=== PATIENT | female | born 2000 | race Caucasian/White ===

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

== ENCOUNTER → 2018-02-06 | Outpatient (REF) | payer OTHER | LOC: M LAB REF 16:37 | DX: J06.9 Acute upper respiratory infection, unspecified (principal) ==

== ENCOUNTER → 2018-02-19 | Outpatient (CLI) | payer OTHER ==
[2018-02-19 17:25] LABS: BASO # 0.1 10^3/uL (0.0-0.2); BASO % 0.9 % (0.0-1.0); EOS # 0.1 10^3/uL (0.0-0.50); EOS % 1.2 % (0.0-3.0); HEMOGLOBIN 15.1 g/dl (12.0-15.5); IMMATURE GRANULOCYTE % 0.2 % (0-3.0); LYMPH # 4.2 10^3/uL (1.5-6.5); LYMPH % 42.3 % (24.0-44.0); MEAN CORPUSCULAR HEMOGLOBIN 29.5 pg (27.0-33.0); MEAN CORPUSCULAR HGB CONC 35.1 g/dl (32.0-36.5); MONO # 0.5 10^3/uL (0.0-0.8); MONO % 4.5 % (0.0-5.0); NEUTROPHILS # 5.1 10^3/uL (1.8-7.7); NEUTROPHILS % 50.9 % (36.0-66.0); PLATELET COUNT, AUTOMATED 235 10^3/uL (150-450); RED BLOOD COUNT 5.12 10^6/uL (4.00-5.40); RED CELL DISTRIBUTION WIDTH 11.5 % (11.5-14.5); WHITE BLOOD COUNT 9.9 10^3/uL (4.0-10.0)
[2018-02-19 17:34] LABS: ALBUMIN 4.4 GM/DL (3.2-5.2); ALBUMIN/GLOBULIN RATIO 1.29 (1.00-1.93); ALKALINE PHOSPHATASE 51 U/L (45-117); ALT/SGPT 30 U/L (12-78); ANION GAP 10 MEQ/L (8-16); AST/SGOT 18 U/L (7-37); BILIRUBIN,TOTAL 0.3 MG/DL (0.2-1.0); BLOOD UREA NITROGEN 17 MG/DL (7-18); CALCIUM LEVEL 9.6 MG/DL (8.5-10.1); CARBON DIOXIDE LEVEL 27 MEQ/L (21-32); CHLORIDE LEVEL 103 MEQ/L (98-107); FREE T4 1.18 NG/DL (0.78-1.33); GLUCOSE, FASTING 78 MG/DL (70-100); IRON (FE) 110 UG/DL (50-170); PERCENT SATURATION 25.4 % (13.2-45.0); POTASSIUM SERUM 3.8 MEQ/L (3.5-5.1); SODIUM LEVEL 140 MEQ/L (136-145); TOTAL IRON BINDING CAPACITY 433 UG/DL (250-450); TOTAL PROTEIN 7.8 GM/DL (6.4-8.2)
== END ==
LOC: M LAB 16:02
DX: R53.83 Other fatigue (principal)
CPT/HCPCS: 83550

== ENCOUNTER → 2018-03-05 | Outpatient (REF) | payer OTHER | LOC: M SFHCLERA 13:37 | DX: L01.03 Bullous impetigo (principal) ==

== ENCOUNTER → 2018-05-04 | Outpatient (REF) | payer OTHER | LOC: M LAB REF 17:20 | PROVIDERS: ATTEND Physician Assistant | DX: N39.0 Urinary tract infection, site not specified (principal) ==

== ENCOUNTER → 2018-05-08 | Outpatient (REF) | payer OTHER | LOC: M LAB REF 12:47 | PROVIDERS: ATTEND Physician Assistant | DX: N39.0 Urinary tract infection, site not specified (principal) ==

== ENCOUNTER → 2018-05-22 | Outpatient (REF) | payer OTHER | LOC: M LAB REF 19:08 | PROVIDERS: ATTEND Physician Assistant | DX: J02.9 Acute pharyngitis, unspecified (principal) ==

== ENCOUNTER → 2018-08-29 | Outpatient (REF) | payer OTHER ==
[2018-08-29 18:07] LABS: AMORPHOUS SEDIMENT LARGE (NEGATIVE); APPEARANCE, URINE TURBID (CLEAR); BACTERIA, URINE AUTO 1+ (NEGATIVE); BILIRUBIN, URINE AUTO NEGATIVE (NEGATIVE); BLOOD, URINE BLOOD 1+ (NEGATIVE); COLOR, URINE YELLOW (YELLOW); GLUCOSE, URINE (UA) AUTO NEGATIVE (NEGATIVE); KETONE, URINE AUTO NEGATIVE (NEGATIVE); LEUKOCYTE ESTERASE, URINE AUTO 3+ (NEGATIVE); NITRITE, URINE AUTO NEGATIVE (NEGATIVE); PROTEIN, URINE AUTO NEGATIVE (NEGATIVE); RBC, URINE AUTO 5 /HPF (0-3); SPECIFIC GRAVITY URINE AUTO 1.023 (1.002-1.035); SQUAMOUS EPITHELIAL CELL UR AU 20 /HPF (0-6); WBC, URINE AUTO 22 /HPF (0-3)
== END ==
LOC: M LAB REF 16:29
PROVIDERS: ATTEND Physician Assistant
DX: N39.0 Urinary tract infection, site not specified (principal)

== ENCOUNTER → 2018-08-31 | Outpatient (REF) | payer OTHER ==
[2018-08-31 20:04] LABS: CHLAMYDIA DNA AMPLIFICATION NEGATIVE (NEGATIVE); GC DNA AMPLIFICATION NEGATIVE (NEGATIVE)
== END ==
LOC: M LAB REF 16:42
PROVIDERS: ATTEND Physician Assistant
DX: N91.2 Amenorrhea, unspecified (principal)

== ENCOUNTER → 2018-09-21 | Outpatient (CLI) | payer OTHER ==
[2018-09-21 10:50] LABS: BASO # 0.1 10^3/uL (0.0-0.2); BASO % 0.9 % (0.0-1.0); EOS # 0.1 10^3/uL (0.0-0.50); EOS % 0.8 % (0.0-3.0); HEMATOCRIT 45.6 % (36.0-47.0); HEMOGLOBIN 15.5 g/dl (12.0-15.5); LYMPH # 2.8 10^3/uL (1.5-6.5); LYMPH % 37.9 % (24.0-44.0); MEAN CORPUSCULAR HEMOGLOBIN 29.6 pg (27.0-33.0); MEAN CORPUSCULAR VOLUME 87.2 fl (80.0-96.0); MONO # 0.4 10^3/uL (0.0-0.8); MONO % 4.8 % (0.0-5.0); NEUTROPHILS # 4.1 10^3/uL (1.8-7.7); NEUTROPHILS % 55.5 % (36.0-66.0); PLATELET COUNT, AUTOMATED 160 10^3/uL (150-450); RED BLOOD COUNT 5.23 10^6/uL (4.00-5.40); WHITE BLOOD COUNT 7.5 10^3/uL (4.0-10.0)
[2018-09-21 11:13] LABS: ALBUMIN 4.5 GM/DL (3.2-5.2); ALT/SGPT 85 U/L (12-78); BILIRUBIN,TOTAL 0.6 MG/DL (0.2-1.0); BLOOD UREA NITROGEN 20 MG/DL (7-18); CALCIUM LEVEL 9.5 MG/DL (8.5-10.1); CARBON DIOXIDE LEVEL 26 MEQ/L (21-32); CHLORIDE LEVEL 109 MEQ/L (98-107); CREATININE FOR GFR 0.83 MG/DL (0.55-1.30); GLUCOSE, FASTING 73 MG/DL (70-100); SODIUM LEVEL 142 MEQ/L (136-145); TOTAL PROTEIN 7.3 GM/DL (6.4-8.2)
== END ==
LOC: M LAB 09:58
PROVIDERS: ATTEND Physician Assistant
DX: R31.9 Hematuria, unspecified (principal)

== ENCOUNTER → 2018-09-22 | Outpatient (REF) | payer OTHER ==
[2018-09-22 11:03] LABS: APPEARANCE, URINE CLEAR (CLEAR); BACTERIA, URINE AUTO NEGATIVE (NEGATIVE); BILIRUBIN, URINE AUTO NEGATIVE (NEGATIVE); BLOOD, URINE BLOOD NEGATIVE (NEGATIVE); COLOR, URINE YELLOW (YELLOW); GLUCOSE, URINE (UA) AUTO NEGATIVE (NEGATIVE); KETONE, URINE AUTO NEGATIVE (NEGATIVE); LEUKOCYTE ESTERASE, URINE AUTO NEGATIVE (NEGATIVE); MUCUS, URINE SMALL (NEGATIVE); NITRITE, URINE AUTO NEGATIVE (NEGATIVE); PROTEIN, URINE AUTO NEGATIVE (NEGATIVE); RBC, URINE AUTO 3 /HPF (0-3); SPECIFIC GRAVITY URINE AUTO 1.024 (1.002-1.035); SQUAMOUS EPITHELIAL CELL UR AU 1 /HPF (0-6); UROBILINOGEN, URINE AUTO 0.2 mg/dL (0.0-2.0); WBC, URINE AUTO 1 /HPF (0-3)
== END ==
LOC: M LAB REF 08:00
PROVIDERS: ATTEND Physician Assistant
DX: R31.9 Hematuria, unspecified (principal)

== ENCOUNTER → 2018-10-04 | Outpatient (REF) | payer OTHER ==
[2018-10-04 21:52] LABS: APPEARANCE, URINE HAZY (CLEAR); BACTERIA, URINE AUTO NEGATIVE (NEGATIVE); BILIRUBIN, URINE AUTO NEGATIVE (NEGATIVE); BLOOD, URINE BLOOD 2+ (NEGATIVE); COLOR, URINE YELLOW (YELLOW); GLUCOSE, URINE (UA) AUTO NEGATIVE (NEGATIVE); KETONE, URINE AUTO TRACE mg/dL (NEGATIVE); LEUKOCYTE ESTERASE, URINE AUTO 3+ (NEGATIVE); MUCUS, URINE SMALL (NEGATIVE); NITRITE, URINE AUTO NEGATIVE (NEGATIVE); PROTEIN, URINE AUTO NEGATIVE (NEGATIVE); RBC, URINE AUTO 9 /HPF (0-3); SPECIFIC GRAVITY URINE AUTO 1.028 (1.002-1.035); SQUAMOUS EPITHELIAL CELL UR AU 12 /HPF (0-6); UROBILINOGEN, URINE AUTO 0.2 mg/dL (0.0-2.0); WBC, URINE AUTO 38 /HPF (0-3)
== END ==
LOC: M LAB REF 09:54
PROVIDERS: ATTEND Physician Assistant
DX: N39.0 Urinary tract infection, site not specified (principal)

== ENCOUNTER → 2018-10-08 | Outpatient (CLI) | payer OTHER ==
[2018-10-08 13:17] LABS: BASO # 0.1 10^3/uL (0.0-0.2); BASO % 0.7 % (0.0-1.0); EOS # 0.1 10^3/uL (0.0-0.50); EOS % 0.6 % (0.0-3.0); HEMATOCRIT 42.1 % (36.0-47.0); HEMOGLOBIN 14.6 g/dl (12.0-15.5); LYMPH # 2.8 10^3/uL (1.5-6.5); LYMPH % 31.3 % (24.0-44.0); MEAN CORPUSCULAR HEMOGLOBIN 29.3 pg (27.0-33.0); MEAN CORPUSCULAR HGB CONC 34.7 g/dl (32.0-36.5); MEAN CORPUSCULAR VOLUME 84.5 fl (80.0-96.0); MONO # 0.4 10^3/uL (0.0-0.8); MONO % 4.2 % (0.0-5.0); NEUTROPHILS # 5.6 10^3/uL (1.8-7.7); PLATELET COUNT, AUTOMATED 172 10^3/uL (150-450); RED BLOOD COUNT 4.98 10^6/uL (4.00-5.40); WHITE BLOOD COUNT 8.9 10^3/uL (4.0-10.0)
[2018-10-08 13:40] LABS: ALBUMIN 4.6 GM/DL (3.2-5.2); ALT/SGPT 44 U/L (12-78); BILIRUBIN,TOTAL 0.7 MG/DL (0.2-1.0); BLOOD UREA NITROGEN 14 MG/DL (7-18); CALCIUM LEVEL 9.4 MG/DL (8.5-10.1); CARBON DIOXIDE LEVEL 27 MEQ/L (21-32); CHLORIDE LEVEL 104 MEQ/L (98-107); COMPLEMENT C3 91 MG/DL (90-180); COMPLEMENT C4 21 MG/DL (10-40); CREATININE FOR GFR 0.78 MG/DL (0.55-1.30); GLUCOSE, FASTING 88 MG/DL (70-100); HCG, SERUM QUANTITATIVE 31 MIU/ML; IMMUNOGLOBULIN A 66.1 MG/DL (70-400); POTASSIUM SERUM 4.2 MEQ/L (3.5-5.1); RHEUMATOID FACTOR QUANT < 10.0 IU/ML (<15.0); SODIUM LEVEL 138 MEQ/L (136-145); TOTAL PROTEIN 7.6 GM/DL (6.4-8.2)
[2018-10-08 13:52] LABS: ERYTHROCYTE SEDIMENTATION RATE 2 mm/hr (0-20)
--- NOTE | 2018-10-08 13:52 | REP ---
PELVIC ULTRASOUND: Real-time sonographic evaluation of the pelvis performed. Transabdominal and endovaginal technique utilized. Uterus measures 7.5 x 2.9 x 3.1 cm. Endometrial thickness is 11 mm. No gestational sac is seen in the uterus. Right ovary measures 2.9 x 1.6 x 2.6 cm. Left ovary measures 4.0 x 3.9 x 4.6 cm and contains a complex cyst 4.4 x 3.5 x 3.4 cm. There is no other evidence of adnexal mass or free fluid. There is no torsion. IMPRESSION: No gestational sac seen in the endometrial canal. Complex cyst left ovary 4.4 cm in maximum diameter without other evidence of adnexal mass or free fluid. Differential diagnosis would include very early intrauterine , missed AB, or ectopic . Suggest correlation with serial quantitaive beta hCG values, and followup ultrasound as necessary. Electronically Signed by Clifton Rock MD 10/09/2018 11:36 A
[2018-10-08 14:05] LABS: AMORPHOUS SEDIMENT LARGE (NEGATIVE); APPEARANCE, URINE TURBID (CLEAR); BACTERIA, URINE AUTO NEGATIVE (NEGATIVE); BILIRUBIN, URINE AUTO NEGATIVE (NEGATIVE); BLOOD, URINE BLOOD 1+ (NEGATIVE); COLOR, URINE YELLOW (YELLOW); GLUCOSE, URINE (UA) AUTO NEGATIVE (NEGATIVE); KETONE, URINE AUTO NEGATIVE (NEGATIVE); LEUKOCYTE ESTERASE, URINE AUTO NEGATIVE (NEGATIVE); MUCUS, URINE LARGE (NEGATIVE); NITRITE, URINE AUTO NEGATIVE (NEGATIVE); PROTEIN, URINE AUTO NEGATIVE (NEGATIVE); RBC, URINE AUTO 0 /HPF (0-3); SQUAMOUS EPITHELIAL CELL UR AU 1 /HPF (0-6); UROBILINOGEN, URINE AUTO 0.2 mg/dL (0.0-2.0); WBC, URINE AUTO 0 /HPF (0-3)
[2018-10-10 00:08] LABS: ANTINUCLEAR ANTIBODIES DIRECT Negative (Negative); TISSUE TRANSGLUTAMINASE IgA <2 U/mL (0-3)
== END ==
LOC: M RAD 11:57
PROVIDERS: ATTEND Pediatrics
DX: R10.30 Lower abdominal pain, unspecified (principal); M25.50 Pain in unspecified joint

== ENCOUNTER → 2018-10-30 | Outpatient (REF) | payer OTHER ==
[2018-10-30 18:02] LABS: URINE PREG TEST INDETERM. (NEGATIVE)
[2018-10-30 18:10] LABS: APPEARANCE, URINE HAZY (CLEAR); BACTERIA, URINE AUTO 1+ (NEGATIVE); BILIRUBIN, URINE AUTO NEGATIVE (NEGATIVE); BLOOD, URINE BLOOD 1+ (NEGATIVE); COLOR, URINE YELLOW (YELLOW); GLUCOSE, URINE (UA) AUTO NEGATIVE (NEGATIVE); KETONE, URINE AUTO NEGATIVE (NEGATIVE); LEUKOCYTE ESTERASE, URINE AUTO NEGATIVE (NEGATIVE); MUCUS, URINE SMALL (NEGATIVE); NITRITE, URINE AUTO NEGATIVE (NEGATIVE); PROTEIN, URINE AUTO NEGATIVE (NEGATIVE); RBC, URINE AUTO 1 /HPF (0-3); SPECIFIC GRAVITY URINE AUTO 1.029 (1.002-1.035); SQUAMOUS EPITHELIAL CELL UR AU 2 /HPF (0-6); UROBILINOGEN, URINE AUTO 0.2 mg/dL (0.0-2.0); WBC, URINE AUTO 0 /HPF (0-3)
== END ==
LOC: M SMT 16:55
PROVIDERS: ATTEND Nurse Practitioner Family
DX: R31.29 Other microscopic hematuria (principal)

== ENCOUNTER → 2018-11-08 | Outpatient (CLI) | payer OTHER | LOC: M SMT 13:05 | PROVIDERS: ATTEND Nurse Practitioner Family | DX: R31.29 Other microscopic hematuria (principal) ==

== ENCOUNTER → 2018-11-16 | Outpatient (CLI) | payer OTHER ==
[~2018-11-16] MED LIST: ISOVUE-370 76% 100ML VIAL (Q9967) As Ordered ONE
--- NOTE | 2018-11-16 12:40 | REP ---
CT urography: CT abdomen and pelvis without and with IV contrast: History: Microscopic hematuria. Comparison CT study June 20, 2009. CT contrast dose: 100 mL of intravenous Isovue 370. CT findings: Preliminary digital insight leader radiograph demonstrates an unremarkable bowel gas pattern. The lung bases are clear on axial CT images. The liver and the spleen are normal in size and homogeneous in texture on pre and postcontrast images. No adrenal lesion is seen on either side. No abnormalities noted in the gallbladder or the pancreas on pre or postcontrast CT images. No intrarenal nephrolithiasis is appreciated. No hydronephrosis is seen. Kidneys enhance symmetrically and are morphologically intact. No mass or cyst is seen in either kidney. Delayed scan images postcontrast demonstrate no filling defect in the collecting systems. Ureters are unremarkable. There is no visible bladder mass. No uterine or ovarian abnormality is observed. No abdominal wall defect is seen. No abdominal wall defect is seen. Bone window settings show no bony destructive lesion. Impression: Normal CT urography. No urinary tract abnormality seen. Electronically Signed by Alexis Gary MD 11/16/2018 01:05 P
== END ==
LOC: M RAD 09:21
PROVIDERS: ATTEND Nurse Practitioner Family
DX: R31.9 Hematuria, unspecified (principal)

== ENCOUNTER → 2019-02-27 | Outpatient (REF) | payer OTHER | LOC: M LAB REF 12:12 | PROVIDERS: ATTEND Physician Assistant | DX: R10.9 Unspecified abdominal pain (principal) ==

== ENCOUNTER → 2020-04-20 | Outpatient (CLI) | payer SELFPAY | LOC: M LABSMTC 12:36 | PROVIDERS: ATTEND Pediatrics | DX: Z20.828 Contact with and (suspected) exposure to other viral communicable diseases (principal) ==

== ENCOUNTER → 2020-05-15 | Outpatient (CLI) | payer OTHER, BC ==
[2020-05-15 11:42] LABS: HEMATOCRIT 40.7 % (36.0-47.0); HEMOGLOBIN 13.8 g/dl (12.0-15.5); MEAN CORPUSCULAR HEMOGLOBIN 29.2 pg (27.0-33.0); MEAN CORPUSCULAR HGB CONC 33.9 g/dl (32.0-36.5); MEAN CORPUSCULAR VOLUME 86.2 fl (80.0-96.0); PLATELET COUNT, AUTOMATED 217 10^3/uL (150-450); RED BLOOD COUNT 4.72 10^6/uL (4.00-5.40); WHITE BLOOD COUNT 9.5 10^3/uL (4.0-10.0)
[2020-05-15 13:12] LABS: FREE THYROXINE INDEX 3.4 % (1.3-4.8); HCG, SERUM QUANTITATIVE 33588 MIU/ML; HEPATITIS B SURFACE ANTIGEN NEGATIVE (NEGATIVE); HEPATITIS C VIRUS ABY INDEX < 0.0 INDEX (<0.8); HIV 1&2 SCREEN CENTAUR NEGATIVE (NEGATIVE); T UPTAKE 29 % (30-39); THYROXINE (T4) 11.7 UG/DL (4.5-12.0)
== END ==
LOC: M LAB 10:42
PROVIDERS: ATTEND Advanced Practice Midwife
DX: Z34.81 Encounter for supervision of other normal pregnancy, first trimester (principal); Z3A.00 Weeks of gestation of pregnancy not specified

== ENCOUNTER → 2020-05-15 | Outpatient (REF) | payer OTHER | LOC: M LAB REF 12:19 | PROVIDERS: ATTEND Advanced Practice Midwife | DX: O36.80X0 Pregnancy with inconclusive fetal viability, not applicable or unspecified (principal) ==

== ENCOUNTER → 2020-05-21 | Outpatient (CLI) | payer BC ==
--- NOTE | 2020-05-21 09:12 | REP ---
INDICATION: DATING/VIABILITY COMPARISON: None. TECHNIQUE: Transabdominal and transvaginal 1st trimester obstetrical ultrasound with color Doppler evaluation. FINDINGS: Single live early intrauterine is appreciated. Gestational sac with yolk sac and pole identified. [place]-rump length of 13 mm corresponds to 7 weeks 3 days gestational age with estimated date of delivery 01/04/2021. heart rate equals 152 beats per minute. No gross abnormalities are identified. Left corpus luteal cyst suggested. IMPRESSION: Single live early intrauterine at 7 weeks 3 days gestational age. Complete anatomical assessment should be performed and 19-20 weeks. <Electronically signed by Heath Ford > 05/21/20 0992
== END ==
LOC: M WHC 07:55
PROVIDERS: ATTEND Advanced Practice Midwife
DX: Z36.9 Encounter for antenatal screening, unspecified (principal); Z3A.01 Less than 8 weeks gestation of pregnancy

== ENCOUNTER → 2020-06-04 | Outpatient (REF) | LOC: M LABSMTC 12:00 | PROVIDERS: ATTEND Pediatrics | DX: Z20.822 Contact with and (suspected) exposure to COVID-19 (principal) ==

== ENCOUNTER → 2020-07-08 | Outpatient (REF) | payer OTHER ==
[2020-07-08 11:34] LABS: APPEARANCE, URINE HAZY (CLEAR); BACTERIA, URINE AUTO 1+ (NEGATIVE); BILIRUBIN, URINE AUTO NEGATIVE (NEGATIVE); BLOOD, URINE BLOOD 2+ (NEGATIVE); COLOR, URINE YELLOW (YELLOW); GLUCOSE, URINE (UA) AUTO NEGATIVE (NEGATIVE); KETONE, URINE AUTO NEGATIVE (NEGATIVE); LEUKOCYTE ESTERASE, URINE AUTO NEGATIVE (NEGATIVE); MUCUS, URINE LARGE (NEGATIVE); NITRITE, URINE AUTO NEGATIVE (NEGATIVE); PROTEIN, URINE AUTO 1+ mg/dL (NEGATIVE); RBC, URINE AUTO 5 /HPF (0-3); SPECIFIC GRAVITY URINE AUTO 1.026 (1.002-1.035); SQUAMOUS EPITHELIAL CELL UR AU 12 /HPF (0-6); UROBILINOGEN, URINE AUTO 0.2 mg/dL (0.0-2.0); WBC, URINE AUTO 3 /HPF (0-3)
== END ==
LOC: M SFHCCLAY 09:02
PROVIDERS: ATTEND Physician Assistant
DX: O26.891 Other specified pregnancy related conditions, first trimester (principal); M54.5 Low back pain; Z3A.14 14 weeks gestation of pregnancy

== ENCOUNTER → 2020-08-03 | Outpatient (CLI) | payer BC, OTHER ==
--- NOTE | 2020-08-04 08:06 | REP ---
INDICATION: ANATOMY COMPARISON: None. TECHNIQUE: Transabdominal obstetrical ultrasound with color Doppler evaluation. FINDINGS: Examination demonstrates a single live intrauterine in variable presentation. motion is identified by technologist. Placenta previa is noted with posterior placenta and grade 0 partially covering the internal os. Amniotic fluid volume is normal. Cervix measures 3.8 cm in length and appears closed.. Gestational age by LMP and 1st ultrasound 18 weeks 1 day with DOMONIQUE 01/03/2021. Gestational age by current measurements 18 weeks 1 day with DOMONIQUE 01/03/2021. FHR equals 140 beats per minute. BPD: 3.9 cm at 18 weeks 0 days HC: 14.9 cm at 18 weeks 0 days AC: 12.5 cm at 18 weeks 1 day FL: 2.7 cm at 18 weeks 0 days HL: 2.7 cm at 18 weeks 5 days HC/AC: 1.19 Estimated weight 222 grams (40thpercentile). Anatomical assessment demonstrates normal structures including cranium, choroid plexus, cavum, cerebellum/posterior fossa, facial features, lungs, four-chamber heart/ventricular outflow tracts, diaphragm, stomach, cord insertion/three-vessel cord, kidneys/bladder, spine, and extremities. Echogenic focus identified within the left cardiac ventricle likely chordae tendineae. IMPRESSION: 1. Single live intrauterine in variable presentation. 2. Partial placenta previa with posterior grade 0 placenta. 3. Suspected prominent chordae tendineae. Otherwise normal anatomical assessment. <Electronically signed by Heath Ford > 08/04/20 [id number]
== END ==
LOC: M WHC 09:12
PROVIDERS: ATTEND Obstetrics & Gynecology
DX: Z36.9 Encounter for antenatal screening, unspecified (principal); Z3A.18 18 weeks gestation of pregnancy

== ENCOUNTER → 2020-08-10 | Outpatient (CLI) | payer BC, OTHER | LOC: M PLALAB 09:15 | PROVIDERS: ATTEND Advanced Practice Midwife | DX: O28.5 Abnormal chromosomal and genetic finding on antenatal screening of mother (principal); O28.3 Abnormal ultrasonic finding on antenatal screening of mother; Z3A.00 Weeks of gestation of pregnancy not specified ==

== ENCOUNTER → 2020-09-22 | Outpatient (REF) | payer BC, OTHER | LOC: M SFHCWAGY 16:42 | PROVIDERS: ATTEND Obstetrics & Gynecology | DX: O44.22 Partial placenta previa NOS or without hemorrhage, second trimester (principal); Z3A.00 Weeks of gestation of pregnancy not specified ==

== ENCOUNTER → 2020-09-30 | Outpatient (REF) | payer OTHER ==
[2020-09-30 13:26] LABS: HEMATOCRIT 35.5 % (36.0-47.0); HEMOGLOBIN 11.6 g/dl (12.0-15.5); MEAN CORPUSCULAR HEMOGLOBIN 29.4 pg (27.0-33.0); MEAN CORPUSCULAR HGB CONC 32.7 g/dl (32.0-36.5); MEAN CORPUSCULAR VOLUME 89.9 fl (80.0-96.0); PLATELET COUNT, AUTOMATED 185 10^3/uL (150-450); RED BLOOD COUNT 3.95 10^6/uL (4.00-5.40); WHITE BLOOD COUNT 12.3 10^3/uL (4.0-10.0)
== END ==
LOC: M PLALAB 09:04
PROVIDERS: ATTEND Specialist
DX: Z34.02 Encounter for supervision of normal first pregnancy, second trimester (principal); Z3A.00 Weeks of gestation of pregnancy not specified

== ENCOUNTER → 2020-11-04 | Outpatient (CLI) | payer BC ==
[~2020-11-04] MED LIST changes: -ISOVUE-370 76% 100ML VIAL (Q9967) As Ordered ONE; +NITR-67 PO; +PRENTAB9 PO
--- NOTE | 2020-11-04 09:50 | REP ---
INDICATION: GROWTH,PARTIAL PLACENTA PREVIA COMPARISON: None. TECHNIQUE: Transabdominal obstetrical ultrasound with color Doppler evaluation. FINDINGS: Examination demonstrates a single live intrauterine in cephalic presentation. motion is identified by technologist. Placenta is noted posterior and grade 1 without evidence for placenta previa or abruption. Amniotic fluid volume is normal. Cervix measures 3.9 cm in length and appears closed. Current examination without evidence for placenta previa. Selected gestational age: 31 weeks 3 days with DOMONIQUE 01/03/2021. Gestational age by current measurements 32 weeks 0 days with DOMONIQUE 12/30/2020. FHR equals 146 beats per minute. Estimated weight 1888 grams (59thpercentile). LEESA: 16.1 cm (8.7-24.0) IMPRESSION: Normal examination. No evidence for placenta previa. Appropriate estimated weight/growth and amniotic fluid volume. <Electronically signed by Heath Ford > 11/04/20 [id number]
== END ==
LOC: M WHC 08:24
PROVIDERS: ATTEND Specialist
DX: O44.22 Partial placenta previa NOS or without hemorrhage, second trimester (principal); Z3A.31 31 weeks gestation of pregnancy

== ENCOUNTER 2020-11-08 10:10 | Outpatient (CLI) | payer BC ==
[~2020-11-08] VITALS: Ht 154.9 cm; Wt 67.5 kg
[2020-11-08] MEDS ORDERED: PRENTAB9 PO (10:36)
[2020-11-08 10:40] VITALS: BP 122/79
[2020-11-08] MEDS ORDERED: LR 1,000 ML IV ONE (10:50)
[2020-11-08] MEDS ORDERED: LR 1,000 ML IV SCH (12:25)
[2020-11-08] MEDS ORDERED: LACTATED RINGER'S 1000 ML IV STA (12:46)
--- NOTE | 2020-11-08 12:50 | IPNPDOC ---
Text Note Date of Service The patient was seen on 11/08/20. NOTE Labor and Delivery Triage Note: S: 20yo at 32w0d diarrhea and nausea for 3 days. She reports 5-6 loose stools today and at least 6 yesterday. She's been able to tolerate by mouth following solid food she'll have a bout of diarrhea. Denies fever or chills,con tractions ,vaginal bleeding or LOF. Reports active movement. O: vss, AF initially with contractions on tocometer Cat 1 tracing Gen: well appearing, NAD Abd: gravid, soft, nttp cx: long/ closed, rechecked unchanged after 3 hours FSN was negative Urinalysis consistent with cystitis A/P: 20yo not in PTL reassuring status UTI -home with PTL precautions and FKCs. -f/u at next OB appt Janna Canseco MD VS,Vinod, I+O VS, Vinod, I+O Vital Signs Date Time Temp Pulse Resp B/P (MAP) Pulse Ox O2 Delivery O2 Flow Rate FiO2 11/08/20 10:40 98.5 105 16 122/79 (93) JANNA CANSECO MD. Nov 08, 2020 12:50
[2020-11-08] MEDS ORDERED: TERBUTALINE SULFATE 1 MG/ML VIAL (J3105) SC STA (14:06)
[2020-11-08 14:30] VITALS: BP 110/63
[2020-11-08] MEDS ORDERED: cefTRIAXone SOD 1 GM in D5W MINI-BAG PLUS 50 ML IV ONE (15:15)
[2020-11-08 17:35] VITALS: BP 110/57
[2020-11-08] MEDS ORDERED: NITR-67 PO (18:10)
== END 2020-11-08 18:15 | disposition home or self-care (01) ==
LOC: M LDO 10:10
PROVIDERS: ATTEND Obstetrics & Gynecology
DX: O26.893 Other specified pregnancy related conditions, third trimester (principal); Z3A.32 32 weeks gestation of pregnancy; R11.0 Nausea; R19.7 Diarrhea, unspecified; O23.43 Unspecified infection of urinary tract in pregnancy, third trimester
CPT/HCPCS: 59025; 81001; 82731; 87086; 96361; 96365; 96366; 96372; G0378; G0463; J0696; J3105

== ENCOUNTER → 2020-12-04 | Outpatient (REF) | payer OTHER ==
[2020-12-04 15:31] LABS: APPEARANCE, URINE HAZY (CLEAR); BACTERIA, URINE AUTO 1+ (NEGATIVE); BILIRUBIN, URINE AUTO NEGATIVE (NEGATIVE); BLOOD, URINE BLOOD NEGATIVE (NEGATIVE); COLOR, URINE YELLOW (YELLOW); GLUCOSE, URINE (UA) AUTO NEGATIVE (NEGATIVE); KETONE, URINE AUTO NEGATIVE (NEGATIVE); LEUKOCYTE ESTERASE, URINE AUTO 2+ (NEGATIVE); NITRITE, URINE AUTO NEGATIVE (NEGATIVE); PROTEIN, URINE AUTO NEGATIVE (NEGATIVE); RBC, URINE AUTO 2 /HPF (0-3); SPECIFIC GRAVITY URINE AUTO 1.005 (1.002-1.035); SQUAMOUS EPITHELIAL CELL UR AU 6 /HPF (0-6); UROBILINOGEN, URINE AUTO 0.2 mg/dL (0.0-2.0); WBC, URINE AUTO 4 /HPF (0-3)
== END ==
LOC: M SFHCWAGY 15:00
PROVIDERS: ATTEND Advanced Practice Midwife
DX: R30.0 Dysuria (principal)

== ENCOUNTER 2020-12-08 21:52 | Outpatient (CLI) | payer OTHER ==
[~2020-12-08] VITALS: Ht 152.4 cm; Wt 72.2 kg
[2020-12-08] MEDS ORDERED: HOME MED LIST COMPLETE! XX SCH (22:25)
--- NOTE | 2020-12-08 22:26 | IPNPDOC ---
Text Note Date of Service The patient was seen on 12/08/20. NOTE Labor and Delivery Triage Note: S: 20-year-old G1 presents with decreased movement at 36 weeks. Denies any vaginal bleeding leakage of fluids or regular pattern contractions. O: vss, AF irregular ctx Cat 1 tracing Gen: well appearing, NAD Abd: gravid, soft, nttp -Reports active movement once on the nonstress test A/P: 20-year-old G1 with reassuring status -home with PTL precautions and FKCs. -f/u at next OB appt MD AMANDA Yi KENYA MD. Dec 08, 2020 22:26
[2020-12-08 22:28] VITALS: BP 120/70
== END 2020-12-08 22:38 | disposition home or self-care (01) ==
LOC: M LDO 21:52
PROVIDERS: ATTEND Obstetrics & Gynecology
DX: O36.8130 Decreased fetal movements, third trimester, not applicable or unspecified (principal); Z3A.36 36 weeks gestation of pregnancy
CPT/HCPCS: 59025; G0378; G0463

== ENCOUNTER → 2020-12-14 | Outpatient (REF) | payer OTHER | LOC: M SFHCWAGY 13:01 | PROVIDERS: ATTEND Obstetrics & Gynecology | DX: Z34.83 Encounter for supervision of other normal pregnancy, third trimester (principal); Z3A.37 37 weeks gestation of pregnancy ==

== ENCOUNTER → 2020-12-14 | Outpatient (CLI) | payer OTHER | LOC: M WHC 08:38 | PROVIDERS: ATTEND Obstetrics & Gynecology | DX: Z53.9 Procedure and treatment not carried out, unspecified reason (principal) ==

== ENCOUNTER 2020-12-16 21:35 | Outpatient (CLI) | payer OTHER ==
--- NOTE | 2020-12-17 06:15 | IPN ---
PROGRESS NOTE DATE: 12/16/2020 SUBJECTIVE: Evelyn is a 20-year-old 2 para 0-0-1-0 at 37 and 3/7th weeks, EDC of 01/03/2021 based on last period and confirmed by first trimester ultrasound. She presents to Labor and Delivery with a complaint of possible gush of fluid at approximately 2100. She does report she also had intercourse at approximately 1700 tonight. She denies vaginal bleeding and painful contractions. She does report some mild cramping. Her care was initiated at [facility] and [facility] in the first trimester. The course was complicated by a history of celiac disease and an early placenta previa that resolved by 11/04/2020. OBSTETRIC LABS: A positive, antibody screen negative, syphilis is nonreactive, gonorrhea and chlamydia negative, rubella immune, hepatitis B negative, hepatitis C negative, HIV negative, gestational diabetic screening normal at 90. Urine culture no growth. Her GBS is pending at this time. OBSTETRIC HISTORY: Primigravida. MEDICAL HISTORY: HSV, celiac disease, cryptosporidium history, recurrent UTI. PAST SURGICAL HISTORY: Tonsillectomy, adenoidectomy, a cyst removed from the right hand, cystoscopy and wisdom tooth extraction. FAMILY HISTORY: Reflux, prostate cancer, pancreatic cancer and melanoma. SOCIAL HISTORY: The patient is . She is a nonsmoker. She denies alcohol use and drug use. No history of sexually transmitted infections. She denies a history of abuse, physical, sexual and emotional. OBJECTIVE: heart rate is 140 with moderate variability, positive accelerations, negative decelerations, abdomen is gravid, cephalic presentation, estimated weight 6.5 pounds. Sterile speculum exam: Negative Valsalva, positive Nitrazine, positive semen and negative ferning, contractions mild every 4 to 6 minutes. Sterile vaginal exam: 1 cm dilated, 50% effaced, ballottable moderate texture, no show. ASSESSMENT: Intrauterine at 37 and 3 weeks, heart rate Category 1, not ruptured. PLAN: Discharged the patient home, she is to follow-up at [facility] for her usual care appointment. I reviewed signs and symptoms of labor, movement and danger signs. I reviewed access to care. Patient and her 's questions have been answered and they do desire discharge home.
== END 2020-12-16 23:00 | disposition home or self-care (01) ==
LOC: M LDO 21:35
PROVIDERS: ATTEND Advanced Practice Midwife
DX: Z34.83 Encounter for supervision of other normal pregnancy, third trimester (principal); Z3A.37 37 weeks gestation of pregnancy
CPT/HCPCS: 59025; G0378; G0463

== ENCOUNTER → 2020-12-23 | Outpatient (CLI) | payer BC ==
--- NOTE | 2020-12-23 14:54 | REP ---
INDICATION: UTERINE SIZE DATE DISCREPANCY,GROWTH COMPARISON: 11/04/2020 TECHNIQUE: Transabdominal obstetrical ultrasound with color Doppler evaluation. FINDINGS: Limited examination demonstrates a single live intrauterine in cephalic presentation. motion is identified by technologist. Placenta is noted posterior and grade 3 without evidence for placenta previa or abruption. Amniotic fluid volume is normal. Selected gestational age: 30 weeks 3 days with DOMONIQUE 01/03/2021. Gestational age by current measurements 37 weeks 1 day with DOMONIQUE 01/12/2021. FHR equals 139 beats per minute. Estimated weight 3187 grams (38thpercentile). Amniotic fluid index: 12.0 cm Umbilical artery SD ratio: 2.08 IMPRESSION: Single live advanced gestation in cephalic presentation demonstrating appropriate estimated weight/growth. Amniotic fluid index is normal. <Electronically signed by Heath Ford > 12/23/20 [id number]
== END ==
LOC: M WHC 12:50
PROVIDERS: ATTEND Obstetrics & Gynecology
DX: Z36.9 Encounter for antenatal screening, unspecified (principal); Z3A.37 37 weeks gestation of pregnancy

== ENCOUNTER 2020-12-31 06:13 | Inpatient (IN) | payer BC, OTHER ==
[2020-12-31] VITALS (39 sets, daily range): BP systolic 98–142; BP diastolic 53–91
[~2020-12-31] VITALS: Ht 152.4 cm; Wt 73.9 kg
[2020-12-31] MEDS ORDERED: ceFAZolin SOD 2 GM in IV 1 EA IV STA (07:05)
[2020-12-31] MEDS ORDERED: LR 1,000 ML IV SCH ×2 (07:05→12:55)
[2020-12-31] MEDS ORDERED: LIDOCAINE 1% MDV 20ML VIAL INFIL PRN (07:05)
[2020-12-31] MEDS ORDERED: OXYTOCIN DRIP 30 UNITS in IV 1 EA IV PRN (07:05)
[2020-12-31] MEDS ORDERED: METHYLERGONOVINE MALEATE 0.2 MG/ML VIAL (J2210) IM PRN (07:05)
[2020-12-31] MEDS ORDERED: OXYTOCIN INJ 10 UNITS/ML VIAL (J2590) IM PRN (07:05)
[2020-12-31 08:18] LABS: HEMATOCRIT 35.6 % (36.0-47.0); HEMOGLOBIN 11.8 g/dl (12.0-15.5); MEAN CORPUSCULAR HEMOGLOBIN 27.2 pg (27.0-33.0); MEAN CORPUSCULAR HGB CONC 33.1 g/dl (32.0-36.5); PLATELET COUNT, AUTOMATED 204 10^3/uL (150-450); RED BLOOD COUNT 4.34 10^6/uL (4.00-5.40); WHITE BLOOD COUNT 17.6 10^3/uL (4.0-10.0)
--- NOTE | 2020-12-31 08:23 | HPE ---
HISTORY AND PHYSICAL DATE OF ADMISSION: 12/31/2020 HISTORY OF PRESENT ILLNESS: Evelyn is a 20-year-old 2 para 0-0-1-0 at 39 and 4/7th weeks gestation, EDC of 01/03/2021 based on first trimester ultrasound. She presents to Labor and Delivery today with a report of onset of uncomfortable contractions that started at approximately 2100 and became increasingly closer together and more painful. She denies leakage of fluid. She does report some scant bloody show. The fetus has been active. care was initiated at [facility] in the first trimester. course complicated by a history of celiac disease. She had a partial placenta previa that resolved. OBSTETRIC HISTORY: In 2019: 8 weeks, missed . OBSTETRIC LABS: A positive, antibody screen negative, syphilis negative, gonorrhea and chlamydia negative. Hepatitis B surface antibody negative. Hepatitis C antibody non-reactive, HIV nonreactive. Rubella immune. Gestational diabetic screening normal at 90 and GBS is positive. PAST MEDICAL HISTORY: HSV, celiac disease, Campylobacter jejuni, cryptosporidium recurrent UTI, right knee fibrous cortical defect. PAST SURGICAL HISTORY: Tonsillectomy, adenoidectomy. Cyst removal from middle finger of right hand, cystoscopy and wisdom tooth extraction. FAMILY HISTORY: Prostate cancer, GERD. SOCIAL HISTORY: The patient is . Her is at bedside. She is a nonsmoker. Denies alcohol and drug use. History of HSV. 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 She denies a history of abuse, physical, sexual or emotional. ALLERGIES: Amoxicillin which causes hives, sulfa causes hives, Motrin causes hives and gluten causes back pain. OBJECTIVE: Blood pressure 125/82. She is alert and oriented x3. She does appear mildly uncomfortable with her contractions. The heart rate is 140 with moderate variability, positive accelerations, negative decelerations, contractions are every 2 to 4 minutes, they palpate moderate. Sterile vaginal exam: 4 cm dilated, 80% effaced, -2 station, mid position, normal show. ASSESSMENT: Intrauterine at 39 and 4/7th weeks, heart rate Category 1, active labor. PLAN: Admit the patient to Labor and Delivery, out of bed ad bhaskar. Start antibiotics for GBS prophylaxis at this time, routine laboratories. The patient at this time desires to cope with her labor physiologically. Epidural consult has been ordered if needed. I do not anticipate continued labor progress and a spontaneous vaginal delivery. The patient has been verbally consented for emergency surgery and blood products if they are necessary.
[2020-12-31] MEDS ORDERED: BUTORPHANOL 2 MG/ML INJ (J0595) IV ONE (10:40)
[2020-12-31] MEDS ORDERED: PROMETHAZINE INJ 25 MG/ML VIAL (J2550) IV ONE (10:40)
[2020-12-31] MEDS ORDERED: OXYTOCIN DRIP 30 UNITS in IV 1 EA IV SCH (12:55)
[2020-12-31] MEDS ORDERED: LR 800 ML IV ONE (15:50)
[2020-12-31] MEDS ORDERED: ceFAZolin SOD 1 GM in D5W MINI-BAG PLUS 50 ML IV SCH (16:00)
[2020-12-31] MEDS ORDERED: FENTANYL 2MCG/ML ROPIVACAINE 0.2% IN 0.9% NACL 100ML IVBAG As Ordered ONE (17:00)
[2020-12-31] MEDS ORDERED: ePHEDrine SULFATE 25 MG/5 ML(5MG/ML) SYRINGE IV PRN (17:20)
[2020-12-31] MEDS ORDERED: LACTATED RINGER'S 1000 ML IV PRN (17:20)
[2020-12-31] MEDS ORDERED: ONDANSETRON 4MG/2ML VIAL IV PRN (17:20)
[2020-12-31] MEDS ORDERED: FENTANYL/ROPIVACAINE/NACL BAG 100 ML EPIDURAL SCH (17:20)
[2020-12-31] MEDS ORDERED: diphenhydrAMINE 50MG/ML VIAL (J1200) IV PRN (17:20)
[2020-12-31] MEDS ORDERED: REFRIGERATOR IV KEYS XX PRN (17:20)
[2020-12-31] MEDS ORDERED: EPIDURAL COMMENT XX SCH (17:20)
[2020-12-31] MEDS ORDERED: EPIDURAL/PCA KEYS XX PRN (17:20)
[2020-12-31] MEDS ORDERED: NALOXONE INJ 0.4MG/1ML VIAL (J2310 PER 1MG) IV PRN (17:20)
[2021-01-01] VITALS (10 sets, daily range): BP systolic 108–147; BP diastolic 55–68
[2021-01-01] MEDS ORDERED: MEASLES,MUMPS,RUBELLA VACCINE INJ (MMR-II) (90707) SC SCH (00:05)
[2021-01-01] MEDS ORDERED: DOCUSATE SODIUM 100MG CAPSULE PO PRN (00:05)
[2021-01-01] MEDS ORDERED: ACETAMINOPHEN 500 MG TAB PO PRN (00:05)
[2021-01-01] MEDS ORDERED: OXYTOCIN DRIP 30 UNITS in IV 1 EA IV ONE (00:05)
[2021-01-01] MEDS ORDERED: RHOGAM 300 MCG (1500 IU) INJ (J2790) IM SCH (00:05)
[2021-01-01] MEDS ORDERED: METHYLERGONOVINE MALEATE 0.2 MG TAB PO PRN (00:05)
--- NOTE | 2021-01-01 00:18 | DNPDOC ---
[facility] Delivery Note Delivery Note DATE OF DELIVERY: December 31, 2020 PREDELIVERY DIAGNOSIS: 39-4/7 weeks' gestation and labor. POST DELIVERY DIAGNOSIS: Delivered. PROCEDURE: Spontaneous vaginal delivery. FISHING MANAGER: Dr. Duke Martins MD ANESTHESIA: Epidural. ESTIMATED BLOOD LOSS: 400 mL. FINDINGS: 7 pound 7 ounce female , Score 8/9. DELIVERY SUMMARY: Patient is a 20-year-old 1 now para 1 who was admitted to labor and delivery for contractions. She was found to be in labor at 4 cm dilated on admission. She received Pitocin augmentation. She received an epidural for anesthesia. She progressed to become fully dilated. After a 45- minute second stage of labor she had spontaneous vaginal delivery of a female . There was no nuchal cord. Shoulders delivered with ease. The infant was handed to the mother. The cord was doubly clamped and cut. The placenta delivered spontaneously and appeared to be intact. The patient received IV Pitocin immediately after delivery of the placenta. A first-degree perineal laceration was repaired with 2-0 chromic suture. Sponge and needle counts were correct. DUKE MARTINS MD Jan 01, 2021 00:18
[2021-01-01] MEDS: PRENATAL VITAMINS CHEWABLE TABLET PO SCH (08:11)
--- NOTE | 2021-01-01 08:43 | IPNPDOC ---
Text Note Date of Service The patient was seen on 01/01/21. NOTE PP #1 Feels well. Adequate pain management. Voiding VSS, afebrile, normotensive Breasts soft Fundus firm, NT, down 1 FB Lochia rubra light without odor Perineum intact PP #1 Routine care. Anticipate D/C in am VS,Fishbone, I+O VS, Fishbone, I+O Vital Signs Date Time Temp Pulse Resp B/P (MAP) Pulse Ox O2 Delivery O2 Flow Rate FiO2 01/01/21 06:00 97.8 111 16 119/60 (79) 01/01/21 00:04 Room Air I&O- Last 24 Hours up to 6 AM 01/01/21 05:59 Intake Total 2430 ml Output Total 1725 ml Balance 705 ml Dulce Mehta CNM Jan 01, 2021 08:43
[2021-01-01] MEDS: ACETAMINOPHEN TAB 650MG DOSE (2X325MG) PO PRN ×2 (09:41→21:42)
[2021-01-02 06:00] VITALS: BP 114/62
[2021-01-02] MEDS: PRENATAL VITAMINS CHEWABLE TABLET PO SCH (08:54)
--- NOTE | 2021-01-02 10:08 | IPNPDOC ---
Progress Note Date of Service: Jan 02, 2021 Progress Note SUBJECT: Status post . She has been ambulating, voiding spontaneously without issue and tolerating regular diet. Lochia decreasing/minimal. Pain is well-controlled. Denies headache, visual changes, right upper quadrant pain, shortness breath or chest pain. OBJECTIVE: VITAL SIGNS: Within normal limits, afebrile. Alert and oriented times three. Abdomen: Fundus firm at U-2. Soft, NTTP. ASSESSMENT: Status post uncomplicated spontaneous vaginal delivery. Vitals within normal limits, afebrile, hemodynamically stable with no evidence of infection. PLAN: Discharge to home later today or tomorrow, depending on baby's discharge plan Tylenol and Motrin for pain. Routine instructions/precautions reviewed. Routine PP visit in 6 weeks in clinic. VS, I&O, 24H, Fishbone Vital Signs/I&O Vital Signs Date Time Temp Pulse Resp B/P (MAP) Pulse Ox O2 Delivery O2 Flow Rate FiO2 01/02/21 06:00 97.6 84 16 114/62 (79) 100 01/01/21 00:04 Room Air I&O- Last 24 Hours up to 6 AM 01/02/21 06:00 Intake Total 300 ml Balance 300 ml ANDRES SANDRA DO Jan 02, 2021 10:08
== END 2021-01-02 12:55 | disposition home or self-care (01) | DRG 560 ==
LOC: M LDO 06:13 → M LDI 07:13 → M OBS 01-01 01:25
PROVIDERS: ADMIT Specialist; ATTEND Specialist
PROC: 10E0XZZ Delivery of Products of Conception, External Approach (ICD-10-PCS; principal; 2020-12-31)
PROC: 0HQ9XZZ Repair Perineum Skin, External Approach (ICD-10-PCS; 2020-12-31)
DX: O99.824 Streptococcus B carrier state complicating childbirth (principal); Z37.0 Single live birth; O70.0 First degree perineal laceration during delivery; Z3A.39 39 weeks gestation of pregnancy

== ENCOUNTER 2021-01-14 19:16 | Observation (INO) | payer OTHER, BC ==
[~2021-01-14] VITALS: Ht 152.4 cm; Wt 64.2 kg
[2021-01-14] MEDS ORDERED: ACETAMINOPHEN 325 MG TAB PO ONE (19:55)
[2021-01-14 20:54] LABS: RSV AMPLIFICATION NEGATIVE (NEGATIVE)
[2021-01-14] MEDS ORDERED: NS 1,000 ML IV ONE (21:10)
[2021-01-14 21:43] LABS: BASO # 0.1 10^3/uL (0.0-0.2); BASO % 0.4 % (0.0-1.0); EOS # 0.1 10^3/uL (0.0-0.5); EOS % 0.6 % (0.0-3.0); HEMATOCRIT 41.7 % (36.0-47.0); HEMOGLOBIN 13.7 g/dl (12.0-15.5); LYMPH # 1.1 10^3/uL (1.5-5.0); MEAN CORPUSCULAR HEMOGLOBIN 27.3 pg (27.0-33.0); MEAN CORPUSCULAR HGB CONC 32.9 g/dl (32.0-36.5); MEAN CORPUSCULAR VOLUME 83.1 fl (80.0-96.0); MONO # 0.3 10^3/uL (0.0-0.8); MONO % 2.4 % (2.0-8.0); NEUTROPHILS % 88.4 % (36.0-66.0); PLATELET COUNT, AUTOMATED 275 10^3/uL (150-450); RED BLOOD COUNT 5.02 10^6/uL (4.00-5.40); WHITE BLOOD COUNT 13.6 10^3/uL (4.0-10.0)
[2021-01-14 22:05] LABS: ALT/SGPT 36 U/L (12-78); BILIRUBIN,DIRECT 0.1 MG/DL (0.0-0.2); BILIRUBIN,TOTAL 0.4 MG/DL (0.2-1.0); BLOOD UREA NITROGEN 16 MG/DL (7-18); CALCIUM LEVEL 9.4 MG/DL (8.5-10.1); CARBON DIOXIDE LEVEL 27 MEQ/L (21-32); CHLORIDE LEVEL 104 MEQ/L (98-107); GLOMERULAR FILTRATION RATE > 60.0 (>60); GLUCOSE, FASTING 78 MG/DL (70-100); LIPASE 124 U/L (73-393); POTASSIUM SERUM 3.9 MEQ/L (3.5-5.1); SODIUM LEVEL 139 MEQ/L (136-145); TOTAL PROTEIN 7.6 GM/DL (6.4-8.2)
[2021-01-14] MEDS ORDERED: ISOVUE-370 76% 100ML VIAL As Ordered ONE (22:07)
[2021-01-14] MEDS ORDERED: FLUID PLACE HOLDER IV STA (22:37)
[2021-01-14] MEDS ORDERED: GENTAMICIN SULFATE IV STA (22:37)
[2021-01-14] MEDS ORDERED: ACET-907 PO (22:40)
[2021-01-14] MEDS ORDERED: CLINDAMYCIN 900 MG in IV 1 EA IV ONE (22:40)
[2021-01-14] MEDS ORDERED: HOME MED LIST COMPLETE! XX SCH (22:45)
[2021-01-14] MEDS ORDERED: ACETAMINOPHEN 500 MG TAB PO PRN (22:50)
[2021-01-14] MEDS ORDERED: DOCUSATE SODIUM 100MG CAPSULE PO PRN (22:50)
[2021-01-14] MEDS ORDERED: ACETAMINOPHEN TAB 650MG DOSE (2X325MG) PO PRN (22:50)
[2021-01-14] MEDS ORDERED: ONDANSETRON 4MG/2ML VIAL IV PRN (22:50)
[2021-01-14] MEDS ORDERED: D5W IV ONE (23:30)
[2021-01-14] MEDS ORDERED: GENTAMICIN IV ONE (23:30)
[2021-01-15] MEDS: CLINDAMYCIN 900 MG in IV 1 EA IV SCH ×3 (06:47→23:29)
[2021-01-15 08:37] LABS: BASO # 0.1 10^3/uL (0.0-0.2); BASO % 0.7 % (0.0-1.0); EOS # 0.1 10^3/uL (0.0-0.5); EOS % 1.1 % (0.0-3.0); HEMATOCRIT 37.6 % (36.0-47.0); HEMOGLOBIN 12.2 g/dl (12.0-15.5); LYMPH # 1.3 10^3/uL (1.5-5.0); LYMPH % 13.2 % (24.0-44.0); MEAN CORPUSCULAR HEMOGLOBIN 26.8 pg (27.0-33.0); MEAN CORPUSCULAR HGB CONC 32.4 g/dl (32.0-36.5); MEAN CORPUSCULAR VOLUME 82.6 fl (80.0-96.0); MONO # 0.4 10^3/uL (0.0-0.8); MONO % 3.7 % (2.0-8.0); NEUTROPHILS # 7.8 10^3/uL (1.5-8.5); PLATELET COUNT, AUTOMATED 235 10^3/uL (150-450); RED BLOOD COUNT 4.55 10^6/uL (4.00-5.40); WHITE BLOOD COUNT 9.6 10^3/uL (4.0-10.0)
[2021-01-15] MEDS: PRENATAL VITAMINS CHEWABLE TABLET PO SCH (09:00)
[2021-01-15 10:00] VITALS: BP 115/62
[2021-01-15 15:30] VITALS: BP 115/62
[2021-01-15 20:00] VITALS: BP 109/52
[2021-01-16 00:40] VITALS: BP 118/57
[2021-01-16] MEDS: CLINDAMYCIN 900 MG in IV 1 EA IV SCH ×3 (06:56→23:06)
[2021-01-16 08:00] VITALS: BP 116/55
[2021-01-16] MEDS: PRENATAL VITAMINS CHEWABLE TABLET PO SCH (09:33)
[2021-01-16 16:00] VITALS: BP 117/71
[2021-01-16 20:30] VITALS: BP 119/58
[2021-01-17 01:00] VITALS: BP 105/51
[2021-01-17] MEDS: CLINDAMYCIN 900 MG in IV 1 EA IV SCH (07:00)
[2021-01-17 08:00] VITALS: BP 105/59
[2021-01-17] MEDS: PRENATAL VITAMINS CHEWABLE TABLET PO SCH (09:23)
== END 2021-01-17 12:30 | disposition home or self-care (01) ==
LOC: M ED 19:16 → M ED INP 19:17 → ENRESERV 01-15 09:55 → M PED 01-15 10:28
PROVIDERS: ADMIT Obstetrics & Gynecology; ATTEND Obstetrics & Gynecology
DX: O86.12 Endometritis following delivery (principal); Z88.2 Allergy status to sulfonamides; Z88.1 Allergy status to other antibiotic agents; Z88.8 Allergy status to other drugs, medicaments and biological substances; Z79.899 Other long term (current) drug therapy
CPT/HCPCS: 36415; 74177; 80048; 80076; 81001; 83605; 83690; 85025; 87040; 87086; 87631; 96361; 96365; 96366; 96367; 99284; J1580; Q9967

== ENCOUNTER 2021-02-01 17:16 | Inpatient (IN) | payer BC, OTHER ==
[~2021-02-01] VITALS: Ht 152.4 cm; Wt 63.0 kg
[~2021-02-01 17:16] MED LIST changes: +ACET-907 PO
[2021-02-01] MEDS ORDERED: GENTAMICIN IV SCH (19:45)
[2021-02-01 21:02] LABS: HEMATOCRIT 40.6 % (36.0-47.0); HEMOGLOBIN 13.2 g/dl (12.0-15.5); MEAN CORPUSCULAR HEMOGLOBIN 26.7 pg (27.0-33.0); MEAN CORPUSCULAR HGB CONC 32.5 g/dl (32.0-36.5); MEAN CORPUSCULAR VOLUME 82.2 fl (80.0-96.0); PLATELET COUNT, AUTOMATED 211 10^3/uL (150-450); RED BLOOD COUNT 4.94 10^6/uL (4.00-5.40); WHITE BLOOD COUNT 6.8 10^3/uL (4.0-10.0)
[2021-02-01 21:53] LABS: ATYPICAL LYMPH 8 % (0-5); BASOPHILS 1 % (0-1); EOSINOPHILS 2 % (0-3); LYMPHOCYTES 32 % (16-44); MONOCYTES 5 % (0-5); NEUTROPHILS 50 % (28-66); PLATELET ESTIMATE NORMAL (NORMAL)
[2021-02-01] MEDS: CLINDAMYCIN 900 MG in IV 1 EA IV SCH (22:09)
[2021-02-01 23:10] VITALS: BP 135/72
[2021-02-01] MEDS: D5W IV SCH (23:13)
[2021-02-01] MEDS: GENTAMICIN IV SCH (23:13)
[2021-02-01] MEDS: LR 1,000 ML IV SCH (23:13)
--- NOTE | 2021-02-01 23:24 | IPNPDOC ---
Text Note Date of Service The patient was seen on 02/01/21. NOTE HISTORY AND PHYSICAL Subjective: Evelyn is a 20-year-old female who had a vaginal delivery on 12/31/20 and was admitted for endometritis. She received 1 dose of Gentamicin and multiple doses of Clindamycin when she was last admitted. She was discharged as she clinically improved but reported continued symptoms shortly after discharge and was started on oral antibiotics. Augmentin was attempted but patient has to stop due to having a rash. these were switched to Cipro and Flagyl. Yesterday patient was seen by her PCP with complaints of tender abdomen, fever of 101, vaginal discharge with a foul odor. She also reports having diarrhea over the last few days and feeling dehydrated. She is and currently pumping while in hospital. Obstetrical History: ; 2019 missed AB; 12/31/20 vaginal delivery Past medical History: HSV, celiac disease, Campylobacter jejuni,cryptosporidium recurrent UTI, right knee fibrous cortical defect. PAST SURGICAL HISTORY: Tonsillectomy, adenoidectomy. Cyst removal from middle finger of right hand, cystoscopy and wisdom tooth extraction. FAMILY HISTORY: Prostate cancer, GERD. SOCIAL HISTORY: The patient is . Her is at bedside. She is a nonsmoker. Denies alcohol and drug use. History of HSV. 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 She denies a history of abuse, physical, sexual or emotional. ALLERGIES: Amoxicillin which causes hives, sulfa causes hives, Motrin causes hives and gluten causes back pain. Objective: VS and labs: see below. General: Alert and oriented. Does not appear to be in any distress. Respiratory: regular rate and rhythm without use of accessory muscles. Abdomen: abdomen tender from umbilicus to pubis with palpation Assessment: four weeks with endometritis Plan: Patient directly admitted to hospital by Dr. Weber. Plan of care collaborated with Dr. Suarez. -Start IV with LR at 125 cc/hr -Gentamicin and Clindamycin to be started per order (PCN allergy) -stool culture ordered due to diarrhea -Tylenol for fever -Anti-diarrheal ordered VS,Fishbone, I+O VS, Fishbone, I+O Laboratory Tests 02/01/21 20:57 ANAHY MORIN CNM Feb 01, 2021 23:24
[2021-02-02] MEDS ORDERED: LOPERAMIDE 2 MG CAPLET PO PRN (00:20)
[2021-02-02 02:00] VITALS: BP 105/50
[2021-02-02] MEDS: CLINDAMYCIN 900 MG in IV 1 EA IV SCH ×3 (04:22→21:20)
[2021-02-02 06:00] VITALS: BP 99/52
[2021-02-02] MEDS: ACETAMINOPHEN 500 MG TAB PO PRN (06:45)
[2021-02-02] MEDS: LR 1,000 ML IV SCH (08:42)
[2021-02-02 10:00] VITALS: BP 119/77
[2021-02-02] MEDS: PRENATAL VITAMINS CHEWABLE TABLET PO SCH (10:52)
--- NOTE | 2021-02-02 10:57 | REP ---
INDICATION: endomyometritis. COMPARISON: 01/14/2021 TECHNIQUE: Standard helical technique after the intravenous administration of 100 cc Isovue 370 FINDINGS: The lung bases are clear. The liver, gallbladder, spleen, pancreas, adrenal glands, and kidneys are again seen to be within normal limits. The abdominal aorta and para-aortic regions are again seen to be within normal limits. The bowel loops and the mesenteries are again seen to be within normal limits. There is no evidence of a mass or adenopathy. There is no free air. There is a tiny amount of free pelvic fluid. The uterus has decreased in size compared to the prior exam. It appears to be within normal limits although poorly evaluated by CT. Bone window technique throughout the examination shows the osseous structures to be stable and intact. IMPRESSION: There is no evidence of acute disease. There is a tiny amount of free pelvic fluid which is likely physiologic. Other findings as described above. <Electronically signed by Carmelo Thompson > 02/02/21 [id number]
[2021-02-02 14:00] VITALS: BP 122/74
[2021-02-02] MEDS ORDERED: HOME MED LIST COMPLETE! XX SCH (16:00)
[2021-02-02] MEDS ORDERED: FLUCONAZOLE 100 MG TAB PO ONE (16:40)
--- NOTE | 2021-02-02 17:04 | IPNPDOC ---
Text Note Date of Service The patient was seen on 02/02/21. NOTE HD#2 S: No further fevers. Abdominal/ pelvic pain improved. Notice shortness of breath and heart palpitation on exertion. O: vss, AF Gen: well appearing, NAD abd: soft, nttp CT: wnl WBC 6 A/P: Endometritis - HD#2 antibiotic therapy including gentamicin and clindamycinclinically improving - repeat CBC, TSH - continue IV antibiotic 48hrs afebrile Janna Canseco MD VS,Vinod, I+O VSVinod I+O Laboratory Tests 02/01/21 20:57 Vital Signs Date Time Temp Pulse Resp B/P (MAP) Pulse Ox O2 Delivery O2 Flow Rate FiO2 02/02/21 14:00 97.8 70 19 122/74 (90) 99 Room Air I&O- Last 24 Hours up to 6 AM0 02/02/21 06:00 Intake Total 1607.875 ml Output Total 900 ml Balance 707.875 ml JANNA CANSECO MD. Feb 02, 2021 17:04
[2021-02-02 18:00] VITALS: BP 147/93
[2021-02-02 22:00] VITALS: BP 78/57
[2021-02-02] MEDS: GENTAMICIN IV SCH (23:04)
[2021-02-02] MEDS: D5W IV SCH (23:04)
[2021-02-03] MEDS: CLINDAMYCIN 900 MG in IV 1 EA IV SCH ×3 (05:35→20:08)
[2021-02-03 06:00] VITALS: BP 88/59
[2021-02-03] MEDS: PRENATAL VITAMINS CHEWABLE TABLET PO SCH (09:57)
[2021-02-03 10:00] VITALS: BP 110/60
[2021-02-03 11:42] LABS: HEMATOCRIT 42.9 % (36.0-47.0); MEAN CORPUSCULAR HEMOGLOBIN 26.6 pg (27.0-33.0); MEAN CORPUSCULAR HGB CONC 32.6 g/dl (32.0-36.5); MEAN CORPUSCULAR VOLUME 81.4 fl (80.0-96.0); PLATELET COUNT, AUTOMATED 229 10^3/uL (150-450); RED BLOOD COUNT 5.27 10^6/uL (4.00-5.40); WHITE BLOOD COUNT 7.4 10^3/uL (4.0-10.0)
[2021-02-03] MEDS ORDERED: ISOVUE-370 76% 100ML VIAL As Ordered ONE (11:50)
--- NOTE | 2021-02-03 11:52 | IPNPDOC ---
Text Note Date of Service The patient was seen on 02/03/21. NOTE S: c/o feeling dizzy, with chest tightness when standing. At that time the nurse noted her O2 saturation dropped into the 80's and her pulse went up to 110. It normalized when she sat down. Her abdominal pain is unchanged. It is mild and in the midline. O: AVSS NAD Lungs CTA CVS: RRR abd: mild tenderness to light palpation in suprapubic region ext: NT EKG: Normal sinus rhythm A/P 20 yo PPD#33 admitted with endometritis Plan CT scan of the chest to rule out pulmonary embolus. I doubt the diagnosis of endometritis at this point time Plan hospitalist consult due to patient request If CT scan of chest is negative consider anxiety as possible cause of inconsistent symptoms VS,Vinod, I+O VS, Vinod, I+O Laboratory Tests 02/03/21 11:27 Vital Signs Date Time Temp Pulse Resp B/P (MAP) Pulse Ox O2 Delivery O2 Flow Rate FiO2 02/03/21 11:08 118 82 Room Air 02/03/21 10:00 97.8 17 110/60 (77) I&O- Last 24 Hours up to 6 AM 02/03/21 06:00 Intake Total 1667.875 ml Output Total 3200 ml Balance -1532.125 ml DUKE MARTINS MD Feb 03, 2021 11:52
--- NOTE | 2021-02-03 12:53 | REP ---
INDICATION: CHEST PAIN, DYSPNEA ON EXERTION COMPARISON: None. TECHNIQUE: Axial contrast enhanced images from the thoracic inlet to the upper abdomen using pulmonary embolus technique with multiplanar re-formations. 75 ml Isovue 370 intravenous contrast material administered without complication. This CT examination was performed using the following dose reduction techniques: Automated exposure control, adjustment of mA and/or kv according to the patient's size, and use of iterative reconstruction technique. FINDINGS: Satisfactory enhancement of the pulmonary vasculature is achieved and no filling defects are identified to suggest pulmonary embolus. Further evaluation of the mediastinum demonstrates normal thoracic aorta, heart and pericardium. The bilateral lung kevin are well aerated and clear without consolidation pleural effusion or pneumothorax. Tracheobronchial tree is patent. No nodule or mass lesion is identified. No adenopathy noted. Surrounding musculoskeletal structures intact IMPRESSION: No evidence for pulmonary embolus. No acute mediastinal or pleural parenchymal process. <Electronically signed by Heath Ford > 02/03/21 1212
[2021-02-03 13:11] LABS: FREE T4 1.03 NG/DL (0.76-1.46); THYROID STIMULATING HORMONE 1.37 uIU/ML (0.358-3.740)
--- NOTE | 2021-02-03 14:10 | ECGEPIP ---
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 No prior ECG available for comparison at the time of interpretation. Electronically Signed on 02-03-2021 14:10:21 EDT by Iain Robles
--- NOTE | 2021-02-03 14:26 | CR.PDOC ---
General Date of Consultation: Feb 03, 2021 Referring Provider: DUKE MARTINS MD Attending Physician: Helen Brooks MD Consultation REASON FOR CONSULTATION/CHIEF COMPLAINT: chest pain, SOB HISTORY OF PRESENT ILLNESS: The patient is a 20-year-old female with past medical history of celiac disease (IgA, IgG), history of endometriosis and chronic hematuria (cause unknown) who was admitted on 02/01/2021 with the chief diagnosis of endometriosis. The patient has had a complicated medical course since a vaginal delivery on 12/31/20. 01/14/2021 the patient was admitted for endometritis. She was treated with antibiotics at that time and discharged due to improvement on 01/17/21. The patient states that since that time she has had persistent abdominal discomfort with vaginal discharge. She is also been experiencing loss of energy, night sweats, lethargy, increased shortness of breath activity, heart palpitations with activity, increased swelling in the lower extremities intermittent, and li ghtheadedness with activity. She states to have chronic hematuria with having worked up in the past but no known cause. On 02/01/2021 the patient with her primary care provider's office with complaints of tender abdomen, complaints above of shortness of breath and lethargy, fever and vaginal discharge. She was directly admitted by OB service for continued treatment for endometritis. On 02/03/2021 medicine service was made aware that the patient had become increasingly short of breath with activity. Her heart rate increased to 118 and was found to be percent on room air. CTA of the chest was negative for pulmonary embolism or acute findings. A CT abdomen and pelvis was negative for any acute findings as well. Medicine consult was placed for concerns about also patient expressing chest pain during her episodes of shortness of breath and palpitations. 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 She states to have labored for 25 hours with her most recent . She states her lower extremity swelling with severe after and has since waxed and waned. Palpitations or experience mostly central in her chest and associated mostly with activity. Today her chest pressure was described as "someone sitting on my chest", 7 out of 10, intermittent and self resolving. REVIEW OF SYSTEMS: Neg except mentioned as above PMH: Celiac disease (IgG, IgA), Hx of Campylobacter jejuni, Hx of cryptosporidium recurrent UTI, right knee fibrous cortical defect PAST SURGICAL HISTORY: Tonsillectomy, adenoidectomy, cyst removal from middle finger of right hand, cystoscopy and wisdom tooth extraction FAMILY HISTORY: Mother- preeclampsia Paternal grandfatherprostate cancer. SOCIAL HISTORY: Denies alcohol smoking or drug use history. 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 ALLERGIES: Please see below. CURRENT MEDICATIONS: Please see below. PHYSICAL EXAMINATION: VS: Please see below CONSTITUTIONAL: No acute distress, resting comfortably in bed, AAO x 3 EYES: PERRLA, EOM intact HENT, MOUTH: Normocephalic, atraumatic, moist mucous membranes NECK: SUPPLE, no JVD, no lymphadenopathy, no carotid bruit CV: Regular rate and rhythm, S1S2 normal, no murmurs/rubs/gallops RESPIRATORY: Clear to auscultation bilaterally, no rales/rhonchi/wheezes GI: BS positive in 4 quadrants, soft, nontender, nondistended, no rebound or guarding, no organomegaly : Deferred MUSCULOSKELETAL: Normal ROM. No cyanosis, clubbing, swelling, joint deformity. Nonpitting lower extremity edema INTEGUMENTARY: Intact, no rashes, no lesions, no erythema NEUROLOGIC: Cranial Nerves II-XII are intact, no focal deficits PSYCHIATRIC: Mood and affect are normal LABORATORY DATA: Please see below IMAGING: CTA chest, CT abd with contrast- see chart MICRO: UA pending ASSESSMENT: Patient is a 20-year-old female who is being evaluated by medicine services for chest pain, shortness of breath. PLAN: #Chest pain r/o cardiac cause -HR 118, NSR on ECG, + palpitations with activity associated with chest discomfort/pressure/pain -CTA chest: no PE -F/u trop, BNP, adding telemetry to assess for intermittent arrhythmias. If labs abnormal, may need to consider echocardiogram to r/o cardiomyopathy -Would avoid excess fluids currently while [employer] being ruled out #SOB likely 2/2 to cardiac cause ([employer] vs. palpitations?) -Decreased O2 to 82% on RA with activity, HR 118 at the time. -CTA neg, currently saturating well on RA, clear chest exam -Monitor on RA for now. -F/u workup above #Palpitations -No prior hx of arrhythmias -No documented arrhythmias here but has not been on tele, mostly with activity -Transferring to tele floor, monitor closely. -CTA neg for PE, ECG wnl, TSH wnl #Endometritis -Abdominal pain -Management per OB team #Yeast infection -S/p fluconazole and patient states to be slightly improved with symptoms -Monitor #Celiac disease -No increased diarrhea, abdominal pain, n/v -Monitor for changes #DVT px -Adding lovenox daily DISPOSITION: Thank you kindly for this consult. Will continue to follow while hospitalized. Vital Signs/I&O Vital Signs Date Time Temp Pulse Resp B/P (MAP) Pulse Ox O2 Delivery O2 Flow Rate FiO2 02/03/21 11:08 118 82 Room Air 02/03/21 10:00 97.8 17 110/60 (77) I&O- Last 24 Hours up to 6 AM 02/03/21 06:00 Intake Total 1667.875 ml Output Total 3200 ml Balance -1532.125 ml Laboratory Data Labs 24H Laboratory Tests 2 02/03/21 01:40: 02/03/21 11:27: Nucleated Red Blood Cells % (auto) 0.0, Thyroid Stimulating Hormone (TSH) 1.370, Free Thyroxine 1.03 CBC/BMP Laboratory Tests 02/03/21 11:27 Microbiology Microbiology 02/02/21 Gastrointestinal Tract Panel (PCR) - Final, Complete Allergies Coded Allergies: Sulfa (Sulfonamide Antibiotics) (Verified Allergy, Intermediate, HIVES, 11/08/20) amoxicillin (Verified Allergy, Intermediate, HIVES/RASH, 11/08/20) gluten (Verified Allergy, Intermediate, Celiac disease, 11/08/20) ibuprofen (Verified Allergy, Intermediate, HIVES, 11/08/20) Home Medications Scheduled No.137/Iron/Folic Acd ( Vitamin Tablet) 1 Each Tablet, 1 TAB PO DAILY, (Reported) Scheduled PRN Acetaminophen (Tylenol) 325 Mg Tablet, 650 MG PO Q4H PRN for HEADACHE/FEVER, (Reported) Current Medications Current Medications Medications (Trade) Dose Ordered Sig/Angela Route PRN Reason Start Time Stop Time Status Last Admin Dose Admin Acetaminophen (Tylenol Tab) 1,000 mg Q6HP PRN PO FEVER 02/02/21 00:20 02/02/21 06:45 Clindamycin Phosphate 900 mg/ IV Miscellaneous Supplies 50 ml @ 50 mls/hr Q8H IV 02/01/21 21:00 02/03/21 14:17 Gentamicin Sulfate 315 mg/ Dextrose 57.875 ml @ 57.875 mls/hr Q24H IV 02/01/21 22:00 02/02/21 23:04 Gentamicin Sulfate 90 mg/IV Miscellaneous Supplies 112.5 ml @ 200 mls/hr Q8H IV 02/01/21 19:45 UNV Home Med (Home Med List Complete!) ASDIRECTED XX 02/02/21 16:00 02/02/21 15:59 DC Lactated Ringer's 1,000 ml @ 125 mls/hr Q8H IV 02/01/21 22:45 02/02/21 12:36 DC 02/02/21 08:42 Loperamide HCl (Imodium) 2 mg ASDIRECTED PRN PO DIARRHEA 02/02/21 00:20 02/02/21 10:51 Prenat Multivit/ [place]/Iron/Folic Ac ( Vitamins) 1 tab DAILY PO 02/02/21 09:00 02/03/21 09:57 Helen Brooks MD Feb 03, 2021 14:26
[2021-02-03 14:45] VITALS: BP 118/70
[2021-02-03 14:49] VITALS: BP 104/69
[2021-02-03 14:58] LABS: BLOOD UREA NITROGEN 14 MG/DL (7-18); CARBON DIOXIDE LEVEL 30 MEQ/L (21-32); CHLORIDE LEVEL 103 MEQ/L (98-107); CREATININE FOR GFR 1.01 MG/DL (0.55-1.30); GLOMERULAR FILTRATION RATE > 60.0 (>60); GLUCOSE, FASTING 100 MG/DL (70-100); POTASSIUM SERUM 4.2 MEQ/L (3.5-5.1); SODIUM LEVEL 137 MEQ/L (136-145)
[2021-02-03 14:59] LABS: ALBUMIN 4.5 GM/DL (3.2-5.2); ALT/SGPT 38 U/L (12-78); BILIRUBIN,TOTAL 0.4 MG/DL (0.2-1.0); CALCIUM LEVEL 10.3 MG/DL (8.5-10.1); NT-PRO BNP 31 PG/ML (<125); TOTAL PROTEIN 7.6 GM/DL (6.4-8.2); TROPONIN I < 0.02 NG/ML (< 0.10)
--- NOTE | 2021-02-03 19:30 | ECHO ---
ECHOCARDIOGRAM DATE OF PROCEDURE: 02/03/2021 Age: Gender: Female Height: 150 cm Weight: 63 kg REFERRING PHYSICIAN: Helen Brooks M.D. INDICATION: Shortness of breath. MEASUREMENTS: 2D Measurements: Left atrium 2.7 cm Intraventricular septum 0.89 cm Posterior wall 0.97 cm Left ventricle diastole 4.1 cm Aortic root 2.5 cm Inferior vena cava 1.2 cm with normal respiratory variation Doppler Measurements: No aortic stenosis No aortic regurgitation Aortic valve velocity 119 cm/sec LVOT velocity 76.4 cm/sec Very mild mitral regurgitation No mitral stenosis Mitral E velocity 71.1 cm/sec Mitral A velocity 49.7 cm/sec Very mild tricuspid regurgitation Estimated right ventricle systolic pressure 26-31 mmHg Estimated right atrial pressure 5-10 mmHg Trace pulmonic regurgitation within normal limits Pulmonary artery acceleration time 156 msec consistent with normal pulmonary free systolic pressure MITRAL ANNULAR TISSUE DOPPLER: E prime septal less than 0.2 cm/sec E prime lateral 14.7 cm/sec DESCRIPTION: Rhythm was sinus. Image quality was good. This was a 2D, M-mode, color flow Doppler and pulse wave Doppler examination and included mitral annular tissue Doppler. CONCLUSIONS: 1. Normal left ventricle size and internal dimensions and left ventricular (LV) wall thickness. Normal regional LV wall motion and wall thickening. Normal LV systolic function. Normal peak longitudinal strain pattern. Normal LV diastolic function. 2. Suggestive of normal pulmonary free systolic pressure and estimated right ventricular systolic pressure. Normal right ventricle size and systolic function suggestive of normal central venous pressure (CVP) (5-10 mmHg). 3. No pericardial effusion. 4. Normal echocardiogram Doppler.
[2021-02-03 20:07] VITALS: BP 108/59
[2021-02-03] MEDS: ACETAMINOPHEN 500 MG TAB PO PRN (20:08)
[2021-02-03] MEDS: D5W IV SCH (21:34)
[2021-02-03] MEDS: GENTAMICIN IV SCH (21:34)
[2021-02-03 21:46] VITALS: BP_SYST 103; BP_SYST 108; BP_SYST 112; BP_DIAS 70; BP_DIAS 71; BP_DIAS 73
[2021-02-04 02:00] VITALS: BP 114/52
[2021-02-04] MEDS: CLINDAMYCIN 900 MG in IV 1 EA IV SCH (05:10)
[2021-02-04 06:00] VITALS: BP 86/62
[2021-02-04 06:03] LABS: HEMATOCRIT 41.6 % (36.0-47.0); HEMOGLOBIN 13.6 g/dl (12.0-15.5); MEAN CORPUSCULAR HEMOGLOBIN 26.6 pg (27.0-33.0); MEAN CORPUSCULAR HGB CONC 32.7 g/dl (32.0-36.5); MEAN CORPUSCULAR VOLUME 81.3 fl (80.0-96.0); PLATELET COUNT, AUTOMATED 214 10^3/uL (150-450); RED BLOOD COUNT 5.12 10^6/uL (4.00-5.40); WHITE BLOOD COUNT 6.7 10^3/uL (4.0-10.0)
[2021-02-04 06:20] LABS: BLOOD UREA NITROGEN 17 MG/DL (7-18); CALCIUM LEVEL 8.9 MG/DL (8.5-10.1); CARBON DIOXIDE LEVEL 26 MEQ/L (21-32); CHLORIDE LEVEL 107 MEQ/L (98-107); GLOMERULAR FILTRATION RATE > 60.0 (>60); GLUCOSE, FASTING 85 MG/DL (70-100); POTASSIUM SERUM 4.3 MEQ/L (3.5-5.1); SODIUM LEVEL 140 MEQ/L (136-145)
[2021-02-04 09:00] VITALS: BP 100/58
[2021-02-04] MEDS: ENOXAPARIN 40MG/0.4ML SYRINGE (J1650 PER 10MG) SC SCH ×2 (09:00→09:39)
[2021-02-04] MEDS: PRENATAL VITAMINS CHEWABLE TABLET PO SCH (09:39)
--- NOTE | 2021-02-04 10:46 | IPNPDOC ---
Text Note Date of Service The patient was seen on 02/04/21. NOTE Progress note S: abdominal pain resolved. Still gets episodes of dizziness and chest tightness when standing O: AVSS NAD Abd: NT, soft, ND ext: NT A/P 20 yo PPD#34 s/p with endometritis Discontinue Gentamycin/Clindamycin Normal echocardiogram Holter monitor in progress Appreciate Medicine input VS,Vinod, I+O VS, Vinod, I+O Laboratory Tests 02/03/21 11:27 02/04/21 05:35 Vital Signs Date Time Temp Pulse Resp B/P (MAP) Pulse Ox O2 Delivery O2 Flow Rate FiO2 02/04/21 10:00 97.8 87 17 97 Room Air 02/04/21 09:00 100/58 (72) I&O- Last 24 Hours up to 6 AM 02/04/21 06:00 Intake Total 2067.875 ml Output Total 850 ml Balance 1217.875 ml DUKE MARTINS MD Feb 04, 2021 10:46
[2021-02-04 13:39] VITALS: BP 117/69
--- NOTE | 2021-02-04 18:03 | DS.PDOC ---
Discharge Summary General Date of Admission Feb 01, 2021 at 19:21 Date of Discharge Feb 04, 2021 Discharge Summary PROCEDURES PERFORMED DURING STAY: None. ADMITTING DIAGNOSES: 1. endometritis. DISCHARGE DIAGNOSES: 1. Same COMPLICATIONS/CHIEF COMPLAINT: Abdominal pain, dizziness with standing, chest tightness. HISTORY OF PRESENT ILLNESS: 31-year-old status post vaginal delivery January 28, 2021 presents with persistent lower abdominal pain and foul-smelling discharge for the last several weeks. HOSPITAL COURSE: 31-year-old status post vaginal delivery January 28, 2021 presents with persistent lower abdominal pain and foul-smelling discharge for the last several weeks. She was admitted for endometritis on January 14, 2021. She initially clinical improvement and was discharged home. The pain gradually got worse. In addition she complained of dizziness and chest tightness whenever she stood up. She had mild shortness of breath. She failed additional outpatient course of oral antibiotics for endometritis. She is admitted for IV antibiotics. She received IV gentamicin and clindamycin. She had gradual relief of her abdominal pain. She had no fevers or elevated white count during hospitalization. Of more concern to her was her dizziness and shortness of breath when standing. A medicine consult was obtained. She had an EKG, echocardiogram, CAT scan of the chest, and a multitude of blood work. All test returned normal. She had continuous cardiac monitoring. She had a Holter monitor in place. There were no episodes recorded on the Holter monitor. With her endometritis resolved, and no obvious cardiac abnormality on extensive testing the patient was deemed stable for discharge. She will follow up with cardiology as an outpatient. DISCHARGE MEDICATIONS: Please see below. ALLERGIES: Please see below. PHYSICAL EXAMINATION ON DISCHARGE: VITAL SIGNS: Please see below. GENERAL: NAD HEENT: NCAT CARDIOVASCULAR EXAMINATION: RRR RESPIRATORY EXAMINATION: CTA ABDOMINAL EXAMINATION: Nontender soft nondistended EXTREMITIES: Nontender LABORATORY DATA: Please see below. PROGNOSIS: Good ACTIVITY: As tolerated. DIET: Regular DISCHARGE PLAN: Home DISPOSITION: , Self-Care. DISCHARGE INSTRUCTIONS: 1. Discharge home 2. No antibiotics upon discharge 3. Begin gentle exercise routine to build up exercise tolerance again after the baby 4. Will refer to cardiology as an outpatient DISCHARGE CONDITION: Stable. TIME SPENT ON DISCHARGE: 10 minutes. Vital Signs/I&Os Vital Signs Date Time Temp Pulse Resp B/P (MAP) Pulse Ox O2 Delivery O2 Flow Rate FiO2 10/7/21 13:39 97.9 78 16 117/69 (85) 97 Room Air I&O- Last 24 Hours up to 6 AM 02/04/21 06:00 Intake Total 2067.875 ml Output Total 850 ml Balance 1217.875 ml Laboratory Data Labs 24H Laboratory Tests 2 02/04/21 05:35: Nucleated Red Blood Cells % (auto) 0.0, Anion Gap 7L, Glomerular Filtration Rate > 60.0, Calcium Level 8.9 CBC/BMP Laboratory Tests 02/04/21 05:35 Microbiology Microbiology 02/02/21 Gastrointestinal Tract Panel (PCR) - Final, Complete Discharge Medications Scheduled No.137/Iron/Folic Acd ( Vitamin Tablet) 1 Each Tablet, 1 TAB PO DAILY, (Reported) Scheduled PRN Acetaminophen (Tylenol) 325 Mg Tablet, 650 MG PO Q4H PRN for HEADACHE/FEVER, (Reported) Allergies Coded Allergies: Sulfa (Sulfonamide Antibiotics) (Verified Allergy, Intermediate, HIVES, 11/08/20) amoxicillin (Verified Allergy, Intermediate, HIVES/RASH, 11/08/20) gluten (Verified Allergy, Intermediate, Celiac disease, 11/08/20) ibuprofen (Verified Allergy, Intermediate, HIVES, 11/08/20) DUKE MARTINS MD Feb 04, 2021 18:03
--- NOTE | 2021-02-04 18:37 | IPNPDOC ---
Date Seen The patient was seen on 02/04/21. Progress Note SUBJECTIVE: No events on tele, neg echo. Patient denies palpitations overnight, chest pain, fevers or chills. OBJECTIVE: VITAL SIGNS: Please see below PHYSICAL EXAMINATION: VS: Please see below CONSTITUTIONAL: No acute distress, resting comfortably in bed, AAO x 3 EYES: PERRLA, EOM intact HENT, MOUTH: Normocephalic, atraumatic, moist mucous membranes NECK: SUPPLE, no JVD, no lymphadenopathy, no carotid bruit CV: Regular rate and rhythm, S1S2 normal, no murmurs/rubs/gallops RESPIRATORY: Clear to auscultation bilaterally, no rales/rhonchi/wheezes GI: BS positive in 4 quadrants, soft, nontender, nondistended, no rebound or guarding, no organomegaly : Deferred MUSCULOSKELETAL: Normal ROM. No cyanosis, clubbing, swelling, joint deformity. Nonpitting lower extremity edema INTEGUMENTARY: Intact, no rashes, no lesions, no erythema NEUROLOGIC: Cranial Nerves II-XII are intact, no focal deficits PSYCHIATRIC: Mood and affect are normal LABORATORY DATA: Please see below IMAGING: CTA chest, CT abd with contrast- see chart Echocardiogram: 1. Normal left ventricle size and internal dimensions and left ventricular (LV) wall thickness. Normal regional LV wall motion and wall thickening. Normal LV systolic function. Normal peak longitudinal strain pattern. Normal LV diastolic function. 2. Suggestive of normal pulmonary free systolic pressure and estimated right ventricular systolic pressure. Normal right ventricle size and systolic function suggestive of normal central venous pressure (CVP) (5-10 mmHg). 3. No pericardial effusion. MICRO: UA neg ASSESSMENT: Patient is a 20-year-old female who is being evaluated by medicine services for chest pain, shortness of breath. PLAN: #Palpitations/ chest discomfort with associated SOB, cannot r/o transient tachycardia/arrhythmia -No events on tele overnight; however, cannot exclude that these are not occurring intermittently with activity outside of hospital -Remains saturating well on RA, HR NS -CTA chest: no PE -ECG wnl, TSH wnl -Trop, BNP wnl. -Echocardiogram normal and above - no concern for cardiomyopathy -Recommendation is for o/p cardiology referral and they may suggest Holter monitor to further investigate. At this time it does not appear that anxiety is the cause. #Endometritis -Management per OB team #Yeast infection -S/p fluconazole and patient states to be slightly improved with symptoms #Celiac disease -No increased diarrhea, abdominal pain, n/v VS, I&O, 24H, Fishbone Vital Signs/I&O Vital Signs Date Time Temp Pulse Resp B/P (MAP) Pulse Ox O2 Delivery O2 Flow Rate FiO2 02/04/21 13:39 97.9 78 16 117/69 (85) 97 Room Air I&O- Last 24 Hours up to 6 AM 02/04/21 06:00 Intake Total 2067.875 ml Output Total 850 ml Balance 1217.875 ml Laboratory Data 24H LABS Laboratory Tests 2 02/04/21 05:35: Nucleated Red Blood Cells % (auto) 0.0, Anion Gap 7L, Glomerular Filtration Rate > 60.0, Calcium Level 8.9 CBC/BMP Laboratory Tests 02/04/21 05:35 Microbiology Microbiology 02/02/21 Gastrointestinal Tract Panel (PCR) - Final, Complete Helen Brooks MD Feb 04, 2021 18:37
== END 2021-02-04 15:00 | disposition home or self-care (01) | DRG 561 ==
LOC: M MS5PR 19:21 → M MSPAV 02-03 14:48
PROVIDERS: ADMIT Specialist; ATTEND Specialist
DX: O86.12 Endometritis following delivery (principal); K90.0 Celiac disease; Z88.2 Allergy status to sulfonamides; Z88.0 Allergy status to penicillin; Z88.6 Allergy status to analgesic agent; R00.2 Palpitations; O99.63 Diseases of the digestive system complicating the puerperium

== ENCOUNTER → 2021-02-12 | Outpatient (REF) | payer OTHER ==
[2021-02-12 21:49] LABS: GC DNA AMPLIFICATION NEGATIVE (NEGATIVE)
== END ==
LOC: M WUC 19:58
PROVIDERS: ATTEND Physician Assistant
DX: R10.84 Generalized abdominal pain (principal)

== ENCOUNTER → 2021-02-12 | Outpatient (CLI) | payer BC, OTHER ==
[2021-02-12 18:43] LABS: BASO # 0.1 10^3/uL (0.0-0.2); BASO % 0.9 % (0.0-1.0); EOS # 0.1 10^3/uL (0.0-0.5); EOS % 1.6 % (0.0-3.0); HEMATOCRIT 41.9 % (36.0-47.0); HEMOGLOBIN 13.4 g/dl (12.0-15.5); LYMPH # 2.5 10^3/uL (1.5-5.0); LYMPH % 38.3 % (24.0-44.0); MEAN CORPUSCULAR HEMOGLOBIN 26.4 pg (27.0-33.0); MEAN CORPUSCULAR VOLUME 82.6 fl (80.0-96.0); MONO # 0.5 10^3/uL (0.0-0.8); MONO % 7.1 % (2.0-8.0); NEUTROPHILS # 3.4 10^3/uL (1.5-8.5); NEUTROPHILS % 51.9 % (36.0-66.0); PLATELET COUNT, AUTOMATED 227 10^3/uL (150-450); RED BLOOD COUNT 5.07 10^6/uL (4.00-5.40); WHITE BLOOD COUNT 6.5 10^3/uL (4.0-10.0)
[2021-02-12 19:09] LABS: ALBUMIN 4.2 GM/DL (3.2-5.2); ALT/SGPT 36 U/L (12-78); BILIRUBIN,TOTAL 0.3 MG/DL (0.2-1.0); BLOOD UREA NITROGEN 12 MG/DL (7-18); CALCIUM LEVEL 9.7 MG/DL (8.5-10.1); CARBON DIOXIDE LEVEL 31 MEQ/L (21-32); CHLORIDE LEVEL 109 MEQ/L (98-107); CREATININE FOR GFR 0.87 MG/DL (0.55-1.30); GLOMERULAR FILTRATION RATE > 60.0 (>60); GLUCOSE, FASTING 82 MG/DL (70-100); POTASSIUM SERUM 4.8 MEQ/L (3.5-5.1); SODIUM LEVEL 141 MEQ/L (136-145); TOTAL PROTEIN 7.3 GM/DL (6.4-8.2)
== END ==
LOC: M LAB 18:16
PROVIDERS: ATTEND Physician Assistant
DX: R10.84 Generalized abdominal pain (principal)

== ENCOUNTER → 2021-02-24 | Outpatient (REF) | payer OTHER | LOC: M PLALAB 09:29 | PROVIDERS: ATTEND Specialist | DX: N39.0 Urinary tract infection, site not specified (principal) ==

== ENCOUNTER → 2021-03-03 | Outpatient (REF) | payer OTHER ==
[2021-03-03 16:10] LABS: APPEARANCE, URINE CLEAR (CLEAR); BACTERIA, URINE AUTO NEGATIVE (NEGATIVE); BILIRUBIN, URINE AUTO NEGATIVE (NEGATIVE); BLOOD, URINE BLOOD NEGATIVE (NEGATIVE); COLOR, URINE STRAW (YELLOW); GLUCOSE, URINE (UA) AUTO NEGATIVE (NEGATIVE); KETONE, URINE AUTO NEGATIVE (NEGATIVE); LEUKOCYTE ESTERASE, URINE AUTO NEGATIVE (NEGATIVE); NITRITE, URINE AUTO NEGATIVE (NEGATIVE); PROTEIN, URINE AUTO NEGATIVE (NEGATIVE); RBC, URINE AUTO 0 /HPF (0-3); SPECIFIC GRAVITY URINE AUTO 1.004 (1.002-1.035); SQUAMOUS EPITHELIAL CELL UR AU 0 /HPF (0-6); UROBILINOGEN, URINE AUTO 0.2 mg/dL (0.0-2.0); WBC, URINE AUTO 0 /HPF (0-3)
[2021-03-03 17:39] LABS: GC DNA AMPLIFICATION NEGATIVE (NEGATIVE)
== END ==
LOC: M SFHCCAPE 08:44
PROVIDERS: ATTEND Physician Assistant
DX: N89.8 Other specified noninflammatory disorders of vagina (principal); R10.2 Pelvic and perineal pain

== ENCOUNTER 2021-03-12 13:55 | Emergency (ER) | payer BC, OTHER ==
[~2021-03-12] VITALS: Ht 152.4 cm; Wt 59.1 kg
--- OUTSIDE RECORDS SUMMARY | 2021-03-12 14:01 | CCD ---
Author Author [facility] Organization [facility] Address Unknown Phone Unavailable Care Team Providers Care Gate Manager Name Role Phone Minda Eubanks Unavailable PROBLEMS Type Condition ICD9-CM Code VCT84-OV Code Onset Dates Condition S tatus W/U Status Risk SNOMED Code Notes Problem Supervision of other normal Z34.80 Ac tive confirm 135242854 Problem Celiac disease K90.0 Active confirmed 38485 1005 Problem Bullous impetigo L01.03 Active confirmed 399 569947 Problem Microscopic hematuria R31.29 Active confirmed 385848573 Problem Cystitis N30.90 Active confirmed 51375473 ALLERGIES Allergen (clinical drug ingredient) Drug/Non Drug Allergy do cumented on EMR Reaction Allergy Type Onset Date Status MOTRIN HIVES Non Drug Allergy Active Sulfa (for allergy use only) HIVES Non Drug Allergy Active amoxicillin Amoxicillin([facility] Code:[address]-32) HIVES Drug Aller gy Active Gluten GLUTEN BACK PAIN Non Drug Allergy Active ENCOUNTERS from 1998 to 2021-02-16 Encounter Location Date Provider Diagnosis [facility] [address] [place] [address] [place] [address] Jan, Minda Eubanks IMMUNIZATIONS Vaccine Route Administration Date Status TDAP 0.5mL Boostrix IM Intramuscular November 25, 2020 Administere d SOCIAL HISTORY Tobacco Use: Social History Observation Description Date Details (start date - stop date) Never Smoker Sex Assigned At : Social History Observation Description Sex Assigned At Unknown Education: Question Answer Notes Level of Education: Finished College Language: Question Answer Notes Languages spoken: Azeri Latter-Day: Question Answer Notes Latter-Day NONE Alcohol Screening: Question Answer Notes Did you have a drink containing alcohol in the past year? No Points 0 Interpretation Negative Tobacco Use: Question Answer Notes Are you a: never smoker REASON FOR REFERRAL No Information VITAL SIGNS No information MEDICATIONS Medication SIG (Take, Route, Frequency, Duration) Notes Start Da te End Date Status Cephalexin 500 MG 1 capsule Orally every 12 hrs for 10 day(s) Mar, Not-Taking 28-0.8 MG 1 tablet Orally Once a day for 30 day(s) Active Amoxicillin-Pot Clavulanate 875-125 MG 1 tablet Orally every 12 hrs for 10 day(s) Dec, Not-Taking Tylenol 325 MG 1 tablet as needed Orally every 4 hrs Active Cipro 500 MG 1 tablet Orally every 12 hrs for 7 day(s) Dec, Active Macrobid 100 MG 1 capsult Orally twice daily for 10 day(s) Oct, Not-Taking Vitamin D3 Adult Gummies 1000 UNIT 1 CHEWY PO QD Not-Taking Pyridium 100 MG 1 tablet prn bladder irritat ion Orally Three times a day for 30 days Oct, Not-Taking Vitamin C Adult Gummies 125 MG 1 chewy PO QD Not-Taking Microgestin 1.5/30 1.5-30 MG-MCG 1 tablet Orally Once a day Not-Taking Ciprofloxacin HCl 250 MG 1 tablet Orally every 12 hrs for 3 day( s) Jan, Active Flagyl 500 MG 1 tablet Orally two times a day for 7 day(s) Dec, Active levoFLOXacin 250 MG 1 tablet Orally once a day for 3 days Jan, Active Retapamulin 1 % 1 application to affected ar ea Externally Twice a day for 5 day(s) Mar, Not-Taking PROCEDURES No Information RESULTS No Results REASON FOR VISIT Antibiotic MEDICAL (GENERAL) HISTORY Type Description Date Medical History HSV Medical History CELIAC DISEASE Medical History CAMPYLOBACTER JEJUNII Medical History CRYPTOSPORIDIUM Medical History RECURRENT UTI Medical History MICROSCOPIC HEMATURIA Medical History RIGHT KNEE FIBROUS CORTICAL DEFECT = [facility] Surgical History tonsillectomy 2006 Surgical History adnoidectomy 2005 Surgical History CYST REMOVED BELOW MIDDLE FINGER OF RIGH T HAND 02/02/2010 Surgical History cystoscopy 11/27/2018 Surgical History wisdom teeth removed Surgical History 31 Dec 2020 Hospitalization History stomach infection 2007 Hospitalization History Childbirth 31 Dec 2020 Hospitalization History Post op infection Endometritis 16 Se pt 2020 Goals Section No Information Health Concerns No Information MEDICAL EQUIPMENT No Information MENTAL STATUS No Information FUNCTIONAL STATUS No Information ASSESSMENTS No Information PLAN OF TREATMENT Medication Medication Name Sig Start Date Stop Date Ciprofloxacin HCl 250 MG 1 tablet Orally every 12 hrs for 3 day( s) Jan, levoFLOXacin 250 MG 1 tablet Orally once a day for 3 days Jan Next Appt Details Provider Name:Eddie Weber, 2021-02-17 01:00:00 PM, [address] [place] [address], , [place], [address], Provider Name:Radha Liu, 2021-01 02:00:00 PM, [address] [place] [address], , [place], [address], Insurance Providers Payer Name Payer Address Payer Phone Insured Name Patient Relati onship to Insured Coverage Start Date Coverage End Date [facility] [address] [facility] [id number] FERNANDO RIOS
--- OUTSIDE RECORDS SUMMARY | 2021-03-12 14:01 | CCD | Continuity of Care Document ---
Author Author Evelyn HEARD AL Organization Unknown Address [address] [place] [address] [place] [address] Phone [phone] Care Team Providers Care Industrial Hygiene Manager Name Role Phone Kavin Co Publi AUTM [phone] Problems Active Problems Provider Date Allergic rhinitis Jose Francisco Danielle Onset: 03/20/2011 Acute sinusitis Jose Francisco Danielle Onset: 03/20/2011 Social History Type Date Description Comments Sex Unknown ETOH Use Denies alcohol use Tobacco Use Start: Unknown Patient has never smoked Tobacco Use Start: Unknown The Patient Has Never Vaped Smoking Status Reviewed: 02/12/21 The Patient Has Never Vaped Allergies and adverse reactions Active Allergies Criticality Reaction | Severity Comments Date Sulfa Unable to assess criticality 09/13/2009 Amoxicillin Unable to assess criticality 09/13/2009 Gluten Unable to assess criticality 08/10/2016 Medications Active Medications SIG Qnty Indications Ordering Provide r Date Unknown Immunizations Description No Information Available Vital Signs Date Vital Result Comment 02/12/2021 4:50pm BP Systolic 130 mmHg BP Diastolic 79 mmHg Heart Rate 73 /min Respiratory Rate 16 /min O2 % BldC Oximetry 99 % Body Temperature 96.2 F Weight 135.00 lb Height 60 inches 5'0" BMI (Body Mass Index) 26.4 kg/m2 Pain Level 3 05/30/2020 8:27am BP Systolic 105 mmHg BP Diastolic 65 mmHg Heart Rate 79 /min Respiratory Rate 14 /min O2 % BldC Oximetry 99 % Body Temperature 98.0 F Weight 112.00 lb Height 60 inches 5'0" BMI (Body Mass Index) 21.9 kg/m2 Pain Level 4 Results Test Acquired Date Facility Test Result H/L Range Note Comprehensive Metabolic Profil 02/12/[address] [id number] [phone] Glucose, Fasting 82 mg/dL Normal 70-100 Blood Urea Nitrogen 12 mg/dL Normal 7-18 Creatinine For GFR 0.87 mg/dL Normal 0.55-1.30 Glomerular Filtration Rate > 60.0 Normal >60 1 Sodium Level 141 mEq/L Normal 136-145 Potassium Serum 4.8 mEq/L Normal 3.5-5.1 Chloride Level 109 mEq/L High 98-107 Carbon Dioxide Level 31 mEq/L Normal 21-32 Anion Gap 1 mEq/L Low 8-16 Calcium Level 9.7 mg/dL Normal 8.5-10.1 Ast/Sgot 18 U/L Normal 7-37 Alt/SGPT 36 U/L Normal 12-78 Alkaline Phosphatase 96 U/L Normal 45-117 Bilirubin,Total 0.3 mg/dL Normal 0.2-1.0 Total Protein 7.3 GM/DL Normal 6.4-8.2 Albumin 4.2 GM/DL Normal 3.2-5.2 Albumin/Globulin Ratio 1.4 Normal 1.2-2.2 Laboratory test finding 02/12/[address] [address] [phone] C Reactive Protein Quantitativ 0.30 mg/dL Normal 0 .00-0.30 CBC With Differential 02/12/[address] [address] [phone] White Blood Count 6.5 10 Normal 4.0-10.0 Red Blood Count 5.07 10 Normal 4.00-5.40 Hemoglobin 13.4 g/dL Normal 12.0-15.5 Hematocrit 41.9 % Normal 36.0-47.0 Mean Corpuscular Volume 82.6 fl Normal 80.0-96.0 Mean Corpuscular Hemoglobin 26.4 pg Low 27.0-33.0 Mean Corpuscular HGB Conc 32.0 g/dL Normal 32.0-36.5 Red Cell Distribution Width 14.5 % Normal 11.5-14.5 Platelet Count, Automated 227 10 Normal 150-450 Neutrophils % 51.9 % Normal 36.0-66.0 Lymph % 38.3 % Normal 24.0-44.0 [place] % 7.1 % Normal 2.0-8.0 Eos % 1.6 % Normal 0.0-3.0 Baso % 0.9 % Normal 0.0-1.0 Immature Granulocyte % 0.2 % Normal 0-3.0 Nucleated Red Blood Cell % 0.0 % Normal 0-0 Neutrophils # 3.4 10 Normal 1.5-8.5 Lymph # 2.5 10 Normal 1.5-5.0 [place] # 0.5 10 Normal 0.0-0.8 Eos # 0.1 10 Normal 0.0-0.5 Baso # 0.1 10 Normal 0.0-0.2 Laboratory test finding 02/12/[address] [address] [phone] High Sensitivity C-Reactive Protein <pending> Laboratory test finding 02/12/[address] [address] [phone] Urine Culture <pending> GC & Chlamydia By Amp 02/12/[address] [address] [phone] Chlamydia Dna Amplification NEGATIVE Normal Nega tive 2 GC Dna Amplification NEGATIVE Normal Negative 3 1 Units are mL/min/1.73 m2 Chronic Kidney Disease Staging per NKF: Stage I & II GFR >=60 Normal to Mildly Decreased Stage III GFR 30-59 Moderately Decreased Stage IV GFR 15-29 Severely Decreased Stage V GFR <15 Very Little GFR Left ESRD GFR <15 on GUM PULLER 2 A negative test result does not exclude the possibility of infection because test results may be affected by improper specimen collection, technical error, specimen mix-up, concurrent antibiotic therapy, or the number of organisms in the specimen which may be below the sensitivity of the test. 3 A negative test result does not exclude the possibility of infection because test results may be affected by improper specimen collection, technical error, specimen mix-up, concurrent antibiotic therapy, or the number of organisms in the specimen which may be below the sensitivity of the test. Procedures Date Code Description Status 02/12/2021 [address] Office/Outpatient Established Lo w MDM 20-29 Min Completed Medical Devices Description No Information Available Encounters Type Date Location Provider Dx Diagnosis Office Visit 02/12/2021 3:05p Main Office SHANICE Sadler R1 0.84 Generalized abdominal pain Z20.828 Contact w and exposure to ot h viral communicable diseases Assessments Date Code Description Provider 02/12/2021 R10.84 Generalized abdominal pain SHANICE Leon 02/12/2021 R10.84 Generalized abdominal pain SHANICE Carvajal 02/12/2021 Z20.828 Contact with and (riggins spected) exposure to other viral communicable diseases SHAINCE Sadler 02/12/2021 Z20.828 Contact with and (riggins spected) exposure to other viral communicable diseases SHANICE Anthony Plan of Treatment No Information Available Functional Status Description No Information Available Mental Status Description No Information Available Referrals Description No Information Available
--- OUTSIDE RECORDS SUMMARY | 2021-03-12 14:01 | CCD ---
Author Author [facility] Organization [facility] Address Unknown Phone Unavailable Care Team Providers Care Senior Nuclear Medicine Technologist Name Role Phone Eddie Weber Unavailable PROBLEMS Type Condition ICD9-CM Code [id number] Code Onset Dates Condition S tatus W/U Status Risk SNOMED Code Notes Problem Supervision of other normal Z34.80 Ac tive confirm 895315275 Problem Celiac disease K90.0 Active confirmed 70180 1005 Problem Bullous impetigo L01.03 Active confirmed 399 413899 Problem Microscopic hematuria R31.29 Active confirmed 806939819 Problem Cystitis N30.90 Active confirmed 41547563 ALLERGIES Allergen (clinical drug ingredient) Drug/Non Drug Allergy do cumented on EMR Reaction Allergy Type Onset Date Status Sulfa (for allergy use only) HIVES Drug Allergy Active amoxicillin Amoxicillin([facility] Code:[address]-90) HIVES Drug Aller gy Active Motrin HIVES Drug Allergy Active Levaquin Unsure Drug Allergy Active Gluten Gluten BACK PAIN Drug Allergy Active ENCOUNTERS from 1998 to 2021-02-26 Encounter Location Date Provider Diagnosis [facility] [address] [place] [address] [place] [address] Jan, Eddie Weber UTI (urinary tract i nfection) N39.0 IMMUNIZATIONS Vaccine Route Administration Date Status TDAP 0.5mL Boostrix IM Intramuscular November 25, 2020 Administere d SOCIAL HISTORY Tobacco Use: Social History Observation Description Date Details (start date - stop date) Never Smoker Sex Assigned At : Social History Observation Description Sex Assigned At Unknown Education: Question Answer Notes Level of Education: Finished College Language: Question Answer Notes Languages spoken: Bermudian Caodaism: Question Answer Notes Caodaism NONE Alcohol Screening: Question Answer Notes Did you have a drink containing alcohol in the past year? No Points 0 Interpretation Negative Tobacco Use: Question Answer Notes Are you a: never smoker Are you a: never smoker Are you a: never smoker REASON FOR REFERRAL No Information VITAL SIGNS No information MEDICATIONS Medication SIG (Take, Route, Frequency, Duration) Notes Start Da te End Date Status Flagyl 500 MG 1 tablet Orally two times a day for 7 day(s) Dec, Not-Taking levoFLOXacin 250 MG 1 tablet Orally once a day for 3 days Jan, Not-Taking Radhika 0.35 MG 1 tablet Orally Once a day for 84 day(s) Active 28-0.8 MG 1 tablet Orally Once a day for 30 day(s) Active Cipro 500 MG 1 tablet Orally every 12 hrs for 7 day(s) Dec, Active Tylenol 325 MG 1 tablet as needed Orally every 4 hrs Active PROCEDURES No Information RESULTS No Results REASON FOR VISIT No Information MEDICAL (GENERAL) HISTORY Type Description Date Medical [...] No Information FUNCTIONAL STATUS No Information ASSESSMENTS Encounter Date Diagnosis Assessment Notes Treatment Notes Treatm ent Clinical Notes Jan, UTI (urinary tract infection) (ICD-10 - N39.0) PLAN OF TREATMENT Medication Medication Name Sig Start Date Stop Date Radhika 0.35 MG 1 tablet Orally Once a day for 84 day(s) Treatment Notes Test Name Order Date URINE CULTURE 2021-02-22 Next Appt Details Provider Name:Radha Liu, 2021-03 08:00:00 AM, [address] [place] [address], , [place], [address], Insurance Providers Payer Name Payer Address Payer Phone Insured Name Patient Relati onship to Insured Coverage Start Date Coverage End Date [facility] [address] [facility] [id number] FERNANDO RIOS
--- OUTSIDE RECORDS SUMMARY | 2021-03-12 14:01 | CCD ---
Author Author [facility] Organization [facility] Address Unknown Phone Unavailable Care Team Providers Care Pbx Manager Name Role Phone Minda Eubanks Unavailable PROBLEMS Type Condition ICD9-CM Code [id number] Code Onset Dates Condition S tatus W/U Status Risk SNOMED Code Notes Problem Supervision of other normal Z34.80 Ac tive confirm 404600831 Problem Celiac disease K90.0 Active confirmed 58472 1005 Problem Bullous impetigo L01.03 Active confirmed 399 116952 Problem Microscopic hematuria R31.29 Active confirmed 939975182 Problem Cystitis N30.90 Active confirmed 28007245 ALLERGIES Allergen (clinical drug ingredient) Drug/Non Drug Allergy do cumented on EMR Reaction Allergy Type Onset Date Status MOTRIN HIVES Non Drug Allergy Active Sulfa (for allergy use only) HIVES Non Drug Allergy Active amoxicillin Amoxicillin([facility] Code:[address]-33) HIVES Drug Aller gy Active Gluten GLUTEN BACK PAIN Non Drug Allergy Active ENCOUNTERS from 1998 to 2021-02-17 Encounter Location Date Provider Diagnosis [facility] [address] [place] [address] [place] [address] Jan, Minda Eubanks IMMUNIZATIONS Vaccine Route Administration Date Status TDAP 0.5mL Boostrix IM Intramuscular November 25, 2020 Administere d SOCIAL HISTORY Tobacco Use: Social History Observation Description Date Details (start date - stop date) Never Smoker Sex Assigned At : Social History Observation Description Sex Assigned At Unknown Education: Question Answer Notes Level of Education: Finished College Language: Question Answer Notes Languages spoken: Icelandic Jain: Question Answer Notes Jain NONE Alcohol Screening: Question Answer Notes Did [...] a day for 3 days Jan, Not-Taking 28-0.8 MG 1 tablet Orally Once [...] Information ASSESSMENTS No Information PLAN OF TREATMENT Next Appt Details Provider Name:Radha Watt Noe, 2021-01 02:00:00 PM, [address] [place] [address], , [place], [address], Insurance Providers Payer Name Payer Address Payer Phone Insured Name Patient Relati onship to Insured Coverage Start Date Coverage End Date [facility] [address] [facility] [id number] FERNANDO RIOS
--- OUTSIDE RECORDS SUMMARY | 2021-03-12 14:01 | CCD ---
Author Author [facility] Organization [facility] Address Unknown Phone Unavailable Care Team Providers Care Wire Weaver Name Role Phone Eddie Weber Unavailable PROBLEMS Type Condition ICD9-CM Code [id number] Code Onset Dates Condition S tatus W/U Status Risk SNOMED Code Notes Problem Supervision of other normal Z34.80 Ac tive confirm 119487328 Problem Celiac disease K90.0 Active confirmed 38864 1005 Problem Bullous impetigo L01.03 Active confirmed 399 605228 Problem Microscopic hematuria R31.29 Active confirmed 234882978 Problem Cystitis N30.90 Active confirmed 71857991 ALLERGIES Allergen (clinical drug ingredient) Drug/Non Drug Allergy do cumented on EMR Reaction Allergy Type Onset Date Status Gluten Gluten BACK PAIN Drug Allergy Active amoxicillin Amoxicillin([facility] Code:[address]-67) HIVES Drug Aller gy Active Motrin HIVES Drug Allergy Active Sulfa (for allergy use only) HIVES Non Drug Allergy Active ENCOUNTERS from 1998 to 2021-02-22 Encounter Location Date Provider Diagnosis [facility] [address] [place] [address] [place] [address] Jan, Eddie Weber Endometritis followi ng delivery O86.12 IMMUNIZATIONS Vaccine Route Administration Date Status TDAP 0.5mL Boostrix IM Intramuscular November 25, 2020 Administere d SOCIAL HISTORY Tobacco Use: Social History Observation Description Date Details (start date - stop date) Never Smoker Sex Assigned At : Social History Observation Description Sex Assigned At Unknown Education: Question Answer Notes Level of Education: Finished College Language: Question Answer Notes Languages spoken: Belizean Taoism: Question Answer Notes Taoism NONE Alcohol Screening: Question Answer Notes Did you have a drink containing alcohol in the past year? No Points 0 Interpretation Negative Tobacco Use: Question Answer Notes Are you a: never smoker Are you a: never smoker Are you a: never smoker REASON FOR REFERRAL No Information VITAL SIGNS Weight 137 lbs Jan, Height 60 in Jan, BMI 26.75 kg/m2 Jan, Blood pressure systolic 126 mm Hg Jan, Blood pressure diastolic 74 mm Hg Jan, MEDICATIONS Medication SIG (Take, Route, Frequency, Duration) [...] Information RESULTS No Results REASON FOR VISIT Post op infection F/U with post MEDICAL (GENERAL) HISTORY Type Description Date Medical [...] Treatment Notes Treatm ent Clinical Notes Jan, Endometritis following delivery (ICD-10 - O86.12 ) PLAN OF TREATMENT Next Appt Details Provider Name:Radha Alysa Liu, 2021-01 02:00:00 PM, [address] [place] [address], , [place], [address], Insurance Providers Payer Name Payer Address Payer Phone Insured Name Patient Relati onship to Insured Coverage Start Date Coverage End Date [facility] [address] [facility] [id number] FERNANDO RIOS
--- OUTSIDE RECORDS SUMMARY | 2021-03-12 14:01 | CCD | Continuity of Care Document ---
Author Author Evelyn HEARD [place] Organization Unknown Address [address] [place] [address] [place] [address] Phone [phone] Care Team Providers Care Pump And Still Operator Name Role Phone Kavin Co Publi AUTM [phone] Problems Active Problems Provider Date Allergic rhinitis [...] H/L Range Note Comprehensive Metabolic Profil 02/12/[address] [id number] [phone] Glucose, Fasting 82 mg/dL Normal 70-100 1 Blood Urea Nitrogen 12 mg/dL Normal 7-18 Creatinine For GFR 0.87 mg/dL Normal 0.55-1.30 Glomerular Filtration Rate > 60.0 Normal >60 2 Sodium Level 141 mEq/L Normal 136-145 Potassium [...] 1.4 Normal 1.2-2.2 Laboratory test finding 02/12/[address] [address] [phone] C Reactive Protein Quantitativ 0.30 mg/dL Normal 0 .00-0.30 CBC With Differential 02/12/[address] [address] [phone] White Blood Count 6.5 10 Normal 4.0-10.0 [...] 36.0-66.0 Lymph % 38.3 % Normal 24.0-44.0 [place] % 7.1 % Normal 2.0-8.0 Eos % 1.6 % Normal 0.0-3.0 Baso % 0.9 % Normal 0.0-1.0 Immature Granulocyte % 0.2 % Normal 0-3.0 Nucleated Red Blood Cell % 0.0 % Normal 0-0 Neutrophils # 3.4 10 Normal 1.5-8.5 Lymph # 2.5 10 Normal 1.5-5.0 [place] # 0.5 10 Normal 0.0-0.8 Eos # 0.1 10 Normal 0.0-0.5 Baso # 0.1 10 Normal 0.0-0.2 Laboratory test finding 02/12/[address] [address] [phone] Urine Culture FULL REPORT IN L <SEE NOTE> Normal 3 GC & Chlamydia By Amp 02/12/[address] [address] [phone] Chlamydia Dna Amplification NEGATIVE Normal Nega tive 4 GC Dna Amplification NEGATIVE Normal Negative 5 1 see progress note 2 Units are mL/min/1.73 m2 Chronic Kidney Disease Staging per NKF: Stage I & II GFR >=60 Normal to Mildly Decreased Stage III GFR 30-59 Moderately Decreased Stage IV GFR 15-29 Severely Decreased Stage V GFR <15 Very Little GFR Left ESRD GFR <15 on WORKERS COMPENSATION ADMINISTRATOR 3 FULL REPORT IN LAB NOTES (eC W and Meddutch). ORGANISM 1: KLEBSIELLA PNEUMONIAE COLONY COUNT 15,000 ORGANISM 1: KLEBSIELLA PNEUMONIAE KLEBSIELLA PNEUMONIAE: REACTION TRIMETHOPRIM/SULFAMETHOXAZOLE IV 160mg TMP & 800mg SMXq6h <=20 S TRIMETHOPRIM/SULFAMETHOXAZOLE PO Bactrim DS Bid <=20 S AMPICILLIN IV 500mg q6h >=32 R AMPICILLIN PO 500mg q6h fasting >=32 R GENTAMICIN IV 80mg q8h <=1 S NITROFURANTOIN PO 100mg BID 64 I CEFAZOLIN IV 1gm q8h <=4 S LEVOFLOXACIN IV 500mg qd <=0.12 S LEVOFLOXACIN PO 250mg qd <=0.12 S LEVOFLOXACIN PO 500mg qd <=0.12 S TOBRAMYCIN IV 80mg q8h <=1 S CEFTRIAXONE IV 1gm q24h <=1 S CEFTAZIDIME IV 1gm q8h <=1 S AMPICILLIN/SULBACTAM IV 1.5g q6h 4 S PIPERACILLIN/TAZOBACTAM IV 2.25 gm q6h <=4 S AZTREONAM IV 1gm q8h <=1 S ERTAPENEM IV 1gm qd <=0.5 S MEROPENEM IV 1 gm q8h <=0.25 S MEROPENEM IV 500 mg q8h <=0.25 S TIGECYCLINE IV 50mg q12h 1 S CEFEPIME IV 1 gm q12h <=1 S CEFEPIME IV 2 gm q12h <=1 S EXTD BRD SPCTRM BETA LACTAMASE IV NEGATIVE FOR ESBL 4 A negative test result does not exclude the possibility of infection because test results may be affected by improper specimen collection, technical error, specimen mix-up, concurrent antibiotic therapy, or the number of organisms in the specimen which may be below the sensitivity of the test. 5 A negative test result does not exclude the possibility of infection because test results may be affected by improper specimen collection, technical error, specimen mix-up, concurrent antibiotic therapy, or the number of organisms in the specimen which may be below the sensitivity of the test. Procedures Date Code Description Status 02/12/2021 94339 Office/Outpatient Established Lo w MDM 20-29 Min [...] exposure to other viral communicable diseases SHANICE Sadler 02/12/2021 Z20.828 Contact with and (riggins spected) exposure to other viral communicable diseases SHANICE Anthony Plan of Treatment No Information Available Functional Status Description No Information Available Mental Status Description No Information Available Referrals Description No Information Available
--- OUTSIDE RECORDS SUMMARY | 2021-03-12 14:01 | CCD | Continuity of Care Document ---
Author Author Evelyn LAUGHLIN [place] Organization Unknown Address [address] [place] [address] [place] [address] Phone [phone] Care Team Providers Care Bioinformatics Scientist Name Role Phone Kavin Co Publi AUTM [phone] Problems Active Problems Provider Date Allergic rhinitis [...] H/L Range Note Comprehensive Metabolic Profil 02/12/2021 [address] [place], [place] [address]64 [phone] Glucose, Fasting 82 mg/dL Normal 70-100 Blood [...] 1.4 Normal 1.2-2.2 Laboratory test finding 02/12/[address] [address] [phone] C Reactive Protein Quantitativ 0.30 mg/dL Normal 0 .00-0.30 CBC With Differential 02/12/[address] [address] [phone] White Blood Count 6.5 10 Normal 4.0-10.0 [...] 36.0-66.0 Lymph % 38.3 % Normal 24.0-44.0 [place] % 7.1 % Normal 2.0-8.0 Eos % 1.6 % Normal 0.0-3.0 Baso % 0.9 % Normal 0.0-1.0 Immature Granulocyte % 0.2 % Normal 0-3.0 Nucleated Red Blood Cell % 0.0 % Normal 0-0 Neutrophils # 3.4 10 Normal 1.5-8.5 Lymph # 2.5 10 Normal 1.5-5.0 [place] # 0.5 10 Normal 0.0-0.8 Eos # 0.1 10 Normal 0.0-0.5 Baso # 0.1 10 Normal 0.0-0.2 Laboratory test finding 02/12/2021 [place] [address] [phone] High Sensitivity C-Reactive Protein <pending> Laboratory test finding 02/12/[address] [address] [phone] Urine Culture <pending> GC & Chlamydia By Amp 02/12/[address] [address] [phone] Chlamydia Dna Amplification NEGATIVE Normal Nega tive 2 GC Dna Amplification NEGATIVE Normal Negative 3 1 Units are mL/min/1.73 m2 Chronic Kidney Disease Staging per NKF: Stage I & II GFR >=60 Normal to Mildly Decreased Stage III GFR 30-59 Moderately Decreased Stage IV GFR 15-29 Severely Decreased Stage V GFR <15 Very Little GFR Left ESRD GFR <15 on TECH ED TEACHER 2 A negative test result does not [...] test. Procedures Date Code Description Status 02/12/2021 [address] Office/Outpatient Established Lo w MDM 20-29 Min [...]
--- OUTSIDE RECORDS SUMMARY | 2021-03-12 14:01 | CCD | Continuity of Care Document ---
Author Author Evelyn HEARD [place] Organization Unknown Address [address] [place] [address] [place] [address] Phone [phone] Care Team Providers Care Registered Nurse Behavioral Health Name Role Phone Kavin Co Publi AUTM [phone] Problems Active Problems Provider Date Allergic rhinitis [...] H/L Range Note Comprehensive Metabolic Profil 02/12/[address] [address]1293 [phone] Glucose, Fasting 82 mg/dL Normal 70-100 1 [...] 1.4 Normal 1.2-2.2 Laboratory test finding 02/12/[address] [address] [phone] C Reactive Protein Quantitativ 0.30 mg/dL Normal 0 .00-0.30 CBC With Differential 02/12/[address] [address] [phone] White Blood Count 6.5 10 Normal 4.0-10.0 [...] 36.0-66.0 Lymph % 38.3 % Normal 24.0-44.0 [place] % 7.1 % Normal 2.0-8.0 Eos % 1.6 % Normal 0.0-3.0 Baso % 0.9 % Normal 0.0-1.0 Immature Granulocyte % 0.2 % Normal 0-3.0 Nucleated Red Blood Cell % 0.0 % Normal 0-0 Neutrophils # 3.4 10 Normal 1.5-8.5 Lymph # 2.5 10 Normal 1.5-5.0 [place] # 0.5 10 Normal 0.0-0.8 Eos # 0.1 10 Normal 0.0-0.5 Baso # 0.1 10 Normal 0.0-0.2 Laboratory test finding 02/12/[address] [address] [phone] Urine Culture FULL REPORT IN L <SEE NOTE> Normal 3 GC & Chlamydia By Amp 02/12/[address] [address] [phone] Chlamydia Dna Amplification NEGATIVE Normal Nega tive [...] Little GFR Left ESRD GFR <15 on PUBLISHING EDITOR 3 FULL REPORT IN LAB NOTES (eC [...] test. Procedures Date Code Description Status 02/12/2021 [address]8766 Office/Outpatient Established Lo w MDM 20-29 Min [...]
--- OUTSIDE RECORDS SUMMARY | 2021-03-12 14:01 | CCD | Continuity of Care Document ---
Author Author Evelyn HEARD [place] Organization Unknown Address [address] [place] [address] [place] [address] Phone [phone] Care Team Providers Care Pipe Changer Name Role Phone Kavin Co Publi AUTM [phone] Problems Active Problems Provider Date Allergic rhinitis [...] H/L Range Note Comprehensive Metabolic Profil 02/12/[address] [id number] [phone] Glucose, Fasting 82 mg/dL Normal 70-100 1 [...] 1.4 Normal 1.2-2.2 Laboratory test finding 02/12/[address] [address] [phone] C Reactive Protein Quantitativ 0.30 mg/dL Normal 0 .00-0.30 CBC With Differential 02/12/[address] [address] [phone] White Blood Count 6.5 10 Normal 4.0-10.0 [...] 36.0-66.0 Lymph % 38.3 % Normal 24.0-44.0 [place] % 7.1 % Normal 2.0-8.0 Eos % 1.6 % Normal 0.0-3.0 Baso % 0.9 % Normal 0.0-1.0 Immature Granulocyte % 0.2 % Normal 0-3.0 Nucleated Red Blood Cell % 0.0 % Normal 0-0 Neutrophils # 3.4 10 Normal 1.5-8.5 Lymph # 2.5 10 Normal 1.5-5.0 [place] # 0.5 10 Normal 0.0-0.8 Eos # 0.1 10 Normal 0.0-0.5 Baso # 0.1 10 Normal 0.0-0.2 Laboratory test finding 02/12/[address] [address] [phone] Urine Culture FULL REPORT IN L <SEE NOTE> Normal 3 GC & Chlamydia By Amp 02/12/[address] [address] [phone] Chlamydia Dna Amplification NEGATIVE Normal Nega tive [...] Little GFR Left ESRD GFR <15 on BIKE SHOP MANAGER 3 FULL REPORT IN LAB NOTES (eC [...] test. Procedures Date Code Description Status 02/12/2021 [address] Office/Outpatient Established Lo w MDM 20-29 Min [...]
--- OUTSIDE RECORDS SUMMARY | 2021-03-12 14:01 | CCD | Continuity of Care Document ---
Author Author Evelyn HEARD [place] Organization Unknown Address [address] [place] [address] [place] [address] Phone [phone] Care Team Providers Care Gis Coordinator Name Role Phone Kavin Co Publi AUTM [phone] Problems Active Problems Provider Date Allergic rhinitis [...] H/L Range Note Comprehensive Metabolic Profil 02/12/[address] [id number] [phone] Glucose, Fasting 82 mg/dL Normal 70-100 1 [...] 1.4 Normal 1.2-2.2 Laboratory test finding 02/12/[address] [address] [phone] C Reactive Protein Quantitativ 0.30 mg/dL Normal 0 .00-0.30 CBC With Differential 02/12/[address] [address] [phone] White Blood Count 6.5 10 Normal 4.0-10.0 [...] 36.0-66.0 Lymph % 38.3 % Normal 24.0-44.0 Gosper % 7.1 % Normal 2.0-8.0 Eos % 1.6 % Normal 0.0-3.0 Baso % 0.9 % Normal 0.0-1.0 Immature Granulocyte % 0.2 % Normal 0-3.0 Nucleated Red Blood Cell % 0.0 % Normal 0-0 Neutrophils # 3.4 10 Normal 1.5-8.5 Lymph # 2.5 10 Normal 1.5-5.0 Gosper # 0.5 10 Normal 0.0-0.8 Eos # 0.1 10 Normal 0.0-0.5 Baso # 0.1 10 Normal 0.0-0.2 Laboratory test finding 02/12/[address] [address] [phone] Urine Culture FULL REPORT IN L <SEE NOTE> Normal 3 GC & Chlamydia By Amp 02/12/[address] [address] [phone] Chlamydia Dna Amplification NEGATIVE Normal Nega tive 4 GC Dna Amplification NEGATIVE Normal Negative 5 Laboratory test finding 02/12/[address] [address] [phone] Trichomonas Vaginalis Diane Negative Normal Negati ve 6 1 see progress note 2 Units are mL/min/1.73 m2 Chronic Kidney Disease Staging per NKF: Stage I & II GFR >=60 Normal to Mildly Decreased Stage III GFR 30-59 Moderately Decreased Stage IV GFR 15-29 Severely Decreased Stage V GFR <15 Very Little GFR Left ESRD GFR <15 on PACKAGER OR PACKER AND WEIGHER 3 FULL REPORT IN LAB NOTES (eC W and Medent). ORGANISM 1: KLEBSIELLA PNEUMONIAE COLONY COUNT 15,000 [...] be below the sensitivity of the test. 6 Performed at: - [facility] [id number] Wall Taper: Kylee Gil MD, Phone: [phone] Procedures Date Code Description Status 02/12/2021 [address] Office/Outpatient Established Lo w MDM 20-29 Min [...]
--- OUTSIDE RECORDS SUMMARY | 2021-03-12 14:01 | CCD | Continuity of Care Document ---
Author Author Evelyn HEARD [place] Organization Unknown Address [address] [place] [address] [place] [address] Phone [phone] Care Team Providers Care Wave Soldering Machine Operator Name Role Phone Kavin Co Publi AUTM [phone] Problems Active Problems Provider Date Allergic rhinitis [...] H/L Range Note Comprehensive Metabolic Profil 02/12/[address] [id number] [phone] Glucose, Fasting 82 mg/dL Normal 70-100 Blood [...] 1.4 Normal 1.2-2.2 Laboratory test finding 02/12/[address] [address] [phone] C Reactive Protein Quantitativ 0.30 mg/dL Normal 0 .00-0.30 CBC With Differential 02/12/[address] [address] [phone] White Blood Count 6.5 10 Normal 4.0-10.0 [...] 36.0-66.0 Lymph % 38.3 % Normal 24.0-44.0 Garland % 7.1 % Normal 2.0-8.0 Eos % 1.6 % Normal 0.0-3.0 Baso % 0.9 % Normal 0.0-1.0 Immature Granulocyte % 0.2 % Normal 0-3.0 Nucleated Red Blood Cell % 0.0 % Normal 0-0 Neutrophils # 3.4 10 Normal 1.5-8.5 Lymph # 2.5 10 Normal 1.5-5.0 Garland # 0.5 10 Normal 0.0-0.8 Eos # 0.1 10 Normal 0.0-0.5 Baso # 0.1 10 Normal 0.0-0.2 Laboratory test finding 02/12/[address] [address] [phone] High Sensitivity C-Reactive Protein <pending> Laboratory test finding 02/12/[address] [address] [phone] Urine Culture <pending> GC & Chlamydia By Amp 02/12/[address] [address] [phone] Chlamydia Dna Amplification NEGATIVE Normal Nega tive 2 GC Dna Amplification NEGATIVE Normal Negative 3 1 Units are mL/min/1.73 m2 Chronic Kidney Disease Staging per NKF: Stage I & II GFR >=60 Normal to Mildly Decreased Stage III GFR 30-59 Moderately Decreased Stage IV GFR 15-29 Severely Decreased Stage V GFR <15 Very Little GFR Left ESRD GFR <15 on TRAVERTINE INSTALLER 2 A negative test result does not [...] test. Procedures Date Code Description Status 02/12/2021 [address] Office/Outpatient Established Lo w MDM 20-29 Min [...]
--- OUTSIDE RECORDS SUMMARY | 2021-03-12 14:02 | CCD ---
Author Author [facility] Organization [facility] Address Unknown Phone Unavailable Care Team Providers Care Manager Multicultural Name Role Phone Eddie Weber Unavailable PROBLEMS Type Condition ICD9-CM Code RTC11-TO Code Onset Dates Condition S tatus W/U Status Risk SNOMED Code Notes Problem Supervision of other normal Z34.80 Ac tive confirm 256904864 Problem Celiac disease K90.0 Active confirmed 69579 1005 Problem Bullous impetigo L01.03 Active confirmed 399 330853 Problem Microscopic hematuria R31.29 Active confirmed 851909686 Problem Cystitis N30.90 Active confirmed 90821721 ALLERGIES Allergen (clinical drug ingredient) Drug/Non Drug Allergy do cumented on EMR Reaction Allergy Type Onset Date Status MOTRIN HIVES Non Drug Allergy Active Sulfa (for allergy use only) HIVES Non Drug Allergy Active amoxicillin Amoxicillin([facility] Code:[address]-52) HIVES Drug Aller gy Active Gluten GLUTEN BACK PAIN Non Drug Allergy Active ENCOUNTERS from 1998 to 2021-02-02 Encounter Location Date Provider Diagnosis [facility] [address] [place] [address] [place] [address] Dec, Eddie Weber Endometritis followi ng delivery O86.12 [...] College Language: Question Answer Notes Languages spoken: Cameroonian Yarsanism: Question Answer Notes Yarsanism NONE Alcohol Screening: Question Answer Notes Did you have a drink containing alcohol in the past year? No Points 0 Interpretation Negative Tobacco Use: Question Answer Notes Are you a: never smoker REASON FOR REFERRAL No Information VITAL SIGNS Weight 162 lbs Dec, Weight-kg 73.48 kg Dec, Height 60 in Dec, BMI 31.64 kg/m2 Dec, Temperature 97.3 degrees Fahrenheit Dec, Blood pressure systolic 110 mm Hg Dec, Blood pressure diastolic 60 mm Hg Dec, MEDICATIONS Medication SIG (Take, Route, Frequency, Duration) Notes Start Da te End Date Status Cipro 500 MG 1 tablet Orally every 12 hrs for 7 day(s) Dec, Active Vitamin D3 Adult Gummies 1000 UNIT 1 CHEWY PO QD Not-Taking Retapamulin 1 % 1 application to affected ar ea Externally Twice a day for 5 day(s) Mar, Not-Taking Vitamin C Adult Gummies 125 MG 1 chewy PO QD Not-Taking Pyridium 100 MG 1 tablet prn bladder irritat ion Orally Three times a day for 30 days Oct, Not-Taking 28-0.8 MG 1 tablet Orally Once a day for 30 day(s) Active Cephalexin 500 MG 1 capsule Orally every 12 hrs for 10 day(s) Mar, Not-Taking Amoxicillin-Pot Clavulanate 875-125 MG 1 tablet Orally every 12 hrs for 10 day(s) Dec, Not-Taking Macrobid 100 MG 1 capsult Orally twice daily for 10 day(s) Oct, Not-Taking Flagyl 500 MG 1 tablet Orally two times a day for 7 day(s) Dec, Active Tylenol 325 MG 1 tablet as needed Orally every 4 hrs Active Microgestin .5/30 1.5-30 MG-MCG 1 tablet Orally Once a day Not-Taking PROCEDURES No Information RESULTS No Results REASON FOR VISIT PP UTERINE INF PER O/C NURSE MEDICAL (GENERAL) HISTORY Type Description Date Medical History HSV Medical History CELIAC DISEASE Medical History CAMPYLOBACTER JEJUNII Medical History CRYPTOSPORIDIUM Medical History RECURRENT UTI Medical History MICROSCOPIC HEMATURIA Medical History RIGHT KNEE FIBROUS CORTICAL DEFECT = [facility] Surgical History tonsillectomy 2005 Surgical History adnoidectomy 2005 Surgical History CYST REMOVED BELOW MIDDLE FINGER OF RIGH T HAND 02/02/2010 Surgical History cystoscopy 11/27/2018 Surgical History wisdom teeth removed Hospitalization History stomach infection 2008 Goals Section No Information Health Concerns No Information MEDICAL EQUIPMENT No Information MENTAL STATUS No Information FUNCTIONAL STATUS No Information ASSESSMENTS Encounter Date Diagnosis Assessment Notes Treatment Notes Treatm ent Clinical Notes Dec, Endometritis following delivery (ICD-10 - O86.12 ) PLAN OF TREATMENT Next Appt Details Provider Name:Eddie Heather Weber, 2021-02-10 09:00:00 AM, [address] [facility], , [place], [address], Insurance Providers Payer Name Payer Address Payer Phone Insured Name Patient Relati onship to Insured Coverage Start Date Coverage End Date [facility] [address] [facility] [id number] FERNANDO RIOS
--- OUTSIDE RECORDS SUMMARY | 2021-03-12 14:02 | CCD ---
Author Author [facility] Organization [facility] Address Unknown Phone Unavailable Care Team Providers Care Veterans Contact Representative Name Role Phone Tequila Rudolph Unavailable PROBLEMS Type Condition ICD9-CM Code EUO49-ME Code Onset Dates Condition S tatus W/U Status Risk SNOMED Code Notes Problem Supervision of other normal Z34.80 Ac tive confirm 563964746 Problem Celiac disease K90.0 Active confirmed 93882 1005 Problem Bullous impetigo L01.03 Active confirmed 399 061522 Problem Microscopic hematuria R31.29 Active confirmed 575062139 Problem Cystitis N30.90 Active confirmed 46688648 ALLERGIES Allergen (clinical drug ingredient) Drug/Non Drug Allergy do cumented on EMR Reaction Allergy Type Onset Date Status MOTRIN HIVES Non Drug Allergy Active Sulfa (for allergy use only) HIVES Non Drug Allergy Active amoxicillin Amoxicillin([facility] Code:[address]-11) HIVES Drug Aller gy Active Gluten GLUTEN BACK PAIN Non Drug Allergy Active ENCOUNTERS from 1998 to 2020-12-15 Encounter Location Date Provider Diagnosis [facility] [address] [place] [address] [place] [address] Nov, Tequila Rudolph 37 weeks gestation o f Z3A.37 and Encounter for supervision of normal in multigravida in third trimester Z34.83 IMMUNIZATIONS Vaccine Route Administration Date Status TDAP 0.5mL Boostrix IM Intramuscular November 25, 2020 Administere d SOCIAL HISTORY Tobacco Use: Social History Observation Description Date Details (start date - stop date) Never Smoker Sex Assigned At : Social History Observation Description Sex Assigned At Unknown Education: Question Answer Notes Level of Education: Finished College Language: Question Answer Notes Languages spoken: Bulgarian Confucianism: Question Answer Notes Confucianism NONE Alcohol Screening: Question Answer Notes Did you have a drink containing alcohol in the past year? No Points 0 Interpretation Negative Tobacco Use: Question Answer Notes Are you a: never smoker REASON FOR REFERRAL No Information VITAL SIGNS Weight 159.2 lbs Nov, Weight-kg 72.21 kg Nov, Height 60 in Nov, BMI 31.09 kg/m2 Nov, Blood pressure systolic 124 mm Hg Nov, Blood pressure diastolic 76 mm Hg Nov, MEDICATIONS Medication SIG (Take, Route, Frequency, Duration) Notes Start Da te End Date Status Vitamin D3 Adult Gummies 1000 UNIT 1 CHEWY PO QD Not-Taking Microgestin 1.5/30 1.5-30 MG-MCG 1 tablet Orally Once a day Not-Taking 28-0.8 MG 1 tablet Orally Once a day for 30 day(s) Active Macrobid 100 MG 1 capsult Orally twice daily for 10 day(s) Oct, Not-Taking Cephalexin 500 MG 1 capsule Orally every 12 hrs for 10 day(s) Mar, Not-Taking Retapamulin 1 % 1 application to affected ar ea Externally Twice a day for 5 day(s) Mar, Not-Taking Vitamin C Adult Gummies 125 MG 1 chewy PO QD Not-Taking Tylenol 325 MG 1 tablet as needed Orally every 4 hrs Active Pyridium 100 MG 1 tablet prn bladder irritat ion Orally Three times a day for 30 days Oct, Not-Taking PROCEDURES No Information RESULTS No Results REASON FOR VISIT 2 wk pn MEDICAL (GENERAL) HISTORY Type Description Date Medical History HSV Medical History CELIAC DISEASE Medical History CAMPYLOBACTER JEJUNII Medical History CRYPTOSPORIDIUM Medical History RECURRENT UTI Medical History MICROSCOPIC HEMATURIA Medical History RIGHT KNEE FIBROUS CORTICAL DEFECT = [facility] Surgical History tonsillectomy 2006 Surgical History adnoidectomy 2006 Surgical History CYST REMOVED BELOW MIDDLE FINGER OF RIGH T HAND 02/02/2010 Surgical History cystoscopy 11/27/2018 Surgical History wisdom teeth removed Hospitalization History stomach infection 2008 Goals Section No Information Health Concerns No Information MEDICAL EQUIPMENT No Information MENTAL STATUS No Information FUNCTIONAL STATUS No Information ASSESSMENTS Encounter Date Diagnosis Assessment Notes Treatment Notes Treatm ent Clinical Notes Nov, 37 weeks gestation of (ICD-10 - Z3A.37 ) Nov, Encounter for supervision of normal in multigravida in third trimester (ICD-10 - Z34.83) PLAN OF TREATMENT Treatment Notes Test Name Order Date WWBC OBS FOLLOW UP OR REPEAT 2020-12-14 GROUP B STREP CULTURE 2020-12-14 Next Appt Details 1 Week Reason:PN Provider Name:Eddie Heather Weber, 2020-12-22 01:45:00 PM, [address] [facility], , [place], [address], Follow Up:1 WeekPN Insurance Providers Payer Name Payer Address Payer Phone Insured Name Patient Relati onship to Insured Coverage Start Date Coverage End Date [facility] [address] [facility] [id number] FERNANDO RIOS
--- OUTSIDE RECORDS SUMMARY | 2021-03-12 14:02 | CCD ---
Author Author [facility] Organization [facility] Address Unknown Phone Unavailable Care Team Providers Care Heel Coverer Machine Operator Name Role Phone Radha Liu Unavailable PROBLEMS Type Condition ICD9-CM Code EAZ34-RY Code Onset Dates Condition S tatus W/U Status Risk SNOMED Code Notes Problem Supervision of other normal Z34.80 Ac tive confirm 307981067 Problem Celiac disease K90.0 Active confirmed 88205 1005 Problem Bullous impetigo L01.03 Active confirmed 399 755893 Problem Microscopic hematuria R31.29 Active confirmed 955674772 Problem Cystitis N30.90 Active confirmed 89008441 ALLERGIES Allergen (clinical drug ingredient) Drug/Non Drug Allergy do cumented on EMR Reaction Allergy Type Onset Date Status MOTRIN HIVES Non Drug Allergy Active Sulfa (for allergy use only) HIVES Non Drug Allergy Active amoxicillin Amoxicillin([facility] Code:[address]-68) HIVES Drug Aller gy Active Gluten GLUTEN BACK PAIN Non Drug Allergy Active ENCOUNTERS from 1998 to 2021-02-11 Encounter Location Date Provider Diagnosis [facility] [phone] [place] [address] Jan, Radha Liu IMMUNIZATIONS Vaccine Route Administration Date Status TDAP 0.5mL Boostrix IM Intramuscular November 25, 2020 Administere d SOCIAL HISTORY Tobacco Use: Social History Observation Description Date Details (start date - stop date) Never Smoker Sex Assigned At : Social History Observation Description Sex Assigned At Unknown Education: Question Answer Notes Level of Education: Finished College Language: Question Answer Notes Languages spoken: Cypriot Presybeterian: Question Answer Notes Presybeterian NONE Alcohol Screening: Question Answer Notes Did [...] needed Orally every 4 hrs Active Microgestin 1.5/30 1.5-30 MG-MCG 1 tablet Orally Once a day Not-Taking PROCEDURES No Information RESULTS No Results REASON FOR VISIT same day MEDICAL (GENERAL) HISTORY Type Description Date Medical [...] OF TREATMENT Next Appt Details Provider Name:Eddie Weber 2021-02-17 01:00:00 PM, [address] [facility], , [place], [address], Insurance Providers Payer Name Payer Address Payer Phone Insured Name Patient Relati onship to Insured Coverage Start Date Coverage End Date [facility] [address] [facility] [id number] FERNANDO RIOS
--- OUTSIDE RECORDS SUMMARY | 2021-03-12 14:02 | CCD ---
Author Author [facility] Organization [facility] Address Unknown Phone Unavailable Care Team Providers Care Machine Puller And Laster Name Role Phone Eddie Weber Unavailable PROBLEMS Type Condition ICD9-CM Code [id number] Code Onset Dates Condition S tatus W/U Status Risk SNOMED Code Notes Problem Supervision of other normal Z34.80 Ac tive confirm 634331407 Problem Celiac disease K90.0 Active confirmed 43111 1005 Problem Bullous impetigo L01.03 Active confirmed 399 375996 Problem Microscopic hematuria R31.29 Active confirmed 680194064 Problem Cystitis N30.90 Active confirmed 03809061 ALLERGIES Allergen (clinical drug ingredient) Drug/Non Drug Allergy do cumented on EMR Reaction Allergy Type Onset Date Status MOTRIN HIVES Non Drug Allergy Active Sulfa (for allergy use only) HIVES Non Drug Allergy Active amoxicillin Amoxicillin([facility] Code:[address]-23) HIVES Drug Aller gy Active Gluten GLUTEN BACK PAIN Non Drug Allergy Active ENCOUNTERS from 1998 to 2021-01-18 Encounter Location Date Provider Diagnosis [facility] [address] [place] [address] [place] [address] Dec, Eddie Weber 39 weeks gestation o f Z3A.39 and Encounter for supervision of normal in [...] College Language: Question Answer Notes Languages spoken: Nepali Pentecostal: Question Answer Notes Pentecostal NONE Alcohol Screening: Question Answer Notes Did you have a drink containing alcohol in the past year? No Points 0 Interpretation Negative Tobacco Use: Question Answer Notes Are you a: never smoker REASON FOR REFERRAL No Information VITAL SIGNS Weight 162.4 lbs Dec, Height 60 in Dec, BMI 31.717 kg/m2 Dec, Blood pressure systolic 130 mm Hg Dec, Blood pressure diastolic 82 mm Hg Dec, MEDICATIONS Medication SIG (Take, Route, Frequency, Duration) Notes Start Da te End Date Status Retapamulin 1 % 1 application to affected ar ea Externally Twice a day for 5 day(s) Mar, Not-Taking 28-0.8 MG 1 tablet Orally Once a day for 30 day(s) Active Cephalexin 500 MG 1 capsule Orally every 12 hrs for 10 day(s) Mar, Not-Taking Microgestin 1.5/30 1.5-30 MG-MCG 1 tablet Orally Once a day Not-Taking Tylenol 325 MG 1 tablet as needed Orally every 4 hrs Active Macrobid 100 MG 1 capsult Orally twice daily for 10 day(s) Oct, Not-Taking Vitamin C Adult Gummies 125 MG 1 chewy PO QD Not-Taking Pyridium 100 MG 1 tablet prn bladder irritat ion Orally Three times a day for 30 days Oct, Not-Taking Vitamin D3 Adult Gummies 1000 UNIT 1 CHEWY PO QD Not-Taking PROCEDURES No Information RESULTS No Results REASON FOR VISIT 1 WK PN MEDICAL (GENERAL) HISTORY Type Description Date Medical [...] Treatment Notes Treatm ent Clinical Notes Dec, 39 weeks gestation of (ICD-10 - Z3A.39 ) Dec, Encounter for supervision of normal in multigravida in third trimester (ICD-10 - Z34.83) PLAN OF TREATMENT Next Appt Details Provider Name:Eddie Romero Gus, 2021-02-10 09:00:00 AM, [address] [facility], , [place], [address], Insurance Providers Payer Name Payer Address Payer Phone Insured Name Patient Relati onship to Insured Coverage Start Date Coverage End Date [facility] [address] [facility] [id number] FERNANDO RIOS
--- OUTSIDE RECORDS SUMMARY | 2021-03-12 14:02 | CCD ---
Author Author [facility] Organization [facility] Address Unknown Phone Unavailable Care Team Providers Care Cartridge Loader Name Role Phone Eddie Weber Unavailable PROBLEMS Type Condition ICD9-CM Code EWI85-NB Code Onset Dates Condition S tatus W/U Status Risk SNOMED Code Notes Problem Supervision of other normal Z34.80 Ac tive confirm 702446456 Problem Celiac disease K90.0 Active confirmed 23407 1005 Problem Bullous impetigo L01.03 Active confirmed 399 080388 Problem Microscopic hematuria R31.29 Active confirmed 317220443 Problem Cystitis N30.90 Active confirmed 33737483 ALLERGIES Allergen (clinical drug ingredient) Drug/Non Drug Allergy do cumented on EMR Reaction Allergy Type Onset Date Status MOTRIN HIVES Non Drug Allergy Active Sulfa (for allergy use only) HIVES Non Drug Allergy Active amoxicillin Amoxicillin([facility] Code:[address]-16) HIVES Drug Aller gy Active Gluten GLUTEN BACK PAIN Non Drug Allergy Active ENCOUNTERS from 1998 to 2021-01-29 Encounter Location Date Provider Diagnosis [facility] [phone] [place] [address] Dec, Eddie Weber IMMUNIZATIONS Vaccine Route Administration Date Status TDAP 0.5mL Boostrix IM Intramuscular November 25, 2020 Administere d SOCIAL HISTORY Tobacco Use: Social History Observation Description Date Details (start date - stop date) Never Smoker Sex Assigned At : Social History Observation Description Sex Assigned At Unknown Education: Question Answer Notes Level of Education: Finished College Language: Question Answer Notes Languages spoken: Jamaican Spiritism: Question Answer Notes Spiritism NONE Alcohol Screening: Question Answer Notes Did [...] a day for 7 day(s) Dec, Active Vitamin D3 Adult Gummies 1000 UNIT 1 CHEWY PO QD Not-Taking Microgestin 1.5/30 1.5-30 MG-MCG 1 tablet Orally Once a day Not-Taking Vitamin C Adult Gummies 125 MG 1 chewy PO QD Not-Taking Retapamulin 1 % 1 application to affected ar ea Externally Twice a day for 5 day(s) Mar, Not-Taking Tylenol 325 MG 1 tablet as needed Orally every 4 hrs Active 28-0.8 MG 1 tablet Orally Once a day for 30 day(s) Active Amoxicillin-Pot Clavulanate 875-125 MG 1 tablet Orally every 12 hrs for 10 day(s) Dec, Active Cephalexin 500 MG 1 capsule Orally every 12 hrs for 10 day(s) Mar, Not-Taking Cipro 500 MG 1 tablet Orally every 12 hrs for 7 day(s) Dec, Active Macrobid 100 MG 1 capsult Orally twice daily for 10 day(s) Oct, Not-Taking Pyridium 100 MG 1 tablet prn bladder irritat ion Orally Three times a day for 30 days Oct, Not-Taking PROCEDURES No Information RESULTS No Results REASON FOR VISIT PP uterine infection MEDICAL (GENERAL) HISTORY Type Description Date Medical [...] Medication Name Sig Start Date Stop Date Flagyl 500 MG 1 tablet Orally two times a day for 7 day(s) Dec, Cipro 500 MG 1 tablet Orally every 12 hrs for 7 day(s) Dec Amoxicillin-Pot Clavulanate 875-125 MG 1 tablet Orally every 12 hrs for 10 day(s) Dec, Next Appt Details Provider Name:Eddie Weber, 2021-02-02 11:00:00 AM, [address] [place] [address], , [place], [address], Provider Name:Eddie Weber, 2021-02-10 09:00:00 AM, [address] [facility], , [place], [address], Insurance Providers Payer Name Payer Address Payer Phone Insured Name Patient Relati onship to Insured Coverage Start Date Coverage End Date [facility] [address] [facility] [id number] FERNANDO RIOS
--- OUTSIDE RECORDS SUMMARY | 2021-03-12 14:02 | CCD | Continuity of Care Document ---
Author Author [facility] Organization Unknown Address [address] [place] [address] [place] [address] Phone [phone] Care Team Providers Care Bank Note Designer Name Role Phone Kavin [employer] Publi AUTM [phone] Problems Active Problems Provider Date Allergic rhinitis [...] H/L Range Note Comprehensive Metabolic Profil 02/12/[address] 1906190 [phone] Glucose, Fasting 82 mg/dL Normal 70-100 Blood [...] 1.4 Normal 1.2-2.2 Laboratory test finding 02/12/[address] [address] [phone] C Reactive Protein Quantitativ 0.30 mg/dL Normal 0 .00-0.30 CBC With Differential 02/12/[address] [address] [phone] White Blood Count 6.5 10 Normal 4.0-10.0 [...] 36.0-66.0 Lymph % 38.3 % Normal 24.0-44.0 Todd % 7.1 % Normal 2.0-8.0 Eos % 1.6 % Normal 0.0-3.0 Baso % 0.9 % Normal 0.0-1.0 Immature Granulocyte % 0.2 % Normal 0-3.0 Nucleated Red Blood Cell % 0.0 % Normal 0-0 Neutrophils # 3.4 10 Normal 1.5-8.5 Lymph # 2.5 10 Normal 1.5-5.0 Todd # 0.5 10 Normal 0.0-0.8 Eos # 0.1 10 Normal 0.0-0.5 Baso # 0.1 10 Normal 0.0-0.2 Laboratory test finding 02/12/[address] [address] [phone] High Sensitivity C-Reactive Protein <pending> Laboratory test finding 02/12/[address] [address] [phone] Urine Culture <pending> 1 Units are mL/min/1.73 m2 Chronic Kidney Disease Staging per NKF: Stage I & II GFR >=60 Normal to Mildly Decreased Stage III GFR 30-59 Moderately Decreased Stage IV GFR 15-29 Severely Decreased Stage V GFR <15 Very Little GFR Left ESRD GFR <15 on DIRECTOR TREASURER Procedures Date Code Description Status 02/12/2021 06856 Office/Outpatient Established Lo w MDM 20-29 Min [...]
--- OUTSIDE RECORDS SUMMARY | 2021-03-12 14:02 | CCD ---
Author Author [facility] Organization [facility] Address Unknown Phone Unavailable Care Team Providers Care Marketing Performance Analyst Name Role Phone Eddie Weber Unavailable PROBLEMS Type Condition ICD9-CM Code [id number] Code Onset Dates Condition S tatus W/U Status Risk SNOMED Code Notes Problem Supervision of other normal Z34.80 Ac tive confirm 409513275 Problem Celiac disease K90.0 Active confirmed 99854 1005 Problem Bullous impetigo L01.03 Active confirmed 399 968486 Problem Microscopic hematuria R31.29 Active confirmed 105031770 Problem Cystitis N30.90 Active confirmed 47570537 ALLERGIES Allergen (clinical drug ingredient) Drug/Non Drug Allergy do cumented on EMR Reaction Allergy Type Onset Date Status MOTRIN HIVES Non Drug Allergy Active Sulfa (for allergy use only) HIVES Non Drug Allergy Active amoxicillin Amoxicillin([facility] Code:[address]-52) HIVES Drug Aller gy Active Gluten GLUTEN BACK PAIN Non Drug Allergy Active ENCOUNTERS from 1998 to 2021-01-26 Encounter Location Date Provider Diagnosis [facility] [address] [place] [address] [place] [address] Dec, Eddie Weber IMMUNIZATIONS Vaccine Route Administration Date Status TDAP 0.5mL Boostrix IM Intramuscular November 25, 2020 Administere d SOCIAL HISTORY Tobacco Use: Social History Observation Description Date Details (start date - stop date) Never Smoker Sex Assigned At : Social History Observation Description Sex Assigned At Unknown Education: Question Answer Notes Level of Education: Finished College Language: Question Answer Notes Languages spoken: Mozambican Anabaptism: Question Answer Notes Anabaptism NONE Alcohol Screening: Question Answer Notes Did you have a drink containing alcohol in the past year? No Points 0 Interpretation Negative Tobacco Use: Question Answer Notes Are you a: never smoker REASON FOR REFERRAL No Information VITAL SIGNS No information MEDICATIONS Medication SIG (Take, Route, Frequency, Duration) Notes Start Da te End Date Status Macrobid 100 MG 1 capsult Orally twice daily for 10 day(s) Oct, Not-Taking Microgestin 1.5/30 1.5-30 MG-MCG 1 tablet Orally Once a day Not-Taking Cephalexin 500 MG 1 capsule Orally every 12 hrs for 10 day(s) Mar, Not-Taking 28-0.8 MG 1 tablet Orally Once a day for 30 day(s) Active Pyridium 100 MG 1 tablet prn bladder irritat ion Orally Three times a day for 30 days Oct, Not-Taking Vitamin C Adult Gummies 125 MG 1 chewy PO QD Not-Taking Tylenol 325 MG 1 tablet as needed Orally every 4 hrs Active Amoxicillin-Pot Clavulanate 875-125 MG 1 tablet Orally every 12 hrs for 10 day(s) Dec, Active Retapamulin 1 % 1 application to affected ar ea Externally Twice a day for 5 day(s) Mar, Not-Taking Vitamin D3 Adult Gummies 1000 UNIT 1 CHEWY PO QD Not-Taking PROCEDURES No Information RESULTS No Results REASON FOR VISIT PP Complaints MEDICAL (GENERAL) HISTORY Type Description Date Medical [...] Medication Name Sig Start Date Stop Date Amoxicillin-Pot Clavulanate 875-125 MG 1 tablet Orally every 12 hrs for 10 day(s) Dec, Next Appt Details Provider Name:Eddie Weber, 2021-02-02 11:00:00 AM, [address] [facility], , [place], [address], Provider Name:Eddie Romero Gus, 2021-02-10 09:00:00 AM, [address] [facility], , [place], [address], Insurance Providers Payer Name Payer Address Payer Phone Insured Name Patient Relati onship to Insured Coverage Start Date Coverage End Date [facility] [address] [facility] [id number] FERNANDO RIOS
--- OUTSIDE RECORDS SUMMARY | 2021-03-12 14:02 | CCD ---
Author Author [facility] Organization [facility] Address Unknown Phone Unavailable Care Team Providers Care Refrigeration Lead Name Role Phone Eddie Weber Unavailable PROBLEMS Type Condition ICD9-CM Code [id number] Code Onset Dates Condition S tatus W/U Status Risk SNOMED Code Notes Problem Supervision of other normal Z34.80 Ac tive confirm 278061976 Problem Celiac disease K90.0 Active confirmed 62739 1005 Problem Bullous impetigo L01.03 Active confirmed 399 092011 Problem Microscopic hematuria R31.29 Active confirmed 238212952 Problem Cystitis N30.90 Active confirmed 92532901 ALLERGIES Allergen (clinical drug ingredient) Drug/Non Drug Allergy do cumented on EMR Reaction Allergy Type Onset Date Status MOTRIN HIVES Non Drug Allergy Active Sulfa (for allergy use only) HIVES Non Drug Allergy Active amoxicillin Amoxicillin([facility] Code:[address]-98) HIVES Drug Aller gy Active Gluten GLUTEN BACK PAIN Non Drug Allergy Active ENCOUNTERS from 1998 to 2020-12-31 Encounter Location Date Provider Diagnosis [facility] [address] [place] [address] [place] [address] Nov, Eddie Gus Group B streptococca l carriage complicating O99.820 ; 38 weeks gestation of Z3A.38 and First in adolescent 16 years of age or older in third trimester Z34.03 IMMUNIZATIONS Vaccine Route Administration Date Status TDAP 0.5mL Boostrix IM Intramuscular November 25, 2020 Administere d SOCIAL HISTORY Tobacco Use: Social History Observation Description Date Details (start date - stop date) Never Smoker Sex Assigned At : Social History Observation Description Sex Assigned At Unknown Education: Question Answer Notes Level of Education: Finished College Language: Question Answer Notes Languages spoken: Belizean Gnosticist: Question Answer Notes Gnosticist NONE Alcohol Screening: Question Answer Notes Did you have a drink containing alcohol in the past year? No Points 0 Interpretation Negative Tobacco Use: Question Answer Notes Are you a: never smoker REASON FOR REFERRAL No Information VITAL SIGNS Weight 163 lbs Nov, Height 60 in Nov, BMI 31.834 kg/m2 Nov, Blood pressure systolic 130 mm Hg Nov, Blood pressure diastolic 80 mm Hg Nov, MEDICATIONS Medication SIG (Take, [...] RESULTS No Results REASON FOR VISIT 1 wk pn MEDICAL (GENERAL) HISTORY Type Description [...] Treatment Notes Treatm ent Clinical Notes Nov, Group B streptococcal carria ge complicating (ICD-10 - O99.820) Nov, 38 weeks gestation of (ICD-10 - Z3A.38 ) Nov, First in adolescen t 16 years of age or older in third trimester (ICD-10 - Z34.03) PLAN OF TREATMENT Next Appt Details Provider Name:Sai Jay, 08:40:00 AM, [address] [facility], , [place], [address], Insurance Providers Payer Name Payer Address Payer Phone Insured Name Patient Relati onship to Insured Coverage Start Date Coverage End Date [facility] [address] [facility] [id number] FERNANDO RIOS
--- OUTSIDE RECORDS SUMMARY | 2021-03-12 14:02 | CCD ---
Author Author [facility] Organization [facility] Address Unknown Phone Unavailable Care Team Providers Care Procurement Specialist Name Role Phone Eddie Weber Unavailable PROBLEMS Type Condition ICD9-CM Code GNH86-FM Code Onset Dates Condition S tatus W/U Status Risk SNOMED Code Notes Problem Supervision of other normal Z34.80 Ac tive confirm 569259061 Problem Celiac disease K90.0 Active confirmed 73735 1005 Problem Bullous impetigo L01.03 Active confirmed 399 113938 Problem Microscopic hematuria R31.29 Active confirmed 718555185 Problem Cystitis N30.90 Active confirmed 55677714 ALLERGIES Allergen (clinical drug ingredient) Drug/Non Drug Allergy do cumented on EMR Reaction Allergy Type Onset Date Status MOTRIN HIVES Non Drug Allergy Active Sulfa (for allergy use only) HIVES Non Drug Allergy Active amoxicillin Amoxicillin([facility] Code:[address]-25) HIVES Drug Aller gy Active Gluten GLUTEN BACK PAIN Non Drug Allergy Active ENCOUNTERS from 1998 to 2021-02-09 Encounter Location Date Provider Diagnosis [facility] [address] [place] [address] [place] [address] Jan, Eddie Weber IMMUNIZATIONS Vaccine Route Administration Date Status TDAP 0.5mL Boostrix IM Intramuscular November 25, 2020 Administere d SOCIAL HISTORY Tobacco Use: Social History Observation Description Date Details (start date - stop date) Never Smoker Sex Assigned At : Social History Observation Description Sex Assigned At Unknown Education: Question Answer Notes Level of Education: Finished College Language: Question Answer Notes Languages spoken: Micronesian Mu-Ism: Question Answer Notes Mu-Ism NONE Alcohol Screening: Question Answer Notes Did [...] Information RESULTS No Results REASON FOR VISIT NEEDS APPT MEDICAL (GENERAL) HISTORY Type Description Date Medical [...] Provider Name:Eddie Weber 2021-02-17 01:00:00 PM, [address] [facility], , [place], [address], Insurance Providers Payer Name Payer Address Payer Phone Insured Name Patient Relati onship to Insured Coverage Start Date Coverage End Date [facility] [address] [facility] [id number] FERNANDO RIOS
--- OUTSIDE RECORDS SUMMARY | 2021-03-12 14:02 | CCD ---
Author Author [facility] Organization [facility] Address Unknown Phone Unavailable Care Team Providers Care Exceptional Children Teacher Assistant Name Role Phone Eddie Weber Unavailable PROBLEMS Type Condition ICD9-CM Code QNC66-HQ Code Onset Dates Condition S tatus W/U Status Risk SNOMED Code Notes Problem Supervision of other normal Z34.80 Ac tive confirm 759293650 Problem Celiac disease K90.0 Active confirmed 87568 1005 Problem Bullous impetigo L01.03 Active confirmed 399 276072 Problem Microscopic hematuria R31.29 Active confirmed 966647644 Problem Cystitis N30.90 Active confirmed 40814402 ALLERGIES Allergen (clinical drug ingredient) Drug/Non Drug Allergy do cumented on EMR Reaction Allergy Type Onset Date Status MOTRIN HIVES Non Drug Allergy Active Sulfa (for allergy use only) HIVES Non Drug Allergy Active amoxicillin Amoxicillin([facility] Code:[address]-66) HIVES Drug Aller gy Active Gluten GLUTEN BACK PAIN Non Drug Allergy Active ENCOUNTERS from 1998 to 2021-02-11 Encounter Location Date Provider Diagnosis [facility] [address] [place] [address] [place] [address] Jan, Eddie Weber IMMUNIZATIONS Vaccine Route Administration Date Status TDAP 0.5mL Boostrix IM Intramuscular November 25, 2020 Administere d SOCIAL HISTORY Tobacco Use: Social History Observation Description Date Details (start date - stop date) Never Smoker Sex Assigned At : Social History Observation Description Sex Assigned At Unknown Education: Question Answer Notes Level of Education: Finished College Language: Question Answer Notes Languages spoken: Tristanian Hinduism: Question Answer Notes Hinduism NONE Alcohol Screening: Question Answer Notes Did [...] Information RESULTS No Results REASON FOR VISIT appt MEDICAL (GENERAL) HISTORY Type Description Date Medical [...] Details Provider Name:Eddie Weber 2021-02-17 01:00:00 PM, [address] [place] [address], , [place], [address], Insurance Providers Payer Name Payer Address Payer Phone Insured Name Patient Relati onship to Insured Coverage Start Date Coverage End Date [facility] [address] [facility] [id number] FERNANDO RIOS
--- OUTSIDE RECORDS SUMMARY | 2021-03-12 14:02 | CCD ---
Author Author [facility] Organization [facility] Address Unknown Phone Unavailable Care Team Providers Care Overlock Waistline Joiner Name Role Phone Eddie Weber Unavailable PROBLEMS Type Condition ICD9-CM Code [id number] Code Onset Dates Condition S tatus W/U Status Risk SNOMED Code Notes Problem Supervision of other normal Z34.80 Ac tive confirm 777725729 Problem Celiac disease K90.0 Active confirmed 18430 1005 Problem Bullous impetigo L01.03 Active confirmed 399 489822 Problem Microscopic hematuria R31.29 Active confirmed 675171264 Problem Cystitis N30.90 Active confirmed 01609345 ALLERGIES Allergen (clinical drug ingredient) Drug/Non Drug Allergy do cumented on EMR Reaction Allergy Type Onset Date Status MOTRIN HIVES Non Drug Allergy Active Sulfa (for allergy use only) HIVES Non Drug Allergy Active amoxicillin Amoxicillin([facility] Code:[address]-70) HIVES Drug Aller gy Active Gluten GLUTEN BACK PAIN Non Drug Allergy Active ENCOUNTERS from 1998 to 2021-01-12 Encounter Location Date Provider Diagnosis [facility] [address] [place] [address] [place] [address] Dec, Eddie Weber IMMUNIZATIONS Vaccine Route Administration Date Status TDAP 0.5mL Boostrix IM Intramuscular November 25, 2020 Administere d SOCIAL HISTORY Tobacco Use: Social History Observation Description Date Details (start date - stop date) Never Smoker Sex Assigned At : Social History Observation Description Sex Assigned At Unknown Education: Question Answer Notes Level of Education: Finished College Language: Question Answer Notes Languages spoken: Swazi Gnosticist: Question Answer Notes Gnosticist NONE Alcohol [...] Information RESULTS No Results REASON FOR VISIT out of work MEDICAL (GENERAL) HISTORY Type Description Date Medical [...] Name:Eddie Heather Weber, 2021-02-10 09:00:00 AM, [address] [facility], , [place], [address], Insurance Providers Payer Name Payer Address Payer Phone Insured Name Patient Relati onship to Insured Coverage Start Date Coverage End Date [facility] [address] [facility] [id number] FERNANDO RIOS
--- OUTSIDE RECORDS SUMMARY | 2021-03-12 14:02 | CCD ---
Author Author [facility] Organization [facility] Address Unknown Phone Unavailable Care Team Providers Care Drum Drier Name Role Phone Eddie Weber Unavailable PROBLEMS Type Condition ICD9-CM Code [id number] Code Onset Dates Condition S tatus W/U Status Risk SNOMED Code Notes Problem Supervision of other normal Z34.80 Ac tive confirm 570557166 Problem Celiac disease K90.0 Active confirmed 57003 1005 Problem Bullous impetigo L01.03 Active confirmed 399 875429 Problem Microscopic hematuria R31.29 Active confirmed 502853211 Problem Cystitis N30.90 Active confirmed 83803964 ALLERGIES Allergen (clinical drug ingredient) Drug/Non Drug Allergy do cumented on EMR Reaction Allergy Type Onset Date Status MOTRIN HIVES Non Drug Allergy Active Sulfa (for allergy use only) HIVES Non Drug Allergy Active amoxicillin Amoxicillin([facility] Code:[address]-45) HIVES Drug Aller gy Active Gluten GLUTEN BACK PAIN Non Drug Allergy Active ENCOUNTERS from 1998 to 2021-01-29 Encounter Location Date Provider Diagnosis [facility] [phone] [place] [address] Dec, Eddie Weber IMMUNIZATIONS Vaccine Route Administration Date Status TDAP 0.5mL Boostrix IM Intramuscular November 25, 2020 Administere d SOCIAL HISTORY Tobacco Use: Social History Observation Description Date Details (start date - stop date) Never Smoker Sex Assigned At : Social History Observation Description Sex Assigned At Unknown Education: Question Answer Notes Level of Education: Finished College Language: Question Answer Notes Languages spoken: Sao Tomean Mu-Ism: Question Answer Notes Mu-Ism NONE Alcohol [...] Details Provider Name:Eddie Weber, 2021-02-02 11:00:00 AM, [address] [place] [address], , [place], [address], Provider Name:Eddie Weber, 2021-02-10 09:00:00 AM, [address] [place] [address], , [place], [address], Insurance Providers Payer Name Payer Address Payer Phone Insured Name Patient Relati onship to Insured Coverage Start Date Coverage End Date [facility] [address] [facility] [id number] FERNANDO RIOS
--- OUTSIDE RECORDS SUMMARY | 2021-03-12 14:03 | CCD ---
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 Name Role Phone Salvador ARMSTRONG MD Unavailable Unavailable Salvador ARMSTRONG MD Unavailable Unavailable Salvador ARMSTRONG MD Unavailable Unavailable Salvador ARMSTRONG MD Unavailable Unavailable Salvador ARMSTRONG MD Unavailable Unavailable Salvador ARMSTRONG MD Unavailable Unavailable Salvador ARMSTRONG MD Unavailable Unavailable Salvador ARMSTRONG MD Unavailable Unavailable Salvador ARMSTRONG MD Unavailable Unavailable Salvador ARMSTRONG MD Unavailable Unavailable Salvador ARMSTRONG MD Unavailable Unavailable PATTI, Salvador STUART MD Unavailable Unavailable PATTI, Salvador STUART MD Unavailable Unavailable PATTI, Salvador STUART MD Unavailable Unavailable PATTI, Salvador STUART MD Unavailable Unavailable PATTI, Salvador STUART MD Unavailable Unavailable PATTI, Salvador STUART MD Unavailable Unavailable PATTI, Salvador STUART MD Unavailable Unavailable PATTI, Salvador STUART MD Unavailable Unavailable PATTI, Salvador STUART MD Unavailable Unavailable PATTI, Salvador STUART MD Unavailable Unavailable PATTI, F NARCISO MULLINS Unavailable Unavailable PATTI, F NARCISO MULLINS Unavailable Unavailable PATTI, F NARCISO MULLINS Unavailable Unavailable PATTI, F NARCISO MULLINS Unavailable Unavailable PATTI, Salvador STUART MD Unavailable Unavailable PATTI, F NARCISO MULLINS Unavailable Unavailable PATTI, F NARICSO MULLINS Unavailable Unavailable PATTI, F NARCISO MULLINS Unavailable Unavailable PATTI, F NARCISO MULLINS Unavailable Unavailable PATTI, Salvador STUART MD Unavailable Unavailable PATTI, Salvador STUART MD Unavailable Unavailable PETROFF, YENI PA Unavailable Unavailable PETROFF, YENI PA Unavailable Unavailable PETROFF, YENI PA Unavailable Unavailable PETROFF, YENI PA Unavailable Unavailable PETROFF, YENI PA Unavailable Unavailable PETROFF, YENI PA Unavailable Unavailable PETROFF, YENI PA Unavailable Unavailable PETROFF, YENI PA Unavailable Unavailable LETTIERE, A PORSCHE PA Unavailable Unavailable LETTIERE, A PORSCHE PA Unavailable Unavailable LETTIERE, A PORSCHE PA Unavailable Unavailable LETTIERE, A PORSCHE PA Unavailable Unavailable LETTIERE, A PORSCHE PA Unavailable Unavailable LETTIERE, A PORSCHE PA Unavailable Unavailable LETTIERE, A PORSCHE PA Unavailable Unavailable LETTIERE, A PORSCHE PA Unavailable Unavailable LETTIERE, A PORSCHE PA Unavailable Unavailable LETTIERE, A PORSCHE PA Unavailable Unavailable LETTIERE, A PORSCHE PA Unavailable Unavailable LETTIERE, A PORSCHE PA Unavailable Unavailable LETTIERE, A PORSCHE PA Unavailable Unavailable LETTIERE, A PORSCHE PA Unavailable Unavailable LETTIERE, A PORSCHE PA Unavailable Unavailable LETTIERE, A PORSCHE PA Unavailable Unavailable LETTIERE, A PORSCHE PA Unavailable Unavailable LETTIERE, A PORSCHE PA Unavailable Unavailable LETTIERE, A PORSCHE PA Unavailable Unavailable LETTIERE, A PORSCHE PA Unavailable Unavailable LETTIERE, A PORSCHE PA Unavailable Unavailable LETTIERE, A PORSCHE PA Unavailable Unavailable LETTIERE, A PORSCHE PA Unavailable Unavailable LETTIERE, A PORSCHE PA Unavailable Unavailable LETTIERE, A PORSCHE PA Unavailable Unavailable LETTIERE, A PORSCHE PA Unavailable Unavailable LETTIERE, A PORSCHE PA Unavailable Unavailable LETTIERE, A PORSCHE PA Unavailable Unavailable LETTIERE, A PORSCHE PA Unavailable Unavailable LETTIERE, A PORSCHE PA Unavailable Unavailable LETTIERE, A PORSCHE PA Unavailable Unavailable DESTIN, Jose A URBAN Unavailable Unavailable Gutierrez, Mery Marlene PA Unavailable Unavailable Gutierrez, Mery Marlene PA Unavailable Unavailable Gutierrez, Mery Marlene PA Unavailable Unavailable Gutierrez, Mery Marlene PA Unavailable Unavailable Gutierrez, Mery Marlene PA Unavailable Unavailable Gutierrez, Mery Marlene PA Unavailable Unavailable Gutierrez, Mery Marlene PA Unavailable Unavailable Gutierrez, Mery Marlene PA Unavailable Unavailable Gutierrez, Mery Marlene PA Unavailable Unavailable Gutierrez, Mery Marlene PA Unavailable Unavailable Umberto PITTMAN MD Unavailable Unavailable Umberto PITTMAN MD Unavailable Unavailable Umberto PITTMAN MD Unavailable Unavailable Umberto PITTMAN MD Unavailable Unavailable Umberto PITTMAN MD Unavailable Unavailable Umberto PITTMAN MD Unavailable Unavailable Umberto PITTMAN MD Unavailable Unavailable Umberto PITTMAN MD Unavailable Unavailable Umberto PITTMAN MD Unavailable Unavailable Mirella Jay MD Unavailable Unavailable Mirella Jay MD Unavailable Unavailable Mirella Jay MD Unavailable Unavailable Mirella Jay MD Unavailable Unavailable Mirella Jay MD Unavailable Unavailable Mirella Jay MD Unavailable Unavailable Mirella Jay MD Unavailable Unavailable Mirella Jay MD Unavailable Unavailable Mirella Jay MD Unavailable Unavailable Mirella Jay MD Unavailable Unavailable Mirella Jay MD Unavailable Unavailable Mirella Jay MD Unavailable Unavailable Mirella Jay MD Unavailable Unavailable Mirella Jay MD Unavailable Unavailable Mirella Jay MD Unavailable Unavailable Mirella Jay MD Unavailable Unavailable Mirella Jay MD Unavailable Unavailable Mirella Jay MD Unavailable Unavailable Mirella Jay MD Unavailable Unavailable Mirella Jay MD Unavailable Unavailable Mirella Jay MD Unavailable Unavailable Mirella Jay MD Unavailable Unavailable Mirella Jay MD Unavailable Unavailable Mirella Jay MD Unavailable Unavailable Mirella Jay MD Unavailable Unavailable Mirella Jay MD Unavailable Unavailable Mirella Jay MD Unavailable Unavailable Jay, Mirella Liberty MD Unavailable Unavailable Mirella Jay MD Unavailable Unavailable Mirella Jay MD Unavailable Unavailable Mirella Jay MD Unavailable Unavailable Mirella Jay MD Unavailable Unavailable Mirella Jay MD Unavailable Unavailable Mirella Jay MD Unavailable Unavailable Mirella Jay MD Unavailable Unavailable Mirella Jay MD Unavailable Unavailable Mirella Jay MD Unavailable Unavailable Mirella Jay MD Unavailable Unavailable Mirella Jay MD Unavailable Unavailable Mirella Jay MD Unavailable Unavailable Mirella Jay MD Unavailable Unavailable Mirella Jay MD Unavailable Unavailable Mirella Jay MD Unavailable Unavailable Mirella Jay MD Unavailable Unavailable Mirella Jay MD Unavailable Unavailable RED, ANDRES PA Unavailable Unavailable RED, ANDRES PA Unavailable Unavailable RED, ANDRES PA Unavailable Unavailable RED, ANDRES PA Unavailable Unavailable RED, ANDRES PA Unavailable Unavailable RED, ANDRES PA Unavailable Unavailable RED, ANDRES PA Unavailable Unavailable RED, ANDRES PA Unavailable Unavailable RED, ANDRES PA Unavailable Unavailable RED, ANDRES PA Unavailable Unavailable RED, ANDRES PA Unavailable Unavailable RED, ANDRES PA Unavailable Unavailable RED, ANDRES PA Unavailable Unavailable RED, ANDRES PA Unavailable Unavailable RED, ANDRES PA Unavailable Unavailable RED, ANDRES PA Unavailable Unavailable RED, ANDRES PA Unavailable Unavailable RED, ANDRES PA Unavailable Unavailable RED, ANDRES PA Unavailable Unavailable RED, ANDRES PA Unavailable Unavailable RED, ANDRES PA Unavailable Unavailable RED, ANDRES PA Unavailable Unavailable RED, ANDRES PA Unavailable Unavailable RED, ANDRES PA Unavailable Unavailable RED, ANDRES PA Unavailable Unavailable RED, ANDRES PA Unavailable Unavailable RED, ANDRES PA Unavailable Unavailable RED, ANDRES PA Unavailable Unavailable RED, ANDRES PA Unavailable Unavailable RED, ANDRES PA Unavailable Unavailable RED, ANDRES PA Unavailable Unavailable RED, ANDRES PA Unavailable Unavailable RED, ANDRES PA Unavailable Unavailable RED, ANDRES PA Unavailable Unavailable RED, ANDRES PA Unavailable Unavailable RED, ANDRES PA Unavailable Unavailable Campanaro, Mare Alissa PA Unavailable Unavailable Campanaro, Mare Alissa PA Unavailable Unavailable Campanaro, Mare Alissa PA Unavailable Unavailable Campanaro, Mare Alissa PA Unavailable Unavailable Campanaro, Mare Alissa PA Unavailable Unavailable Campanaro, Mare Alissa PA Unavailable Unavailable Campanaro, Mare Alissa PA Unavailable Unavailable Campanaro, Mare Alissa PA Unavailable Unavailable Campanaro, Mare Alissa PA Unavailable Unavailable Campanaro, Mare Alissa PA Unavailable Unavailable Campanaro, Mare Alissa PA Unavailable Unavailable Campanaro, Mare Alissa PA Unavailable Unavailable Campanaro, Mare Alissa PA Unavailable Unavailable Campanaro, Mare Alissa PA Unavailable Unavailable Campanaro, Mare Alissa PA Unavailable Unavailable Campanaro, Mare Alissa PA Unavailable Unavailable Campanaro, Mare Alissa PA Unavailable Unavailable OLMANALMASPOZOJose A LOERA Unavailable Unavailable Re-disclosure Warning The records that you are about to access may contain information from federally-assisted alcohol or drug abuse programs. If such information is present, then the following federally mandated warning applies: This information has been disclosed to you from records protected by federal confidentiality rules (42 CFR part 2). The federal rules prohibit you from making any further disclosure of this information unless further disclosure is expressly permitted by the written consent of the person to whom it pertains or as otherwise permitted by 42 CFR part 2. A general authorization for the release of medical or other information is NOT sufficient for this purpose. The Federal rules restrict any use of the information to criminally investigate or prosecute any alcohol or drug abuse patient.The records that you are about to access may contain highly sensitive health information, the redisclosure of which is protected by Article 27-F of the [facility] Public Health law. If you continue you may have access to information: Regarding HIV / AIDS; Provided by facilities licensed or operated by the [facility] Office of Mental Health; or Provided by the [facility] Office for People With Developmental Disabilities. If such information is present, then the following [facility] mandated warning applies: This information has been disclosed to you from confidential records which are protected by state law. State law prohibits you from making any further disclosure of this information without the specific written consent of the person to whom it pertains, or as otherwise permitted by law. Any unauthorized further disclosure in violation of state law may result in a fine or prison sentence or both. A general authorization for the release of medical or other information is NOT sufficient authorization for further disc losure. Allergies and Adverse Reactions Type Description Substance Reaction Status Data Source(s ) Propensity to adverse reactions SULFA ANTIBIOTICS Sulfa Antibiotics Rash Low Active [facility] Low Propensity to adverse reactions IBUPROFEN Ibuprofen Acti ve [facility] Propensity to adverse reactions GLUTEN MEAL Wheat gluten extract Active [facility] Propensity to adverse reactions AMOXICILLIN Amoxicillin Rash Low Ac tive [facility] Low Family History Family Member Name Family Member Gender Family Member Status Date o f Status Description Data Source(s) Unknown Unknown Problem [place] [place] 3 great aunts Encounters Encounter Providers Location Date Indications Data Source(s ) [place] [address] [facility] [place] [address] 02/22/2021 12:00:00 AM EDT eCW1 ([facility]) [place] [address] [facility] [address] 02/22/2021 12:00:00 AM EDT eCW1 ([facility]) ( ESTOB) [facility]Center Est OB [address] [place] [address] 02/17/2021 12:00:00 AM EDT eCW1 ([facility]) Unknown [address] [facility] [place] [address] 02/16/2021 12:00:00 AM EDT eCW1 ([facility]) [place] [address] [facility] [address] 02/15/2021 12:00:00 AM EDT [facility] Outpatient Attender: Alissa shelby 02/12/2021 03:05:00 PM EDT [facility] ([facility]) Unknown [address] [facility] [place] [address] 02/09/2021 12:00:00 AM EDT eCW1 ([facility]) [place] [address] [facility] [address] 02/08/2021 12:00:00 AM EDT eCW1 ([facility]) [place] [address] [facility] [address] 02/01/2021 12:00:00 AM EDT eCW1 ([facility]) [place] [address] [facility] [address] 01/27/2021 12:00:00 AM EDT eCW1 ([facility]) Unknown [address] [facility] [address] 01/27/2021 12:00:00 AM EDT eCW1 ([facility]) (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) Same day [address] [place] [address] 01/26/2021 12:00:00 AM EDT eCW1 ([facility]) [place] [address] [facility] [address] 01/26/2021 12:00:00 AM EDT eCW1 ([facility]) Unknown [address] [facility] [address] 01/11/2021 12:00:00 AM EDT eCW1 ([facility]) (WC ESTOB) enter Est OB [address] [place] [address] 12/30/2020 12:00:00 AM EDT eCW1 ([facility]) (WC ESTOB) WCenter Est OB [address] [place] [address] 12/22/2020 12:00:00 AM EDT eCW1 ([facility]) (WC ESTOB) enter Est OB [address] [place] [address] 12/14/2020 12:00:00 AM EDT eCW1 ([facility]) Outpatient Attender: RAJNI LOERAAttender: RAJNI POZOAdmitter: RAJNI WEIRReferrer: RAJNI WEIR ES1-BP 12/06/2020 11:14:00 AM EDT - 12/06/2020 03:00:00 PM EDT [facility] Patient discharged. [place] [address] [facility] [address] 12/04/2020 12:00:00 AM EDT eCW1 ([facility]) [place] [address] [facility] [address] 12/04/2020 12:00:00 AM EDT eCW1 ([facility]) (WC ESTOB) WCenter Est OB [address] [place] [address] 11/25/2020 12:00:00 AM EDT eCW1 ([facility]) (WC ESTOB) WCenter Est OB [address] [place] [address] 11/11/2020 12:00:00 AM EDT eCW1 ([facility]) Unknown [address] [facility] [address] 11/09/2020 12:00:00 AM EDT eCW1 ([facility]) (WC ESTOB) WCenter Est OB [address] [place] [address] 10/06/2020 12:00:00 AM EDT eCW1 ([facility]) (WC ESTOB) WCenter Est OB [address] [place] [address] 09/22/2020 12:00:00 AM EDT eCW1 ([facility]) Emergency Attender: GLORIA PITTMAN MDReferrer: Liberty sal MD 09/19/2020 09:44:00 PM EDT - 09/19/2020 09:44:00 PM EDT [facility] Patient discharged. (WC ESTOB) WCenter Est OB [address] [place] [address] 09/07/2020 12:00:00 AM EDT eCW1 ([facility]) (WC ESTOB) WCenter Est OB [address] [place] [address] 08/10/2020 12:00:00 AM EDT eCW1 [facility]) ( ESTOB) WCenter Est OB [address] [place] [address] 07/10/2020 12:00:00 AM EST eCW1 ([facility]) Unknown [address] [facility] [address] 07/09/2020 12:00:00 AM EST eCW1 ([facility]) Outpatient [address] [facility] [place] [address] 07/08/2020 12:00:00 AM EST eCW1 ([facility]) Unknown [address] [facility] [address] 07/08/2020 12:00:00 AM EST eCW1 ([facility]) Outpatient Attender: ANDRES Starks Prima ry 05/30/2020 07:15:00 AM EST [facility]ENT ([facility]) Outpatient Attender: PORSCHE Starks Prim afsaneh 04/20/2020 07:15:00 AM EST [facility] ([facility]) Outpatient Attender: Marlene Starks Prim afsaneh 03/29/2020 07:10:00 AM EST [facility] ([facility]) Emergency Attender: YENI CLARK PAReferrer: NARCISO Watt MD 06/16/2016 04:45:00 PM EST - 06/16/2016 05:07:00 PM EST [facility] Immunizations Vaccine Date Status Description Data Source(s) COVID-19 VACCINE Pfizer 02/15/2021 12:00:00 AM EDT completed [facility] Vaccine Series Complete: YESThis Data wa s Submitted to [facility] Via [employer]. COVID-19 VACCINE Pfizer 01/25/2021 12:00:00 AM EDT completed [facility] Vaccine Series Complete: NOThis Data was Submitted to [facility] [employer]. Tdap 11/25/2020 08:39:00 AM EDT completed e CW1 ([facility]) Tdap 11/25/2020 08:39:00 AM EDT completed e CW1 ([facility]) Tdap 11/25/2020 08:39:00 AM EDT completed e CW1 ([facility]) Tdap 11/25/2020 08:39:00 AM EDT completed e CW1 ([facility]) Tdap 11/25/2020 08:39:00 AM EDT completed e CW1 ([facility]) Tdap 11/25/2020 08:39:00 AM EDT completed e CW1 ([facility]) Tdap 11/25/2020 08:39:00 AM EDT completed e CW1 ([facility]) Tdap 11/25/2020 08:39:00 AM EDT completed e CW1 ([facility]) Tdap 11/25/2020 08:39:00 AM EDT completed e CW1 ([facility]) Tdap 11/25/2020 08:39:00 AM EDT completed e CW1 ([facility]) Tdap 11/25/2020 08:39:00 AM EDT completed e CW1 ([facility]) Tdap 11/25/2020 08:39:00 AM EDT completed e CW1 ([facility]) Tdap 11/25/2020 08:39:00 AM EDT completed e CW1 ([facility]) Tdap 11/25/2020 08:39:00 AM EDT completed e CW1 ([facility]) Tdap 11/25/2020 08:39:00 AM EDT completed e CW1 ([facility]) Tdap 11/25/2020 08:39:00 AM EDT completed e CW1 ([facility]) Tdap 11/25/2020 08:39:00 AM EDT completed e CW1 ([facility]) Tdap 11/25/2020 08:39:00 AM EDT completed e CW1 ([facility]) Tdap 11/25/2020 08:39:00 AM EDT completed e CW1 ([facility]) Tdap 11/25/2020 08:39:00 AM EDT completed e CW1 ([facility]) Medications Medication Brand Name Start Date Product Form Dose Route Admi nistrative Instructions Pharmacy Instructions Status Indications Reaction Description Data Source(s) 0.35 mg 03/01/2021 12:00:00 AM EDT tablet 28 TAKE ONE TABLET BY MOUTH EVERY DAY TAKE ONE TABLET BY MOUTH EVERY DAY SOLD: 03/03/2021 [facility] Ciprofloxacin 250 MG Oral Tablet Ciprofloxacin HCl 250 MG Ciprofloxacin HCl 250 MG 02/16/2021 12:00:00 AM EDT 1.0 {tablet} activ e Ciprofloxacin HCl 250 MG eCW1 ([facility]) 250 mg 02/16/2021 12:00:00 AM EDT tablet 6 TAKE ONE TABLET BY MOUTH EVERY 12 HOURS FOR THREE DAYS TAKE ONE TABLET BY MOUTH EVERY 12 HOURS FOR THREE DAYS SOLD: 02/16/2021 [facility] 250 mg 02/15/2021 12:00:00 AM EDT tablet 3 TAKE ONE TABLET BY MOUTH EVERY DAY TAKE ONE TABLET BY MOUTH EVERY DAY SOLD: 02/15/2021 [facility] Levofloxacin 250 MG Oral Tablet levoFLOXacin 250 MG levoFLOX acin 250 MG 02/15/2021 12:00:00 AM EDT 1.0 {tablet} suspende d levoFLOXacin 250 MG eCW1 ([facility]) Levofloxacin 250 MG Oral Tablet levoFLOXacin 250 MG levoFLOX acin 250 MG 02/15/2021 12:00:00 AM EDT 1.0 {tablet} suspende d levoFLOXacin 250 MG eCW1 ([facility]) Levofloxacin 250 MG Oral Tablet levoFLOXacin 250 MG levoFLOX acin 250 MG 02/15/2021 12:00:00 AM EDT 1.0 {tablet} suspende d levoFLOXacin 250 MG eCW1 ([facility]) Levofloxacin 250 MG Oral Tablet levoFLOXacin 250 MG levoFLOX acin 250 MG 02/15/2021 12:00:00 AM EDT 1.0 {tablet} suspende d levoFLOXacin 250 MG eCW1 ([facility]) Levofloxacin 250 MG Oral Tablet levoFLOXacin 250 MG levoFLOX acin 250 MG 02/15/2021 12:00:00 AM EDT 1.0 {tablet} active levoFLOXacin 250 MG eCW1 ([facility]) Ciprofloxacin 500 MG Oral Tablet [Cipro] Cipro 500 MG Cipro 500 MG 01/27/2021 12:00:00 AM EDT 1.0 {tablet} active Ci pro 500 MG eCW1 ([facility]) Metronidazole 500 MG Oral Tablet [Flagyl] Flagyl 500 MG Flag yl 500 MG 01/27/2021 12:00:00 AM EDT 1.0 {tablet} active F lagyl 500 MG eCW1 ([facility]) Ciprofloxacin 500 MG Oral Tablet [Cipro] Cipro 500 MG Cipro 500 MG 01/27/2021 12:00:00 AM EDT 1.0 {tablet} active Ci pro 500 MG eCW1 ([facility]) Ciprofloxacin 500 MG Oral Tablet [Cipro] Cipro 500 MG Cipro 500 MG 01/27/2021 12:00:00 AM EDT 1.0 {tablet} active Ci pro 500 MG eCW1 ([facility]) Metronidazole 500 MG Oral Tablet [Flagyl] Flagyl 500 MG Flag yl 500 MG 01/27/2021 12:00:00 AM EDT 1.0 {tablet} suspended Flagyl 500 MG eCW1 ([facility]) Metronidazole 500 MG Oral Tablet [Flagyl] Flagyl 500 MG Flag yl 500 MG 01/27/2021 12:00:00 AM EDT 1.0 {tablet} active F lagyl 500 MG eCW1 ([facility]) Ciprofloxacin 500 MG Oral Tablet [Cipro] Cipro 500 MG Cipro 500 MG 01/27/2021 12:00:00 AM EDT 1.0 {tablet} active Ci pro 500 MG eCW1 ([facility]) Ciprofloxacin 500 MG Oral Tablet [Cipro] Cipro 500 MG Cipro 500 MG 01/27/2021 12:00:00 AM EDT 1.0 {tablet} active Ci pro 500 MG eCW1 ([facility]) Metronidazole 500 MG Oral Tablet [Flagyl] Flagyl 500 MG Flag yl 500 MG 01/27/2021 12:00:00 AM EDT 1.0 {tablet} suspended Flagyl 500 MG eCW1 ([facility]) Ciprofloxacin 500 MG Oral Tablet [Cipro] Cipro 500 MG Cipro 500 MG 01/27/2021 12:00:00 AM EDT 1.0 {tablet} active Ci pro 500 MG eCW1 ([facility]) Ciprofloxacin 500 MG Oral Tablet [Cipro] Cipro 500 MG Cipro 500 MG 01/27/2021 12:00:00 AM EDT 1.0 {tablet} active Ci pro 500 MG eCW1 ([facility]) Ciprofloxacin 500 MG Oral Tablet [Cipro] Cipro 500 MG Cipro 500 MG 01/27/2021 12:00:00 AM EDT 1.0 {tablet} active Ci pro 500 MG eCW1 ([facility]) Metronidazole 500 MG Oral Tablet [Flagyl] Flagyl 500 MG Flag yl 500 MG 01/27/2021 12:00:00 AM EDT 1.0 {tablet} active F lagyl 500 MG eCW1 ([facility]) Ciprofloxacin 500 MG Oral Tablet [Cipro] Cipro 500 MG Cipro 500 MG 01/27/2021 12:00:00 AM EDT 1.0 {tablet} active Ci pro 500 MG eCW1 ([facility]) Metronidazole 500 MG Oral Tablet [Flagyl] Flagyl 500 MG Flag yl 500 MG 01/27/2021 12:00:00 AM EDT 1.0 {tablet} suspended Flagyl 500 MG eCW1 ([facility]) Metronidazole 500 MG Oral Tablet [Flagyl] Flagyl 500 MG Flag yl 500 MG 01/27/2021 12:00:00 AM EDT 1.0 {tablet} active F lagyl 500 MG eCW1 ([facility]) Metronidazole 500 MG Oral Tablet [Flagyl] Flagyl 500 MG Flag yl 500 MG 01/27/2021 12:00:00 AM EDT 1.0 {tablet} suspended Flagyl 500 MG eCW1 ([facility]) Metronidazole 500 MG Oral Tablet [Flagyl] Flagyl 500 MG Flag yl 500 MG 01/27/2021 12:00:00 AM EDT 1.0 {tablet} active F lagyl 500 MG eCW1 ([facility]) Ciprofloxacin 500 MG Oral Tablet [Cipro] Cipro 500 MG Cipro 500 MG 01/27/2021 12:00:00 AM EDT 1.0 {tablet} active Ci pro 500 MG eCW1 ([facility]) Metronidazole 500 MG Oral Tablet [Flagyl] Flagyl 500 MG Flag yl 500 MG 01/27/2021 12:00:00 AM EDT 1.0 {tablet} active F lagyl 500 MG eCW1 ([facility]) Ciprofloxacin 500 MG Oral Tablet [Cipro] Cipro 500 MG Cipro 500 MG 01/27/2021 12:00:00 AM EDT 1.0 {tablet} active Ci pro 500 MG eCW1 ([facility]) Metronidazole 500 MG Oral Tablet [Flagyl] Flagyl 500 MG Flag yl 500 MG 01/27/2021 12:00:00 AM EDT 1.0 {tablet} active F lagyl 500 MG eCW1 ([facility]) Amoxicillin 875 MG / Clavulanate 125 MG Oral Tablet Amoxicillin-Pot Clavulanate 875-125 MG Amoxicillin-Pot Clavulanate 875-125 MG 01/26/2021 12:00:00 AM ED T 1.0 {tablet} active Amoxicillin-Pot Cla vulanate 875-125 MG eCW1 ([facility]) Amoxicillin 875 MG / Clavulanate 125 MG Oral Tablet Amoxicillin-Pot Clavulanate 875-125 MG Amoxicillin-Pot Clavulanate 875-125 MG 01/26/2021 12:00:00 AM ED T 1.0 {tablet} suspended Amoxicillin-Pot C lavulanate 875-125 MG eCW1 ([facility]) Amoxicillin 875 MG / Clavulanate 125 MG Oral Tablet Amoxicillin-Pot Clavulanate 875-125 MG Amoxicillin-Pot Clavulanate 875-125 MG 01/26/2021 12:00:00 AM ED T 1.0 {tablet} suspended Amoxicillin-Pot C lavulanate 875-125 MG eCW1 ([facility]) Amoxicillin 875 MG / Clavulanate 125 MG Oral Tablet Amoxicillin-Pot Clavulanate 875-125 MG Amoxicillin-Pot Clavulanate 875-125 MG 01/26/2021 12:00:00 AM ED T 1.0 {tablet} suspended Amoxicillin-Pot C lavulanate 875-125 MG eCW1 ([facility]) Amoxicillin 875 MG / Clavulanate 125 MG Oral Tablet Amoxicillin-Pot Clavulanate 875-125 MG Amoxicillin-Pot Clavulanate 875-125 MG 01/26/2021 12:00:00 AM ED T 1.0 {tablet} suspended Amoxicillin-Pot C lavulanate 875-125 MG eCW1 ([facility]) Amoxicillin 875 MG / Clavulanate 125 MG Oral Tablet Amoxicillin-Pot Clavulanate 875-125 MG Amoxicillin-Pot Clavulanate 875-125 MG 01/26/2021 12:00:00 AM ED T 1.0 {tablet} suspended Amoxicillin-Pot C lavulanate 875-125 MG eCW1 ([facility]) Amoxicillin 875 MG / Clavulanate 125 MG Oral Tablet Amoxicillin-Pot Clavulanate 875-125 MG Amoxicillin-Pot Clavulanate 875-125 MG 01/26/2021 12:00:00 AM ED T 1.0 {tablet} active Amoxicillin-Pot Cla vulanate 875-125 MG eCW1 ([facility]) Amoxicillin 875 MG / Clavulanate 125 MG Oral Tablet Amoxicillin-Pot Clavulanate 875-125 MG Amoxicillin-Pot Clavulanate 875-125 MG 01/26/2021 12:00:00 AM ED T 1.0 {tablet} active Amoxicillin-Pot Cla vulanate 875-125 MG eCW1 ([facility]) Betamethasone 3 MG/ML / Betamethasone ac etate 3 MG/ML Injectable Suspension betamethasone acetate-betamethasone sodium phosphate (CELESTONE) injection 12 mg betamethasone acetate-betamethasone sodi um phosphate (CELESTONE) injection 12 mg 12/06/2020 01:00:00 PM EDT 12 mg Intramuscular comp leted 12 mg, Intramuscular, Once, On 12/06/20 at 1300, For 1 dose [facility] Medication administered onsite Acetaminophen 325 MG Oral Tablet acetaminophen (TYLENO L) 325 MG tablet 975 mg acetaminophen (TYLENOL) 325 MG tablet 975 mg 12/06/2020 12:29:36 PM EDT 975 mg Oral active 975 mg, Or al, Every 8 hours PRN, mild pain (1-3), moderate pain (4-6), headaches, fever, pain, Starting on 12/06/20 at 1229
"Maximum dose of acetaminophen is 4,000 mg from all sources in 24 hours."
[facility] Medication administered onsite cefdinir 300 MG Oral Capsule Cefdinir 05/30/2020 12:00:00 AM EST ORAL active MEDENT ([facility] No Active Medications 03/29/2020 12:00:00 AM EST completed MEDENT ([facility], [facility]) Insurance Providers Payer name Policy type / Coverage type Policy ID Covered constitution party ID Covered constitution party's relationship to fitzpatrick Policy Fitzpatrick Plan Information [facility] Claims Health Maintenance Organization ([facility]) 9 [id number] Family Dependent [id number] [facility] Claims Health Maintenance Organization (O) 9 [id number] Family Dependent [id number] [facility] Claims Health Maintenance Organization ([facility]) 9 [id number] Family Dependent [id number] [facility] Claims Health Maintenance Organization ([facility]) 9 [id number] Family Dependent [id number] [facility] Claims Health Maintenance Organization ([facility]) 9 [id number] Family Dependent [id number] [facility] Claims Health Maintenance Organization ([facility]) 9 [id number] Family Dependent [id number] [facility] Claims Health Maintenance Organization (HMO) 9 [id number] Family Dependent [id number] [facility] Claims Health Maintenance Organization (HMO) [id number] Family Dependent [facility] Claims Health Maintenance Organization (HMO) 9 [id number] Family Dependent [id number] [facility] Claims Health Maintenance Organization (HMO) 9 [id number] Family Dependent [id number] [facility] Claims Health Maintenance Organization (HMO) 9 [id number] Family Dependent [id number] Pupil Benefits (pr) Commercial [id number] Self [facility] HLTH (pr) [facility] Part [id number] Family Depende nt [employer]/BS Commercial [id number] 2...[id number] .[id number] Family Dependent [id number] [employer] Commercial [id number] Family Dependent [id number] [employer] Commercial [id number] Family Dependent [id number] [employer] Commercial [id number] 2..[id number] .[id number] Family Dependent [id number] [employer] Commercial [id number] .[id number] Family Dependent [id number] [employer] Commercial [id number] .[id number] .[id number] Family Dependent [id number] [employer] Commercial [id number] Family Dependent [id number] [employer] Commercial [id number] .[id number] Family Dependent [id number] [employer] Commercial [id number] .[id number] .4877.41983.0 Family Dependent [id number] [employer] Commercial [id number] .[id number] Family Dependent [id number] [employer] Commercial [id number] Family Dependent [id number] [employer] Commercial [id number] ..[id number] Family Dependent [id number] [employer] Commercial [id number] ..[id number] Family Dependent [id number] [employer] Commercial [id number] ..[id number] [id number] Family Dependent [id number] [employer] Commercial [id number] .[id number] [id number] Family Dependent [id number] [employer] Commercial [id number] Family Dependent [id number] [employer] Commercial [id number] ..[id number] [id number] Family Dependent [id number] [employer] Commercial [id number] Family Dependent [id number] [employer] Commercial [id number] 877.98218.0 Family Dependent [id number] [employer] Commercial [id number] Family Dependent [employer] Commercial [id number] 2..[id number] [id number] Family Dependent [id number] [employer] Commercial [id number] Family Dependent [id number] [employer] [id number] MO2 [id number] [employer] [place] [id number] MO2 [id number] [employer] (pr) Commercial [id number] Family Dependent AETNA [id number] Chi [id number] [employer] Life [employer] F [id number] PARENT [id number] [employer] F [id number] PARENT [id number] [employer] F [id number] PARENT [id number] [employer] Commercial [id number] Family Dependent [id number] [employer] Commercial [id number] Family Dependent [id number] [employer] Commercial [id number] Family Dependent [id number] [employer]etna Ppo/Pos/Nap/MC Commercial [id number] 2..[id number] Family Dependent [id number] BCBS EMPIRE RAIZA DIV [id number] HU2 [id number] [facility] [id number] HU2 [id number] BCBS EMPIRE RAIZA DIV [id number] UNK2 [id number] [employer] [place] [id number] DA2 [id number] BCBS EMPIRE RAIZA DIV [id number] HU2 [id number] [facility] [id number] SPO [id number] BCBS EMPIRE [id number] SPO [id number] [employer] [id number] CHILD [id number] [employer] [id number] S [id number] [employer] [place] [id number] MO2 [id number] BCBS EMPIRE RAIZA DIV [id number] HU2 [id number] SELF PAY ONLY [employer] [id number] CHILD [id number] ANSI-Commercial [id number] ANSI-Commercial [id number] ANSI-Commercial [id number] ANSI-Commercial [id number] ANSI-[employer] [id number] ANSI-Commercial [id number] ANSI-Commercial [id number] ANSI-Commercial [id number] AETNA [facility] [id number] CHILD [id number] Aetna Ppo/Pos/Nap/MC Commercial [id number] Family Dependent [id number] [employer] Ppo/Pos/Nap/MC Commercial [id number] Family Dependent [id number] ANSI-Commercial [id number] ANSI-Commercial [id number] ANSI-Commercial [id number] ANSI-Commercial [id number] ANSI-Commercial [id number] ANSI-Commercial [id number] ANSI-Commercial [id number] ANSI-Commercial [id number] [facility] [id number] [facility] [id number] Aetna Ppo/Pos/Nap/MC Commercial [id number] .[id number] Family Dependent [id number] [employer] Life Insurance F [id number] PARENT [id number] [employer] Life Insurance F WAITING PARENT WAITING Aetna Ppo/Pos/Nap/MC Commercial [id number] .[id number] Family Dependent [id number] A[employer]na Ppo/Pos/Nap/MC Commercial [id number] .[id number] Family Dependent [id number] A[employer]na Ppo/Pos/Nap/MC Commercial [id number] Family Dependent [id number] AETNA O [id number] C [id number] [employer]na Ppo/Pos/Nap/MC Commercial [id number] .[id number] Family Dependent [id number] [facility] COMM CONTR [id number] 1980 Anna Estrada Personal Payment .[id number] Self [employer]na Commercial [id number] Family Dependent Problems, Conditions, and Diagnoses Code Display Name Description Problem Type Effective Dates Data Source(s) M54.9 Dorsalgia, unspecified Dorsalgia, unspecified Diagnosi s 12/06/2020 11:14:00 AM EDT [facility] O99.891 Other specified diseases and conditions complicating Other specified diseases and conditions Diagnosis 12/06/2020 11:14:00 AM EDT [facility] Z79.899 Other custodial (current) drug therapy 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 Diagnosis 09/19/2020 09:44:00 PM EDT [facility] Z3A.25 25 weeks gestation of 25 WEEKS GESTATI ON OF Diagnosis 09/19/2020 09:44:00 PM [facility] O36.8390 Maternal care for abnormalit ies of the heart rate or rhythm, unspecified trimester, not applicable or unspecified MATERN CARE FOR ABNLT FETL HRT RATE OR RHYM, UNSP TRI, UNSP Diagnosis 09/19/2020 09:44:00 PM [facility] K90.0 [id number] Celiac disease Problem 07/08/2020 12:00:00 A M EST eCW1 ([facility]) Z34.80 care Supervision of other normal P roblem 07/08/2020 12:00:00 AM EST eCW1 ([facility]) Surgeries/Procedures Procedure Description Date Indications Data Source(s) OFFICE OUTPATIENT VISIT 15 MINUTES 02/12/2021 12:00:00 AM EDT MEDENT ([facility], [facility]) URNLS DIP STICK/TABLET RGNT AUTO W/O MICROSCOPY <td>UR INALYSIS W/O MICRO</td><td>STAT</td><td>12/06/2020 12:40 PM EDT</td><td></td><td> </td> 12/06/2020 12:40:00 PM EDT [facility] TDAP VACCINE 7/> YR IM 11/25/2020 12:00:00 AM EDT eCW1 ([facility]) Results ID Date Data Source [id number] 02/12/2021 06:33:00 PM EDT MEDENT ([facility], [facility]) Name Value Range Interpretation Code Description Data Maryann rce(s) Supporting Document(s) C reactive protein [Mass/volume] in Serum or Plasma by High sensitivity method 0.30 mg/dL 0.00-0.30 MED[facility] ([facility]) see progress note ID Date Data Source [id number] 02/12/2021 06:33:00 PM EDT [facility] ([facility]) Name Value Range Interpretation Code Description Data Maryann rce(s) Supporting Document(s) Glucose, Fasting 82 mg/dL 70-100 [facility] ([facility]) see progress note Glomerular Filtration Rate Laboratory test result MED[facility] ([facility]) see progress note Creatinine For GFR 0.87 mg/dL 0.55-1.30 MED[facility] ([facility]) see progress note Blood Urea Nitrogen 12 mg/dL 7-18 MED[facility] ([facility]) see progress note Sodium Level 141 meq/L 136-145 MED[facility] ([facility]) see progress note Potassium Serum 4.8 meq/L 3.5-5.1 MED[facility] ([facility]) see progress note Anion Gap 1 meq/L 8-16 MED[facility] ([facility], [facility]) see progress note Carbon Dioxide Level 31 meq/L 21-32 MED[facility] ([facility]) see progress note Chloride Level 109 meq/L 98-107 MED[facility] ([facility]) see progress note Alt/SGPT 36 U/L 12-78 [facility] ([facility]) see progress note Ast/Sgot 18 U/L 7-37 [facility] ([facility]) see progress note Calcium Level 9.7 mg/dL 8.5-10.1 MED[facility] ([facility]) see progress note Total Protein 7.3 GM/DL 6.4-8.2 MED[facility] ([facility]) see progress note Bilirubin,Total 0.3 mg/dL 0.2-1.0 MED[facility] ([facility]) see progress note Alkaline Phosphatase 96 U/L 45-117 [facility] see progress note Albumin 4.2 GM/DL 3.2-5.2 [facility] ([facility], [facility]) see progress note Albumin/Globulin Ratio 1.4 1.2-2.2 [facility] ([facility], [facility]) see progress note ID Date Data Source [id number] 02/12/2021 06:32:00 PM EDT MED[facility] ([facility], [facility]) Name Value Range Interpretation Code Description Data Maryann rce(s) Supporting Document(s) Red Blood Count 5.07 10 4.00-5.40 MED[facility] ([facility], [facility]) White Blood Count 6.5 10 4.0-10.0 MED[facility] ([facility], [facility]) Mean Corpuscular Volume 82.6 fl 80.0-96.0 M EDENT ([facility], [facility]) Hemoglobin 13.4 g/dL 12.0-15.5 [facility] ([facility]) Hematocrit 41.9 % 36.0-47.0 [facility] ([facility]) Mean Corpuscular HGB Conc 32.0 g/dL 32.0-36.5 [facility] ([facility], [facility]) Mean Corpuscular Hemoglobin 26.4 pg 27.0-33.0 [facility] ([facility]) Red Cell Distribution Width 14.5 % 11.5-14.5 [facility] ([facility], [facility]) Platelet Count, Automated 227 10 150-450 [facility] ([facility], [facility]) Neutrophils % 51.9 % 36.0-66.0 MED[facility] ([facility], [facility]) Wood % 7.1 % 2.0-8.0 MED[facility] ([facility], [facility]) Lymph % 38.3 % 24.0-44.0 [facility] ([facility]) Eos % 1.6 % 0.0-3.0 MED[facility] ([facility], [facility]) Baso % 0.9 % 0.0-1.0 MEDENT ([facility]) Immature Granulocyte % 0.2 % 0-3.0 MED[facility] ([facility]) Nucleated Red Blood Cell % 0.0 % 0-0 [facility] ([facility]) Neutrophils # 3.4 10 1.5-8.5 MED[facility] ([facility], [facility]) Wood # 0.5 10 0.0-0.8 MED[facility] ([facility], [facility]) Lymph # 2.5 10 1.5-5.0 MED[facility] ([facility], [facility]) Baso # 0.1 10 0.0-0.2 [facility] ([facility]) Eos # 0.1 10 0.0-0.5 MED[facility] ([facility], [facility]) ID Date Data Source [id number] 02/12/2021 06:32:00 PM EDT [facility] Name Value Range Interpretation Code Description Data Maryann rce(s) Supporting Document(s) C reactive protein [Mass/volume] in Serum or Plasma by High sensitivity method Laboratory test result [facility] ([facility]) ID Date Data Source [id number] 02/12/2021 05:31:00 PM EDT [facility] ([facility]) Name Value Range Interpretation Code Description Data Maryann rce(s) Supporting Document(s) Trichomonas vaginalis DNA [Presence] in Unspecified specimen by Probe and target amplification method Laboratory test result [facility] ([facility]) Performed at: RN - [facility] [address] [id number] Credit Card Associate: Kylee Gil MD, Phone: [phone] ID Date Data Source [id number] 02/12/2021 05:31:00 PM EDT [facility] ([facility]) Name Value Range Interpretation Code Description Data Maryann rce(s) Supporting Document(s) Chlamydia Dna Amplification Laboratory test result [facility] ([facility]) A negative test result does not exclude the possibility of infection because test results may be affected by improper specimen collection, technical error, specimen mix-up, concurrent antibiotic therapy, or the number of organisms in the specimen which may be below the sensitivity of the test. GC Dna Amplification Laboratory test result [facility] ([facility]) A negative test result does not exclude the possibility of infection because test results may be affected by improper specimen collection, technical error, specimen mix-up, concurrent antibiotic therapy, or the number of organisms in the specimen which may be below the sensitivity of the test. ID Date Data Source [id number] 02/12/2021 05:31:00 PM EDT [facility] ([facility]) Name Value Range Interpretation Code Description Data Maryann rce(s) Supporting Document(s) Bacteria identified in Urine by Culture Laboratory test result [facility] ([facility]) <content>FULL REPORT [facility] LAB NOTES [facility]</content>
<content></content>
<content>ORGANISM 1: KLEBSIELLA PNEUMONIAE</content>
<content></content>
<content>COLONY COUNT 15,000</content>
<content></content>
<content></content>
<content>OR GANISM 1: KLEBSIELLA PNEUMONIAE</content>
<content></content>
<content> KLEBSIELLA PNEUMONIAE: REACTION</content>
<content>TRIMETHOPRIM/SULFAMETHOXAZOLE IV 160mg TMP & 800mg SMXq6h <=20 S</content>
<content> TRIMETHOPRIM/SULFAMETHOXAZOLE PO Bactrim DS Bid <=20 S</content>
<content>AMPICILLIN IV 500mg q6h >=32 R</content>
<content>AMPICILLIN PO 500mg q6h fasting >=32 R</content>
<content>GENTAMICIN IV 80mg q8h <=1 S</content>
<content>NITROFURANTOIN PO 100mg BID 64 I</content>
<content>CEFAZOLIN IV 1gm q8h <=4 S</content>
<content>LEVOFLOXACIN IV 500mg qd <=0.12 S</content>
<content>LEVOFLOXACIN PO 250mg qd <=0.12 S</content>
<content>LEVOFLOXACIN PO 500mg qd <=0.12 S</content>
<content>TOBRAMYCIN IV 80mg q8h <=1 S</content>
<content> CEFTRIAXONE IV 1gm q24h <=1 S</content>
<content>CEFTAZIDIME IV 1gm q8h <=1 S</content>
<content>AMPICILLIN/SULBACTAM IV 1.5g q6h 4 S</content>
<content>PIPERACILLIN/TAZOBACTAM IV 2.25 gm q6h <=4 S</content>
<content>AZTREONAM IV 1gm q8h <=1 S</content>
<content>ERTAPENEM IV 1gm qd <=0.5 S</content>
<content>MEROPENEM IV 1 gm q8h <=0.25 S</content>
<content>MEROPENEM IV 500 mg q8h <=0.25 S</content>
<content>TIGECYCLINE IV 50mg q12h 1 S</content>
<content>CEFEPIME IV 1 gm q12h <=1 S</content>
<content>CEFEPIME IV 2 gm q12h <=1 S</content>
<content>EXTD BRD SPCTRM BETA LACTAMASE IV NEGATIVE FOR ESBL</content>
<content></content> ID Date Data Source [id number] 02/12/2021 12:00:00 AM EDT [facility] Name Value Range Interpretation Code Description Data Maryann rce(s) Supporting Document(s) SARS-CoV2 Rapid Antigen Negative [facility] This lab was reported by [facility]. ID Date Data Source [id number] 02/01/2021 08:15:00 PM EDT [facility] Name Value Range Interpretation Code Description Data Maryann rce(s) Supporting Document(s) SARS coronavirus 2 RNA [Presence] in Res piratory specimen by SPEEDY with probe detection NEGATIVE [facility] This lab was ordered by [facility] a nd reported by [facility]. ID Date Data Source [id number] 02/01/2021 02:50:00 PM EDT [facility] Name Value Range Interpretation Code Description Data Maryann rce(s) Supporting Document(s) SARS COVID ANTIGEN NEGATIVE [facility] This lab was ordered by [facility] a nd reported by [facility]. ID Date Data Source [id number] 01/14/2021 07:59:00 PM EDT [facility] Name Value Range Interpretation Code Description Data Maryann rce(s) Supporting Document(s) SARS coronavirus 2 RNA [Presence] in Res piratory specimen by SPEEDY with probe detection NEGATIVE [facility] This lab was ordered by [facility] a nd reported by [facility]. ID Date Data Source [id number] 12/08/2020 08:16:53 AM EDT [facility] SPECIMEN DESCRIPTION MIDSTREAM UR INE,CLEAN CATCHCULTURE RESULTS >100,000 CFU/ML LACTOBACILLUS SPECIESNOTE: LACTOBACILLI USUALLY REPRESENT NORMAL UROGENITAL ROSCOE AND AREA VERY RARE CAUSE OF A UTI. LABORATORY METHODS ARE NOT CURRENTLYAVAILABLE FOR PERFORMING ANTIBIOTIC SUSCEPTIBILITY TESTING FOR THISORGANISM. REPORT STATUS FINAL 12/08/2020 Name Value Range Interpretation Code Description Data Maryann rce(s) Supporting Document(s) ID Date Data Source [id number] 12/06/2020 02:27:30 PM EDT [facility] Name Value Range Interpretation Code Description Data Maryann rce(s) Supporting Document(s) [facility] PERFORMED AT [address] [place] [address] [place] [id number] APPEARANCE [facility] SPEC GRAV URINE 1.020 (1.003-1.030) [facility] PH URINE 7.5 (5.0-7.5) [facility] LEUK ESTERASE 2+ (NEG) A [facility] NITRITE URINE (NEG) [facility] [place] PROTEIN URINE (NEG) [facility] GLUCOSE URINE (NEG) [facility] KETONE URINE (NEG) [facility] [place] UROBILINOGEN 0.2 mg/dL (0-1.0) [facility] [place] BILIRUBIN URINE (NEG) [facility] [place] BLOOD/HGB URINE (NEG) [facility] [place] EPITHELIAL CELLS 2+ [HPF] (NEG) A [facility] HYALINE CASTS 3.2 [LPF] (0-5) [facility] BACTERIA 2+ [HPF] (NEG) A [facility] URINE WBC 59.0 [HPF] (0-8) H [facility] URINE RBC 3.6 [HPF] (0-3) H [facility] ID Date Data Source UA URINALYSIS 12/04/2020 12:00:00 AM EDT eCW1 ([facility] Name Value Range Interpretation Code Description Data Maryann rce(s) Supporting Document(s) Laboratory studies (set) UA URINALYS IS eCW1 ([facility]) ID Date Data Source URINE CULTURE 09/30/2020 12:00:00 AM EDT eCW1 ([facility] hospital) Name Value Range Interpretation Code Description Data Maryann rce(s) Supporting Document(s) Laboratory studies (set) URINE CULTU RE eCW1 ([facility]) ID Date Data Source CHLAMYDIA, GC & TRICH AMP 09/22/2020 12:00:00 AM EDT eCW1 ([facility]) Name Value Range Interpretation Code Description Data Maryann rce(s) Supporting Document(s) NOT DETECTED NEGATIVE Trichomonas vaginalis ( AMP) eCW1 ([facility]) ID Date Data Source [id number] 09/19/2020 09:50:00 PM EDT [facility] Patient: FERNANDO RIOS Observation Rep ort - [facility].VisitID: [id number] [place] [address] [phone], FRegistration Date/Time: 09/19/2020 19:47 Weight:61.2 kg (S). Height/Length:60 inches (S). BMI:26.4 FAMILY HISTORYNo significant family medical history. (Electronically signed by Gloria Pittman M.D. 09/19/2020 21:46) Name Value Range Interpretation Code Description Data Maryann rce(s) Supporting Document(s) ID Date Data Source [id number] 09/19/2020 09:32:00 PM EDT [facility]STETR[facility] SONOGRAM DATE OF EXA MINATION: 09/19/2020 20:58 EDT OB LIMITED INDICATION: Decreased movement , Approximate Gestational age - 24 weeks 6days COMPARISON: None TECHNIQUE: Images of the pelvis were obtained using transabdominal technique. FINDINGS: The examination demonstrates a single intrauterine gestation in avertex presentation. Spontaneous motion was demonstrated on real-time examination. The fetalheart rate is 150 beats per minute. Fluid is seen in the stomach andurinary bladder. The kidneys are unremarkable. A four-chamber heart andthree-vessel cord are noted. The placenta is located posterior. There is no evidence of placenta previa. Theamount of amniotic fluid is qualitatively normal. The cervical length is 3.cm. IMPRESSION: Gestation - singlePresentation - vertexPlacenta - posterior Amniotic fluid - normalComments: heart rate 150 bpm. Follow-up recommended Electronically signed in [id number] by: Peter Reyna M.D. 09/19/2020 21:25 EDT Name Value Range Interpretation Code Description Data [facility] rce(s) Supporting Document(s) ID Date Data Source [id number] 06/24/2020 05:46:48 PM EST [facility] SPECIMEN DESCRIPTION VAGINAL SPEC IMENRESULT NEGATIVE FOR TRICHOMONAS VAGINALIS BY DNA PROBE NEGATIVE FOR GARDNERELLA VAGINALIS BY DNA PROBE NEGATIVE FOR RADHA SPECIES BY DNA PROBEREPORT STATUS FINAL 06/24/2020 SPEC EXP DATE 1PATI ENT ABO/Rh A POSITIVEANTIBODY SCREEN NEGATIVETESTING SITE PERFORMED AT [address] [place] [address] SPECIMEN DESCRIPTION MIDSTREAM UR INE,CLEAN CATCHCULTURE RESULTS NO GROWTHREPORT STATUS FINAL 06/25/2020 Name Value Range Interpretation Code Description Data [facility] rce(s) Supporting Document(s) HEPATITIS B S AG @ (NEG) [facility] ID Date Data Source [id number] 06/24/2020 05:52:10 PM EST Laboratory [facility] SPECIMEN DESCRIPTION VAGINAL SPEC IMENRESULT NEGATIVE FOR TRICHOMONAS VAGINALIS BY DNA PROBE NEGATIVE FOR GARDNERELLA VAGINALIS BY DNA PROBE NEGATIVE FOR RADHA SPECIES BY DNA PROBEREPORT STATUS FINAL 06/24/2020 SPEC EXP DATE 1PATI ENT ABO/Rh A POSITIVEANTIBODY SCREEN NEGATIVETESTING SITE PERFORMED AT [address] [place] [address] SPECIMEN DESCRIPTION MIDSTREAM UR INE,CLEAN CATCHCULTURE RESULTS NO GROWTHREPORT STATUS FINAL 06/25/2020 Name Value Range Interpretation Code Description Data Maryann rce(s) Supporting Document(s) COLOR [facility] - CORE APPEARANCE [facility] - CORE SPEC GRAV URINE 1.006 (1.003-1.030) [facility] - CORE PH URINE 6.5 (5.0-7.5) [facility] - CORE LEUK ESTERASE (NEG) [facility] [place] - CORE NITRITE URINE (NEG) [facility] [place] - CORE PROTEIN URINE (NEG) [facility] [place] - CORE GLUCOSE URINE (NEG) [facility] [place] - CORE KETONE URINE (NEG) [facility] [place] - [place]ORE UROBILINOGEN 0.2 mg/dL (0-1.0) [facility] [place] - [place]ORE BILIRUBIN URINE (NEG) [facility] [place] - [place] BLOOD/HGB URINE (NEG) [facility] [place] - CORE EPITHELIAL CELLS (NEG) [facility] [place] - CORE HYALINE CASTS 0.0 [LPF] (0-5) [facility] [place] - CORE BACTERIA (NEG) [facility] - CORE URINE WBC 0.3 [HPF] (0-8) [facility] - CORE URINE RBC 0.6 [HPF] (0-3) [facility] - CORE ID Date Data Source [id number] 06/24/2020 05:54:26 PM EST [facility] [place] - CORE SPECIMEN DESCRIPTION VAGINAL SPEC IMENRESULT NEGATIVE FOR TRICHOMONAS VAGINALIS BY DNA PROBE NEGATIVE FOR GARDNERELLA VAGINALIS BY DNA PROBE NEGATIVE FOR RADHA SPECIES BY DNA PROBEREPORT STATUS FINAL 06/24/2020 SPEC EXP DATE 1PATI ENT ABO/Rh A POSITIVEANTIBODY SCREEN NEGATIVETESTING SITE PERFORMED AT [address] [place] [address] SPECIMEN DESCRIPTION MIDSTREAM UR INE,CLEAN CATCHCULTURE RESULTS NO GROWTHREPORT STATUS FINAL 06/25/2020 Name Value Range Interpretation Code Description Data Maryann rce(s) Supporting Document(s) AMPHETAMINES,URINE (NEG) [facility] BARBITURATES,URINE (NEG) [facility] BENZODIAZEPINE,URINE (NEG) [facility] CANNABINOIDS,URINE (NEG) [facility] COCAINE,URINE (NEG) [facility] OPIATES,URINE (NEG) [facility] NOTE: Oxycodone is not sufficientlydetec vijay by this screening assay. A moresensitive assay is available upon request. PHENCYCLIDINE,URINE (NEG) Laboratory [facility] PLEASE NOTE: Laboratory [facility] of [facility] ARE REPORTED POSITIVE WHEN THE RESULT SEXCEED THE THRESHOLD (CUTOFF) INDICATED. ALIST OF POTENTIAL INTERFERENCES FOR EACHMETHOD CAN BE MADE AVAILABLE UPON REQUEST.A CONFIRMATORY ANALYSIS IS ORDERED ONALL DRUG CLASSES SCREENING POSITIVE BYTHIS METHOD.* * * * * * * * * * * * * * *THIS ASSAY IS NOT INTENDED TO BE USED FORMONITORING MEDICATION COMPLIANCE. ID Date Data Source [id number] 06/24/2020 06:19:49 PM EST Laboratory [facility] SPECIMEN DESCRIPTION VAGINAL SPEC IMENRESULT NEGATIVE FOR TRICHOMONAS VAGINALIS BY DNA PROBE NEGATIVE FOR GARDNERELLA VAGINALIS BY DNA PROBE NEGATIVE FOR RADHA SPECIES BY DNA PROBEREPORT STATUS FINAL 06/24/2020 SPEC EXP DATE 1PATI ENT ABO/Rh A POSITIVEANTIBODY SCREEN NEGATIVETESTING SITE PERFORMED AT [address] [place] [address] SPECIMEN DESCRIPTION MIDSTREAM UR INE,CLEAN CATCHCULTURE RESULTS NO GROWTHREPORT STATUS FINAL 06/25/2020 Name Value Range Interpretation Code Description Data Maryann rce(s) Supporting Document(s) GLUCOSE 98 mg/dL (70-99) Laboratory [facility] ID Date Data Source [id number] 06/24/2020 06:30:31 PM EST [facility] SPECIMEN DESCRIPTION VAGINAL SPEC IMENRESULT NEGATIVE FOR TRICHOMONAS VAGINALIS BY DNA PROBE NEGATIVE FOR GARDNERELLA VAGINALIS BY DNA PROBE NEGATIVE FOR RADHA SPECIES BY DNA PROBEREPORT STATUS FINAL 06/24/2020 SPEC EXP DATE 06/27/2020ATI ENT ABO/Rh A POSITIVEANTIBODY SCREEN NEGATIVETESTING SITE PERFORMED AT [address] [facility] [address] SPECIMEN DESCRIPTION MIDSTREAM UR INE,CLEAN CATCHCULTURE RESULTS NO GROWTHREPORT STATUS FINAL 06/25/2020 Name Value Range Interpretation Code Description Data Maryann rce(s) Supporting Document(s) TREPONEMA IGG/IGM @ (NEG) [facility] - CORE ID Date Data Source [id number] 06/24/2020 06:38:48 PM EST [facility] - CORE SPECIMEN DESCRIPTION VAGINAL SPEC IMENRESULT NEGATIVE FOR TRICHOMONAS VAGINALIS BY DNA PROBE NEGATIVE FOR GARDNERELLA VAGINALIS BY DNA PROBE NEGATIVE FOR RADHA SPECIES BY DNA PROBEREPORT STATUS FINAL 06/24/2020 SPEC EXP DATE 06/27/2020ATI ENT ABO/Rh A POSITIVEANTIBODY SCREEN NEGATIVETESTING SITE PERFORMED AT [address] [facility] [address] SPECIMEN DESCRIPTION MIDSTREAM UR INE,CLEAN CATCHCULTURE RESULTS NO GROWTHREPORT STATUS FINAL 06/25/2020 Name Value Range Interpretation Code Description Data Maryann rce(s) Supporting Document(s) HIV 1/2 SCREEN @ (NEG) Laboratory [facility] - CORE Testing performed using [employer] taur 4th gen CHIV combo assay.This assay detects the HIV1 p24 antigenin addition to antibodies to HIV1 and HIV2. ID Date Data Source [id number] 06/24/2020 06:52:56 PM EST [facility] - CORE SPECIMEN DESCRIPTION VAGINAL SPEC IMENRESULT NEGATIVE FOR TRICHOMONAS VAGINALIS BY DNA PROBE NEGATIVE FOR GARDNERELLA VAGINALIS BY DNA PROBE NEGATIVE FOR RADHA SPECIES BY DNA PROBEREPORT STATUS FINAL 06/24/2020 SPEC EXP DATE 06/27/2020ATI ENT ABO/Rh A POSITIVEANTIBODY SCREEN NEGATIVETESTING SITE PERFORMED AT [address] [facility] [address] SPECIMEN DESCRIPTION MIDSTREAM UR INE,CLEAN CATCHCULTURE RESULTS NO GROWTHREPORT STATUS FINAL 06/25/2020 Name Value Range Interpretation Code Description Data Maryann rce(s) Supporting Document(s) ID Date Data Source [id number] 06/24/2020 08:36:11 PM EST [facility] - CORE SPECIMEN DESCRIPTION VAGINAL SPEC IMENRESULT NEGATIVE FOR TRICHOMONAS VAGINALIS BY DNA PROBE NEGATIVE FOR GARDNERELLA VAGINALIS BY DNA PROBE NEGATIVE FOR RADHA SPECIES BY DNA PROBEREPORT STATUS FINAL 06/24/2020 SPEC EXP DATE 06/27/2020ATI ENT ABO/Rh A POSITIVEANTIBODY SCREEN NEGATIVETESTING SITE PERFORMED AT [address] [facility] [address] SPECIMEN DESCRIPTION MIDSTREAM UR INE,CLEAN CATCHCULTURE RESULTS NO GROWTHREPORT STATUS FINAL 06/25/2020 Name Value Range Interpretation Code Description Data Maryann rce(s) Supporting Document(s) TYPE AND SCREEN Laboratory [facility] PATIENT ABO/Rh A POSITIVE ID Date Data Source [id number] 06/25/2020 01:27:36 PM EST Laboratory [facility] SPECIMEN DESCRIPTION VAGINAL SPEC IMENRESULT NEGATIVE FOR TRICHOMONAS VAGINALIS BY DNA PROBE NEGATIVE FOR GARDNERELLA VAGINALIS BY DNA PROBE NEGATIVE FOR RADHA SPECIES BY DNA PROBEREPORT STATUS FINAL 06/24/2020 SPEC EXP DATE 1PATI ENT ABO/Rh A POSITIVEANTIBODY SCREEN NEGATIVETESTING SITE PERFORMED AT [address] [facility] [address] SPECIMEN DESCRIPTION MIDSTREAM UR INE,CLEAN CATCHCULTURE RESULTS NO GROWTHREPORT STATUS FINAL 06/25/2020 Name Value Range Interpretation Code Description Data Maryann rce(s) Supporting Document(s) ID Date Data Source [id number] 06/25/2020 02:53:17 PM EST [facility] SPECIMEN DESCRIPTION VAGINAL SPEC IMENRESULT NEGATIVE FOR TRICHOMONAS VAGINALIS BY DNA PROBE NEGATIVE FOR GARDNERELLA VAGINALIS BY DNA PROBE NEGATIVE FOR RADHA SPECIES BY DNA PROBEREPORT STATUS FINAL 06/24/2020 SPEC EXP DATE 1PATI ENT ABO/Rh A POSITIVEANTIBODY SCREEN NEGATIVETESTING SITE PERFORMED AT [address] [facility] [address] SPECIMEN DESCRIPTION MIDSTREAM UR INE,CLEAN CATCHCULTURE RESULTS NO GROWTHREPORT STATUS FINAL 06/25/2020 Name Value Range Interpretation Code Description Data Maryann rce(s) Supporting Document(s) RUBELLA IGG AB @ Laboratory [facility] IgG antibody to Rubella detected. IgGan tibody levels are at a level consideredto indicate positive immunity. ID Date Data Source [id number] 06/25/2020 02:53:17 PM EST [facility] SPECIMEN DESCRIPTION VAGINAL SPEC IMENRESULT NEGATIVE FOR TRICHOMONAS VAGINALIS BY DNA PROBE NEGATIVE FOR GARDNERELLA VAGINALIS BY DNA PROBE NEGATIVE FOR RADHA SPECIES BY DNA PROBEREPORT STATUS FINAL 06/24/2020 SPEC EXP DATE 1PATI ENT ABO/Rh A POSITIVEANTIBODY SCREEN NEGATIVETESTING SITE PERFORMED AT [address] [facility] [address] SPECIMEN DESCRIPTION MIDSTREAM UR INE,CLEAN CATCHCULTURE RESULTS NO GROWTHREPORT STATUS FINAL 06/25/2020 Name Value Range Interpretation Code Description Data Maryann rce(s) Supporting Document(s) VARICELLA ZOST IGG @ [facility] IgG antibody to VZV detected. This radha ndicate that the patient was exposed toVZV through infection or vaccination. ID Date Data Source [id number] 06/25/2020 03:27:32 PM EST [facility] SPECIMEN DESCRIPTION VAGINAL SPEC IMENRESULT NEGATIVE FOR TRICHOMONAS VAGINALIS BY DNA PROBE NEGATIVE FOR GARDNERELLA VAGINALIS BY DNA PROBE NEGATIVE FOR RADHA SPECIES BY DNA PROBEREPORT STATUS FINAL 06/24/2020 SPEC EXP DATE 1PATI ENT ABO/Rh A POSITIVEANTIBODY SCREEN NEGATIVETESTING SITE PERFORMED AT [address] [place] [address] SPECIMEN DESCRIPTION MIDSTREAM UR INE,CLEAN CATCHCULTURE RESULTS NO GROWTHREPORT STATUS FINAL 06/25/2020 Name Value Range Interpretation Code Description Data Maryann rce(s) Supporting Document(s) SPECIMEN DESCRIPTION [facility] C. TRACHOMATIS (NEG) Laboratory [facility] of [facility] [employer] [facility] THIS ASSAY AMPLIFIES AND DETECTS TARGETD NA USING METAL DIE FINISHER-MEDIATEDAMPLIFICATION N. GONORRHOEAE (NEG) Laboratory [facility] of [employer] THIS ASSAY AMPLIFIES AND DETECTS TARGETD NA USING METAL DIE FINISHER-MEDIATEDAMPLIFICATION ID Date Data Source [id number] 06/25/2020 03:42:03 PM EST [facility] SPECIMEN DESCRIPTION VAGINAL SPEC IMENRESULT NEGATIVE FOR TRICHOMONAS VAGINALIS BY DNA PROBE NEGATIVE FOR GARDNERELLA VAGINALIS BY DNA PROBE NEGATIVE FOR RADHA SPECIES BY DNA PROBEREPORT STATUS FINAL 06/24/2020 SPEC EXP DATE 02/27/2021PATI ENT ABO/Rh A POSITIVEANTIBODY SCREEN NEGATIVETESTING SITE PERFORMED AT [address] [place] [address] SPECIMEN DESCRIPTION MIDSTREAM UR INE,CLEAN CATCHCULTURE RESULTS NO GROWTHREPORT STATUS FINAL 06/25/2020 Name Value Range Interpretation Code Description Data Maryann rce(s) Supporting Document(s) LEAD,VENOUS WB @ <2.0 ug/dL (0.0-4.9) Laboratory [facility] [place] - CORE Testing performed by graphite furnaceato shalonda absorption spectroscopy. Information for health careproviders on lead poisoningprevention and management isavailable on the [facility] website. ID Date Data Source [id number] 06/26/2020 12:39:35 PM EST [facility] [facility] SPECIMEN DESCRIPTION VAGINAL SPEC IMENRESULT NEGATIVE FOR TRICHOMONAS VAGINALIS BY DNA PROBE NEGATIVE FOR GARDNERELLA VAGINALIS BY DNA PROBE NEGATIVE FOR RADHA SPECIES BY DNA PROBEREPORT STATUS FINAL 06/24/2020 SPEC EXP DATE 06/27/2020ATI ENT ABO/Rh A POSITIVEANTIBODY SCREEN NEGATIVETESTING SITE PERFORMED AT [address] [facility] [address] SPECIMEN DESCRIPTION MIDSTREAM UR INE,CLEAN CATCHCULTURE RESULTS NO GROWTHREPORT STATUS FINAL 06/25/2020 Name Value Range Interpretation Code Description Data Maryann rce(s) Supporting Document(s) HGB A1 >95.8 % (94.3-98.5) [facility] [place] - CORE HGB A2 3.2 % (1.5-3.7) [facility] [place] [place] - CORE HGB F <1.0 % (0.0-2.0) [facility] - CORE HGB EVALUATION Laboratory [facility] [place] - CORE HGB EVALUATION BY HPLC PLEASE NOTE:PA TIENTS WITH A COMBINATION OF IRONDEFICIENCY ANEMIA AND BETA-THALASSEMIATRAIT MAY CLINICALLY PRESENT WITH ANORMAL HGB A2 LEVEL. ID Date Data Source [id number] 06/04/2020 01:00:00 PM EST [facility] Name Value Range Interpretation Code Description Data Maryann rce(s) Supporting Document(s) SARS coronavirus 2 RNA [Presence] in Res piratory specimen by SPEEDY with probe detection NEGATIVE [facility] This lab was ordered by [facility] a nd reported by [facility]. ID Date Data Source [id number] 05/30/2020 12:00:00 AM EST [facility] Name Value Range Interpretation Code Description Data Maryann rce(s) Supporting Document(s) SARS coronavirus 2 Ag Negative [facility] This lab was ordered by [facility] and reported by [facility]. ID Date Data Source [id number] 04/20/2020 12:20:00 PM EST [facility] Name Value Range Interpretation Code Description Data Maryann rce(s) Supporting Document(s) SARS coronavirus 2 RNA [facility] This lab was ordered by [facility] and reported by [facility]. Procedure Social History Code Duration Value Status Description Data Source(s ) Smoking 02/23/2021 12:00:00 AM EDT Never Smoker completed Never S moker eCW1 ([facility]) Smoking 02/23/2021 12:00:00 AM EDT Never Smoker completed Never S moker eCW1 ([facility]) Smoking 02/18/2021 12:00:00 AM EDT Never Smoker completed Never S moker eCW1 ([facility]) Smoking 02/17/2021 12:00:00 AM EDT Never Smoker completed Never S moker eCW1 ([facility]) Smoking 02/11/2021 12:00:00 AM EDT Never Smoker completed Never S moker eCW1 ([facility]) Smoking 02/11/2021 12:00:00 AM EDT Never Smoker completed Never S moker eCW1 ([facility]) Smoking 02/05/2021 12:00:00 AM EDT Never Smoker completed Never S moker eCW1 ([facility]) Smoking 02/05/2021 12:00:00 AM EDT Never Smoker completed Never S moker eCW1 ([facility]) Smoking 02/01/2021 12:00:00 AM EDT Never Smoker completed Never S moker eCW1 ([facility]) Smoking 01/26/2021 12:00:00 AM EDT Never Smoker completed Never S moker eCW1 ([facility]) Smoking 01/26/2021 12:00:00 AM EDT Never Smoker completed Never S moker eCW1 ([facility]) Smoking 01/26/2021 12:00:00 AM EDT Never Smoker completed Never S moker eCW1 ([facility]) Smoking 12/30/2020 12:00:00 AM EDT Never Smoker completed Never S moker eCW1 ([facility]) Smoking 12/30/2020 12:00:00 AM EDT Never Smoker completed Never S moker eCW1 ([facility]) Smoking 12/30/2020 12:00:00 AM EDT Never Smoker completed Never S moker eCW1 ([facility]) Smoking 12/08/2020 12:00:00 AM EDT Never Smoker completed Never S moker eCW1 ([facility]) Smoking 11/23/2020 12:00:00 AM EDT Never Smoker completed Never S moker eCW1 ([facility]) Smoking 11/23/2020 12:00:00 AM EDT Never Smoker completed Never S moker eCW1 ([facility]) Smoking 11/23/2020 12:00:00 AM EDT Never Smoker completed Never S moker eCW1 ([facility]) Smoking 11/23/2020 12:00:00 AM EDT Never Smoker completed Never S moker eCW1 ([facility]) Smoking 10/22/2020 12:00:00 AM EDT Never Smoker completed Never S moker eCW1 ([facility]) Smoking 10/22/2020 12:00:00 AM EDT Never Smoker completed Never S moker eCW1 ([facility]) Smoking 10/06/2020 12:00:00 AM EDT Never Smoker completed Never S moker eCW1 ([facility]) Smoking 09/07/2020 12:00:00 AM EDT Never Smoker completed Never S moker eCW1 ([facility]) Smoking 08/05/2020 12:00:00 AM EDT Never Smoker completed Never S moker eCW1 ([facility]) Smoking 07/10/2020 12:00:00 AM EST Never Smoker completed Never S moker eCW1 ([facility]) Smoking 07/10/2020 12:00:00 AM EST Never Smoker completed Never S moker eCW1 ([facility]) Smoking 07/10/2020 12:00:00 AM EST Never Smoker completed Never S moker eCW1 ([facility]) Smoking 07/10/2020 12:00:00 AM EST Never Smoker completed Never S moker eCW1 ([facility]) Smoking 05/30/2020 12:00:00 AM EST Patient has never smoked co mpleted Patient has never smoked MEDENT ([facility]) Vital Signs ID Date Data Source UNK Name Value Range Interpretation Code Description Data Source(s) Body weight 137 [lb_av] 137 [lb_av] eCW1 ([facility]) Body height 60 [in_i] 60 [in_i] [facility] Body mass index (BMI) [Ratio] 26.75 kg/m2 26.75 kg/m2 eCW1 ([facility]) Systolic blood pressure 126 mm[Hg] 126 mm[Hg] e CW1 ([facility]) Diastolic blood pressure 74 mm[Hg] 74 mm[Hg] eCW1 ([facility]) Oxygen saturation in Arterial blood by Pulse oximetry 99 % 99 % MEDENT ([facility]) Body temperature 96.2 [degF] 96.2 [degF] MEDENT ([facility]) Body weight 135.00 [lb_av] 135.00 [lb_av] MEDEN T ([facility]) Body height 60 [in_i] 60 [in_i] MEDENT ([facility]) 5'0" Systolic blood pressure 130 mm[Hg] 130 mm[Hg] M EDENT ([facility]) Diastolic blood pressure 79 mm[Hg] 79 mm[Hg] MEDENT ([facility]) Heart rate 73 /min 73 /min MEDENT ([facility]) Respiratory rate 16 /min 16 /min MEDENT ( [facility]) Body mass index (BMI) [Ratio] 26.4 kg/m2 26.4 k g/m2 [facility] Body weight 162 [lb_av] 162 [lb_av] eCW1 ([facility]) Body weight 73.48 kg 73.48 kg eCW1 ([facility] Body height 60 [in_i] 60 [in_i] eCW1 ([facility]) Body mass index (BMI) [Ratio] 31.64 kg/m2 31.64 kg/m2 eCW1 ([facility]) Body temperature 97.3 [degF] 97.3 [degF] eCW1 ( [facility]) Systolic blood pressure 110 mm[Hg] 110 mm[Hg] e CW1 ([facility]) Diastolic blood pressure 60 mm[Hg] 60 mm[Hg] eCW1 ([facility]) Body weight 162.4 [lb_av] 162.4 [lb_av] eCW1 ([facility]) Body height 60 [in_i] 60 [in_i] eCW1 ([facility]) Body mass index (BMI) [Ratio] 31.717 kg/m2 31.7 17 kg/m2 W1 ([facility]) Systolic blood pressure 130 mm[Hg] 130 mm[Hg] e CW1 ([facility]) Diastolic blood pressure 82 mm[Hg] 82 mm[Hg] eCW1 ([facility]) Body weight 163 [lb_av] 163 [lb_av] eCW1 ([facility]) Body height 60 [in_i] 60 [in_i] eCW1 ([facility]) Body mass index (BMI) [Ratio] 31.834 kg/m2 31.8 34 kg/m2 W1 ([facility]) Systolic blood pressure 130 mm[Hg] 130 mm[Hg] e CW1 ([facility]) Diastolic blood pressure 80 mm[Hg] 80 mm[Hg] eCW1 ([facility]) Body weight 159.2 [lb_av] 159.2 [lb_av] eCW1 ([facility]) Body weight 72.21 kg 72.21 kg [facility] Body height 60 [in_i] 60 [in_i] eCW1 [facility] Body mass index (BMI) [Ratio] 31.09 kg/m2 31.09 kg/m2 eCW1 ([facility]) Systolic blood pressure 124 mm[Hg] 124 mm[Hg] e CW1 ([facility]) Diastolic blood pressure 76 mm[Hg] 76 mm[Hg] eCW1 ([facility]) Systolic blood pressure 124 mm[Hg] 124 mm[Hg] [facility] Diastolic blood pressure 69 mm[Hg] 69 mm[Hg] [facility] Heart rate 97 /min 97 /min [facility] Respiratory rate 18 /min 18 /min [facility] Body height 152.4 cm 152.4 cm [facility] Body weight 67.586 kg 67.586 kg [facility] Body mass index (BMI) [Ratio] 29.10 kg/m2 29.10 kg/m2 [facility] Body weight 154 [lb_av] 154 [lb_av] eCW1 ([facility]) Body weight 69.85 kg 69.85 kg eCW1 ([facility] Body height 60 [in_i] 60 [in_i] eCW1 ([facility] Body mass index (BMI) [Ratio] 30.076 kg/m2 30.0 76 kg/m2 eCW1 ([facility]) Systolic blood pressure 110 mm[Hg] 110 mm[Hg] e CW1 ([facility]) Diastolic blood pressure 58 mm[Hg] 58 mm[Hg] eCW1 ([facility]) Body weight 149 [lb_av] 149 [lb_av] eCW1 ([facility]) Body height 60 [in_i] 60 [in_i] eCW1 ([facility] Body mass index (BMI) [Ratio] 29.1 kg/m2 29.1 k g/m2 eCW1 ([facility]) Systolic blood pressure 110 mm[Hg] 110 mm[Hg] e CW1 ([facility]) Diastolic blood pressure 70 mm[Hg] 70 mm[Hg] eCW1 ([facility]) Body weight 142.2 [lb_av] 142.2 [lb_av] eCW1 ([facility]) Body height 60 [in_i] 60 [in_i] eCW1 ([facility] Body mass index (BMI) [Ratio] 27.772 kg/m2 27.7 72 kg/m2 eCW1 ([facility]) Systolic blood pressure 112 mm[Hg] 112 mm[Hg] e CW1 ([facility]) Diastolic blood pressure 64 mm[Hg] 64 mm[Hg] eCW1 ([facility]) Body weight 138 [lb_av] 138 [lb_av] eCW1 ([facility]) Body height 60 [in_i] 60 [in_i] eCW1 [facility] Body mass index (BMI) [Ratio] 26.951 kg/m2 26.9 51 kg/m2 W1 ([facility]) Systolic blood pressure 132 mm[Hg] 132 mm[Hg] e CW1 ([facility]) Diastolic blood pressure 68 mm[Hg] 68 mm[Hg] eCW1 ([facility]) Systolic blood pressure 102 mm[Hg] 102 mm[Hg] e CW1 ([facility]) Diastolic blood pressure 60 mm[Hg] 60 mm[Hg] eCW1 ([facility]) Body weight 136.8 [lb_av] 136.8 [lb_av] eCW1 ([facility]) Body height 60 [in_i] 60 [in_i] eCW1 ([facility] Body mass index (BMI) [Ratio] 26.717 kg/m2 26.7 17 kg/m2 eCW1 ([facility]) Body weight 132.6 [lb_av] 132.6 [lb_av] eCW1 ([facility]) Body weight 60.15 kg 60.15 kg eCW1 ([facility] Body height 60 [in_i] 60 [in_i] eCW1 ([facility]) Body mass index (BMI) [Ratio] 25.897 kg/m2 25.8 97 kg/m2 eCW1 ([facility]) Systolic blood pressure 120 mm[Hg] 120 mm[Hg] e CW1 ([facility]) Diastolic blood pressure 60 mm[Hg] 60 mm[Hg] eCW1 ([facility]) Body weight 124.4 [lb_av] 124.4 [lb_av] eCW1 ([facility]) Body height 60 [in_i] 60 [in_i] eCW1 [facility] Body mass index (BMI) [Ratio] 24.295 kg/m2 24.2 95 kg/m2 eCW1 ([facility]) Systolic blood pressure 98 mm[Hg] 98 mm[Hg] e CW1 ([facility]) Diastolic blood pressure 58 mm[Hg] 58 mm[Hg] eCW1 ([facility]) Body weight [lb_av] eCW1 ([facility] Body height 60 [in_i] 60 [in_i] eCW1 ([facility]) Body mass index (BMI) [Ratio] 24.21 kg/m2 24.21 kg/m2 eCW1 ([facility]) Heart rate 81 /min 81 /min eCW1 ([facility]) Respiratory rate 18 /min 18 /min eCW1 ([facility]) Body temperature 98.7 [degF] 98.7 [degF] eCW1 ( [facility]) Systolic blood pressure 116 mm[Hg] 116 mm[Hg] e CW1 ([facility]) Diastolic blood pressure 72 mm[Hg] 72 mm[Hg] eCW1 ([facility]) Oxygen saturation in Arterial blood by Pulse oximetry 99 % 99 % [facility], [facility]) Body temperature 98.0 [degF] 98.0 [degF] [facility], [facility]) Body weight 112.00 [lb_av] 112.00 [lb_av] MEDEN T ([facility], [facility]) Body height 60 [in_i] 60 [in_i] [facility] ([facility], [facility]) 5'0" Body mass index (BMI) [Ratio] 21.9 kg/m2 21.9 k g/m2 [facility] ([facility], [facility]) Systolic blood pressure 105 mm[Hg] 105 mm[Hg] M EDENT ([facility], [facility]) Diastolic blood pressure 65 mm[Hg] 65 mm[Hg] [facility] ([facility], [facility]) Heart rate 79 /min 79 /min [facility] ([facility], [facility]) Respiratory rate 14 /min 14 /min [facility] ( [facility], [facility]) Systolic blood pressure 120 mm[Hg] 120 mm[Hg] M EDENT ([facility], [facility]) Respiratory rate 18 /min 18 /min [facility] ( [facility], [facility]) Oxygen saturation in Arterial blood by Pulse oximetry 98 % 98 % [facility] ([facility], [facility]) Diastolic blood pressure 74 mm[Hg] 74 mm[Hg] [facility] ([facility], [facility]) Heart rate 83 /min 83 /min [facility] ([facility], [facility]) Body temperature 98.9 [degF] 98.9 [degF] [facility] ([facility], [facility]) Body weight 112.00 [lb_av] 112.00 [lb_av] MEDEN T ([facility]) Body height 60 [in_i] 60 [in_i] [facility] ([facility], [facility]) 5'0" Body mass index (BMI) [Ratio] 21.9 kg/m2 21.9 k g/m2 [facility] ([facility], [facility]) Systolic blood pressure 117 mm[Hg] 117 mm[Hg] M EDENT ([facility]) Diastolic blood pressure 71 mm[Hg] 71 mm[Hg] MEDENT ([facility]) Heart rate 83 /min 83 /min MEDENT ([facility]) Respiratory rate 16 /min 16 /min MEDENT ( [facility]) Oxygen saturation in Arterial blood by Pulse oximetry 100 % 100 % MEDENT ([facility]) Body temperature 98.7 [degF] 98.7 [degF] MEDENT ([facility]) Body weight 112.00 [lb_av] 112.00 [lb_av] MEDEN T ([facility]) Patient Treatment Plan of Care Planned Activity Planned Date Details Description Data Source (s) Ciprofloxacin 250 MG Oral Tablet 02/16/2021 12:00:00 AM EDT eCW1 ([facility]) Levofloxacin 250 MG Oral Tablet 02/15/2021 12:00:00 AM EDT eCW1 ([facility]) Ciprofloxacin 500 MG Oral Tablet [Cipro] 01/27/2021 12:00:00 AM EDT eCW1 ([facility]) Metronidazole 500 MG Oral Tablet [Flagyl] 01/27/2021 12:00:00 AM ED T eCW1 ([facility]) Ciprofloxacin 500 MG Oral Tablet [Cipro] 01/27/2021 12:00:00 AM EDT eCW1 ([facility]) Metronidazole 500 MG Oral Tablet [Flagyl] 01/27/2021 12:00:00 AM ED T eCW1 ([facility]) Amoxicillin 875 MG / Clavulanate 125 MG Oral Tablet 01/27/20 12:00:00 AM EDT eCW1 ([facility]) Amoxicillin 875 MG / Clavulanate 125 MG Oral Tablet 01/27/20 12:00:00 AM EDT eCW1 ([facility]) Amoxicillin 875 MG / Clavulanate 125 MG Oral Tablet 01/27/20 12:00:00 AM EDT eCW1 ([facility]) Acetaminophen 325 MG Oral Tablet 12/06/2020 12:29:36 PM EDT [facility]
[2021-03-12] MEDS ORDERED: PANTOPRAZOLE 40MG VIAL (C9113 PER 1) IV ONE (14:15)
[2021-03-12] MEDS ORDERED: GI COCKTAIL 50ML BTL(HYOSCYAMINE/MAALOX/LIDOCAINE VISCOUS)(1:3:1) PO ONE (14:15)
[2021-03-12] MEDS ORDERED: NS 1,000 ML IV ONE (14:15)
[2021-03-12] MEDS ORDERED: SUCRALFATE 1 GM TAB PO ONE (14:15)
[2021-03-12 14:42] LABS: BASO # 0.1 10^3/uL (0.0-0.2); BASO % 0.7 % (0.0-1.0); EOS % 0.6 % (0.0-3.0); HEMATOCRIT 39.2 % (36.0-47.0); HEMOGLOBIN 13.3 g/dl (12.0-15.5); LYMPH # 1.4 10^3/uL (1.5-5.0); LYMPH % 20.2 % (24.0-44.0); MEAN CORPUSCULAR HEMOGLOBIN 27.4 pg (27.0-33.0); MEAN CORPUSCULAR HGB CONC 33.9 g/dl (32.0-36.5); MEAN CORPUSCULAR VOLUME 80.7 fl (80.0-96.0); MONO # 0.5 10^3/uL (0.0-0.8); MONO % 6.6 % (2.0-8.0); NEUTROPHILS % 71.8 % (36.0-66.0); PLATELET COUNT, AUTOMATED 188 10^3/uL (150-450); RED BLOOD COUNT 4.86 10^6/uL (4.00-5.40)
--- OUTSIDE RECORDS SUMMARY | 2021-03-12 14:56 | CCD ---
Author Author [facility] Organization [facility] Address Unknown Phone Unavailable Care Team Providers Care Auto Service Instructor Name Role Phone Salvador ARMSTRONG MD Unavailable [...] is protected by Article 27-F of the [facility] Public Health law. If you continue you may have access to information: Regarding HIV / AIDS; Provided by facilities licensed or operated by the [facility] Office of Mental Health; or Provided by the [facility] Office for People With Developmental Disabilities. If such information is present, then the following [facility] mandated warning applies: This information has [...] law may result in a fine or fpc sentence or both. A general authorization for the release of medical or other information is NOT sufficient authorization for further disc losure. Allergies and Adverse Reactions Type Description Substance Reaction Status Data Source(s ) Propensity to adverse reactions SULFA ANTIBIOTICS Sulfa Antibiotics Rash Low Active [facility] Low Propensity to adverse reactions IBUPROFEN Ibuprofen Acti ve [facility] Propensity to adverse reactions GLUTEN MEAL Wheat gluten extract Active [facility] Propensity to adverse reactions AMOXICILLIN Amoxicillin Rash Low Ac tive [facility] Low Family History Family Member Name Family Member Gender Family Member Status Date o f Status Description Data Source(s) Unknown Unknown Problem [facility] ([facility] 3 great aunts Encounters Encounter Providers Location Date Indications Data Source(s ) Unknown [address] [facility] [place] [address] 02/22/2021 12:00:00 AM EDT eCW1 ([facility] [place] [address] [facility] [address] 02/22/2021 12:00:00 AM EDT eCW1 ([facility]) ( ESTOB) WCenter Est OB [address] [place] [address] 02/17/2021 12:00:00 AM EDT eCW1 ([facility]) Unknown [address] [facility] [place] [address] 02/16/2021 12:00:00 AM EDT eCW1 ([facility]) [place] [address] [facility] [address] 02/15/2021 12:00:00 AM EDT [facility] Outpatient Attender: Alissa shelby 02/12/2021 03:05:00 PM EDT MEDENT ([facility]) Unknown [address] [facility] [place] [address] 02/09/2021 12:00:00 AM EDT eCW1 ([facility]) [place] [address] [facility] [address] 02/08/2021 12:00:00 AM EDT eCW1 ([facility]) [place] [address] [facility] [address] 02/01/2021 12:00:00 AM EDT eCW1 ([facility]) [place] [address] [facility] [address] 01/27/2021 12:00:00 AM EDT eCW1 ([facility]) [place] [address] [facility] [address] 01/27/2021 12:00:00 AM EDT eCW1 ([facility]) (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) Same day [address] [place] [address] 01/26/2021 12:00:00 AM EDT eCW1 ([facility]) [place] [address] [facility] [address] 01/26/2021 12:00:00 AM EDT eCW1 ([facility]) [place] [address] [facility] [address] 01/11/2021 12:00:00 AM EDT eCW1 ([facility]) (WC ESTOB) enter Est OB [address] [place] [address] 12/30/2020 12:00:00 AM EDT eCW1 ([facility]) (WC ESTOB) WCenter Est OB [address] [place] [address] 12/22/2020 12:00:00 AM EDT eCW1 ([facility]) (WC ESTOB) enter Est OB [address] [place] [address] 12/14/2020 12:00:00 AM EDT eCW1 ([facility]) Outpatient Attender: RAJNI LOERAAttender: RAJNI POZOAdmitter: RAJNI WEIRReferrer: RAJNI WEIR ES1-BP 12/06/2020 11:14:00 AM EDT - 12/06/2020 03:00:00 PM EDT [facility] Patient discharged. [place] [address] [facility] [address] 12/04/2020 12:00:00 AM EDT eCW1 ([facility]) [place] [address] [facility] [address] 12/04/2020 12:00:00 AM EDT eCW1 ([facility]) (WC ESTOB) WCenter Est OB [address] [place] [address] 11/25/2020 12:00:00 AM EDT eCW1 ([facility]) (WC ESTOB) WCenter Est OB [address] [place] [address] 11/11/2020 12:00:00 AM EDT eCW1 ([facility]) [place] [address] [facility] [address] 11/09/2020 12:00:00 AM EDT eCW1 ([facility]) (WC ESTOB) WCenter Est OB [address] [place] [address] 10/06/2020 12:00:00 AM EDT eCW1 ([facility]) (WC ESTOB) WCenter Est OB [address] [place] [address] 09/22/2020 12:00:00 AM EDT eCW1 ([facility]) Emergency Attender: GLORIA PITTMAN MDReferrer: Liberty sal MD 09/19/2020 09:44:00 PM EDT - 09/19/2020 09:44:00 PM EDT [facility] Patient discharged. (WC ESTOB) WCenter Est OB [address] [place] [address] 09/07/2020 12:00:00 AM EDT eCW1 ([facility]) (WC ESTOB) WCenter Est OB [address] [place] [address] 08/10/2020 12:00:00 AM EDT eCW1 ([facility]) ( ESTOB) WCenter Est OB [address] [place] [address] 07/10/2020 12:00:00 AM EST eCW1 ([facility]) [place] [address] [facility] [address] 07/09/2020 12:00:00 AM EST eCW1 ([facility]) Outpatient [address] [facility] [place] [address] 07/08/2020 12:00:00 AM EST eCW1 ([facility]) [place] [address] [facility] [address] 07/08/2020 12:00:00 AM EST eCW1 ([facility]) Outpatient Attender: ANDRES Starks Prima ry 05/30/2020 07:15:00 AM EST MEDENT ([facility]) Outpatient Attender: PORSCHE Starks Prim afsaneh 04/20/2020 07:15:00 AM EST MEDENT ([facility]) Outpatient Attender: Marlene Starks Prim afsaneh 03/29/2020 07:10:00 AM EST MEDENT ([facility]) Emergency Attender: YENI CLARK PAReferrer: NARCISO Watt MD 06/16/2016 04:45:00 PM EST - 06/16/2016 05:07:00 PM EST [facility] Immunizations Vaccine Date Status Description Data Source(s) COVID-19 VACCINE Pfizer 02/15/2021 12:00:00 AM EDT completed [facility] Vaccine Series Complete: YESThis Data wa s Submitted to [facility]. COVID-19 VACCINE Pfizer 01/25/2021 12:00:00 AM EDT completed [facility] Vaccine Series Complete: NOThis Data was Submitted to [facility] [employer]. Tdap 11/25/2020 08:39:00 AM EDT completed e CW1 ([facility]) Tdap 11/25/2020 08:39:00 AM EDT completed e CW1 ([facility]) Tdap 11/25/2020 08:39:00 AM EDT completed e CW1 ([facility]) Tdap 11/25/2020 08:39:00 AM EDT completed e CW1 ([facility]) Tdap 11/25/2020 08:39:00 AM EDT completed e CW1 ([facility]) Tdap 11/25/2020 08:39:00 AM EDT completed e CW1 ([facility]) Tdap 11/25/2020 08:39:00 AM EDT completed e CW1 ([facility]) Tdap 11/25/2020 08:39:00 AM EDT completed e CW1 ([facility]) Tdap 11/25/2020 08:39:00 AM EDT completed e CW1 ([facility]) Tdap 11/25/2020 08:39:00 AM EDT completed e CW1 ([facility]) Tdap 11/25/2020 08:39:00 AM EDT completed e CW1 ([facility]) Tdap 11/25/2020 08:39:00 AM EDT completed e CW1 ([facility]) Tdap 11/25/2020 08:39:00 AM EDT completed e CW1 ([facility]) Tdap 11/25/2020 08:39:00 AM EDT completed e CW1 ([facility]) Tdap 11/25/2020 08:39:00 AM EDT completed e CW1 ([facility]) Tdap 11/25/2020 08:39:00 AM EDT completed e CW1 ([facility]) Tdap 11/25/2020 08:39:00 AM EDT completed e CW1 ([facility]) Tdap 11/25/2020 08:39:00 AM EDT completed e CW1 ([facility]) Tdap 11/25/2020 08:39:00 AM EDT completed e CW1 ([facility]) Tdap 11/25/2020 08:39:00 AM EDT completed e CW1 ([facility]) Medications Medication Brand Name Start Date Product [...] e Ciprofloxacin HCl 250 MG eCW1 ([facility]) 250 mg 02/16/2021 12:00:00 AM EDT tablet [...] suspende d levoFLOXacin 250 MG eCW1 ([facility]) Levofloxacin 250 MG Oral Tablet levoFLOXacin 250 MG levoFLOX acin 250 MG 02/15/2021 12:00:00 AM EDT 1.0 {tablet} suspende d levoFLOXacin 250 MG eCW1 ([facility]) Levofloxacin 250 MG Oral Tablet levoFLOXacin 250 MG levoFLOX acin 250 MG 02/15/2021 12:00:00 AM EDT 1.0 {tablet} suspende d levoFLOXacin 250 MG eCW1 ([facility]) Levofloxacin 250 MG Oral Tablet levoFLOXacin 250 MG levoFLOX acin 250 MG 02/15/2021 12:00:00 AM EDT 1.0 {tablet} suspende d levoFLOXacin 250 MG eCW1 ([facility]) Levofloxacin 250 MG Oral Tablet levoFLOXacin 250 MG levoFLOX acin 250 MG 02/15/2021 12:00:00 AM EDT 1.0 {tablet} active levoFLOXacin 250 MG eCW1 ([facility]) Ciprofloxacin 500 MG Oral Tablet [Cipro] Cipro 500 MG Cipro 500 MG 01/27/2021 12:00:00 AM EDT 1.0 {tablet} active Ci pro 500 MG eCW1 ([facility]) Metronidazole 500 MG Oral Tablet [Flagyl] Flagyl 500 MG Flag yl 500 MG 01/27/2021 12:00:00 AM EDT 1.0 {tablet} active F lagyl 500 MG eCW1 ([facility]) Ciprofloxacin 500 MG Oral Tablet [Cipro] Cipro 500 MG Cipro 500 MG 01/27/2021 12:00:00 AM EDT 1.0 {tablet} active Ci pro 500 MG eCW1 ([facility]) Ciprofloxacin 500 MG Oral Tablet [Cipro] Cipro 500 MG Cipro 500 MG 01/27/2021 12:00:00 AM EDT 1.0 {tablet} active Ci pro 500 MG eCW1 ([facility]) Metronidazole 500 MG Oral Tablet [Flagyl] Flagyl 500 MG Flag yl 500 MG 01/27/2021 12:00:00 AM EDT 1.0 {tablet} suspended Flagyl 500 MG eCW1 ([facility]) Metronidazole 500 MG Oral Tablet [Flagyl] Flagyl 500 MG Flag yl 500 MG 01/27/2021 12:00:00 AM EDT 1.0 {tablet} active F lagyl 500 MG eCW1 ([facility]) Ciprofloxacin 500 MG Oral Tablet [Cipro] Cipro 500 MG Cipro 500 MG 01/27/2021 12:00:00 AM EDT 1.0 {tablet} active Ci pro 500 MG eCW1 ([facility]) Ciprofloxacin 500 MG Oral Tablet [Cipro] Cipro 500 MG Cipro 500 MG 01/27/2021 12:00:00 AM EDT 1.0 {tablet} active Ci pro 500 MG eCW1 ([facility]) Metronidazole 500 MG Oral Tablet [Flagyl] Flagyl 500 MG Flag yl 500 MG 01/27/2021 12:00:00 AM EDT 1.0 {tablet} suspended Flagyl 500 MG eCW1 ([facility]) Ciprofloxacin 500 MG Oral Tablet [Cipro] Cipro 500 MG Cipro 500 MG 01/27/2021 12:00:00 AM EDT 1.0 {tablet} active Ci pro 500 MG eCW1 ([facility]) Ciprofloxacin 500 MG Oral Tablet [Cipro] Cipro 500 MG Cipro 500 MG 01/27/2021 12:00:00 AM EDT 1.0 {tablet} active Ci pro 500 MG eCW1 ([facility]) Ciprofloxacin 500 MG Oral Tablet [Cipro] Cipro 500 MG Cipro 500 MG 01/27/2021 12:00:00 AM EDT 1.0 {tablet} active Ci pro 500 MG eCW1 ([facility]) Metronidazole 500 MG Oral Tablet [Flagyl] Flagyl 500 MG Flag yl 500 MG 01/27/2021 12:00:00 AM EDT 1.0 {tablet} active F lagyl 500 MG eCW1 ([facility]) Ciprofloxacin 500 MG Oral Tablet [Cipro] Cipro 500 MG Cipro 500 MG 01/27/2021 12:00:00 AM EDT 1.0 {tablet} active Ci pro 500 MG eCW1 ([facility]) Metronidazole 500 MG Oral Tablet [Flagyl] Flagyl 500 MG Flag yl 500 MG 01/27/2021 12:00:00 AM EDT 1.0 {tablet} suspended Flagyl 500 MG eCW1 ([facility]) Metronidazole 500 MG Oral Tablet [Flagyl] Flagyl 500 MG Flag yl 500 MG 01/27/2021 12:00:00 AM EDT 1.0 {tablet} active F lagyl 500 MG eCW1 ([facility]) Metronidazole 500 MG Oral Tablet [Flagyl] Flagyl 500 MG Flag yl 500 MG 01/27/2021 12:00:00 AM EDT 1.0 {tablet} suspended Flagyl 500 MG eCW1 ([facility]) Metronidazole 500 MG Oral Tablet [Flagyl] Flagyl 500 MG Flag yl 500 MG 01/27/2021 12:00:00 AM EDT 1.0 {tablet} active F lagyl 500 MG eCW1 ([facility]) Ciprofloxacin 500 MG Oral Tablet [Cipro] Cipro 500 MG Cipro 500 MG 01/27/2021 12:00:00 AM EDT 1.0 {tablet} active Ci pro 500 MG eCW1 ([facility]) Metronidazole 500 MG Oral Tablet [Flagyl] Flagyl 500 MG Flag yl 500 MG 01/27/2021 12:00:00 AM EDT 1.0 {tablet} active F lagyl 500 MG eCW1 ([facility]) Ciprofloxacin 500 MG Oral Tablet [Cipro] Cipro 500 MG Cipro 500 MG 01/27/2021 12:00:00 AM EDT 1.0 {tablet} active Ci pro 500 MG eCW1 ([facility]) Metronidazole 500 MG Oral Tablet [Flagyl] Flagyl 500 MG Flag yl 500 MG 01/27/2021 12:00:00 AM EDT 1.0 {tablet} active F lagyl 500 MG eCW1 ([facility]) Amoxicillin 875 MG / Clavulanate 125 MG Oral Tablet Amoxicillin-Pot Clavulanate 875-125 MG Amoxicillin-Pot Clavulanate 875-125 MG 01/26/2021 12:00:00 AM ED T 1.0 {tablet} active Amoxicillin-Pot Cla vulanate 875-125 MG eCW1 ([facility]) Amoxicillin 875 MG / Clavulanate 125 MG Oral Tablet Amoxicillin-Pot Clavulanate 875-125 MG Amoxicillin-Pot Clavulanate 875-125 MG 01/26/2021 12:00:00 AM ED T 1.0 {tablet} suspended Amoxicillin-Pot C lavulanate 875-125 MG eCW1 ([facility]) Amoxicillin 875 MG / Clavulanate 125 MG Oral Tablet Amoxicillin-Pot Clavulanate 875-125 MG Amoxicillin-Pot Clavulanate 875-125 MG 01/26/2021 12:00:00 AM ED T 1.0 {tablet} suspended Amoxicillin-Pot C lavulanate 875-125 MG eCW1 ([facility]) Amoxicillin 875 MG / Clavulanate 125 MG Oral Tablet Amoxicillin-Pot Clavulanate 875-125 MG Amoxicillin-Pot Clavulanate 875-125 MG 01/26/2021 12:00:00 AM ED T 1.0 {tablet} suspended Amoxicillin-Pot C lavulanate 875-125 MG eCW1 ([facility]) Amoxicillin 875 MG / Clavulanate 125 MG Oral Tablet Amoxicillin-Pot Clavulanate 875-125 MG Amoxicillin-Pot Clavulanate 875-125 MG 01/26/2021 12:00:00 AM ED T 1.0 {tablet} suspended Amoxicillin-Pot C lavulanate 875-125 MG eCW1 ([facility]) Amoxicillin 875 MG / Clavulanate 125 MG Oral Tablet Amoxicillin-Pot Clavulanate 875-125 MG Amoxicillin-Pot Clavulanate 875-125 MG 01/26/2021 12:00:00 AM ED T 1.0 {tablet} suspended Amoxicillin-Pot C lavulanate 875-125 MG eCW1 ([facility]) Amoxicillin 875 MG / Clavulanate 125 MG Oral Tablet Amoxicillin-Pot Clavulanate 875-125 MG Amoxicillin-Pot Clavulanate 875-125 MG 01/26/2021 12:00:00 AM ED T 1.0 {tablet} active Amoxicillin-Pot Cla vulanate 875-125 MG eCW1 ([facility]) Amoxicillin 875 MG / Clavulanate 125 MG Oral Tablet Amoxicillin-Pot Clavulanate 875-125 MG Amoxicillin-Pot Clavulanate 875-125 MG 01/26/2021 12:00:00 AM ED T 1.0 {tablet} active Amoxicillin-Pot Cla vulanate 875-125 MG eCW1 ([facility]) Betamethasone 3 MG/ML / Betamethasone ac etate 3 MG/ML Injectable Suspension betamethasone acetate-betamethasone sodium phosphate (CELESTONE) injection 12 mg betamethasone acetate-betamethasone sodi um phosphate (CELESTONE) injection 12 mg 12/06/2020 01:00:00 PM EDT 12 mg Intramuscular comp leted 12 mg, Intramuscular, Once, On 12/06/20 at 1300, For 1 dose [facility] Medication administered onsite Acetaminophen 325 MG [...] mg from all sources in 24 hours."
[facility] Medication administered onsite cefdinir 300 MG Oral Capsule Cefdinir 05/30/2020 12:00:00 AM EST ORAL active MEDENT ([facility] No Active Medications 03/29/2020 12:00:00 AM EST completed MEDENT ([facility], [facility]) Insurance Providers Payer name Policy type / Coverage type Policy ID Covered alliance party ID Covered alliance party's relationship to fitzpatrick Policy Fitzpatrick Plan Information [facility] Claims Health Maintenance Organization ([facility] 9 [id number] Family Dependent [id number] [facility] Claims Health Maintenance Organization (O) 9 [id number] Family Dependent [id number] [facility] Claims Health Maintenance Organization ([facility] 9 [id number] Family Dependent [id number] [facility] Claims Health Maintenance Organization ([facility] 9 [id number] Family Dependent [id number] [facility] Claims Health Maintenance Organization ([facility]) 9 [id number] Family Dependent [id number] [facility] Claims Health Maintenance Organization ([facility]) 9 [id number] Family Dependent [id number] [facility] Claims Health Maintenance Organization (HMO) 9 [id number] Family Dependent [id number] [facility] Claims Health Maintenance Organization (HMO) [id number] Family Dependent [facility] Claims Health Maintenance Organization (HMO) 9 [id number] Family Dependent [id number] [facility] Claims Health Maintenance Organization (HMO) 9 [id number] Family Dependent [id number] [facility] Claims Health Maintenance Organization (HMO) 9 [id number] Family Dependent [id number] Pupil Benefits (pr) Commercial [id number] Self [facility] HLTH (pr) [facility] Part B [id number] Family Depende nt [employer] BC/BS Commercial [id number] 2...[id number] .[id number] Family Dependent [id number] [employer]BS Commercial [id number] Family Dependent [id number] [employer]BS Commercial [id number] Family Dependent [id number] [employer]BS Commercial [id number]..[id number] .[id number] Family Dependent [id number] [employer] Commercial [id number] .[id number] Family Dependent [id number] [employer] Commercial [id number] .[id number] .[id number] Family Dependent [id number] [employer] Commercial [id number] Family Dependent [id number] [employer] Commercial [id number] .[id number] Family Dependent [id number] [employer] Commercial [id number] .[id number] .[id number] Family Dependent [id number] [employer] Commercial [id number] .[id number] Family Dependent [id number] [employer]BS Commercial [id number] Family Dependent [id number] [employer] Commercial [id number] ..[id number] [id number] Family Dependent [id number] [employer] Commercial [id number] ..[id number] [id number] Family Dependent [id number] [employer] Commercial [id number] ..[id number] [id number] Family Dependent [id number] [employer] Commercial [id number] .[id number] [id number] Family Dependent [id number] [employer] Commercial [id number] Family Dependent [id number] [employer] Commercial [id number] ..[id number] [id number] Family Dependent [id number] [employer] Commercial [id number] Family Dependent [id number] [employer] Commercial [id number] 877.72821.0 Family Dependent [id number] [employer] Commercial [id number] Family Dependent [employer] Commercial [id number] 2..[id number] [id number] Family Dependent [id number] [employer] Commercial [id number] Family Dependent [id number] [employer] [place] [id number] MO2 [id number] [employer] [place] [id number] MO2 [id number] [employer] (pr) Commercial [id number] Family Dependent AETNA [id number] Chi [id number] [employer] Life Insurance F [id number] PARENT [id number] [employer] Life Insurance F [id number] PARENT [id number] [employer] Life Insurance F [id number] PARENT [id number] [employer] Commercial [id number] Family Dependent [id number] [employer] Commercial [id number] Family Dependent [id number] [employer] Commercial [id number] Family Dependent [id number] Aetna Ppo/Pos/Nap/MC Commercial [id number] Family Dependent [id number] BCBS EMPIRE RAIZA DIV [id number] HU2 [id number] [facility] [id number] HU2 [id number] BCBS EMPIRE RAIZA DIV [id number] UNK2 [id number] [employer] [facility] [place] [id number] DA2 [id number] BCBS EMPIRE RAIZA DIV [id number] HU2 [id number] [facility] [id number] SPO [id number] BCBS EMPIRE [id number] SPO [id number] [facility] [facility] [id number] CHILD [id number] [facility] [id number] S [id number] [employer] [facility] [place] [id number] MO2 [id number] BCBS EMPIRE RAIZA DIV [id number] HU2 [id number] SELF PAY ONLY [employer] [facility] [id number] CHILD [id number] ANSI-Commercial [id number] ANSI-Commercial [id number] ANSI-Commercial [id number] ANSI-Commercial [id number] AN[employer] [id number] ANSI-Commercial [id number] ANSI-Commercial [id number] ANSI-Commercial [id number] [facility] [id number] CHILD [id number] Aetna Ppo/Pos/Nap/MC Commercial [id number] Family Dependent [id number] A[employer]na Ppo/Pos/Nap/MC Commercial [id number] Family Dependent [id number] ANSI-Commercial [id number] ANSI-Commercial [id number] ANSI-Commercial [id number] ANSI-Commercial [id number] ANSI-Commercial [id number] ANSI-Commercial [id number] ANSI-Commercial [id number]-10le-[id number] ANSI-Commercial [id number] [facility] [id number] [facility] [id number] [employer] [id number] Family Dependent [id number] [employer] F [id number] PARENT [id number] [employer] F WAITING PARENT WAITING [employer] Commercial [id number] .[id number] Family Dependent [id number] [employer] Commercial [id number] Family Dependent [id number] [employer] [id number] Family Dependent [id number] [employer] O [id number] C [id number] [employer] Commercial [id number] Family Dependent [id number] [facility] COMM CONTR 1980 Anna Estrada Personal Payment .[id number] Self [employer] [id number] Family Dependent Problems, Conditions, and Diagnoses Code Display Name Description Problem Type Effective Dates Data Source(s) M54.9 Dorsalgia, unspecified Dorsalgia, unspecified Diagnosi s 12/06/2020 11:14:00 AM EDT [facility] O99.891 Other specified diseases and conditions complicating Other specified diseases and conditions Diagnosis 12/06/2020 11:14:00 AM EDT [facility] Z79.899 Other [facility] (current) drug therapy O THER E [employer] (CURRENT) DRUG THERAPY Diagnosis 09/19/2020 09:44:00 PM EDT [facility] Z3A.25 25 weeks gestation of 25 WEEKS GESTATI ON OF Diagnosis 09/19/2020 09:44:00 PM [facility] O36.8390 Maternal care for abnormalit ies of the heart rate or rhythm, unspecified trimester, not applicable or unspecified MATERN CARE FOR ABNLT FETL HRT RATE OR RHYM, UNSP TRI, UNSP Diagnosis 09/19/2020 09:44:00 PM [facility] K90.0 [id number] Celiac disease Problem 07/08/2020 12:00:00 A M EST eCW1 ([facility]) Z34.80 care Supervision of other normal P roblem 07/08/2020 12:00:00 AM EST eCW1 ([facility]) Surgeries/Procedures Procedure Description Date Indications Data Source(s) OFFICE OUTPATIENT VISIT 15 MINUTES 02/12/2021 12:00:00 AM EDT MEDENT ([facility], [facility]) URNLS DIP STICK/TABLET RGNT AUTO W/O MICROSCOPY <td>UR INALYSIS W/O MICRO</td><td>STAT</td><td>12/06/2020 12:40 PM EDT</td><td></td><td> </td> 12/06/2020 12:40:00 PM EDT [facility] TDAP VACCINE 7/> YR IM 11/25/2020 12:00:00 AM EDT eCW1 ([facility]) Results ID Date Data Source [id number] 02/12/2021 06:33:00 PM EDT MEDENT ([facility], [facility]) Name Value Range Interpretation Code Description Data Maryann rce(s) Supporting Document(s) C reactive protein [Mass/volume] in Serum or Plasma by High sensitivity method 0.30 mg/dL 0.00-0.30 MEDENT ([facility]) see progress note ID Date Data Source [id number] 02/12/2021 06:33:00 PM EDT MEDENT ([facility]) Name Value Range Interpretation Code Description Data Maryann rce(s) Supporting Document(s) Glucose, Fasting 82 mg/dL 70-100 MEDENT ([facility]) see progress note Glomerular Filtration Rate Laboratory test result MEDENT ([facility]) see progress note Creatinine For GFR 0.87 mg/dL 0.55-1.30 MEDENT ([facility]) see progress note Blood Urea Nitrogen 12 mg/dL 7-18 MEDENT ([facility], [facility]) see progress note Sodium Level 141 meq/L 136-145 MEDENT ([facility]) see progress note Potassium Serum 4.8 meq/L 3.5-5.1 MEDENT ([facility]) see progress note Anion Gap 1 meq/L 8-16 MEDENT ([facility], [facility]) see progress note Carbon Dioxide Level 31 meq/L 21-32 MEDENT ([facility]) see progress note Chloride Level 109 meq/L 98-107 MEDENT ([facility]) see progress note Alt/SGPT 36 U/L 12-78 MEDENT ([facility]) see progress note Ast/Sgot 18 U/L 7-37 MEDENT ([facility]) see progress note Calcium Level 9.7 mg/dL 8.5-10.1 MEDENT ([facility]) see progress note Total Protein 7.3 GM/DL 6.4-8.2 MEDENT ([facility]) see progress note Bilirubin,Total 0.3 mg/dL 0.2-1.0 MEDENT ([facility]) see progress note Alkaline Phosphatase 96 U/L 45-117 MEDENT ([facility]) see progress note Albumin 4.2 GM/DL 3.2-5.2 MEDENT ([facility], [facility]) see progress note Albumin/Globulin Ratio 1.4 1.2-2.2 MEDENT ([facility], [facility]) see progress note ID Date Data Source [id number] 02/12/2021 06:32:00 PM EDT MEDENT ([facility], [facility]) Name Value Range Interpretation Code Description Data Maryann rce(s) Supporting Document(s) Red Blood Count 5.07 10 4.00-5.40 MEDENT ([facility], [facility]) White Blood Count 6.5 10 4.0-10.0 MEDENT ([facility], [facility]) Mean Corpuscular Volume 82.6 fl 80.0-96.0 M EDENT ([facility], [facility]) Hemoglobin 13.4 g/dL 12.0-15.5 MEDENT ([facility]) Hematocrit 41.9 % 36.0-47.0 MEDENT ([facility]) Mean Corpuscular HGB Conc 32.0 g/dL 32.0-36.5 MEDENT ([facility], [facility]) Mean Corpuscular Hemoglobin 26.4 pg 27.0-33.0 MEDENT ([facility], [facility]) Red Cell Distribution Width 14.5 % 11.5-14.5 MEDENT ([facility], [facility]) Platelet Count, Automated 227 10 150-450 MEDENT ([facility], [facility]) Neutrophils % 51.9 % 36.0-66.0 MEDENT ([facility], [facility]) [place] % 7.1 % 2.0-8.0 MEDENT ([facility], [facility]) Lymph % 38.3 % 24.0-44.0 MEDENT ([facility], [facility]) Eos % 1.6 % 0.0-3.0 MEDENT ([facility], [facility]) Baso % 0.9 % 0.0-1.0 MEDENT ([facility], [facility]) Immature Granulocyte % 0.2 % 0-3.0 MEDENT ([facility]) Nucleated Red Blood Cell % 0.0 % 0-0 MED ENT ([facility]) Neutrophils # 3.4 10 1.5-8.5 MEDENT ([facility], [facility]) [place] # 0.5 10 0.0-0.8 MEDENT ([facility], [facility]) Lymph # 2.5 10 1.5-5.0 MEDENT ([facility], [facility]) Baso # 0.1 10 0.0-0.2 MEDENT ([facility]) Eos # 0.1 10 0.0-0.5 MEDENT ([facility], [facility]) ID Date Data Source [id number] 02/12/2021 06:32:00 PM EDT [facility]) Name Value Range Interpretation Code Description Data Maryann rce(s) Supporting Document(s) C reactive protein [Mass/volume] in Serum or Plasma by High sensitivity method Laboratory test result [facility] ([facility]) ID Date Data Source [id number] 02/12/2021 05:31:00 PM EDT [facility] ([facility]) Name Value Range Interpretation Code Description Data Maryann rce(s) Supporting Document(s) Trichomonas vaginalis DNA [Presence] in Unspecified specimen by Probe and target amplification method Laboratory test result [facility] ([facility]) Performed at: RN - [facility] [address] [id number] Livestock Trader: Kylee Gil MD, Phone: [phone] ID Date Data Source [id number] 02/12/2021 05:31:00 PM EDT [facility] ([facility]) Name Value Range Interpretation Code Description Data Maryann rce(s) Supporting Document(s) Chlamydia Dna Amplification Laboratory test result [facility] ([facility]) A negative test result does not exclude the possibility of infection because test results may be affected by improper specimen collection, technical error, specimen mix-up, concurrent antibiotic therapy, or the number of organisms in the specimen which may be below the sensitivity of the test. GC Dna Amplification Laboratory test result MEDENT ([facility]) A negative test result does not exclude the possibility of infection because test results may be affected by improper specimen collection, technical error, specimen mix-up, concurrent antibiotic therapy, or the number of organisms in the specimen which may be below the sensitivity of the test. ID Date Data Source [id number] 02/12/2021 05:31:00 PM EDT MEDENT ([facility]) Name Value Range Interpretation Code Description Data Maryann rce(s) Supporting Document(s) Bacteria identified in Urine by Culture Laboratory test result MEDENT ([facility]) <content>FULL REPORT IN LAB NOTES ([facility]</content>
<content></content>
<content>ORGANISM 1: KLEBSIELLA PNEUMONIAE</content>
<content></content>
[...] FOR ESBL</content>
<content></content> ID Date Data Source [id number] 02/12/2021 12:00:00 AM EDT [facility] Name Value Range Interpretation Code Description Data Maryann rce(s) Supporting Document(s) SARS-CoV2 Rapid Antigen Negative [facility] This lab was reported by [facility]. ID Date Data Source [id number] 02/01/2021 08:15:00 PM EDT [facility] Name Value Range Interpretation Code Description Data Maryann rce(s) Supporting Document(s) SARS coronavirus 2 RNA [Presence] in Res piratory specimen by SPEEDY with probe detection NEGATIVE [facility] This lab was ordered by [facility] a nd reported by [facility]. ID Date Data Source [id number] 02/01/2021 02:50:00 PM EDT [facility] Name Value Range Interpretation Code Description Data Maryann rce(s) Supporting Document(s) SARS COVID ANTIGEN NEGATIVE [facility] This lab was ordered by [facility] a nd reported by [facility]. ID Date Data Source [id number] 01/14/2021 07:59:00 PM EDT [facility] Name Value Range Interpretation Code Description Data Maryann rce(s) Supporting Document(s) SARS coronavirus 2 RNA [Presence] in Res piratory specimen by SPEEDY with probe detection NEGATIVE [facility] This lab was ordered by [facility] a nd reported by [facility]. ID Date Data Source [id number] 12/08/2020 08:16:53 AM EDT [facility] SPECIMEN DESCRIPTION MIDSTREAM UR INE,CLEAN CATCHCULTURE RESULTS >100,000 CFU/ML LACTOBACILLUS SPECIESNOTE: LACTOBACILLI USUALLY REPRESENT NORMAL UROGENITAL ROSCOE AND AREA VERY RARE CAUSE OF A UTI. LABORATORY METHODS ARE NOT CURRENTLYAVAILABLE FOR PERFORMING ANTIBIOTIC SUSCEPTIBILITY TESTING FOR THISORGANISM. REPORT STATUS FINAL 12/08/2020 Name Value Range Interpretation Code Description Data Maryann rce(s) Supporting Document(s) ID Date Data Source [id number] 12/06/2020 02:27:30 PM EDT [facility] Name Value Range Interpretation Code Description Data Maryann rce(s) Supporting Document(s) COLOR [facility] PERFORMED AT [address] [place] [address] [place] [address] APPEARANCE [facility] SPEC GRAV URINE 1.020 (1.003-1.030) [facility] PH URINE 7.5 (5.0-7.5) [facility] LEUK ESTERASE 2+ (NEG) A [facility] NITRITE URINE (NEG) [facility] PROTEIN URINE (NEG) [facility] GLUCOSE URINE (NEG) [facility] KETONE URINE (NEG) [facility] [place] UROBILINOGEN 0.2 mg/dL (0-1.0) [facility] [place] BILIRUBIN URINE (NEG) [facility] BLOOD/HGB URINE (NEG) [facility] EPITHELIAL CELLS 2+ [HPF] (NEG) A [facility] HYALINE CASTS 3.2 [LPF] (0-5) [facility] BACTERIA 2+ [HPF] (NEG) A [facility] URINE WBC 59.0 [HPF] (0-8) H [facility] URINE RBC 3.6 [HPF] (0-3) H [facility] ID Date Data Source UA URINALYSIS 12/04/2020 12:00:00 AM EDT eCW1 ([facility]) Name Value Range Interpretation Code Description Data Maryann rce(s) Supporting Document(s) Laboratory studies (set) UA URINALYS IS eCW1 ([facility]) ID Date Data Source URINE CULTURE 09/30/2020 12:00:00 AM EDT eCW1 ([facility]) Name Value Range Interpretation Code Description Data Maryann rce(s) Supporting Document(s) Laboratory studies (set) URINE CULTU RE eCW1 ([facility]) ID Date Data Source CHLAMYDIA, GC & TRICH AMP 09/22/2020 12:00:00 AM EDT eCW1 ([facility]) Name Value Range Interpretation Code Description Data Maryann rce(s) Supporting Document(s) NOT DETECTED NEGATIVE Trichomonas vaginalis ( AMP) eCW1 ([facility]) ID Date Data Source [id number] 09/19/2020 09:50:00 PM EDT [facility] Patient: FERNANDO RIOS Observation Rep ort - Physicians/[facility].VisitID: [id number] [place] [address] [phone], FRegistration Date/Time: 09/19/2020 19:47 Weight:61.2 kg (S). Height/Length:60 inches (S). BMI:26.4 FAMILY HISTORYNo significant family medical history. (Electronically signed by Gloria Pittman M.D. 09/19/2020 21:46) Name Value Range Interpretation Code Description Data Maryann rce(s) Supporting Document(s) ID Date Data Source [id number] 09/19/2020 09:32:00 PM EDT [facility] OBSTETR[facility] SONOGRAM DATE OF EXA [...] Name Value Range Interpretation Code Description Data [facility] rce(s) Supporting Document(s) ID Date Data Source [id number] 06/24/2020 05:46:48 PM EST Laboratory [facility] SPECIMEN DESCRIPTION VAGINAL SPEC IMENRESULT NEGATIVE FOR TRICHOMONAS VAGINALIS BY DNA PROBE NEGATIVE FOR GARDNERELLA VAGINALIS BY DNA PROBE NEGATIVE FOR RADHA SPECIES BY DNA PROBEREPORT STATUS FINAL 06/24/2020 SPEC EXP DATE 1PATI ENT ABO/Rh A POSITIVEANTIBODY SCREEN NEGATIVETESTING SITE PERFORMED AT [address] [place] [address] SPECIMEN DESCRIPTION MIDSTREAM UR INE,CLEAN CATCHCULTURE RESULTS NO GROWTHREPORT STATUS FINAL 06/25/2020 Name Value Range Interpretation Code Description Data [facility] rce(s) Supporting Document(s) HEPATITIS B S AG @ (NEG) [facility] ID Date Data Source [id number] 06/24/2020 05:52:10 PM EST Laboratory [facility] SPECIMEN DESCRIPTION VAGINAL SPEC IMENRESULT NEGATIVE FOR TRICHOMONAS VAGINALIS BY DNA PROBE NEGATIVE FOR GARDNERELLA VAGINALIS BY DNA PROBE NEGATIVE FOR RADHA SPECIES BY DNA PROBEREPORT STATUS FINAL 06/24/2020 SPEC EXP DATE 1PATI ENT ABO/Rh A POSITIVEANTIBODY SCREEN NEGATIVETESTING SITE PERFORMED AT [address] [place] [address] SPECIMEN DESCRIPTION MIDSTREAM UR INE,CLEAN CATCHCULTURE RESULTS NO GROWTHREPORT STATUS FINAL 06/25/2020 Name Value Range Interpretation Code Description Data Maryann rce(s) Supporting Document(s) COLOR [facility] - CORE APPEARANCE [facility] - CORE SPEC GRAV URINE 1.006 (1.003-1.030) [facility] - CORE PH URINE 6.5 (5.0-7.5) [facility] - CORE LEUK ESTERASE (NEG) [...] [facility] - CORE BACTERIA (NEG) [facility] - CORE URINE WBC 0.3 [HPF] (0-8) [facility] - CORE URINE RBC 0.6 [HPF] (0-3) [facility] - C[facility] ID Date Data Source [id number] 06/24/2020 05:54:26 PM EST [facility] - CORE SPECIMEN DESCRIPTION VAGINAL SPEC IMENRESULT NEGATIVE FOR TRICHOMONAS VAGINALIS BY DNA PROBE NEGATIVE FOR GARDNERELLA VAGINALIS BY DNA PROBE NEGATIVE FOR RADHA SPECIES BY DNA PROBEREPORT STATUS FINAL 06/24/2020 SPEC EXP DATE 1PATI ENT ABO/Rh A POSITIVEANTIBODY SCREEN NEGATIVETESTING SITE PERFORMED AT [address] [place] [id number] SPECIMEN DESCRIPTION MIDSTREAM UR INE,CLEAN CATCHCULTURE RESULTS NO GROWTHREPORT STATUS FINAL 06/25/2020 Name Value Range Interpretation Code Description Data Maryann rce(s) Supporting Document(s) AMPHETAMINES,URINE (NEG) [facility] BARBITURATES,URINE (NEG) [facility] BENZODIAZEPINE,URINE (NEG) Laborator y [facility] CANNABINOIDS,URINE (NEG) [facility] COCAINE,URINE (NEG) [facility] OPIATES,URINE (NEG) [facility] NOTE: Oxycodone is not sufficientlydetec vijay by this screening assay. A moresensitive assay is available upon request. PHENCYCLIDINE,URINE (NEG) Laboratory [facility] PLEASE NOTE: [facility] ARE REPORTED POSITIVE WHEN THE RESULT SEXCEED THE THRESHOLD (CUTOFF) INDICATED. ALIST OF POTENTIAL INTERFERENCES FOR EACHMETHOD CAN BE MADE AVAILABLE UPON REQUEST.A CONFIRMATORY ANALYSIS IS ORDERED ONALL DRUG CLASSES SCREENING POSITIVE BYTHIS METHOD.* * * * * * * * * * * * * * *THIS ASSAY IS NOT INTENDED TO BE USED FORMONITORING MEDICATION COMPLIANCE. ID Date Data Source [id number] 06/24/2020 06:19:49 PM EST Laboratory [facility] SPECIMEN DESCRIPTION VAGINAL SPEC IMENRESULT NEGATIVE FOR TRICHOMONAS VAGINALIS BY DNA PROBE NEGATIVE FOR GARDNERELLA VAGINALIS BY DNA PROBE NEGATIVE FOR RADHA SPECIES BY DNA PROBEREPORT STATUS FINAL 06/24/2020 SPEC EXP DATE 1PATI ENT ABO/Rh A POSITIVEANTIBODY SCREEN NEGATIVETESTING SITE PERFORMED AT [address] [place] [address] SPECIMEN DESCRIPTION MIDSTREAM UR INE,CLEAN CATCHCULTURE RESULTS NO GROWTHREPORT STATUS FINAL 06/25/2020 Name Value Range Interpretation Code Description Data Maryann rce(s) Supporting Document(s) GLUCOSE 98 mg/dL (70-99) Laboratory [facility] ID Date Data Source [id number] 06/24/2020 06:30:31 PM EST Laboratory [facility] SPECIMEN DESCRIPTION VAGINAL SPEC IMENRESULT NEGATIVE FOR TRICHOMONAS VAGINALIS BY DNA PROBE NEGATIVE FOR GARDNERELLA VAGINALIS BY DNA PROBE NEGATIVE FOR RADHA SPECIES BY DNA PROBEREPORT STATUS FINAL 06/24/2020 SPEC EXP DATE 06/27/2020ATI ENT ABO/Rh A POSITIVEANTIBODY SCREEN NEGATIVETESTING SITE PERFORMED AT [address] [facility] [address] SPECIMEN DESCRIPTION MIDSTREAM UR INE,CLEAN CATCHCULTURE RESULTS NO GROWTHREPORT STATUS FINAL 06/25/2020 Name Value Range Interpretation Code Description Data Maryann rce(s) Supporting Document(s) TREPONEMA IGG/IGM @ (NEG) [facility] - CORE ID Date Data Source [id number] 06/24/2020 06:38:48 PM EST [facility] - CORE SPECIMEN DESCRIPTION VAGINAL SPEC IMENRESULT NEGATIVE FOR TRICHOMONAS VAGINALIS BY DNA PROBE NEGATIVE FOR GARDNERELLA VAGINALIS BY DNA PROBE NEGATIVE FOR RADHA SPECIES BY DNA PROBEREPORT STATUS FINAL 06/24/2020 SPEC EXP DATE 06/27/2020ATI ENT ABO/Rh A POSITIVEANTIBODY SCREEN NEGATIVETESTING SITE PERFORMED AT [address] [facility] [address] SPECIMEN DESCRIPTION MIDSTREAM UR INE,CLEAN CATCHCULTURE RESULTS NO GROWTHREPORT STATUS FINAL 06/25/2020 Name Value Range Interpretation Code Description Data Maryann rce(s) Supporting Document(s) HIV 1/2 SCREEN @ (NEG) Laboratory [facility] - CORE Testing performed using [employer] taur 4th gen CHIV combo assay.This assay detects the HIV1 p24 antigenin addition to antibodies to HIV1 and HIV2. ID Date Data Source [id number] 06/24/2020 06:52:56 PM EST [facility] - CORE SPECIMEN DESCRIPTION VAGINAL SPEC IMENRESULT NEGATIVE FOR TRICHOMONAS VAGINALIS BY DNA PROBE NEGATIVE FOR GARDNERELLA VAGINALIS BY DNA PROBE NEGATIVE FOR RADHA SPECIES BY DNA PROBEREPORT STATUS FINAL 06/24/2020 SPEC EXP DATE 06/27/2020ATI ENT ABO/Rh A POSITIVEANTIBODY SCREEN NEGATIVETESTING SITE PERFORMED AT [address] [facility] [address] SPECIMEN DESCRIPTION MIDSTREAM UR INE,CLEAN CATCHCULTURE RESULTS NO GROWTHREPORT STATUS FINAL 06/25/2020 Name Value Range Interpretation Code Description Data Maryann rce(s) Supporting Document(s) ID Date Data Source [id number] 06/24/2020 08:36:11 PM EST [facility] - CORE SPECIMEN DESCRIPTION VAGINAL SPEC IMENRESULT NEGATIVE FOR TRICHOMONAS VAGINALIS BY DNA PROBE NEGATIVE FOR GARDNERELLA VAGINALIS BY DNA PROBE NEGATIVE FOR RADHA SPECIES BY DNA PROBEREPORT STATUS FINAL 06/24/2020 SPEC EXP DATE 06/27/2020ATI ENT ABO/Rh A POSITIVEANTIBODY SCREEN NEGATIVETESTING SITE PERFORMED AT [address] [facility] [address] SPECIMEN DESCRIPTION MIDSTREAM UR INE,CLEAN CATCHCULTURE RESULTS NO GROWTHREPORT STATUS FINAL 06/25/2020 Name Value Range Interpretation Code Description Data Maryann rce(s) Supporting Document(s) TYPE AND SCREEN Laboratory [facility] PATIENT ABO/Rh A POSITIVE ID Date Data Source [id number] 06/25/2020 01:27:36 PM EST Laboratory [facility] SPECIMEN DESCRIPTION VAGINAL SPEC IMENRESULT NEGATIVE FOR TRICHOMONAS VAGINALIS BY DNA PROBE NEGATIVE FOR GARDNERELLA VAGINALIS BY DNA PROBE NEGATIVE FOR RADHA SPECIES BY DNA PROBEREPORT STATUS FINAL 06/24/2020 SPEC EXP DATE 1PATI ENT ABO/Rh A POSITIVEANTIBODY SCREEN NEGATIVETESTING SITE PERFORMED AT [address] [facility] [address] SPECIMEN DESCRIPTION MIDSTREAM UR INE,CLEAN CATCHCULTURE RESULTS NO GROWTHREPORT STATUS FINAL 06/25/2020 Name Value Range Interpretation Code Description Data Maryann rce(s) Supporting Document(s) ID Date Data Source [id number] 06/25/2020 02:53:17 PM EST Laboratory [facility] SPECIMEN DESCRIPTION VAGINAL SPEC IMENRESULT NEGATIVE FOR TRICHOMONAS VAGINALIS BY DNA PROBE NEGATIVE FOR GARDNERELLA VAGINALIS BY DNA PROBE NEGATIVE FOR RADHA SPECIES BY DNA PROBEREPORT STATUS FINAL 06/24/2020 SPEC EXP DATE 1PATI ENT ABO/Rh A POSITIVEANTIBODY SCREEN NEGATIVETESTING SITE PERFORMED AT [address] [facility] [address] SPECIMEN DESCRIPTION MIDSTREAM UR INE,CLEAN CATCHCULTURE RESULTS NO GROWTHREPORT STATUS FINAL 06/25/2020 Name Value Range Interpretation Code Description Data Maryann rce(s) Supporting Document(s) RUBELLA IGG AB @ Laboratory [facility] IgG antibody to Rubella detected. IgGan tibody levels are at a level consideredto indicate positive immunity. ID Date Data Source [id number] 06/25/2020 02:53:17 PM EST Laboratory [facility] SPECIMEN DESCRIPTION VAGINAL SPEC IMENRESULT NEGATIVE FOR TRICHOMONAS VAGINALIS BY DNA PROBE NEGATIVE FOR GARDNERELLA VAGINALIS BY DNA PROBE NEGATIVE FOR RADHA SPECIES BY DNA PROBEREPORT STATUS FINAL 06/24/2020 SPEC EXP DATE 1PATI ENT ABO/Rh A POSITIVEANTIBODY SCREEN NEGATIVETESTING SITE PERFORMED AT [address] [facility] [address] SPECIMEN DESCRIPTION MIDSTREAM UR INE,CLEAN CATCHCULTURE RESULTS NO GROWTHREPORT STATUS FINAL 06/25/2020 Name Value Range Interpretation Code Description Data Maryann rce(s) Supporting Document(s) VARICELLA ZOST IGG @ Laborator [facility] IgG antibody to VZV detected. This radha ndicate that the patient was exposed toVZV through infection or vaccination. ID Date Data Source [id number] 06/25/2020 03:27:32 PM EST Laboratory [facility] SPECIMEN DESCRIPTION VAGINAL SPEC IMENRESULT NEGATIVE FOR TRICHOMONAS VAGINALIS BY DNA PROBE NEGATIVE FOR GARDNERELLA VAGINALIS BY DNA PROBE NEGATIVE FOR RADHA SPECIES BY DNA PROBEREPORT STATUS FINAL 06/24/2020 SPEC EXP DATE 1PATI ENT ABO/Rh A POSITIVEANTIBODY SCREEN NEGATIVETESTING SITE PERFORMED AT [address] [facility] [place] [address] SPECIMEN DESCRIPTION MIDSTREAM UR INE,CLEAN CATCHCULTURE RESULTS NO GROWTHREPORT STATUS FINAL 06/25/2020 Name Value Range Interpretation Code Description Data Maryann rce(s) Supporting Document(s) SPECIMEN DESCRIPTION [facility] C. TRACHOMATIS (NEG) Laboratory [facility] [employer] [facility] THIS ASSAY AMPLIFIES AND DETECTS TARGETD NA USING ENTERPRISE SYSTEMS MANAGER-MEDIATEDAMPLIFICATION N. GONORRHOEAE (NEG) Laboratory [facility] [employer] THIS ASSAY AMPLIFIES AND DETECTS TARGETD NA USING ENTERPRISE SYSTEMS MANAGER-MEDIATEDAMPLIFICATION ID Date Data Source [id number] 06/25/2020 03:42:03 PM EST [facility] SPECIMEN DESCRIPTION VAGINAL SPEC IMENRESULT NEGATIVE FOR TRICHOMONAS VAGINALIS BY DNA PROBE NEGATIVE FOR GARDNERELLA VAGINALIS BY DNA PROBE NEGATIVE FOR RADHA SPECIES BY DNA PROBEREPORT STATUS FINAL 06/24/2020 SPEC EXP DATE 02/27/2021PATI ENT ABO/Rh A POSITIVEANTIBODY SCREEN NEGATIVETESTING SITE PERFORMED AT [address] [facility] [place] [address] SPECIMEN DESCRIPTION MIDSTREAM UR INE,CLEAN CATCHCULTURE RESULTS NO GROWTHREPORT STATUS FINAL 06/25/2020 Name Value Range Interpretation Code Description Data Maryann rce(s) Supporting Document(s) LEAD,VENOUS WB @ <2.0 ug/dL (0.0-4.9) Laboratory [facility] - CORE Testing performed by graphite furnaceato shalonda absorption spectroscopy. Information for health careproviders on lead poisoningprevention and management isavailable on the [facility] website. ID Date Data Source [id number] 06/26/2020 12:39:35 PM EST [facility] SPECIMEN DESCRIPTION VAGINAL SPEC IMENRESULT NEGATIVE FOR TRICHOMONAS VAGINALIS BY DNA PROBE NEGATIVE FOR GARDNERELLA VAGINALIS BY DNA PROBE NEGATIVE FOR RADHA SPECIES BY DNA PROBEREPORT STATUS FINAL 06/24/2020 SPEC EXP DATE 06/27/2020ATI ENT ABO/Rh A POSITIVEANTIBODY SCREEN NEGATIVETESTING SITE PERFORMED AT [address] [facility] [address] SPECIMEN DESCRIPTION [facility],CLEAN CATCHCULTURE RESULTS NO GROWTHREPORT STATUS FINAL 06/25/2020 Name Value Range Interpretation Code Description Data Maryann rce(s) Supporting Document(s) HGB A1 >95.8 % (94.3-98.5) Laboratory [facility] [place] - CORE HGB A2 3.2 % (1.5-3.7) Laboratory [facility] [place] - CORE HGB F <1.0 % (0.0-2.0) [facility] [place] - CORE HGB EVALUATION Laboratory [facility] [place] - CORE HGB EVALUATION BY HPLC PLEASE NOTE:PA TIENTS WITH A COMBINATION OF IRONDEFICIENCY ANEMIA AND BETA-THALASSEMIATRAIT MAY CLINICALLY PRESENT WITH ANORMAL HGB A2 LEVEL. ID Date Data Source [id number] 06/04/2020 01:00:00 PM EST [facility] Name Value Range Interpretation Code Description Data Maryann rce(s) Supporting Document(s) SARS coronavirus 2 RNA [Presence] in Res piratory specimen by SPEEDY with probe detection NEGATIVE [facility] This lab was ordered by [facility] a nd reported by [facility]. ID Date Data Source [id number] 05/30/2020 12:00:00 AM EST [facility] Name Value Range Interpretation Code Description Data Maryann rce(s) Supporting Document(s) SARS coronavirus 2 Ag Negative [facility] This lab was ordered by [facility] and reported by [facility]. ID Date Data Source [id number] 04/20/2020 12:20:00 PM EST [facility] Name Value Range Interpretation Code Description Data Maryann rce(s) Supporting Document(s) SARS coronavirus 2 RNA [facility] This lab was ordered by [facility] and reported by [facility]. Procedure Social History Code Duration Value Status Description Data Source(s ) Smoking 02/23/2021 12:00:00 AM EDT Never Smoker completed Never S moker eCW1 ([facility]) Smoking 02/23/2021 12:00:00 AM EDT Never Smoker completed Never S moker eCW1 ([facility]) Smoking 02/18/2021 12:00:00 AM EDT Never Smoker completed Never S moker eCW1 ([facility]) Smoking 02/17/2021 12:00:00 AM EDT Never Smoker completed Never S moker eCW1 ([facility]) Smoking 02/11/2021 12:00:00 AM EDT Never Smoker completed Never S moker eCW1 ([facility]) Smoking 02/11/2021 12:00:00 AM EDT Never Smoker completed Never S moker eCW1 ([facility]) Smoking 02/05/2021 12:00:00 AM EDT Never Smoker completed Never S moker eCW1 ([facility]) Smoking 02/05/2021 12:00:00 AM EDT Never Smoker completed Never S moker eCW1 ([facility]) Smoking 02/01/2021 12:00:00 AM EDT Never Smoker completed Never S moker eCW1 ([facility]) Smoking 01/26/2021 12:00:00 AM EDT Never Smoker completed Never S moker eCW1 ([facility]) Smoking 01/26/2021 12:00:00 AM EDT Never Smoker completed Never S moker eCW1 ([facility]) Smoking 01/26/2021 12:00:00 AM EDT Never Smoker completed Never S moker eCW1 ([facility]) Smoking 12/30/2020 12:00:00 AM EDT Never Smoker completed Never S moker eCW1 ([facility]) Smoking 12/30/2020 12:00:00 AM EDT Never Smoker completed Never S moker eCW1 ([facility]) Smoking 12/30/2020 12:00:00 AM EDT Never Smoker completed Never S moker eCW1 ([facility]) Smoking 12/08/2020 12:00:00 AM EDT Never Smoker completed Never S moker eCW1 ([facility]) Smoking 11/23/2020 12:00:00 AM EDT Never Smoker completed Never S moker eCW1 ([facility]) Smoking 11/23/2020 12:00:00 AM EDT Never Smoker completed Never S moker eCW1 ([facility]) Smoking 11/23/2020 12:00:00 AM EDT Never Smoker completed Never S moker eCW1 ([facility]) Smoking 11/23/2020 12:00:00 AM EDT Never Smoker completed Never S moker eCW1 ([facility]) Smoking 10/22/2020 12:00:00 AM EDT Never Smoker completed Never S moker eCW1 ([facility]) Smoking 10/22/2020 12:00:00 AM EDT Never Smoker completed Never S moker eCW1 ([facility]) Smoking 10/06/2020 12:00:00 AM EDT Never Smoker completed Never S moker eCW1 ([facility]) Smoking 09/07/2020 12:00:00 AM EDT Never Smoker completed Never S moker eCW1 ([facility]) Smoking 08/05/2020 12:00:00 AM EDT Never Smoker completed Never S moker eCW1 ([facility]) Smoking 07/10/2020 12:00:00 AM EST Never Smoker completed Never S moker eCW1 ([facility]) Smoking 07/10/2020 12:00:00 AM EST Never Smoker completed Never S moker eCW1 ([facility]) Smoking 07/10/2020 12:00:00 AM EST Never Smoker completed Never S moker eCW1 ([facility]) Smoking 07/10/2020 12:00:00 AM EST Never Smoker completed Never S moker eCW1 ([facility]) Smoking 05/30/2020 12:00:00 AM EST Patient has never smoked co mpleted Patient has never smoked MEDENT ([facility]) Vital Signs ID Date Data Source UNK Name Value Range Interpretation Code Description Data Source(s) Body weight 137 [lb_av] 137 [lb_av] eCW1 ([facility]) Body height 60 [in_i] 60 [in_i] eCW1 (formerly [facility]) Body mass index (BMI) [Ratio] 26.75 kg/m2 26.75 kg/m2 eCW1 ([facility]) Systolic blood pressure 126 mm[Hg] 126 mm[Hg] e CW1 ([facility]) Diastolic blood pressure 74 mm[Hg] 74 mm[Hg] eCW1 ([facility]) Oxygen saturation in Arterial blood by Pulse oximetry 99 % 99 % MEDENT ([facility]) Body temperature 96.2 [degF] 96.2 [degF] MEDENT ([facility]) Body weight 135.00 [lb_av] 135.00 [lb_av] MEDEN T ([facility]) Body height 60 [in_i] 60 [in_i] MEDENT ([facility]) 5'0" Systolic blood pressure 130 mm[Hg] 130 mm[Hg] M EDENT ([facility]) Diastolic blood pressure 79 mm[Hg] 79 mm[Hg] MEDENT ([facility]) Heart rate 73 /min 73 /min MEDENT ([facility]) Respiratory rate 16 /min 16 /min MEDENT ( [facility]) Body mass index (BMI) [Ratio] 26.4 kg/m2 26.4 k g/m2 [facility] ([facility]) Body weight 162 [lb_av] 162 [lb_av] eCW1 ([facility]) Body weight 73.48 kg 73.48 kg eCW1 (formerly [facility]) Body height 60 [in_i] 60 [in_i] eCW1 (formerly [facility]) Body mass index (BMI) [Ratio] 31.64 kg/m2 31.64 kg/m2 eCW1 ([facility]) Body temperature 97.3 [degF] 97.3 [degF] eCW1 ( [facility]) Systolic blood pressure 110 mm[Hg] 110 mm[Hg] e CW1 ([facility]) Diastolic blood pressure 60 mm[Hg] 60 mm[Hg] eCW1 ([facility]) Body weight 162.4 [lb_av] 162.4 [lb_av] eCW1 ([facility]) Body height 60 [in_i] 60 [in_i] eCW1 (formerly [facility]) Body mass index (BMI) [Ratio] 31.717 kg/m2 31.7 17 kg/m2 W1 ([facility]) Systolic blood pressure 130 mm[Hg] 130 mm[Hg] e CW1 ([facility]) Diastolic blood pressure 82 mm[Hg] 82 mm[Hg] eCW1 ([facility]) Body weight 163 [lb_av] 163 [lb_av] eCW1 ([facility]) Body height 60 [in_i] 60 [in_i] eCW1 (formerly [facility]) Body mass index (BMI) [Ratio] 31.834 kg/m2 31.8 34 kg/m2 W1 ([facility]) Systolic blood pressure 130 mm[Hg] 130 mm[Hg] e CW1 ([facility]) Diastolic blood pressure 80 mm[Hg] 80 mm[Hg] eCW1 ([facility]) Body weight 159.2 [lb_av] 159.2 [lb_av] eCW1 ([facility]) Body weight 72.21 kg 72.21 kg eCW1 (formerly [facility]) Body height 60 [in_i] 60 [in_i] eCW1 (formerly [facility]) Body mass index (BMI) [Ratio] 31.09 kg/m2 31.09 kg/m2 eCW1 ([facility]) Systolic blood pressure 124 mm[Hg] 124 mm[Hg] e CW1 ([facility]) Diastolic blood pressure 76 mm[Hg] 76 mm[Hg] eCW1 ([facility]) Systolic blood pressure 124 mm[Hg] 124 mm[Hg] [facility] Diastolic blood pressure 69 mm[Hg] 69 mm[Hg] [facility] Heart rate 97 /min 97 /min [facility] Respiratory rate 18 /min 18 /min [facility] Body height 152.4 cm 152.4 cm [facility] Body weight 67.586 kg 67.586 kg [facility] Body mass index (BMI) [Ratio] 29.10 kg/m2 29.10 kg/m2 [facility] Body weight 154 [lb_av] 154 [lb_av] eCW1 ([facility]) Body weight 69.85 kg 69.85 kg eCW1 (formerly [facility]) Body height 60 [in_i] 60 [in_i] eCW1 (formerly [facility]) Body mass index (BMI) [Ratio] 30.076 kg/m2 30.0 76 kg/m2 eCW1 ([facility]) Systolic blood pressure 110 mm[Hg] 110 mm[Hg] e CW1 ([facility]) Diastolic blood pressure 58 mm[Hg] 58 mm[Hg] eCW1 ([facility]) Body weight 149 [lb_av] 149 [lb_av] eCW1 ([facility]) Body height 60 [in_i] 60 [in_i] eCW1 (formerly [facility]) Body mass index (BMI) [Ratio] 29.1 kg/m2 29.1 k g/m2 eCW1 ([facility]) Systolic blood pressure 110 mm[Hg] 110 mm[Hg] e CW1 ([facility]) Diastolic blood pressure 70 mm[Hg] 70 mm[Hg] eCW1 ([facility]) Body weight 142.2 [lb_av] 142.2 [lb_av] eCW1 ([facility]) Body height 60 [in_i] 60 [in_i] eCW1 (formerly [facility]) Body mass index (BMI) [Ratio] 27.772 kg/m2 27.7 72 kg/m2 eCW1 ([facility]) Systolic blood pressure 112 mm[Hg] 112 mm[Hg] e CW1 ([facility]) Diastolic blood pressure 64 mm[Hg] 64 mm[Hg] eCW1 ([facility]) Body mass index (BMI) [Ratio] 26.951 kg/m2 26.9 51 kg/m2 eCW1 ([facility]) Systolic blood pressure 132 mm[Hg] 132 mm[Hg] e CW1 ([facility]) Diastolic blood pressure 68 mm[Hg] 68 mm[Hg] eCW1 ([facility]) Body weight 138 [lb_av] 138 [lb_av] eCW1 ([facility]) Body height 60 [in_i] 60 [in_i] eCW1 ([facility]) Body weight 136.8 [lb_av] 136.8 [lb_av] eCW1 ([facility]) Diastolic blood pressure 60 mm[Hg] 60 mm[Hg] eCW1 ([facility]) Systolic blood pressure 102 mm[Hg] 102 mm[Hg] e CW1 ([facility]) Body height 60 [in_i] 60 [in_i] eCW1 ([facility]) Body mass index (BMI) [Ratio] 26.717 kg/m2 26.7 17 kg/m2 eCW1 ([facility]) Body weight 132.6 [lb_av] 132.6 [lb_av] eCW1 ([facility]) Body weight 60.15 kg 60.15 kg eCW1 (formerly [facility]) Body height 60 [in_i] 60 [in_i] eCW1 (formerly [facility]) Body mass index (BMI) [Ratio] 25.897 kg/m2 25.8 97 kg/m2 eCW1 ([facility]) Systolic blood pressure 120 mm[Hg] 120 mm[Hg] e CW1 ([facility]) Diastolic blood pressure 60 mm[Hg] 60 mm[Hg] eCW1 ([facility]) Body weight 124.4 [lb_av] 124.4 [lb_av] eCW1 ([facility]) Body height 60 [in_i] 60 [in_i] eCW1 (formerly [facility]) Body mass index (BMI) [Ratio] 24.295 kg/m2 24.2 95 kg/m2 eCW1 ([facility]) Systolic blood pressure 98 mm[Hg] 98 mm[Hg] e CW1 ([facility]) Diastolic blood pressure 58 mm[Hg] 58 mm[Hg] eCW1 ([facility]) Body weight [lb_av] eCW1 ([facility]) Body height 60 [in_i] 60 [in_i] eCW1 ([facility]) Body mass index (BMI) [Ratio] 24.21 kg/m2 24.21 kg/m2 eCW1 ([facility]) Heart rate 81 /min 81 /min eCW1 ([facility]) Respiratory rate 18 /min 18 /min eCW1 ([facility]) Body temperature 98.7 [degF] 98.7 [degF] eCW1 ( [facility]) Systolic blood pressure 116 mm[Hg] 116 mm[Hg] e CW1 ([facility]) Diastolic blood pressure 72 mm[Hg] 72 mm[Hg] eCW1 ([facility]) Body temperature 98.0 [degF] 98.0 [degF] MEDENT ([facility]) Body weight 112.00 [lb_av] 112.00 [lb_av] MEDEN T ([facility], [facility]) Body height 60 [in_i] 60 [in_i] MEDENT ([facility], [facility]) 5'0" Body mass index (BMI) [Ratio] 21.9 kg/m2 21.9 k g/m2 MEDENT ([facility], [facility]) Oxygen saturation in Arterial blood by Pulse oximetry 99 % 99 % [facility] ([facility], [facility]) Systolic blood pressure 105 mm[Hg] 105 mm[Hg] M EDENT ([facility], [facility]) Diastolic blood pressure 65 mm[Hg] 65 mm[Hg] [facility] ([facility], [facility]) Heart rate 79 /min 79 /min MEDENT ([facility], [facility]) Respiratory rate 14 /min 14 /min [facility] ( [facility]) Oxygen saturation in Arterial blood by Pulse oximetry 98 % 98 % MEDENT ([facility] [place], [facility]) Diastolic blood pressure 74 mm[Hg] 74 mm[Hg] MEDENT ([facility], [facility]) Respiratory rate 18 /min 18 /min [facility] ( [facility], [facility]) Systolic blood pressure 120 mm[Hg] 120 mm[Hg] [facility]) Heart rate 83 /min 83 /min MEDENT ([facility], [facility]) Body temperature 98.9 [degF] 98.9 [degF] [facility] ([facility], [facility]) Body weight 112.00 [lb_av] 112.00 [lb_av] MEDEN T ([facility], [facility]) Body height 60 [in_i] 60 [in_i] [facility] ([facility], [facility]) 5'0" Body mass index (BMI) [Ratio] 21.9 kg/m2 21.9 k g/m2 [facility] ([facility]) Systolic blood pressure 117 mm[Hg] 117 mm[Hg] [facility] Diastolic blood pressure 71 mm[Hg] 71 mm[Hg] MEDENT ([facility]) Heart rate 83 /min 83 /min MEDENT ([facility]) Respiratory rate 16 /min 16 /min MEDENT ( [facility]) Oxygen saturation in Arterial blood by Pulse oximetry 100 % 100 % MEDENT ([facility]) Body temperature 98.7 [degF] 98.7 [degF] MEDENT ([facility]) Body weight 112.00 [lb_av] 112.00 [lb_av] MEDEN T ([facility]) Patient Treatment Plan of Care Planned Activity Planned Date Details Description Data Source (s) Ciprofloxacin 250 MG Oral Tablet 02/16/2021 12:00:00 AM EDT eCW1 ([facility]) Levofloxacin 250 MG Oral Tablet 02/15/2021 12:00:00 AM EDT eCW1 ([facility]) Ciprofloxacin 500 MG Oral Tablet [Cipro] 01/27/2021 12:00:00 AM EDT eCW1 ([facility]) Metronidazole 500 MG Oral Tablet [Flagyl] 01/27/2021 12:00:00 AM ED T eCW1 ([facility]) Ciprofloxacin 500 MG Oral Tablet [Cipro] 01/27/2021 12:00:00 AM EDT eCW1 ([facility]) Metronidazole 500 MG Oral Tablet [Flagyl] 01/27/2021 12:00:00 AM ED T eCW1 ([facility]) Amoxicillin 875 MG / Clavulanate 125 MG Oral Tablet 01/27/20 12:00:00 AM EDT eCW1 ([facility]) Amoxicillin 875 MG / Clavulanate 125 MG Oral Tablet 01/27/20 12:00:00 AM EDT eCW1 ([facility]) Amoxicillin 875 MG / Clavulanate 125 MG Oral Tablet 01/27/20 12:00:00 AM EDT eCW1 ([facility]) Acetaminophen 325 MG Oral Tablet 12/06/2020 12:29:36 PM EDT [facility]
[2021-03-12 15:06] LABS: ALBUMIN 4.3 GM/DL (3.2-5.2); ALT/SGPT 37 U/L (12-78); BILIRUBIN,DIRECT 0.1 MG/DL (0.0-0.2); BILIRUBIN,TOTAL 0.5 MG/DL (0.2-1.0); CK-MB VALUE MASS < 1.0 NG/ML (<3.6); CPK CREATINE PHOSPHOKINASE 99 U/L (26-192); LIPASE 113 U/L (73-393); MB/CK RELATIVE INDEX 1.01 (< OR =4); TROPONIN I < 0.02 NG/ML (< 0.10)
[2021-03-12] MEDS ORDERED: ISOVUE-370 76% 100ML VIAL As Ordered ONE (15:21)
[2021-03-12 15:34] LABS: ERYTHROCYTE SEDIMENTATION RATE 3 mm/hr (0-20)
[2021-03-12 15:41] LABS: T UPTAKE 33 % (30-39); THYROID STIMULATING HORMONE 0.888 uIU/ML (0.358-3.740)
--- NOTE | 2021-03-12 15:44 | REP ---
INDICATION: chest pain, dizziness. COMPARISON: None. TECHNIQUE: 5 mm axial images were obtained through the head without contrast. FINDINGS: Scans windowed for bone show no evidence of inflammatory changes in the visualized paranasal sinuses. The mastoids are normally aerated. No fracture of the calvarium is identified. Intracranially, normal gyri, ventricular system and basilar cisterns are noted with no mass, hemorrhage or extra-axial fluid collections evident. IMPRESSION: Unremarkable examination with no intracranial abnormality noted. <Electronically signed by Wilbert Almazan > 03/12/21 [id number]
--- NOTE | 2021-03-12 15:51 | REP ---
INDICATION: chest pain, elev. D DImer. COMPARISON: CTA 02/03/2021, CXR 02/26/2014. TECHNIQUE: CT angiogram chest performed following the intravenous administration of 75 cc of Isovue 370. Sagittal and coronal standard and MIP reconstruction images are performed. FINDINGS: Lungs: The lungs are adequately inflated. There is no infiltrate, parenchymal nodule or mass. Mediastinum: No adenopathy. Pulmonary arteries: The main, right and left pulmonary arteries in the mediastinum are without filling defects. Lobar, segmental and subsegmental arteries visible are without filling defects or vessel cut off in either lung. Anabel: No pathologic sized adenopathy. Axilla and supraclavicular fossa: No pathologic sized adenopathy. Pleura: No effusion, pleural based mass, calcified pleural plaque, pneumothorax or other acute finding. Heart: Not enlarged. Thoracic aorta: There is no aortic aneurysm or dissection. There is an aberrant right subclavian artery as an anatomic variation. Upper abdominal structures: No hiatal hernia. Solid organs in the upper abdomen grossly intact but seen only in part except for the adrenal glands. No acute finding. Visualized osseous structures: Spine was unremarkable. Sternum shows misregistration artifact and both the manubrium and sternum. This relates to respiratory motion. Visible clavicles, scapulae, humeral heads and ribs grossly intact. IMPRESSION: No CT evidence of pulmonary embolism. No infiltrate seen. Mediastinum shows no acute finding. There is an aberrant right subclavian artery as an anatomic variation. The aorta is otherwise unremarkable. Bony thorax and chest wall musculature as well as visualized portions upper abdomen unremarkable. Negative exam for acute finding. <Electronically signed by Charly Gonzalez > 03/12/21 [id number]
--- NOTE | 2021-03-12 16:01 | REP ---
INDICATION: chest pain, SOB. COMPARISON: 02/26/2014 TECHNIQUE: PA and lateral FINDINGS: The superior mediastinal structures are midline. The cardiac silhouette is unremarkable in size, shape, and position. The diaphragmatic surfaces of the lungs are regular, and the costophrenic angles are clear. The pulmonary kevin are clear. The imaged osseous structures are intact. IMPRESSION: There is no acute cardiopulmonary disease. <Electronically signed by Carmelo Thompson > 03/12/21 [id number]
[2021-03-12] MEDS: KETOROLAC 30 MG/ML 1ML VIAL IV ONE ×2 (16:10→16:13)
[2021-03-12] MEDS ORDERED: ACETAMINOPHEN TAB 650MG DOSE (2X325MG) PO ONE (17:35)
[2021-03-12 18:03] VITALS: BP 133/77
[2021-03-12 18:15] LABS: CK-MB VALUE MASS < 1.0 NG/ML (<3.6); CPK CREATINE PHOSPHOKINASE 94 U/L (26-192); MB/CK RELATIVE INDEX 1.06 (< OR =4); TROPONIN I < 0.02 NG/ML (< 0.10)
--- NOTE | 2021-03-13 07:05 | ECGEPIP ---
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
--- NOTE | 2021-03-13 07:07 | ECGEPIP ---
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
== END 2021-03-12 19:08 | disposition home or self-care (01) ==
LOC: M ED 13:55
DX: R06.00 Dyspnea, unspecified (principal); R42 Dizziness and giddiness; R07.89 Other chest pain; I45.19 Other right bundle-branch block; K90.0 Celiac disease; I49.3 Ventricular premature depolarization; D80.3 Selective deficiency of immunoglobulin G [IgG] subclasses; Z88.0 Allergy status to penicillin; Z88.1 Allergy status to other antibiotic agents; Z88.2 Allergy status to sulfonamides; Z79.899 Other long term (current) drug therapy
CPT/HCPCS: 70450; 71046; 71275; 80076; 82550; 82553; 83690; 84436; 84443; 84479; 84484; 84702; 85025; 85379; 85652; 86140; 87880; 93005; 96374; 99284; C9113; Q9967

== ENCOUNTER → 2021-03-12 | Outpatient (REF) ==
[2021-03-12 10:49] LABS: RSV AMPLIFICATION NEGATIVE (NEGATIVE)
== END ==
LOC: M EMP 10:02
PROVIDERS: ATTEND Family Medicine
DX: Z20.822 Contact with and (suspected) exposure to COVID-19 (principal)

== ENCOUNTER → 2021-03-18 | Outpatient (REF) | payer OTHER | LOC: M SFHCCAPE 09:16 | PROVIDERS: ATTEND Physician Assistant | DX: J22 Unspecified acute lower respiratory infection (principal) ==

== ENCOUNTER → 2021-04-12 | Outpatient (REF) | LOC: M LABSMTC 09:20 | PROVIDERS: ATTEND Family Medicine | DX: Z20.822 Contact with and (suspected) exposure to COVID-19 (principal) ==

== ENCOUNTER → 2021-04-14 | Outpatient (CLI) | payer OTHER ==
--- NOTE | 2021-04-14 14:27 | REP ---
INDICATION: LIGHTHEADED,CERVICALGIA,PAIN IN THORACIC COMPARISON: None. TECHNIQUE: AP and lateral views of the thoracic spine FINDINGS: Alignment and kyphosis is maintained. Vertebral bodies intact. No acute fracture / compression injury or subluxation. No degenerative changes. Paravertebral soft tissues are normal. IMPRESSION: Normal thoracic spine series. <Electronically signed by Heath Ford > 04/14/21 [id number]
--- NOTE | 2021-04-14 14:28 | REP ---
INDICATION: LIGHTHEADED,CERVICALGIA,PAIN IN THORACIC COMPARISON: None. TECHNIQUE: AP, lateral, flexion/extension, bilateral oblique, and open-mouth views. FINDINGS: Alignment and lordosis is maintained. There is no evidence for acute fracture / compression injury or subluxation. No significant degenerative changes are appreciated. Oblique views demonstrate patent neural foramen. Open mouth view demonstrates normal C1-C2 articulation and odontoid process. IMPRESSION: Normal cervical spine series. <Electronically signed by Heath Ford > 04/14/21 [id number]
== END ==
LOC: M CLY 13:46
PROVIDERS: ATTEND Physician Assistant
DX: R42 Dizziness and giddiness (principal); M54.2 Cervicalgia; M54.6 Pain in thoracic spine

== ENCOUNTER → 2021-04-26 | Outpatient (REF) | LOC: M EMP 11:20 | PROVIDERS: ATTEND Family Medicine | DX: Z20.822 Contact with and (suspected) exposure to COVID-19 (principal) ==

== ENCOUNTER → 2021-04-28 | Outpatient (CLI) | payer OTHER ==
[2021-04-29 10:10] LABS: ANTINUCLEAR ANTIBODIES DIRECT Negative (Negative)
== END ==
LOC: M LAB 09:43
PROVIDERS: ATTEND Psychiatry & Neurology Neurology
DX: G43.909 Migraine, unspecified, not intractable, without status migrainosus (principal); M54.2 Cervicalgia

== ENCOUNTER → 2021-07-02 | Outpatient (REF) | LOC: M EMP 10:30 | PROVIDERS: ATTEND Family Medicine | DX: Z53.9 Procedure and treatment not carried out, unspecified reason (principal) ==

== ENCOUNTER → 2021-07-02 | Outpatient (REF) | payer OTHER | LOC: M LAB REF 16:23 | PROVIDERS: ATTEND Physician Assistant | DX: R30.0 Dysuria (principal) ==

== ENCOUNTER → 2021-07-22 | Outpatient (CLI) | payer OTHER ==
[2021-07-22 15:58] LABS: BASO # 0.1 10^3/uL (0.0-0.2); BASO % 0.9 % (0.0-1.0); EOS # 0.1 10^3/uL (0.0-0.5); EOS % 0.7 % (0.0-3.0); HEMATOCRIT 42.2 % (36.0-47.0); HEMOGLOBIN 14.5 g/dl (12.0-15.5); LYMPH # 3.1 10^3/uL (1.5-5.0); LYMPH % 34.1 % (24.0-44.0); MEAN CORPUSCULAR HEMOGLOBIN 28.2 pg (27.0-33.0); MEAN CORPUSCULAR HGB CONC 34.4 g/dl (32.0-36.5); MEAN CORPUSCULAR VOLUME 82.1 fl (80.0-96.0); MONO # 0.5 10^3/uL (0.0-0.8); MONO % 5.2 % (2.0-8.0); NEUTROPHILS # 5.3 10^3/uL (1.5-8.5); PLATELET COUNT, AUTOMATED 239 10^3/uL (150-450); RED BLOOD COUNT 5.14 10^6/uL (4.00-5.40)
[2021-07-22 16:37] LABS: ALBUMIN 4.4 GM/DL (3.2-5.2); ALT/SGPT 26 U/L (12-78); BILIRUBIN,TOTAL 0.3 MG/DL (0.2-1.0); BLOOD UREA NITROGEN 18 MG/DL (7-18); CALCIUM LEVEL 9.5 MG/DL (8.5-10.1); CARBON DIOXIDE LEVEL 27 MEQ/L (21-32); CHLORIDE LEVEL 109 MEQ/L (98-107); CREATININE FOR GFR 0.86 MG/DL (0.55-1.30); GLOMERULAR FILTRATION RATE > 60.0 (>60); GLUCOSE, FASTING 78 MG/DL (70-100); SODIUM LEVEL 140 MEQ/L (136-145); TOTAL PROTEIN 7.3 GM/DL (6.4-8.2)
[2021-07-22 16:42] LABS: ERYTHROCYTE SEDIMENTATION RATE 2 mm/hr (0-20)
[2021-07-22 16:50] LABS: TOTAL 25(OH) VITAMIN D 19.1 NG/ML (30.0-100.0)
[2021-07-22 16:52] LABS: FOLATE 14.6 NG/ML; VITAMIN B12 LEVEL 566 PG/ML
== END ==
LOC: M LAB 15:12
PROVIDERS: ATTEND Physician Assistant
DX: R10.2 Pelvic and perineal pain (principal); R53.83 Other fatigue; D84.89 Other immunodeficiencies

== ENCOUNTER → 2021-07-26 | Outpatient (REF) | payer OTHER | LOC: M SFHCWAGY 12:59 | PROVIDERS: ATTEND Obstetrics & Gynecology | DX: R10.2 Pelvic and perineal pain (principal) ==

== ENCOUNTER → 2021-07-26 | Outpatient (REF) | payer OTHER | LOC: M SFHCWAGY 12:58 | PROVIDERS: ATTEND Obstetrics & Gynecology | DX: R10.2 Pelvic and perineal pain (principal) ==

== ENCOUNTER → 2021-10-12 | Outpatient (REF) ==
[2021-10-12 09:26] LABS: RSV AMPLIFICATION NEGATIVE (NEGATIVE)
== END ==
LOC: M EMP 07:53
PROVIDERS: ATTEND Family Medicine
DX: Z20.822 Contact with and (suspected) exposure to COVID-19 (principal)

== ENCOUNTER → 2021-10-18 | Outpatient (REF) | payer OTHER, BC ==
[2021-10-18 16:40] LABS: HCG, SERUM QUALITATIVE POSITIVE (NEGATIVE)
== END ==
LOC: M SFHCCAPE 13:26
PROVIDERS: ATTEND Physician Assistant
DX: R35.0 Frequency of micturition (principal)

== ENCOUNTER → 2021-10-21 | Outpatient (REF) | LOC: M LABSMTC 11:25 | PROVIDERS: ATTEND Family Medicine | DX: Z20.822 Contact with and (suspected) exposure to COVID-19 (principal); Z11.52 Encounter for screening for COVID-19 ==

== ENCOUNTER → 2021-10-27 | Outpatient (REF) | payer OTHER, BC ==
[2021-10-27 16:31] LABS: HEMATOCRIT 46.4 % (36.0-47.0); HEMOGLOBIN 15.8 g/dl (12.0-15.5); MEAN CORPUSCULAR HEMOGLOBIN 29.4 pg (27.0-33.0); MEAN CORPUSCULAR HGB CONC 34.1 g/dl (32.0-36.5); MEAN CORPUSCULAR VOLUME 86.4 fl (80.0-96.0); PLATELET COUNT, AUTOMATED 207 10^3/uL (150-450); RED BLOOD COUNT 5.37 10^6/uL (4.00-5.40); WHITE BLOOD COUNT 9.2 10^3/uL (4.0-10.0)
[2021-10-27 17:51] LABS: HCG, SERUM QUANTITATIVE 53059 MIU/ML; HEPATITIS B SURFACE ANTIGEN NEGATIVE (NEGATIVE); HEPATITIS C VIRUS ABY INDEX 0.1 INDEX (<0.8); HIV 1&2 SCREEN CENTAUR NEGATIVE (NEGATIVE)
== END ==
LOC: M LAB REF 16:08
PROVIDERS: ATTEND Obstetrics & Gynecology
DX: Z32.01 Encounter for pregnancy test, result positive (principal); O36.80X0 Pregnancy with inconclusive fetal viability, not applicable or unspecified

== ENCOUNTER → 2021-12-03 | Outpatient (CLI) | payer OTHER, BC ==
[2021-12-03 16:23] LABS: HEMATOCRIT 41.8 % (36.0-47.0); HEMOGLOBIN 14.2 g/dl (12.0-15.5); MEAN CORPUSCULAR VOLUME 85.3 fl (80.0-96.0); PLATELET COUNT, AUTOMATED 214 10^3/uL (150-450); WHITE BLOOD COUNT 11.3 10^3/uL (4.0-10.0)
[2021-12-03 17:12] LABS: HEPATITIS C VIRUS ABY INDEX < 0.0 INDEX (<0.8); HIV 1&2 SCREEN CENTAUR NEGATIVE (NEGATIVE)
[2021-12-03 18:40] LABS: GC DNA AMPLIFICATION NEGATIVE (NEGATIVE)
== END ==
LOC: M PLALAB 11:41
PROVIDERS: ATTEND Specialist
DX: Z34.81 Encounter for supervision of other normal pregnancy, first trimester (principal)

== ENCOUNTER → 2022-01-21 | Outpatient (CLI) | payer BC, OTHER | LOC: M WHC 14:55 | PROVIDERS: ATTEND Obstetrics & Gynecology | DX: Z34.82 Encounter for supervision of other normal pregnancy, second trimester (principal); Z3A.19 19 weeks gestation of pregnancy ==

== ENCOUNTER → 2022-02-09 | Outpatient (CLI) | payer BC, OTHER ==
[2022-02-09 14:09] LABS: HEMATOCRIT 37.2 % (36.0-47.0); HEMOGLOBIN 12.1 g/dl (12.0-15.5); MEAN CORPUSCULAR HEMOGLOBIN 28.8 pg (27.0-33.0); MEAN CORPUSCULAR HGB CONC 32.5 g/dl (32.0-36.5); MEAN CORPUSCULAR VOLUME 88.6 fl (80.0-96.0); PLATELET COUNT, AUTOMATED 182 10^3/uL (150-450)
[2022-02-09 15:03] LABS: FREE T4 0.91 NG/DL (0.76-1.46); THYROID STIMULATING HORMONE 1.53 uIU/ML (0.358-3.740)
== END ==
LOC: M PLALAB 09:06
PROVIDERS: ATTEND Obstetrics & Gynecology
DX: Z34.92 Encounter for supervision of normal pregnancy, unspecified, second trimester (principal); Z3A.00 Weeks of gestation of pregnancy not specified

== ENCOUNTER → 2022-02-14 | Outpatient (REF) ==
[2022-02-14 13:36] LABS: RSV AMPLIFICATION NEGATIVE (NEGATIVE)
== END ==
LOC: M LABSMTC 11:14
PROVIDERS: ATTEND Family Medicine
DX: Z20.822 Contact with and (suspected) exposure to COVID-19 (principal); Z11.52 Encounter for screening for COVID-19

== ENCOUNTER → 2022-02-16 | Outpatient (REF) | payer OTHER | LOC: M LAB REF 21:43 | PROVIDERS: ATTEND Physician Assistant | DX: B34.9 Viral infection, unspecified (principal) ==

== ENCOUNTER → 2022-02-16 | Outpatient (REF) ==
[2022-02-16 12:26] LABS: RSV AMPLIFICATION NEGATIVE (NEGATIVE)
== END ==
LOC: M EMP 11:10
PROVIDERS: ATTEND Family Medicine
DX: Z20.822 Contact with and (suspected) exposure to COVID-19 (principal); Z11.52 Encounter for screening for COVID-19

== ENCOUNTER → 2022-03-14 | Outpatient (CLI) | payer BC, OTHER ==
[2022-03-14 15:14] LABS: HEMATOCRIT 35.4 % (36.0-47.0); HEMOGLOBIN 11.5 g/dl (12.0-15.5); MEAN CORPUSCULAR HGB CONC 32.5 g/dl (32.0-36.5); MEAN CORPUSCULAR VOLUME 86.3 fl (80.0-96.0); PLATELET COUNT, AUTOMATED 202 10^3/uL (150-450)
== END ==
LOC: M LAB 11:37
PROVIDERS: ATTEND Advanced Practice Midwife
DX: Z34.82 Encounter for supervision of other normal pregnancy, second trimester (principal); Z3A.00 Weeks of gestation of pregnancy not specified

== ENCOUNTER 2022-04-29 17:14 | Outpatient (CLI) | payer BC, OTHER ==
[~2022-04-29] VITALS: Ht 152.4 cm; Wt 72.8 kg
[2022-04-29] MEDS ORDERED: AZIT-12 PO (18:06)
[2022-04-29] MEDS ORDERED: HOME MED LIST COMPLETE! XX SCH (18:10)
[2022-04-29] MEDS ORDERED: LR 1,000 ML IV ONE (18:10)
[2022-04-29 19:25] LABS: HEMATOCRIT 33.7 % (36.0-47.0); MEAN CORPUSCULAR HEMOGLOBIN 26.2 pg (27.0-33.0); MEAN CORPUSCULAR HGB CONC 32.6 g/dl (32.0-36.5); MEAN CORPUSCULAR VOLUME 80.2 fl (80.0-96.0); PLATELET COUNT, AUTOMATED 233 10^3/uL (150-450); WHITE BLOOD COUNT 8.7 10^3/uL (4.0-10.0)
[2022-04-29] MEDS ORDERED: ACETAMINOPHEN 500 MG TAB PO ONE (19:50)
[2022-04-29] MEDS ORDERED: guaiFENesin/CODEINE SYRUP 5 ML UDC PO ONE (19:50)
[2022-04-29 19:51] LABS: ALBUMIN 2.6 G/DL (3.2-5.2); ALKALINE PHOSPHATASE 120 U/L (46-116); ALT/SGPT 17 U/L (7.0-40); AST/SGOT 27 U/L (<34); BILIRUBIN,TOTAL 0.2 MG/DL (0.3-1.2); BLOOD UREA NITROGEN 8 MG/DL (9-23); CALCIUM LEVEL 8.5 MG/DL (8.5-10.1); CARBON DIOXIDE LEVEL 20 MMOL/L (20-31); CHLORIDE LEVEL 105 MMOL/L (98-107); CREATININE FOR GFR 0.51 MG/DL (0.55-1.30); GLOMERULAR FILTRATION RATE > 60.0 (>60); GLUCOSE, FASTING 85 MG/DL (60-100); POTASSIUM SERUM 4.1 MMOL/L (3.5-5.1); SODIUM LEVEL 138 MMOL/L (136-145); TOTAL PROTEIN 5.7 G/DL (5.7-8.2)
[2022-04-29 20:00] VITALS: BP 123/72
[2022-04-29 23:01] VITALS: BP 113/73
[2022-04-30] MEDS ORDERED: guaiFENesin/CODEINE SYRUP 5 ML UDC PO ONE
[2022-04-30] MEDS ORDERED: METR-265 PO (00:30)
[2022-04-30] MEDS ORDERED: TERC0.4C10 PV (00:30)
[2022-04-30] MEDS ORDERED: GUAI1SOL2 PO (00:31)
== END 2022-04-29 23:55 | disposition home or self-care (01) ==
LOC: M LDO 17:14
PROVIDERS: ATTEND Advanced Practice Midwife
DX: O26.893 Other specified pregnancy related conditions, third trimester (principal); R10.12 Left upper quadrant pain; O21.8 Other vomiting complicating pregnancy; Z3A.32 32 weeks gestation of pregnancy; Z86.16 Personal history of COVID-19
CPT/HCPCS: 59025; 76815; 80053; 85027; G0463

== ENCOUNTER → 2022-05-04 | Outpatient (CLI) | payer BC, OTHER ==
[~2022-05-04] MED LIST changes: +AZIT-12 PO; +GUAI1SOL2 PO; +METR-265 PO; +TERC0.4C10 PV
== END ==
LOC: M PLAIMG 09:06
PROVIDERS: ATTEND Specialist
DX: J11.00 Influenza due to unidentified influenza virus with unspecified type of pneumonia (principal)

== ENCOUNTER → 2022-05-11 | Outpatient (CLI) | payer BC, OTHER | LOC: M RAD 12:06 | PROVIDERS: ATTEND Specialist | DX: Z34.83 Encounter for supervision of other normal pregnancy, third trimester (principal); Z3A.38 38 weeks gestation of pregnancy ==

== ENCOUNTER → 2022-05-19 | Outpatient (REF) | payer BC | LOC: M PLALAB 10:35 | PROVIDERS: ATTEND Advanced Practice Midwife | DX: Z34.83 Encounter for supervision of other normal pregnancy, third trimester (principal) ==

== ENCOUNTER 2022-06-03 11:43 | Outpatient (CLI) | payer BC ==
[~2022-06-03] VITALS: Ht 162.6 cm; Wt 74.7 kg
[2022-06-03] VITALS (7 sets, daily range): BP systolic 124–141; BP diastolic 68–92
[2022-06-03] MEDS ORDERED: HOME MED LIST COMPLETE! XX SCH (12:15)
[2022-06-03 12:43] LABS: HEMATOCRIT 33.7 % (36.0-47.0); HEMOGLOBIN 10.7 g/dl (12.0-15.5); MEAN CORPUSCULAR HEMOGLOBIN 24.7 pg (27.0-33.0); MEAN CORPUSCULAR HGB CONC 31.8 g/dl (32.0-36.5); MEAN CORPUSCULAR VOLUME 77.6 fl (80.0-96.0); PLATELET COUNT, AUTOMATED 178 10^3/uL (150-450); RED BLOOD COUNT 4.34 10^6/uL (4.00-5.40); WHITE BLOOD COUNT 8.8 10^3/uL (4.0-10.0)
[2022-06-03 13:12] LABS: URIC ACID 7.4 MG/DL (3.1-7.8)
[2022-06-03 13:16] LABS: ALT/SGPT 14 U/L (7.0-40); AST/SGOT 23 U/L (<34); BILIRUBIN,TOTAL 0.4 MG/DL (0.3-1.2); CREATININE FOR GFR 0.76 MG/DL (0.55-1.30); GLOMERULAR FILTRATION RATE > 60.0 (>60); LDH LACTATE DEHYDROGENASE 179 U/L (120-246)
[2022-06-03 14:07] LABS: CREATININE,RANDOM URINE 24.2 MG/DL
[2022-06-03 14:08] LABS: TOTAL PROTEIN,RANDOM URINE < 6.0 MG/DL (0.0-14.0)
== END 2022-06-03 17:00 | disposition home or self-care (01) ==
LOC: M LDO 11:43
PROVIDERS: ATTEND Advanced Practice Midwife
DX: O26.893 Other specified pregnancy related conditions, third trimester (principal); R03.0 Elevated blood-pressure reading, without diagnosis of hypertension; R51.0 Headache with orthostatic component, not elsewhere classified; Z3A.37 37 weeks gestation of pregnancy
CPT/HCPCS: 36415; 59025; 76816; 76820; 82247; 82565; 82570; 83615; 84156; 84450; 84460; 84550; 85027; G0463

== ENCOUNTER → 2022-08-02 | Outpatient (REF) | payer BC, OTHER | LOC: M SFHCCAPE 17:27 | PROVIDERS: ATTEND Physician Assistant | DX: J22 Unspecified acute lower respiratory infection (principal); R53.83 Other fatigue ==

== ENCOUNTER 2022-08-05 19:11 | Emergency (ER) | payer BC ==
[~2022-08-05] VITALS: Ht 152.4 cm; Wt 58.8 kg
[~2022-08-05 19:11] MED LIST changes: -CLEO300C2 PO; -CLIN150C17 PO
[2022-08-05] MEDS ORDERED: ACETAMINOPHEN 500 MG TAB PO ONE (19:50)
[2022-08-05] MEDS ORDERED: CLIN150C17 PO (22:13)
[2022-08-05] MEDS ORDERED: CLINDAMYCIN 150MG CAPSULE PO ONE (22:15)
[2022-08-05 22:18] VITALS: BP 106/53
== END 2022-08-05 22:28 | disposition home or self-care (01) ==
LOC: M ED 19:11
DX: O91.22 Nonpurulent mastitis associated with the puerperium (principal); Z88.0 Allergy status to penicillin; Z88.2 Allergy status to sulfonamides

== ENCOUNTER → 2022-08-05 | Outpatient (REF) | payer BC ==
[~2022-08-05] MED LIST changes: +CLEO300C2 PO; +CLIN150C17 PO
[2022-08-05 17:17] LABS: BASO % 0.4 % (0.0-1.0); EOS % 0.4 % (0.0-3.0); HEMATOCRIT 40.2 % (36.0-47.0); HEMOGLOBIN 12.7 g/dl (12.0-15.5); LYMPH # 1.9 10^3/uL (1.5-5.0); LYMPH % 27.7 % (24.0-44.0); MEAN CORPUSCULAR HEMOGLOBIN 25.3 pg (27.0-33.0); MEAN CORPUSCULAR HGB CONC 31.6 g/dl (32.0-36.5); MEAN CORPUSCULAR VOLUME 80.2 fl (80.0-96.0); MONO # 0.4 10^3/uL (0.0-0.8); MONO % 5.5 % (2.0-8.0); NEUTROPHILS # 4.5 10^3/uL (1.5-8.5); NEUTROPHILS % 65.7 % (36.0-66.0); PLATELET COUNT, AUTOMATED 149 10^3/uL (150-450); RED BLOOD COUNT 5.01 10^6/uL (4.00-5.40); WHITE BLOOD COUNT 6.9 10^3/uL (4.0-10.0)
[2022-08-05 17:20] LABS: APPEARANCE, URINE CLEAR (CLEAR); BACTERIA, URINE AUTO NEGATIVE (NEGATIVE); BILIRUBIN, URINE AUTO NEGATIVE (NEGATIVE); BLOOD, URINE BLOOD NEGATIVE (NEGATIVE); COLOR, URINE YELLOW (YELLOW); GLUCOSE, URINE (UA) AUTO NEGATIVE (NEGATIVE); KETONE, URINE AUTO NEGATIVE (NEGATIVE); LEUKOCYTE ESTERASE, URINE AUTO NEGATIVE (NEGATIVE); NITRITE, URINE AUTO NEGATIVE (NEGATIVE); PROTEIN, URINE AUTO NEGATIVE (NEGATIVE); RBC, URINE AUTO 0 /HPF (0-3); SPECIFIC GRAVITY URINE AUTO 1.019 (1.002-1.035); SQUAMOUS EPITHELIAL CELL UR AU 2 /HPF (0-6); UROBILINOGEN, URINE AUTO 0.2 mg/dL (0.0-2.0); WBC, URINE AUTO 1 /HPF (0-3)
[2022-08-05 17:34] LABS: ALBUMIN 4.2 G/DL (3.2-5.2); ALKALINE PHOSPHATASE 104 U/L (46-116); ALT/SGPT 22 U/L (7.0-40); AST/SGOT 20 U/L (<34); BILIRUBIN,TOTAL 0.3 MG/DL (0.3-1.2); BLOOD UREA NITROGEN 17 MG/DL (9-23); CALCIUM LEVEL 8.7 MG/DL (8.5-10.1); CARBON DIOXIDE LEVEL 28 MMOL/L (20-31); CHLORIDE LEVEL 105 MMOL/L (98-107); CREATININE FOR GFR 0.81 MG/DL (0.55-1.30); GLOMERULAR FILTRATION RATE > 60.0 (>60); GLUCOSE, FASTING 80 MG/DL (60-100); IRON (FE) 24 UG/DL (50-170); PERCENT SATURATION 6.8 % (13.2-45.0); POTASSIUM SERUM 4.6 MMOL/L (3.5-5.1); SODIUM LEVEL 139 MMOL/L (136-145); TOTAL IRON BINDING CAPACITY 351 UG/DL (250-425); TOTAL PROTEIN 6.5 G/DL (5.7-8.2)
[2022-08-05 17:36] LABS: FERRITIN 14.8 NG/ML (7.3-270.7); FOLATE > 24.0 NG/ML (>5.4); VITAMIN B12 LEVEL 841 PG/ML (211-911)
[2022-08-05 18:18] LABS: MONO REFLEX EBV COMP NEGATIVE (NEGATIVE)
[2022-08-10 11:09] LABS: EBV AB TO NUCLEAR ANTIGEN <18.0 U/mL (0.0-17.9); EBV VIRAL CAPSID AG IgG <18.0 U/mL (0.0-17.9); EBV VIRAL CAPSID AG IgM <36.0 U/mL (0.0-35.9); HOMOCYST(E)INE SERUM 8.3 umol/L (0.0-14.5); Methylmalonic Acid 214 nmol/L (0-378)
== END ==
LOC: M SFHCCLAY 11:24
PROVIDERS: ATTEND Physician Assistant
DX: R53.83 Other fatigue (principal)

== ENCOUNTER 2022-08-08 20:21 | Observation (INO) | payer BC, OTHER ==
[~2022-08-08 20:21] MED LIST changes: +CLIN150C17 PO
[2022-08-09] VITALS (10 sets, daily range): BP systolic 119–130; BP diastolic 73–84; TEMP 98.3–101.1; O2SAT 97–100
[2022-08-09] MEDS ORDERED: ACETAMINOPHEN 500 MG TAB PO PRN (07:40)
[2022-08-09] MEDS: NS 1,000 ML IV SCH ×2 (09:05→21:49)
[2022-08-09 09:32] LABS: BASO % 0.5 % (0.0-1.0); EOS % 0.5 % (0.0-3.0); HEMATOCRIT 40.5 % (36.0-47.0); HEMOGLOBIN 13.2 g/dl (12.0-15.5); LYMPH # 1.5 10^3/uL (1.5-5.0); LYMPH % 25.8 % (24.0-44.0); MEAN CORPUSCULAR HGB CONC 32.6 g/dl (32.0-36.5); MEAN CORPUSCULAR VOLUME 79.7 fl (80.0-96.0); MONO # 0.2 10^3/uL (0.0-0.8); MONO % 4.3 % (2.0-8.0); NEUTROPHILS # 3.9 10^3/uL (1.5-8.5); NEUTROPHILS % 68.7 % (36.0-66.0); PLATELET COUNT, AUTOMATED 163 10^3/uL (150-450); RED BLOOD COUNT 5.08 10^6/uL (4.00-5.40); WHITE BLOOD COUNT 5.6 10^3/uL (4.0-10.0)
[2022-08-09] MEDS ORDERED: CLEO300C2 PO (09:58)
[2022-08-09 10:03] LABS: ALBUMIN 3.9 G/DL (3.2-5.2); ALKALINE PHOSPHATASE 103 U/L (46-116); ALT/SGPT 24 U/L (7.0-40); AST/SGOT 15 U/L (<34); BILIRUBIN,TOTAL 0.7 MG/DL (0.3-1.2); BLOOD UREA NITROGEN 12 MG/DL (9-23); CALCIUM LEVEL 8.8 MG/DL (8.5-10.1); CARBON DIOXIDE LEVEL 24 MMOL/L (20-31); CHLORIDE LEVEL 107 MMOL/L (98-107); CREATININE FOR GFR 0.78 MG/DL (0.55-1.30); GLOMERULAR FILTRATION RATE > 60.0 (>60); GLUCOSE, FASTING 70 MG/DL (60-100); POTASSIUM SERUM 3.8 MMOL/L (3.5-5.1); SODIUM LEVEL 140 MMOL/L (136-145); TOTAL PROTEIN 6.4 G/DL (5.7-8.2)
[2022-08-09] MEDS ORDERED: HOME MED LIST COMPLETE! XX SCH (10:05)
[2022-08-09] MEDS ORDERED: IBUPROFEN 600MG TAB PO PRN (10:10)
[2022-08-09] MEDS ORDERED: DOCUSATE SODIUM 100MG CAPSULE PO PRN (10:10)
[2022-08-09] MEDS: CLINDAMYCIN 900 MG in IV 1 EA IV SCH ×2 (11:22→18:10)
[2022-08-09] MEDS: PRENATAL VITAMINS CHEWABLE TABLET PO SCH (12:14)
[2022-08-09] MEDS: GENTAMICIN IV SCH (13:18)
[2022-08-09] MEDS: D5W IV SCH (13:18)
[2022-08-10] VITALS (8 sets, daily range): BP systolic 115–138; BP diastolic 69–82; TEMP 97.9–100; O2SAT 97–99
[2022-08-10] MEDS: CLINDAMYCIN 900 MG in IV 1 EA IV SCH ×3 (00:25→17:11)
[2022-08-10] MEDS: NS 1,000 ML IV SCH ×2 (00:25→08:52)
[2022-08-10] MEDS: PRENATAL VITAMINS CHEWABLE TABLET PO SCH (08:51)
[2022-08-10] MEDS: GENTAMICIN IV SCH (12:21)
[2022-08-10] MEDS: D5W IV SCH (12:21)
[2022-08-11] MEDS ORDERED: diphenhydrAMINE 50MG/ML VIAL IV STA (00:01)
[2022-08-11] MEDS: valACYclovir HCL 500 MG TAB PO SCH ×3 (00:13→20:18)
[2022-08-11] MEDS: NS 1,000 ML IV SCH ×3 (00:31→16:15)
[2022-08-11] MEDS: CLINDAMYCIN 900 MG in IV 1 EA IV SCH ×2 (00:31→09:03)
[2022-08-11 00:43] LABS: MONO SCRN NEGATIVE (NEGATIVE)
[2022-08-11 00:44] LABS: ALBUMIN 3.3 G/DL (3.2-5.2); ALKALINE PHOSPHATASE 85 U/L (46-116); ALT/SGPT 26 U/L (7.0-40); AST/SGOT 19 U/L (<34); BILIRUBIN,TOTAL < 0.2 MG/DL (0.3-1.2); BLOOD UREA NITROGEN 17 MG/DL (9-23); CALCIUM LEVEL 8.7 MG/DL (8.5-10.1); CARBON DIOXIDE LEVEL 26 MMOL/L (20-31); CHLORIDE LEVEL 107 MMOL/L (98-107); GLOMERULAR FILTRATION RATE > 60.0 (>60); GLUCOSE, FASTING 84 MG/DL (60-100); POTASSIUM SERUM 3.9 MMOL/L (3.5-5.1); SODIUM LEVEL 140 MMOL/L (136-145); TOTAL PROTEIN 5.9 G/DL (5.7-8.2)
[2022-08-11 00:58] LABS: BASO % 0.5 % (0.0-1.0); EOS # 0.2 10^3/uL (0.0-0.5); EOS % 3.3 % (0.0-3.0); HEMATOCRIT 34.8 % (36.0-47.0); HEMOGLOBIN 11.4 g/dl (12.0-15.5); LYMPH # 2.5 10^3/uL (1.5-5.0); LYMPH % 34.6 % (24.0-44.0); MEAN CORPUSCULAR HEMOGLOBIN 25.7 pg (27.0-33.0); MEAN CORPUSCULAR HGB CONC 32.8 g/dl (32.0-36.5); MEAN CORPUSCULAR VOLUME 78.6 fl (80.0-96.0); MONO # 0.6 10^3/uL (0.0-0.8); NEUTROPHILS # 3.9 10^3/uL (1.5-8.5); NEUTROPHILS % 53.3 % (36.0-66.0); PLATELET COUNT, AUTOMATED 214 10^3/uL (150-450); RED BLOOD COUNT 4.43 10^6/uL (4.00-5.40); WHITE BLOOD COUNT 7.3 10^3/uL (4.0-10.0)
[2022-08-11 02:00] VITALS: BP 132/72; TEMP 99; O2SAT 98
[2022-08-11 06:00] VITALS: BP 128/70; TEMP 98; O2SAT 99
[2022-08-11] MEDS: PRENATAL VITAMINS CHEWABLE TABLET PO SCH (09:03)
[2022-08-11 09:57] VITALS: BP 123/82; TEMP 97.9; O2SAT 97
[2022-08-11] MEDS: GENTAMICIN IV SCH (11:14)
[2022-08-11] MEDS: D5W IV SCH (11:14)
[2022-08-11] MEDS ORDERED: LIDOCAINE VISCOUS 2% SOLN 15ML UDC SS PRN (13:40)
[2022-08-11 14:00] VITALS: BP 112/68; TEMP 97.9; O2SAT 100
[2022-08-11 15:07] LABS: C REACTIVE PROTEIN QUANTITATIV 2.8 MG/DL (<1.0); IMMUNOGLOBULIN A 61.2 MG/DL (40-350)
[2022-08-11 15:08] LABS: IMMUNOGLOBULIN M 110.4 MG/DL (50-300)
[2022-08-11] MEDS: BENZOCAINE 10% 9GM TUBE (ANBESOL) MT SCH ×2 (17:19→20:17)
[2022-08-11 18:00] VITALS: BP 121/82; TEMP 97.2; O2SAT 98
[2022-08-11] MEDS ORDERED: ISOVUE-370 76% 100ML VIAL As Ordered ONE (18:18)
[2022-08-11 20:00] VITALS: BP 127/79; TEMP 97.1; O2SAT 99
[2022-08-11] MEDS ORDERED: methylPREDNISolone 125MG 2ML VIAL IV ONE (20:10)
[2022-08-12] MEDS: NS 1,000 ML IV SCH ×2 (00:11→08:15)
[2022-08-12 02:00] VITALS: BP 131/77; TEMP 96.2; O2SAT 97
[2022-08-12 06:00] VITALS: BP 126/73; TEMP 96.8; O2SAT 99
[2022-08-12 06:20] LABS: BASO % 0.2 % (0.0-1.0); EOS % 0.2 % (0.0-3.0); HEMATOCRIT 39.3 % (36.0-47.0); HEMOGLOBIN 12.8 g/dl (12.0-15.5); LYMPH # 1.1 10^3/uL (1.5-5.0); LYMPH % 21.9 % (24.0-44.0); MEAN CORPUSCULAR HEMOGLOBIN 25.8 pg (27.0-33.0); MEAN CORPUSCULAR HGB CONC 32.6 g/dl (32.0-36.5); MEAN CORPUSCULAR VOLUME 79.1 fl (80.0-96.0); MONO # 0.1 10^3/uL (0.0-0.8); MONO % 1.4 % (2.0-8.0); NEUTROPHILS # 3.8 10^3/uL (1.5-8.5); NEUTROPHILS % 76.1 % (36.0-66.0); PLATELET COUNT, AUTOMATED 247 10^3/uL (150-450); RED BLOOD COUNT 4.97 10^6/uL (4.00-5.40)
[2022-08-12 06:37] LABS: ERYTHROCYTE SEDIMENTATION RATE 28 mm/hr (0-20)
[2022-08-12 06:58] LABS: ALBUMIN 3.5 G/DL (3.2-5.2); ALKALINE PHOSPHATASE 95 U/L (46-116); ALT/SGPT 24 U/L (7.0-40); AST/SGOT 13 U/L (<34); BILIRUBIN,TOTAL 0.2 MG/DL (0.3-1.2); BLOOD UREA NITROGEN 13 MG/DL (9-23); CALCIUM LEVEL 9.1 MG/DL (8.5-10.1); CARBON DIOXIDE LEVEL 25 MMOL/L (20-31); CHLORIDE LEVEL 108 MMOL/L (98-107); CREATININE FOR GFR 0.62 MG/DL (0.55-1.30); GLOMERULAR FILTRATION RATE > 60.0 (>60); GLUCOSE, FASTING 129 MG/DL (60-100); POTASSIUM SERUM 4.8 MMOL/L (3.5-5.1); SODIUM LEVEL 140 MMOL/L (136-145); TOTAL PROTEIN 6.3 G/DL (5.7-8.2)
[2022-08-12] MEDS ORDERED: ZYVO1TAB PO ×2 (07:32→10:33)
[2022-08-12] MEDS ORDERED: BACI1CAP PO (07:32)
[2022-08-12] MEDS ORDERED: PRIL20TA2 PO (08:08)
[2022-08-12] MEDS ORDERED: HYDR-3363 PO (08:08)
[2022-08-12] MEDS ORDERED: FERR325T3 PO (08:08)
[2022-08-12] MEDS ORDERED: PRED20TA PO ×2 (08:08→10:35)
[2022-08-12] MEDS ORDERED: [UNRECOGNIZED DRUG - CODE] MT (08:08)
[2022-08-12] MEDS ORDERED: SENO8.6T10 PO (08:08)
[2022-08-12] MEDS ORDERED: ACYC1CAP20 PO ×2 (08:08→10:33)
[2022-08-12] MEDS ORDERED: LIDVISCBTL SSP (08:08)
[2022-08-12] MEDS ORDERED: VITA500C24 PO (08:08)
[2022-08-12] MEDS ORDERED: ZOVI5OIN8 TOP (08:08)
[2022-08-12] MEDS ORDERED: SENOKOT S TAB PO PRN (08:10)
[2022-08-12] MEDS: PRENATAL VITAMINS CHEWABLE TABLET PO SCH (08:48)
[2022-08-12] MEDS: BENZOCAINE 10% 9GM TUBE (ANBESOL) MT SCH (08:55)
[2022-08-12] MEDS: valACYclovir HCL 500 MG TAB PO SCH (08:58)
[2022-08-12] MEDS ORDERED: methylPREDNISolone 125MG 2ML VIAL IV ONE (09:00)
[2022-08-12] MEDS ORDERED: predniSONE 20 MG TAB PO SCH (09:00)
[2022-08-12] MEDS ORDERED: LINEZOLID 600MG TABLET (ZYVOX) PO SCH (09:00)
[2022-08-12] MEDS ORDERED: OMEPRAZOLE 20MG CAP PO SCH (09:00)
[2022-08-12] MEDS ORDERED: FERROUS SULFATE 325MG TAB PO SCH (09:00)
[2022-08-12] MEDS ORDERED: ASCORBIC ACID 500 MG TAB PO SCH (09:00)
[2022-08-12] MEDS ORDERED: ZOVI5CRE4 TOP (10:33)
[2022-08-12] MEDS ORDERED: [UNRECOGNIZED DRUG - OTHER] TP (10:33)
[2022-08-12] MEDS ORDERED: FERR1TAB8 PO (10:35)
[2022-08-12] MEDS ORDERED: SENN-52 PO (10:35)
[2022-08-12] MEDS ORDERED: OMEP-173 PO (10:35)
[2022-08-12] MEDS ORDERED: ASCO50TA PO (10:35)
[2022-08-12] MEDS ORDERED: LIDO15SO SS (10:40)
[2022-08-13] MEDS ORDERED: predniSONE 20 MG TAB PO SCH (09:00)
[2022-08-16 14:09] LABS: COXSACKIE TYPE A-16 IgM Negative titer (Neg:<1:10); COXSACKIE TYPE A-24 IgM Negative titer (Neg:<1:10); COXSACKIE TYPE A-7 IgM Negative titer (Neg:<1:10); COXSACKIE TYPE A-9 IgM Negative titer (Neg:<1:10); COXSACKIE TYPE B1 Negative (Neg:<1:8); COXSACKIE TYPE B2 Negative (Neg:<1:8); COXSACKIE TYPE B3 Negative (Neg:<1:8); COXSACKIE TYPE B4 Negative (Neg:<1:8); COXSACKIE TYPE B5 Negative (Neg:<1:8); COXSACKIE TYPE B6 Negative (Neg:<1:8)
[2022-08-22 20:07] LABS: ANTI DS-DNA AB Negative (Negative); ANTI SCLERODERMA ANTIBODIES <0.2 AI (0.0-0.9); ANTI SMITH(Sm) AB <20 Units (<20); ANTINUCLEAR ANTIBODIES DIRECT Negative (Negative); C1 ESTERASE INHIB. FUNCTIONAL > 93 (.); COMPLEMENT C5 15 mg/dL (7-20); COMPLEMENT TOTAL (CH50) 57 U/mL (>41)
== END 2022-08-12 11:08 | disposition home or self-care (01) ==
LOC: M MSPAV 20:21 → INTOOBSV 20:21
PROVIDERS: ADMIT Obstetrics & Gynecology; ATTEND General Practice
DX: N61.21 Granulomatous mastitis, right breast (principal); B95.2 Enterococcus as the cause of diseases classified elsewhere; B00.2 Herpesviral gingivostomatitis and pharyngotonsillitis; D50.0 Iron deficiency anemia secondary to blood loss (chronic); D84.9 Immunodeficiency, unspecified; R00.1 Bradycardia, unspecified; M02.9 Reactive arthropathy, unspecified; T78.3XXA Angioneurotic edema, initial encounter; D80.2 Selective deficiency of immunoglobulin A [IgA]; K90.0 Celiac disease; Z79.52 Long term (current) use of systemic steroids; Z79.899 Other long term (current) drug therapy; Z88.0 Allergy status to penicillin; Z88.2 Allergy status to sulfonamides; Z88.1 Allergy status to other antibiotic agents
CPT/HCPCS: 36415; 70491; 73120; 76642; 80053; 82784; 83520; 83605; 84145; 85025; 85652; 86038; 86140; 86160; 86161; 86162; 86225; 86235; 86308; 86658; 87040; 87070; 87077; 87186; 87205; 87255; 87641; 96361; 96365; 96366; 96367; 96375; 96376; 99221; 99231; J1200; J1580; J2930; Q9967

== ENCOUNTER → 2022-08-18 | Outpatient (CLI) | payer BC, OTHER ==
[~2022-08-18] MED LIST changes: +ACYC1CAP20 PO; +ASCO50TA PO; +BACI1CAP PO; +CLEO300C2 PO; +FERR1TAB8 PO; +FERR325T3 PO; +HYDR-3363 PO; +LIDO15SO SS; +LIDVISCBTL SSP; +OMEP-173 PO; +PRED20TA PO; +PRIL20TA2 PO; +SENN-52 PO; +SENO8.6T10 PO; +VITA500C24 PO; +ZOVI5CRE4 TOP; +ZOVI5OIN8 TOP; +ZYVO1TAB PO; +[UNRECOGNIZED DRUG - CODE] MT; +[UNRECOGNIZED DRUG - OTHER] TP
[2022-08-18 16:15] LABS: BASO # 0.1 10^3/uL (0.0-0.2); EOS # 0.4 10^3/uL (0.0-0.5); EOS % 5.4 % (0.0-3.0); HEMATOCRIT 38.1 % (36.0-47.0); LYMPH # 3.3 10^3/uL (1.5-5.0); LYMPH % 40.9 % (24.0-44.0); MEAN CORPUSCULAR HGB CONC 31.5 g/dl (32.0-36.5); MEAN CORPUSCULAR VOLUME 82.6 fl (80.0-96.0); MONO # 0.2 10^3/uL (0.0-0.8); MONO % 2.8 % (2.0-8.0); NEUTROPHILS % 49.5 % (36.0-66.0); PLATELET COUNT, AUTOMATED 336 10^3/uL (150-450); RED BLOOD COUNT 4.61 10^6/uL (4.00-5.40); WHITE BLOOD COUNT 8.1 10^3/uL (4.0-10.0)
[2022-08-18 16:26] LABS: ERYTHROCYTE SEDIMENTATION RATE 14 mm/hr (0-20)
[2022-08-18 16:36] LABS: URIC ACID 7.4 MG/DL (3.1-7.8)
[2022-08-18 16:39] LABS: IRON (FE) 116 UG/DL (50-170); PERCENT SATURATION 34.6 % (13.2-45.0); RHEUMATOID FACTOR QUANT 6.6 IU/ML (<14); TOTAL IRON BINDING CAPACITY 335 UG/DL (250-425)
[2022-08-18 16:41] LABS: FERRITIN 38.4 NG/ML (7.3-270.7)
== END ==
LOC: M LAB 14:07
PROVIDERS: ATTEND Physician Assistant
DX: M02.39 Reiter's disease, multiple sites (principal); D50.9 Iron deficiency anemia, unspecified

== ENCOUNTER → 2022-08-29 | Outpatient (REF) | payer BC ==
[2022-08-29 18:09] LABS: APPEARANCE, URINE CLEAR (CLEAR); BACTERIA, URINE AUTO NEGATIVE (NEGATIVE); BILIRUBIN, URINE AUTO NEGATIVE (NEGATIVE); BLOOD, URINE BLOOD NEGATIVE (NEGATIVE); COLOR, URINE STRAW (YELLOW); GLUCOSE, URINE (UA) AUTO NEGATIVE (NEGATIVE); KETONE, URINE AUTO NEGATIVE (NEGATIVE); LEUKOCYTE ESTERASE, URINE AUTO NEGATIVE (NEGATIVE); NITRITE, URINE AUTO NEGATIVE (NEGATIVE); PROTEIN, URINE AUTO NEGATIVE (NEGATIVE); RBC, URINE AUTO 0 /HPF (0-3); SPECIFIC GRAVITY URINE AUTO 1.013 (1.002-1.035); SQUAMOUS EPITHELIAL CELL UR AU 1 /HPF (0-6); UROBILINOGEN, URINE AUTO 0.2 mg/dL (0.0-2.0); WBC, URINE AUTO 0 /HPF (0-3)
== END ==
LOC: M SFHCCAPE 14:28
PROVIDERS: ATTEND Physician Assistant
DX: R10.30 Lower abdominal pain, unspecified (principal)

== ENCOUNTER 2022-09-14 21:55 | Inpatient (IN) | payer BC ==
[~2022-09-14] VITALS: Ht 152.4 cm; Wt 56.3 kg
[2022-09-14] MEDS ORDERED: IBUP80TA PO (22:09)
[2022-09-14] MEDS ORDERED: NAPR220C14 PO (22:09)
[2022-09-14] MEDS ORDERED: ACET-683 PO (22:10)
[2022-09-14 22:56] LABS: BASO # 0.1 10^3/uL (0.0-0.2); BASO % 0.5 % (0.0-1.0); EOS # 0.1 10^3/uL (0.0-0.5); EOS % 0.8 % (0.0-3.0); HEMATOCRIT 40.1 % (36.0-47.0); HEMOGLOBIN 13.7 g/dl (12.0-15.5); LYMPH # 1.4 10^3/uL (1.5-5.0); LYMPH % 11.8 % (24.0-44.0); MEAN CORPUSCULAR HEMOGLOBIN 27.6 pg (27.0-33.0); MEAN CORPUSCULAR HGB CONC 34.2 g/dl (32.0-36.5); MEAN CORPUSCULAR VOLUME 80.8 fl (80.0-96.0); MONO # 0.5 10^3/uL (0.0-0.8); MONO % 4.3 % (2.0-8.0); NEUTROPHILS # 9.9 10^3/uL (1.5-8.5); NEUTROPHILS % 82.4 % (36.0-66.0); PLATELET COUNT, AUTOMATED 228 10^3/uL (150-450); RED BLOOD COUNT 4.96 10^6/uL (4.00-5.40); WHITE BLOOD COUNT 12.1 10^3/uL (4.0-10.0)
[2022-09-14] MEDS ORDERED: ACETAMINOPHEN TAB 650MG DOSE (2X325MG) PO ONE (23:10)
[2022-09-14] MEDS ORDERED: ONDANSETRON 4MG 2ML VIAL IV ONE (23:10)
[2022-09-14] MEDS ORDERED: NS 1,000 ML IV ONE ×2 (23:10→23:40)
[2022-09-14] MEDS ORDERED: IBUPROFEN 600MG TAB PO ONE (23:15)
[2022-09-14 23:30] LABS: RSV AMPLIFICATION NEGATIVE (NEGATIVE)
[2022-09-14] MEDS ORDERED: KETOROLAC 30 MG/ML 1ML VIAL IV ONE (23:40)
[2022-09-14] MEDS ORDERED: METOCLOPRAMIDE INJ 10MG/2ML VIAL IV ONE (23:40)
[2022-09-14] MEDS ORDERED: ISOVUE-370 76% 100ML VIAL As Ordered ONE (23:45)
[2022-09-15] MEDS ORDERED: IBUP-1730 PO (03:09)
[2022-09-15] MEDS ORDERED: NAPR-1010 PO (03:09)
[2022-09-15] MEDS ORDERED: ACET-897 PO (03:09)
[2022-09-15] MEDS ORDERED: HOME MED LIST COMPLETE! XX SCH (03:10)
[2022-09-15] MEDS ORDERED: ACETAMINOPHEN TAB 650MG DOSE (2X325MG) PO ONE (03:25)
[2022-09-15] MEDS ORDERED: ONDANSETRON 4MG 2ML VIAL IV PRN (04:10)
[2022-09-15] MEDS ORDERED: cefTRIAXone SOD 2 GM in D5W MINI-BAG PLUS 50 ML IV SCH (05:00)
[2022-09-15] MEDS ORDERED: DOXYCYCLINE HYCLATE 100MG TABLET PO SCH (05:00)
[2022-09-15] MEDS: NS 1,000 ML IV SCH ×2 (05:02→13:43)
[2022-09-15 05:45] VITALS: BP 105/64
[2022-09-15] MEDS ORDERED: KETOROLAC 30 MG/ML 1ML VIAL IV PRN (06:00)
[2022-09-15 07:34] LABS: HEMATOCRIT 34.4 % (36.0-47.0); MEAN CORPUSCULAR HEMOGLOBIN 27.8 pg (27.0-33.0); MEAN CORPUSCULAR HGB CONC 33.4 g/dl (32.0-36.5); MEAN CORPUSCULAR VOLUME 83.1 fl (80.0-96.0); PLATELET COUNT, AUTOMATED 168 10^3/uL (150-450); RED BLOOD COUNT 4.14 10^6/uL (4.00-5.40); WHITE BLOOD COUNT 12.4 10^3/uL (4.0-10.0)
[2022-09-15 07:39] LABS: HEMOGLOBIN 11.5 g/dl (12.0-15.5)
[2022-09-15 07:43] LABS: ERYTHROCYTE SEDIMENTATION RATE < 1 mm/hr (0-20)
[2022-09-15 08:13] VITALS: BP 91/51
[2022-09-15] MEDS: PRENATAL VITAMINS CHEWABLE TABLET PO SCH (08:48)
[2022-09-15] MEDS: ACETAMINOPHEN TAB 650MG DOSE (2X325MG) PO PRN ×2 (08:48→14:13)
[2022-09-15 08:56] LABS: ALBUMIN 3.4 G/DL (3.2-5.2); ALKALINE PHOSPHATASE 93 U/L (46-116); ALT/SGPT 20 U/L (7.0-40); AST/SGOT 15 U/L (<34); BILIRUBIN,TOTAL 0.5 MG/DL (0.3-1.2); BLOOD UREA NITROGEN 13 MG/DL (9-23); CALCIUM LEVEL 8.1 MG/DL (8.5-10.1); CARBON DIOXIDE LEVEL 21 MMOL/L (20-31); CHLORIDE LEVEL 108 MMOL/L (98-107); CREATININE FOR GFR 0.79 MG/DL (0.55-1.30); GLOMERULAR FILTRATION RATE > 60.0 (>60); GLUCOSE, FASTING 108 MG/DL (60-100); MAGNESIUM LEVEL 1.6 MG/DL (1.8-2.4); SODIUM LEVEL 140 MMOL/L (136-145); TOTAL PROTEIN 5.5 G/DL (5.7-8.2)
[2022-09-15] MEDS ORDERED: NS 1,000 ML IV ONE (11:00)
[2022-09-15 12:25] VITALS: BP 106/55
[2022-09-15] MEDS ORDERED: CLINDAMYCIN 600 MG in IV 1 EA IV SCH (13:00)
[2022-09-15] MEDS ORDERED: MAG SULF 1GM/100ML (MAG RUN) 1 GM in IV 1 EA IV ONE (13:00)
[2022-09-15] MEDS ORDERED: D5W IV SCH (14:00)
[2022-09-15] MEDS ORDERED: GENTAMICIN IV SCH (14:00)
[2022-09-15] MEDS ORDERED: CALCIUM GLUCONATE 1,000 MG in D5W MINI-BAG PLUS 100 ML IV ONE ×2 (14:20→15:00)
[2022-09-15] MEDS: IBUPROFEN 600MG TAB PO PRN (15:53)
[2022-09-15 16:00] VITALS: BP 121/67
[2022-09-15] MEDS: LACTOBACILLUS ACIDOPHILUS CAP (BACID) PO SCH (17:40)
[2022-09-15] MEDS: metroNIDAZOLE 500 MG in IV 1 EA IV SCH (17:41)
[2022-09-15] MEDS ORDERED: FIDAXOMICIN 200 MG TAB (DIFICID) PO SCH (18:00)
[2022-09-15 20:00] VITALS: BP 118/73
[2022-09-15] MEDS: DOXYCYCLINE HYCLATE 100 MG in D5W MINI-BAG PLUS 100 ML IV SCH (20:58)
[2022-09-15] MEDS: AZTREONAM 2 GM in D5W MINI-BAG PLUS 100 ML IV SCH (22:22)
[2022-09-16] VITALS: BP 125/60
[2022-09-16] MEDS: metroNIDAZOLE 500 MG in IV 1 EA IV SCH ×2 (01:15→10:45)
[2022-09-16 04:00] VITALS: BP 114/65
[2022-09-16] MEDS: AZTREONAM 2 GM in D5W MINI-BAG PLUS 100 ML IV SCH ×3 (04:32→22:08)
[2022-09-16] MEDS: ACETAMINOPHEN TAB 650MG DOSE (2X325MG) PO PRN ×2 (05:11→23:59)
[2022-09-16 05:39] LABS: HEMATOCRIT 34.2 % (36.0-47.0); HEMOGLOBIN 11.3 g/dl (12.0-15.5); MEAN CORPUSCULAR HEMOGLOBIN 27.7 pg (27.0-33.0); MEAN CORPUSCULAR VOLUME 83.8 fl (80.0-96.0); PLATELET COUNT, AUTOMATED 168 10^3/uL (150-450); RED BLOOD COUNT 4.08 10^6/uL (4.00-5.40)
[2022-09-16 06:09] LABS: ALBUMIN 3.2 G/DL (3.2-5.2); ALKALINE PHOSPHATASE 101 U/L (46-116); ALT/SGPT 25 U/L (7.0-40); AST/SGOT 14 U/L (<34); BILIRUBIN,TOTAL 0.4 MG/DL (0.3-1.2); BLOOD UREA NITROGEN 12 MG/DL (9-23); CALCIUM LEVEL 8.2 MG/DL (8.5-10.1); CARBON DIOXIDE LEVEL 21 MMOL/L (20-31); CHLORIDE LEVEL 111 MMOL/L (98-107); CREATININE FOR GFR 0.78 MG/DL (0.55-1.30); GLOMERULAR FILTRATION RATE > 60.0 (>60); GLUCOSE, FASTING 101 MG/DL (60-100); MAGNESIUM LEVEL 1.7 MG/DL (1.8-2.4); POTASSIUM SERUM 3.9 MMOL/L (3.5-5.1); SODIUM LEVEL 142 MMOL/L (136-145); TOTAL PROTEIN 5.4 G/DL (5.7-8.2)
[2022-09-16] MEDS: IBUPROFEN 600MG TAB PO PRN (07:44)
[2022-09-16] MEDS: LACTOBACILLUS ACIDOPHILUS CAP (BACID) PO SCH ×2 (07:44→17:11)
[2022-09-16] MEDS: MAGNESIUM OXIDE 400MG TAB (MAG-OX) PO SCH ×2 (07:45→22:07)
[2022-09-16] MEDS: DOXYCYCLINE HYCLATE 100 MG in D5W MINI-BAG PLUS 100 ML IV SCH ×2 (07:45→20:23)
[2022-09-16 08:00] VITALS: BP 112/59
[2022-09-16] MEDS: ENOXAPARIN 40MG/0.4ML SYRINGE (J1650 PER 10MG) SC SCH (08:04)
[2022-09-16] MEDS ORDERED: MAG SULF 1GM/100ML (MAG RUN) 1 GM in IV 1 EA IV ONE (09:00)
[2022-09-16] MEDS: PRENATAL VITAMINS CHEWABLE TABLET PO SCH ×2 (09:00→12:41)
[2022-09-16 12:00] VITALS: BP 110/61
[2022-09-16 15:31] LABS: PTH INTACT 39.1 PG/ML (18.5-88.0)
[2022-09-16 15:32] LABS: THYROID STIMULATING HORMONE 1.621 uIU/ML (0.55-4.78)
[2022-09-16 16:00] VITALS: BP 111/73
[2022-09-16] MEDS: metroNIDAZOLE (FLAGYL) 500MG TABLET PO SCH (17:11)
[2022-09-16 19:59] VITALS: BP 115/64
[2022-09-16] MEDS ORDERED: MAGIC MOUTHWASH SUSPENSION BTL SS PRN (22:20)
[2022-09-17] MEDS: NYSTATIN 500,000U/5ML SUSP UDC PO SCH ×5 (00:06→21:00)
[2022-09-17] MEDS: metroNIDAZOLE (FLAGYL) 500MG TABLET PO SCH ×3 (00:56→17:21)
[2022-09-17 01:03] VITALS: BP 113/65
[2022-09-17 02:00] VITALS: BP 105/62
[2022-09-17] MEDS: AZTREONAM 2 GM in D5W MINI-BAG PLUS 100 ML IV SCH ×2 (05:38→12:51)
[2022-09-17 06:00] VITALS: BP 115/68
[2022-09-17 06:55] LABS: HEMATOCRIT 34.7 % (36.0-47.0); HEMOGLOBIN 11.3 g/dl (12.0-15.5); MEAN CORPUSCULAR HEMOGLOBIN 27.8 pg (27.0-33.0); MEAN CORPUSCULAR HGB CONC 32.6 g/dl (32.0-36.5); MEAN CORPUSCULAR VOLUME 85.3 fl (80.0-96.0); PLATELET COUNT, AUTOMATED 178 10^3/uL (150-450); RED BLOOD COUNT 4.07 10^6/uL (4.00-5.40); WHITE BLOOD COUNT 9.8 10^3/uL (4.0-10.0)
[2022-09-17 07:11] LABS: ALBUMIN 3.1 G/DL (3.2-5.2); ALKALINE PHOSPHATASE 93 U/L (46-116); ALT/SGPT 26 U/L (7.0-40); AST/SGOT 11 U/L (<34); BILIRUBIN,TOTAL 0.3 MG/DL (0.3-1.2); BLOOD UREA NITROGEN 9 MG/DL (9-23); CALCIUM LEVEL 8.5 MG/DL (8.5-10.1); CARBON DIOXIDE LEVEL 23 MMOL/L (20-31); CHLORIDE LEVEL 111 MMOL/L (98-107); CREATININE FOR GFR 0.75 MG/DL (0.55-1.30); GLOMERULAR FILTRATION RATE > 60.0 (>60); GLUCOSE, FASTING 83 MG/DL (60-100); POTASSIUM SERUM 4.1 MMOL/L (3.5-5.1); SODIUM LEVEL 143 MMOL/L (136-145); TOTAL PROTEIN 5.5 G/DL (5.7-8.2)
[2022-09-17] MEDS: LACTOBACILLUS ACIDOPHILUS CAP (BACID) PO SCH ×2 (08:38→17:21)
[2022-09-17] MEDS: MAGNESIUM OXIDE 400MG TAB (MAG-OX) PO SCH ×2 (08:39→21:02)
[2022-09-17] MEDS: ENOXAPARIN 40MG/0.4ML SYRINGE (J1650 PER 10MG) SC SCH (08:40)
[2022-09-17] MEDS: DOXYCYCLINE HYCLATE 100 MG in D5W MINI-BAG PLUS 100 ML IV SCH (08:41)
[2022-09-17] MEDS ORDERED: PRENATAL VITAMINS CHEWABLE TABLET PO ONE (09:00)
[2022-09-17 14:30] VITALS: BP 118/80
[2022-09-17] MEDS: BENZOCAINE 10% 9GM TUBE (ANBESOL) MT SCH ×3 (14:46→21:02)
[2022-09-17] MEDS ORDERED: VANCOMYCIN ORAL SOL 250MG/5ML ORAL SYRINGE PO SCH (18:00)
[2022-09-17] MEDS: FIDAXOMICIN 200 MG TAB (DIFICID) PO SCH (21:01)
[2022-09-17] MEDS: LINEZOLID 600MG TABLET (ZYVOX) PO SCH (21:02)
[2022-09-17 22:00] VITALS: BP 121/66
[2022-09-17] MEDS ORDERED: diphenhydrAMINE 50MG/ML VIAL IV STA (23:24)
[2022-09-18 05:50] LABS: HEMATOCRIT 36.1 % (36.0-47.0); HEMOGLOBIN 11.9 g/dl (12.0-15.5); MEAN CORPUSCULAR HEMOGLOBIN 27.6 pg (27.0-33.0); MEAN CORPUSCULAR VOLUME 83.8 fl (80.0-96.0); PLATELET COUNT, AUTOMATED 213 10^3/uL (150-450); RED BLOOD COUNT 4.31 10^6/uL (4.00-5.40); WHITE BLOOD COUNT 8.1 10^3/uL (4.0-10.0)
[2022-09-18 06:00] VITALS: BP 119/66
[2022-09-18 06:21] LABS: ALBUMIN 3.1 G/DL (3.2-5.2); ALKALINE PHOSPHATASE 92 U/L (46-116); ALT/SGPT 23 U/L (7.0-40); AST/SGOT 10 U/L (<34); BILIRUBIN,TOTAL 0.3 MG/DL (0.3-1.2); BLOOD UREA NITROGEN 21 MG/DL (9-23); CALCIUM LEVEL 8.7 MG/DL (8.5-10.1); CARBON DIOXIDE LEVEL 26 MMOL/L (20-31); CHLORIDE LEVEL 109 MMOL/L (98-107); CREATININE FOR GFR 0.85 MG/DL (0.55-1.30); GLOMERULAR FILTRATION RATE > 60.0 (>60); GLUCOSE, FASTING 76 MG/DL (60-100); MAGNESIUM LEVEL 2.1 MG/DL (1.8-2.4); POTASSIUM SERUM 4.3 MMOL/L (3.5-5.1); SODIUM LEVEL 143 MMOL/L (136-145); TOTAL PROTEIN 5.7 G/DL (5.7-8.2)
[2022-09-18] MEDS: PRENATAL VITAMINS CHEWABLE TABLET PO SCH (08:26)
[2022-09-18] MEDS: LACTOBACILLUS ACIDOPHILUS CAP (BACID) PO SCH ×2 (08:26→17:40)
[2022-09-18] MEDS: LINEZOLID 600MG TABLET (ZYVOX) PO SCH ×2 (08:27→20:29)
[2022-09-18] MEDS: MAGNESIUM OXIDE 400MG TAB (MAG-OX) PO SCH ×2 (08:27→20:28)
[2022-09-18] MEDS: FIDAXOMICIN 200 MG TAB (DIFICID) PO SCH ×2 (08:27→20:28)
[2022-09-18] MEDS: ENOXAPARIN 40MG/0.4ML SYRINGE (J1650 PER 10MG) SC SCH (08:28)
[2022-09-18] MEDS: NYSTATIN 500,000U/5ML SUSP UDC PO SCH ×4 (08:29→20:28)
[2022-09-18] MEDS: BENZOCAINE 10% 9GM TUBE (ANBESOL) MT SCH ×4 (08:35→20:29)
[2022-09-18] MEDS: diphenhydrAMINE 50MG/ML VIAL IV PRN ×2 (11:40→22:29)
[2022-09-18 14:00] VITALS: BP 117/66
[2022-09-18 22:00] VITALS: BP 116/68
[2022-09-19 05:20] VITALS: BP 116/60
[2022-09-19 06:29] LABS: HEMATOCRIT 38.1 % (36.0-47.0); HEMOGLOBIN 12.5 g/dl (12.0-15.5); MEAN CORPUSCULAR HEMOGLOBIN 27.4 pg (27.0-33.0); MEAN CORPUSCULAR HGB CONC 32.8 g/dl (32.0-36.5); MEAN CORPUSCULAR VOLUME 83.6 fl (80.0-96.0); PLATELET COUNT, AUTOMATED 237 10^3/uL (150-450); RED BLOOD COUNT 4.56 10^6/uL (4.00-5.40); WHITE BLOOD COUNT 8.7 10^3/uL (4.0-10.0)
[2022-09-19 07:00] LABS: ALBUMIN 3.4 G/DL (3.2-5.2); ALKALINE PHOSPHATASE 88 U/L (46-116); ALT/SGPT 22 U/L (7.0-40); AST/SGOT 12 U/L (<34); BILIRUBIN,TOTAL 0.3 MG/DL (0.3-1.2); BLOOD UREA NITROGEN 20 MG/DL (9-23); CARBON DIOXIDE LEVEL 27 MMOL/L (20-31); CHLORIDE LEVEL 107 MMOL/L (98-107); CREATININE FOR GFR 0.82 MG/DL (0.55-1.30); GLOMERULAR FILTRATION RATE > 60.0 (>60); GLUCOSE, FASTING 80 MG/DL (60-100); POTASSIUM SERUM 4.3 MMOL/L (3.5-5.1); SODIUM LEVEL 141 MMOL/L (136-145)
[2022-09-19] MEDS: ENOXAPARIN 40MG/0.4ML SYRINGE (J1650 PER 10MG) SC SCH (09:00)
[2022-09-19] MEDS: NYSTATIN 500,000U/5ML SUSP UDC PO SCH (09:00)
[2022-09-19] MEDS: LACTOBACILLUS ACIDOPHILUS CAP (BACID) PO SCH (09:37)
[2022-09-19] MEDS: MAGNESIUM OXIDE 400MG TAB (MAG-OX) PO SCH (09:37)
[2022-09-19] MEDS: LINEZOLID 600MG TABLET (ZYVOX) PO SCH (09:37)
[2022-09-19] MEDS: PRENATAL VITAMINS CHEWABLE TABLET PO SCH (09:37)
[2022-09-19] MEDS: BENZOCAINE 10% 9GM TUBE (ANBESOL) MT SCH ×2 (09:38→12:37)
[2022-09-19 14:00] VITALS: BP 117/73
[2022-09-19] MEDS ORDERED: ACET1TAB55 PO (16:10)
[2022-09-19] MEDS ORDERED: MAGN400T2 PO (16:10)
[2022-09-19] MEDS ORDERED: LINE1TAB6 PO (16:10)
[2022-09-19] MEDS ORDERED: RISATAB3 PO (16:10)
== END 2022-09-19 17:10 | disposition home or self-care (01) | DRG 720 ==
LOC: M ED 21:55 → M ED INP 09-15 04:10 → M PED 09-15 05:48 → M ICU 09-15 12:46 → M MS5PR 09-17 01:05
PROVIDERS: ADMIT Internal Medicine; ATTEND Internal Medicine
DX: A41.9 Sepsis, unspecified organism (principal); D80.2 Selective deficiency of immunoglobulin A [IgA]; E83.42 Hypomagnesemia; E83.51 Hypocalcemia; I08.1 Rheumatic disorders of both mitral and tricuspid valves; K21.9 Gastro-esophageal reflux disease without esophagitis; K90.0 Celiac disease; M79.10 Myalgia, unspecified site; N61.0 Mastitis without abscess; K12.0 Recurrent oral aphthae; L27.0 Generalized skin eruption due to drugs and medicaments taken internally; Z88.2 Allergy status to sulfonamides; Z88.0 Allergy status to penicillin; Z88.8 Allergy status to other drugs, medicaments and biological substances; Z79.899 Other long term (current) drug therapy

== ENCOUNTER → 2022-10-28 | Outpatient (CLI) | payer BC ==
[~2022-10-28] MED LIST changes: +ACET-683 PO; +ACET-897 PO; +ACET1TAB55 PO; +IBUP-1730 PO; +IBUP80TA PO; +LINE1TAB6 PO; +MAGN400T2 PO; +NAPR-1010 PO; +NAPR220C14 PO; +RISATAB3 PO
== END ==
LOC: M PLARAD 09:32
PROVIDERS: ATTEND Physician Assistant
DX: R50.9 Fever, unspecified (principal); R10.2 Pelvic and perineal pain

== ENCOUNTER → 2022-11-15 | Outpatient (CLI) | payer BC, OTHER ==
[2022-11-15 14:01] LABS: BASO # 0.1 10^3/uL (0.0-0.2); BASO % 0.8 % (0.0-1.0); EOS # 0.2 10^3/uL (0.0-0.5); EOS % 2.1 % (0.0-3.0); HEMATOCRIT 42.7 % (36.0-47.0); HEMOGLOBIN 14.2 g/dl (12.0-15.5); LYMPH # 2.6 10^3/uL (1.5-5.0); LYMPH % 36.7 % (24.0-44.0); MEAN CORPUSCULAR HEMOGLOBIN 28.7 pg (27.0-33.0); MEAN CORPUSCULAR HGB CONC 33.3 g/dl (32.0-36.5); MEAN CORPUSCULAR VOLUME 86.3 fl (80.0-96.0); MONO # 0.4 10^3/uL (0.0-0.8); MONO % 5.3 % (2.0-8.0); PLATELET COUNT, AUTOMATED 209 10^3/uL (150-450); RED BLOOD COUNT 4.95 10^6/uL (4.00-5.40); WHITE BLOOD COUNT 7.2 10^3/uL (4.0-10.0)
[2022-11-15 14:16] LABS: LDH LACTATE DEHYDROGENASE 162 U/L (120-246)
[2022-11-15 14:17] LABS: IRON (FE) 40 UG/DL (50-170); PERCENT SATURATION 9.4 % (13.2-45.0); TOTAL IRON BINDING CAPACITY 426 UG/DL (250-425)
[2022-11-15 14:18] LABS: C REACTIVE PROTEIN QUANTITATIV < 0.40 MG/DL (<1.0)
[2022-11-15 14:19] LABS: FERRITIN 12.2 NG/ML (7.3-270.7); IMMUNOGLOBULIN A 62.6 MG/DL (40-350); IMMUNOGLOBULIN G 730 MG/DL (650-1600); IMMUNOGLOBULIN M 178.7 MG/DL (50-300)
[2022-11-15 14:32] LABS: HEPATITIS B SURFACE ANTIGEN NEGATIVE (NEGATIVE)
[2022-11-15 14:44] LABS: HIV SCREEN CENTAUR SOURCE NEGATIVE (NEGATIVE)
[2022-11-15 14:53] LABS: HEPATITIS B CORE ANTIBODY IGM NEGATIVE (NEGATIVE); HEPATITIS C VIRUS ABY INDEX 0.08 INDEX (<0.8)
[2022-11-16 23:07] LABS: HEPATITIS B CORE ANTIBODY IGG Negative (Negative); TISSUE TRANSGLUTAMINASE IgA <2 U/mL (0-3); TISSUE TRANSGLUTAMINASE IgG <2 U/mL (0-5)
== END ==
LOC: M PLALAB 12:14
PROVIDERS: ATTEND Internal Medicine Hematology
DX: D89.82 Autoimmune lymphoproliferative syndrome [ALPS] (principal); D76.3 Other histiocytosis syndromes; D81.9 Combined immunodeficiency, unspecified

== ENCOUNTER → 2022-12-15 | Outpatient (REF) | LOC: M EMP 09:07 | PROVIDERS: ATTEND Family Medicine | DX: Z11.52 Encounter for screening for COVID-19 (principal) ==

== ENCOUNTER → 2023-01-16 | Outpatient (CLI) | payer BC, OTHER | LOC: M WHC 12:55 | PROVIDERS: ATTEND Internal Medicine Hematology | DX: R59.1 Generalized enlarged lymph nodes (principal); D81.9 Combined immunodeficiency, unspecified ==

== ENCOUNTER → 2023-03-22 | Outpatient (REF) | LOC: M EMP 08:47 | PROVIDERS: ATTEND Family Medicine | DX: Z11.52 Encounter for screening for COVID-19 (principal) ==

== ENCOUNTER → 2023-06-08 | Outpatient (REF) | LOC: M EMP 10:01 | PROVIDERS: ATTEND Family Medicine | DX: Z11.52 Encounter for screening for COVID-19 (principal) ==

== ENCOUNTER → 2023-07-07 | Outpatient (REF) ==
[~2023-07-07] MED LIST changes: -LIDO15SO SS; +LIDO15SO8 SS
[2023-07-07 12:30] LABS: RSV AMPLIFICATION NEGATIVE (NEGATIVE)
== END ==
LOC: M EMP 10:45
PROVIDERS: ATTEND Family Medicine
DX: Z01.89 Encounter for other specified special examinations (principal)

== ENCOUNTER → 2023-10-23 | Outpatient (REF) | payer BC | LOC: M LAB REF 09:53 | PROVIDERS: ATTEND Student in an Organized Health Care Education/Training Program | DX: R30.0 Dysuria (principal) ==

== ENCOUNTER → 2023-12-15 | Outpatient (REF) | LOC: M EMP 12:42 | PROVIDERS: ATTEND Family Medicine | DX: Z11.52 Encounter for screening for COVID-19 (principal) ==

== ENCOUNTER → 2024-01-15 | Outpatient (REF) | LOC: M EMP 10:08 | PROVIDERS: ATTEND Family Medicine | DX: Z11.52 Encounter for screening for COVID-19 (principal) ==

== ENCOUNTER → 2024-02-01 | Outpatient (REF) | payer BC ==
[2024-02-01 17:30] LABS: BASO # 0.1 10^3/uL (0.0-0.2); EOS % 0.8 % (0.0-3.0); HEMATOCRIT 42.7 % (36.0-47.0); HEMOGLOBIN 14.4 g/dl (12.0-15.5); LYMPH # 2.2 10^3/uL (1.5-5.0); LYMPH % 44.4 % (24.0-44.0); MEAN CORPUSCULAR HEMOGLOBIN 29.8 pg (27.0-33.0); MEAN CORPUSCULAR HGB CONC 33.7 g/dl (32.0-36.5); MEAN CORPUSCULAR VOLUME 88.2 fl (80.0-96.0); MONO # 0.3 10^3/uL (0.0-0.8); MONO % 5.8 % (2.0-8.0); NEUTROPHILS # 2.3 10^3/uL (1.5-8.5); NEUTROPHILS % 47.8 % (36.0-66.0); PLATELET COUNT, AUTOMATED 165 10^3/uL (150-450); RED BLOOD COUNT 4.84 10^6/uL (4.00-5.40); WHITE BLOOD COUNT 4.8 10^3/uL (4.0-10.0)
[2024-02-01 18:08] LABS: IRON (FE) 110 UG/DL (50-170); PERCENT SATURATION 29.3 % (13.2-45.0); TOTAL IRON BINDING CAPACITY 375 UG/DL (250-425)
[2024-02-01 18:09] LABS: ALBUMIN 4.3 G/DL (3.2-5.2); ALKALINE PHOSPHATASE 45 U/L (46-116); ALT/SGPT 19 U/L (7.0-40); AST/SGOT 9 U/L (<34); BILIRUBIN,TOTAL 0.5 MG/DL (0.3-1.2); BLOOD UREA NITROGEN 19 MG/DL (9-23); CALCIUM LEVEL 9.4 MG/DL (8.5-10.1); CARBON DIOXIDE LEVEL 28 MMOL/L (20-31); CHLORIDE LEVEL 105 MMOL/L (98-107); CREATININE FOR GFR 0.67 MG/DL (0.55-1.30); FERRITIN 31.3 NG/ML (7.3-270.7); GLOMERULAR FILTRATION RATE > 60.0 (>60); GLUCOSE, FASTING 81 MG/DL (60-100); MAGNESIUM LEVEL 2.2 MG/DL (1.8-2.4); POTASSIUM SERUM 4.8 MMOL/L (3.5-5.1); SODIUM LEVEL 137 MMOL/L (136-145); THYROID STIMULATING HORMONE 0.975 uIU/ML (0.55-4.78); TOTAL PROTEIN 6.9 G/DL (5.7-8.2); VITAMIN B12 LEVEL 821 PG/ML (211-911)
[2024-02-01 18:12] LABS: FOLATE 9.9 NG/ML (>5.4)
== END ==
LOC: M SFHCCAPE 10:09
PROVIDERS: ATTEND Physician Assistant Medical
DX: Z00.00 Encounter for general adult medical examination without abnormal findings (principal); D50.9 Iron deficiency anemia, unspecified; K90.0 Celiac disease; R51.9 Headache, unspecified

== ENCOUNTER → 2024-02-06 | Outpatient (CLI) | payer BC | LOC: M RAD 07:12 | PROVIDERS: ATTEND Physician Assistant Medical | DX: R10.13 Epigastric pain (principal) ==

== ENCOUNTER → 2024-03-04 | Outpatient (REF) | payer BC ==
[2024-03-06 16:02] LABS: HPV APTIMA Not Detected (Not Detected)
== END ==
LOC: M PLALAB 09:49
PROVIDERS: ATTEND Obstetrics & Gynecology
DX: Z12.4 Encounter for screening for malignant neoplasm of cervix (principal)
CPT/HCPCS: 87624; G0123

== ENCOUNTER → 2025-02-13 | Outpatient (CLI) | payer BC ==
[2025-02-13 16:09] LABS: BASO # 0.1 10^3/uL (0.0-0.2); BASO % 0.6 % (0.0-1.0); EOS # 0.1 10^3/uL (0.0-0.5); EOS % 0.8 % (0.0-3.0); LYMPH # 2.7 10^3/uL (1.5-5.0); LYMPH % 24.6 % (24.0-44.0); MONO # 0.5 10^3/uL (0.0-0.8); MONO % 4.6 % (2.0-8.0); NEUTROPHILS # 7.6 10^3/uL (1.5-8.5); NEUTROPHILS % 69.1 % (36.0-66.0); PLATELET COUNT, AUTOMATED 226 10^3/uL (150-450)
[2025-02-13 16:15] LABS: ERYTHROCYTE SEDIMENTATION RATE 3 mm/hr (0-20)
[2025-02-13 16:31] LABS: ALT/SGPT 23 U/L (7.0-40); AST/SGOT 18 U/L (<34); C REACTIVE PROTEIN QUANTITATIV < 0.50 MG/DL (<1.0); CALCIUM LEVEL 10.0 MG/DL (8.5-10.1); CARBON DIOXIDE LEVEL 28 MMOL/L (20-31); CHLORIDE LEVEL 103 MMOL/L (98-107); CREATININE FOR GFR 0.76 MG/DL (0.55-1.30); GLOMERULAR FILTRATION RATE > 90.0 (>60); IRON (FE) 60 UG/DL (50-170); PERCENT SATURATION 17.2 % (13.2-45.0); POTASSIUM SERUM 4.1 MMOL/L (3.5-5.1); SODIUM LEVEL 140 MMOL/L (136-145)
[2025-02-13 16:32] LABS: TOTAL 25(OH) VITAMIN D 25.8 NG/ML (20.0-100.0)
[2025-02-13 16:33] LABS: FREE T4 1.15 NG/DL (0.89-1.76)
[2025-02-13 16:34] LABS: VITAMIN B12 LEVEL 656 PG/ML (211-911)
== END ==
LOC: M LAB 15:18
PROVIDERS: ATTEND Physician Assistant Medical
DX: D50.9 Iron deficiency anemia, unspecified (principal); K90.0 Celiac disease; R53.83 Other fatigue

== ENCOUNTER → 2025-04-30 | Outpatient (REF) | payer BC ==
[2025-05-03 11:42] LABS: HPV APTIMA Not Detected (Not Detected)
== END ==
LOC: M SFHCWAGY 16:26
PROVIDERS: ATTEND Physician Assistant
DX: Z12.4 Encounter for screening for malignant neoplasm of cervix (principal); Z77.9 Other contact with and (suspected) exposures hazardous to health
CPT/HCPCS: 87624; G0123